=== PATIENT | male | born 1940 | race Caucasian/White ===

== ENCOUNTER 2016-10-20 05:53 | Emergency (ER) | payer MEDICARE, OTHER ==
[~2016-10-20] VITALS: Ht 177.8 cm; Wt 100.0 kg
[~2016-10-20 05:53] MED LIST: COU5 PO
[2016-10-20 05:58] VITALS: Ht 177.8 cm; Wt 100.0 kg
[2016-10-20] MEDS ORDERED: morphine 2 MG INJ IV STA (07:10)
[2016-10-20 08:14] LABS: ADD SCAN DIFF NO
[2016-10-20 08:22] LABS: BASOPHILS % 0.4 % (0.0-2.0); EOSINOPHILS # 0.2 10^3/ul (0.0-0.5); EOSINOPHILS % 2.4 % (0.0-7.0); HEMATOCRIT 45.5 % (42.0-52.0); HEMOGLOBIN 15.1 g/dl (14.0-18.0); LYMPHOCYTES # 1.3 10^3/ul (0.8-2.9); LYMPHOCYTES % 19.6 % (15.0-51.0); MEAN CORPUSCULAR HEMOGLOBIN 30.2 pg (29.0-33.0); MEAN CORPUSCULAR HGB CONC 33.2 g/dl (32.0-37.0); MEAN PLATELET VOLUME 8.3 fl (7.4-10.4); MONOCYTE # 0.5 10^3/ul (0.3-0.9); MONOCYTES % 7.1 % (0.0-11.0); NEUTROPHIL # 4.7 10^3/ul (1.6-7.5); NEUTROPHILS % 69.9 % (39.0-77.0); PLATELET COUNT 310 10^3/UL (140-415); RED CELL DISTRIBUTION WIDTH 14.1 % (11.5-14.5); WHITE BLOOD COUNT 6.7 10^3/ul (4.8-10.8)
[2016-10-20 08:29] LABS: CREATININE 1.02 mg/dl (0.61-1.24)
[2016-10-20 08:30] LABS: CALCIUM 9.3 mg/dl (8.4-10.2)
[2016-10-20] MEDS ORDERED: ACET-2047 PO (08:38)
--- NOTE | 2016-10-20 08:38 | RADRPT ---
PROCEDURE: CT Abdomen and pelvis without contrast. CLINICAL INDICATION: Abdominal Pain TECHNIQUE: CT scan of the abdomen and pelvis with contrast was performed on a multidetector high-r esolution CT scan. . Coronal and sagittal reformatted images were obtained from the axial source i mages. Standard CT scan of the abdomen pelvis without contrast protocols were performed. The total exam CTDI equals 18.44 mGy and the total exam DLP equals 1210.27 mGy-cm. One or more of the following dose reduction techniques were used: - Automated exposure control. - Adjustment of the mA and/or kV according to patient size. Use of iterative reconstruction technique. COMPARISON: None FINDINGS: In the inferior right renal collecting system is a nonobstructing 3 mm calculus. No other urinary c alcified calculi. No hydronephrosis bilaterally. No evidence of intra renal masses bilaterally. T he urinary bladder is severely distended but otherwise unremarkable. There is a huge hiatal hernia present. The stomach is otherwise unremarkable. The small bowel is u nremarkable. There is extensive feces throughout the colon with the rectum and sigmoid colon signif icantly distended consistent with constipation. The large bowel is otherwise unremarkable. The brigitte endix is unremarkable. There is a large left fat containing inguinal hernia but no herniated hour st rangulation. There is a large right inguinal hernia containing fat and bowel but no evidence of str angulation . The liver spleen pancreas and adrenal glands are normal in size configuration without focal lesions. The gallbladder is unremarkable and there is no evidence of biliary ductal dilation. Negative for intra-abdominal free air free fluid abscesses or lymphadenopathy. There is atherosclerotic vascular disease of the abdominal aorta and branches but no evidence of ane urysm. There are parenchymal bands of both lung bases consistent with scarring. There are multiple right basilar subpleural calcified granulomas. Tiny left basilar calcified granuloma. No evidence of basilar pleural effusions. There is extensive degenerative changes of the lower thoracic and michael mbar spine. There are no acute osseous findings. No osteoblastic/osteolytic lesions. IMPRESSION: 1. Huge hiatal hernia. The stomach is otherwise unremarkable. 2. Huge right inguinal hernia containing fat and bowel but no evidence of strangulation. Large fat containing left inguinal hernia without strangulation. 3. 3 mm non-obstructing inferior right renal calculus. No other calcified urinary calculi or obstr uctive uropathy. 4. Severe constipation especially at the level of the rectosigmoid colon. 5. The urinary bladder is severely distended but otherwise appears unremarkable. 6. Negative for intra-abdominal free air fluid abscesses or lymphadenopathy. RPTAT:AAJJ Physician Lucy Date Time Electronically viewed and signed by Saturnino Christopher Physician on 10/20/2016 08:38 BM/
[2016-10-20] MEDS ORDERED: APIX5TAB PO (08:39)
[2016-10-20] MEDS ORDERED: BUME1TAB18 PO (08:39)
[2016-10-20] MEDS ORDERED: FINA5TAB4 PO (08:40)
[2016-10-20] MEDS ORDERED: GABA100C14 PO (08:40)
[2016-10-20 08:41] LABS: TROPONIN-I 0.02 ng/ml (0.00-0.12)
[2016-10-20] MEDS ORDERED: LORA1TAB PO (08:41)
[2016-10-20] MEDS ORDERED: MULTI PO (08:42)
[2016-10-20] MEDS ORDERED: MAGN400O4 PO ×2 (08:42→10:31)
[2016-10-20] MEDS ORDERED: HYDR-906 PO (08:43)
[2016-10-20] MEDS ORDERED: POTA20TA96 PO (08:43)
[2016-10-20] MEDS ORDERED: NIT4 SL (08:43)
[2016-10-20 09:30] LABS: ADD UMIC NO; URINE BILIRUBIN (Dip) NEGATIVE (NEGATIVE); URINE BLOOD (Dip) NEGATIVE (NEGATIVE); URINE COLOR LT. YELLOW (YELLOW); URINE GLUCOSE (Dip) NEGATIVE (NEGATIVE); URINE KETONES (Dip) NEGATIVE (NEGATIVE); URINE LEUKOCYTE ESTERASE (Dip) NEGATIVE (NEGATIVE); URINE NITRITE (Dip) NEGATIVE (NEGATIVE); URINE TOTAL PROTEIN (Dip) NEGATIVE (NEGATIVE); URINE UROBILINOGEN (Dip) 0.2 E.U./dL (0.1-1.0)
[2016-10-20] MEDS ORDERED: NA P133E5 RC (10:31)
[2016-10-20] MEDS ORDERED: HYDROCODONE/APAP (5/325) TAB PO ONE (11:30)
[2016-10-20 11:37] VITALS: BP 129/85; PULSE 59; RESP 21
--- NOTE | 2016-10-20 15:41 | ERD ---
ER Documentation Chief Complaint Date/Time DATE: 10/20/16 TIME: 15:34 Chief Complaint shoulder pain, sent from [facility] HPI 75-year-old male with a history of hypertension, atrial fibrillation, gouty arthritis and BPH sent from [facility] per patient request for evaluation. He is complaining of right shoulder pain on the lateral aspect of the right shoulder, worse with movement, better with rest. Per the report from the nursing facility, the patient was given Crapo at 10 PM last night, but refused his Crapo this morning and requested transfer to the ER. He states that yesterday he was using a wheelchair for the first time after which his whole body has been aching, especially his right shoulder. He denies any associated fevers or chills. No numbness or tingling in the arm or hand. He has no focal weakness. He also complains of left upper quadrant pain that started yesterday , described as aching, intermittent, nonradiating, without associated nausea, vomiting, diarrhea. He states he has occasional constipation. He denies chest pain or shortness of breath. ROS All systems reviewed and are negative except as per history of present illness. Medications Home Meds Active Scripts Na Phos,M-B/Na Phos,Di-Ba (ENEMA) 133 Ml Enema, 133 ML RC ONCE, #1 ENEMA Prov:MARIA G GIL MD 10/20/16 Magnesium Hydroxide* (Milk Of Magnesia*) 400 Mg/5 Ml Oral.susp, 30 ML PO Q24H for CONSTIPATION for 7 Days, #240 ML Prov:MARIA G GIL MD 10/20/16 Reported Medications Potassium Chloride* (Potassium Chloride*) 20 Meq Tablet.er, 20 MEQ PO DAILY, TAB.SA 10/20/16 Hydrocodone/Acetaminophen (Crapo 5-325 Tablet) 1 Each Tablet, 1 EACH PO Q6, TAB 10/20/16 Nitroglycerin* (Nitrostat*) 0.4 Mg Tab.subl, 0.4 MG SL Q5MIN Y for CHEST PAIN, BOTTLE 10/20/16 Multivitamins* (Theragran*) 1 Tab Tab, 1 TAB PO DAILY, TAB 10/20/16 Magnesium Hydroxide* (Milk Of Magnesia*) 400 Mg/5 Ml Oral.susp, 30 ML PO BID Y for CONSTIPATION, ML 10/20/16 Lorazepam* (Lorazepam*) 1 Mg Tablet, 1 MG PO BID Y for ANXIETY, #30 TAB 10/20/16 Gabapentin* (Gabapentin*) 100 Mg Capsule, 200 MG PO BID, #180 CAP 10/20/16 Finasteride* (Finasteride*) 5 Mg Tablet, 5 MG PO DAILY, TAB 10/20/16 Apixaban* (Eliquis*) 5 Mg Tablet, 5 MG PO BID, TAB 10/20/16 Bumetanide* (Bumetanide*) 1 Mg Tablet, 1 MG PO DAILY, TAB 10/20/16 Acetaminophen* (Acetaminophen*) 650 Mg Tablet, 650 MG PO Q6H Y for PAIN AND OR ELEVATED TEMP, #30 TAB 10/20/16 Discontinued Scripts Warfarin Sod (Coumadin) 5 Mg Tab, 5 MG PO DAILY@17 for 30 Days, #30 TAB Prov:MARKY TUTTLE Y 08/04/16 Allergies Allergies: Coded Allergies: codeine (Verified Allergy, Mild, PRURITIS, 05/01/16) pt claimed this was long time ago and was on Crapo recently with no problems. PMhx/Soc History of Surgery: Yes (see notes) Anesthesia Reaction: No Hx Neurological Disorder: No Hx Respiratory Disorders: Yes (copd) Hx Psychiatric Problems: No Hx Miscellaneous Medical Probl: Yes Hx Alcohol Use: No Hx Substance Use: No Hx Tobacco Use: No Smoking Status: Never smoker FmHx Family History: No diabetes Physical Exam Vitals Vital Signs Date Time Temp Pulse Resp B/P Pulse Ox O2 Delivery O2 Flow Rate FiO2 10/20/16 11:37 59 21 129/85 100 Room Air 10/20/16 09:59 60 22 146/89 100 Room Air 10/20/16 08:06 60 19 154/79 100 Room Air 10/20/16 07:07 62 16 130/73 100 Room Air 10/20/16 05:58 98.2 68 18 149/70 100 Physical Exam Const: Well-appearing, no apparent distress, nontoxic Head: Atraumatic Eyes: Normal Conjunctiva ENT: Normal External Ears, Nose and Mouth. Neck: Full range of motion..~ No meningismus. Resp: Clear to auscultation bilaterally Cardio: Regular rate and rhythm, no murmurs Abd: Soft, mild left upper quadrant tenderness, no rebound or guarding, non distended. Normal bowel sounds Skin: No petechiae or rashes Back: No midline or flank tenderness Ext: No cyanosis, or edema. Right upper extremity exam shows a normal shoulder inspection with tenderness over the posterior aspect of the joint and over the deltoid muscle. There are no obvious deformities. There is no erythema or swelling of the joint. The rest of his arm is normal with normal range of motion at the elbow, wrist, fingers. He is able to actively range his arm at the shoulder, however this is limited by pain, especially tries to lift his arm over his head. 2+ distal pulses. All other extremities normal. Neur: Awake and alert and oriented 3, moving all extremities, cranial nerves intact Psych: Normal Mood and Affect Result Diagram: 10/20/16 0753 10/20/16 0753 Results 24 hrs Laboratory Tests Test 10/20/16 07:53 10/20/16 08:59 Anion Gap 16 Basophils # 0.010^3/ul Basophils % 0.4% Blood Urea Nitrogen 20mg/dl Calcium Level 9.3mg/dl Carbon Dioxide Level 29mmol/L Chloride Level 103mmol/L Creatinine 1.02mg/dl Eosinophils # 0.210^3/ul Eosinophils % 2.4% Glucose Level 87mg/dl Hematocrit 45.5% Hemoglobin 15.1g/dl Lipase 41U/L Lymphocytes # 1.310^3/ul Lymphocytes % 19.6% Mean Corpuscular Hemoglobin 30.2pg Mean Corpuscular Hemoglobin Concent 33.2g/dl Mean Corpuscular Volume 91.0fl Mean Platelet Volume 8.3fl Monocytes # 0.510^3/ul Monocytes % 7.1% Neutrophils # 4.710^3/ul Neutrophils % 69.9% Nucleated Red Blood Cells # 0.010^3/ul Nucleated Red Blood Cells % 0.0/100WBC Platelet Count 29473^3/UL Potassium Level 4.0mmol/L Red Blood Count 5.0010^6/ul Red Cell Distribution Width 14.1% Sodium Level 144mmol/L Troponin I 0.020ng/ml White Blood Count 6.710^3/ul Urine Bilirubin NEGATIVE Urine Clarity CLEAR Urine Color LT. YELLOW Urine Glucose NEGATIVE% Urine Hemoglobin NEGATIVE Urine Ketones NEGATIVE Urine Leukocyte Esterase NEGATIVE Urine Nitrite NEGATIVE Urine Specific [place] 1.020 Urine Total Protein NEGATIVE Urine Urobilinogen 0.2 E.U./dL Urine pH 6.0 Current Medications Medications (Trade) Dose Ordered Sig/Terrence Route PRN Reason Start Time Stop Time Status Last Admin Dose Admin Morphine Sulfate (morphine) 2 mg ONCE STAT IV 10/20/16 07:10 10/20/16 07:12 DC 10/20/16 07:32 Acetaminophen/ Hydrocodone Bitart (Crapo (5/325)) 1 tab ONCE ONCE PO 10/20/16 11:30 10/20/16 11:31 DC Procedures/MDM EKG #1: Rate/Rhythm: Sinus rhythm with first-degree AV block QRS, ST, T-waves: No changes consistent w/ acute ischemia Impression: No evidence of ischemia or arrhythmia EKG #2: Rate/Rhythm: Sinus rhythm with first-degree AV block QRS, ST, T-waves: No changes consistent w/ acute ischemia Impression: No evidence of ischemia or arrhythmia Chest x-ray does not show any acute abnormalities CT abdomen and pelvis done which shows severe constipation and a large hiatal hernia without any acute abnormalities Patient is presenting with nonspecific left upper quadrant pain and right shoulder pain. He is hemodynamically stable and afebrile. There is no evidence of acute gout or septic joint. I suspect he likely strained his shoulder secondary to using the wheelchair yesterday. He is neurovascularly intact. CT showed severe constipation. Labs were normal. Urinalysis was normal. The patient stated that he did not want to go back to his facility and wanted to be admitted. I told him that there is no criteria that he meets for admission and his constipation and pain can be treated at his facility. I prescribed him milk of magnesia and an enema. I advised to continue his Crapo for his pain. I also advised follow-up with primary care physician tomorrow. Return precautions were given Patient discharged back to his facility in a stable condition Departure Diagnosis: Primary Impression: Constipation Constipation type: unspecified constipation type Qualified Code: K59.00 - Constipation, unspecified constipation type Additional Impression: Shoulder pain, right Chronicity: acute Qualified Code: M25.511 - Acute pain of right shoulder Condition: Stable Patient Instructions: Shoulder Problems, Constipation (Adult) MARIA G GIL MD Oct 20, 2016 15:41
== END 2016-10-20 11:39 | disposition home or self-care (01) ==
LOC: E/R 05:53
DX: K59.00 Constipation, unspecified (principal); J44.9 Chronic obstructive pulmonary disease, unspecified; I50.9 Heart failure, unspecified; I10 Essential (primary) hypertension; R40.2142 Coma scale, eyes open, spontaneous, at arrival to emergency department; R40.2252 Coma scale, best verbal response, oriented, at arrival to emergency department; R40.2362 Coma scale, best motor response, obeys commands, at arrival to emergency department; Z79.01 Long term (current) use of anticoagulants
CPT/HCPCS: 36415; 74176; 80048; 81003; 83690; 84484; 85025; 93005; 96374; 99285; J2270

== ENCOUNTER 2016-11-06 09:43 | Observation (INO) | payer MEDICARE, OTHER ==
[~2016-11-06] VITALS: Ht 167.6 cm; Wt 81.8 kg
[~2016-11-06 09:43] MED LIST changes: +ACET-2047 PO; +APIX5TAB PO; +BUME1TAB18 PO; -COU5 PO; +FINA5TAB4 PO; +GABA100C14 PO; +HYDR-906 PO; +LORA1TAB PO; +MAGN400O4 PO; +MULTI PO; +NA P133E5 RC; +NIT4 SL; +POTA20TA96 PO
[2016-11-06] MEDS ORDERED: NITROGLYCERIN 2% 1 GM OINT PKT TD STA (09:54)
[2016-11-06] MEDS ORDERED: ASPIRIN 81 MG TAB PO STA (09:54)
[2016-11-06] MEDS ORDERED: NITROGLYCERIN (SL) 0.4 MG TAB SL PRN (10:00)
[2016-11-06 10:36] LABS: ADD SCAN DIFF NO
[2016-11-06 10:38] LABS: BASOPHILS % 0.5 % (0.0-2.0); EOSINOPHILS # 0.1 10^3/ul (0.0-0.5); EOSINOPHILS % 1.5 % (0.0-7.0); HEMATOCRIT 43.5 % (42.0-52.0); HEMOGLOBIN 14.3 g/dl (14.0-18.0); LYMPHOCYTES # 1.1 10^3/ul (0.8-2.9); LYMPHOCYTES % 14.5 % (15.0-51.0); MEAN CORPUSCULAR HEMOGLOBIN 30.2 pg (29.0-33.0); MEAN CORPUSCULAR HGB CONC 32.9 g/dl (32.0-37.0); MEAN PLATELET VOLUME 8.3 fl (7.4-10.4); MONOCYTE # 0.7 10^3/ul (0.3-0.9); MONOCYTES % 9.1 % (0.0-11.0); NEUTROPHIL # 5.4 10^3/ul (1.6-7.5); NEUTROPHILS % 74.1 % (39.0-77.0); PLATELET COUNT 306 10^3/UL (140-415); RED BLOOD COUNT 4.73 10^6/ul (4.70-6.10); RED CELL DISTRIBUTION WIDTH 14.6 % (11.5-14.5); WHITE BLOOD COUNT 7.3 10^3/ul (4.8-10.8)
--- NOTE | 2016-11-06 10:47 | RADRPT ---
PROCEDURE: XR Chest. CLINICAL INDICATION: Chest pain TECHNIQUE: Chest AP portable COMPARISON: 07/31/2016 FINDINGS: The mediastinal structures are unremarkable. There is calcification of the thoracic aorta (consiste nt with atherosclerosis). The heart is normal in size and configuration. The pulmonary vascularity is normal. The lung saavedra are unremarkable. No consolidation is identified. The pleural spaces are unremarkable. The osseous structures are unremarkable. There is a large retrocardiac hiatal her bob. IMPRESSION: Calcification of the thoracic aorta (consistent with atherosclerosis). No evidence for active cardiopulmonary disease. RPTAT: HGDB .Delroy Khan MD, Date Time Electronically viewed and signed by .Delroy Khan MD, on 11/06/2016 10:47 .B/
[2016-11-06 10:50] LABS: INR 1.06; PROTIME 13.8 Sec (12.2-14.2); PT RATIO 1.1
[2016-11-06 11:14] LABS: CHLORIDE 102 mmol/L (97-110); SODIUM 141 mmol/L (135-144)
[2016-11-06 11:15] LABS: POTASSIUM 3.7 mmol/L (3.5-5.1)
[2016-11-06 11:17] LABS: CREATININE 1.01 mg/dl (0.61-1.24)
[2016-11-06 11:18] LABS: ANION GAP 17 (8-16); BLOOD UREA NITROGEN 15 mg/dl (7-20); CALCIUM 9.4 mg/dl (8.4-10.2); CARBON DIOXIDE 26 mmol/L (21-31); GLUCOSE 111 mg/dl (70-220)
[2016-11-06 11:30] LABS: TROPONIN-I < 0.012 ng/ml (0.00-0.12)
[2016-11-06] MEDS ORDERED: ONDANSETRON 4 MG INJ IV PRN ×2 (11:30→13:30)
[2016-11-06] MEDS ORDERED: ACETAMINOPHEN 325 MG TAB PO PRN ×3 (11:30→13:30)
--- NOTE | 2016-11-06 12:26 | ERA ---
ER Documentation Chief Complaint Date/Time DATE: 11/06/16 TIME: 12:22 [facility], took nitro x1, denies cp now HPI Patient is a 76-year-old male with atrial fibrillation and hypertension who presents with chest pain. The patient was brought in by ambulance. He came from an assisted living. The patient has chest pain and epigastric pain which he rates as a 7 out of 10. He took nitroglycerin and felt better. The pain is midsternal. He had high blood pressure as well. This started 45 minutes prior to the ambulance arriving. He has had this in the past. He says that his doctor used to be Dr. Baron but that he recently "fired Dr. Baron". Upon review of old medical records this the patient's ninth visit to the ER since 2005. He said that his primary doctor now is Dr. Menard. ROS All systems reviewed and are negative except as per history of present illness. Medications Home Meds Active Scripts Na Phos,M-B/Na Phos,Di-Ba (ENEMA) 133 Ml Enema, 133 ML RC ONCE, #1 ENEMA Prov:MARIA G GIL MD 10/20/16 Magnesium Hydroxide* (Milk Of Magnesia*) 400 Mg/5 Ml Oral.susp, 30 ML PO Q24H for CONSTIPATION for 7 Days, #240 ML Prov:MARIA G GIL MD 10/20/16 Reported Medications Potassium Chloride* (Potassium Chloride*) 20 Meq Tablet.er, 20 MEQ PO DAILY, TAB.SA 10/20/16 Hydrocodone/Acetaminophen ([place]wood 5-325 Tablet) 1 Each Tablet, 1 EACH PO Q6, TAB 10/20/16 Nitroglycerin* (Nitrostat*) 0.4 Mg Tab.subl, 0.4 MG SL Q5MIN Y for CHEST PAIN, BOTTLE 10/20/16 Multivitamins* (Theragran*) 1 Tab Tab, 1 TAB PO DAILY, TAB 10/20/16 Lorazepam* (Lorazepam*) 1 Mg Tablet, 1 MG PO BID Y for ANXIETY, #30 TAB 10/20/16 Gabapentin* (Gabapentin*) 100 Mg Capsule, 200 MG PO BID, #180 CAP 10/20/16 Finasteride* (Finasteride*) 5 Mg Tablet, 5 MG PO DAILY, TAB 10/20/16 Apixaban* (Eliquis*) 5 Mg Tablet, 5 MG PO BID, TAB 10/20/16 Bumetanide* (Bumetanide*) 1 Mg Tablet, 1 MG PO DAILY, TAB 10/20/16 Acetaminophen* (Acetaminophen*) 650 Mg Tablet, 650 MG PO Q6H Y for PAIN AND OR ELEVATED TEMP, #30 TAB 10/20/16 Discontinued Reported Medications Magnesium Hydroxide* (Milk Of Magnesia*) 400 Mg/5 Ml Oral.susp, 30 ML PO BID Y for CONSTIPATION, ML 10/20/16 Allergies Allergies: Coded Allergies: codeine (Verified Allergy, Mild, PRURITIS, 11/06/16) pt claimed this was long time ago and was on [place]wood recently with no problems. PMhx/Soc History of Surgery: Yes (see notes) Anesthesia Reaction: No Hx Neurological Disorder: Yes (anxiety) Hx Respiratory Disorders: Yes (copd) Hx Psychiatric Problems: Yes (delusion, anxiety ) Hx Miscellaneous Medical Probl: Yes (dm, dvt) Hx Alcohol Use: No Hx Substance Use: No Hx Tobacco Use: No Smoking Status: Unknown if ever smoked FmHx Family History: coronary disease Physical Exam Vitals Vital Signs Date Time Temp Pulse Resp B/P Pulse Ox O2 Delivery O2 Flow Rate FiO2 11/06/16 11:32 66 13 143/83 99 Room Air 11/06/16 09:46 98.2 93 20 152/0 99 Physical Exam Const: No acute distress Head: Atraumatic Eyes: Normal Conjunctiva ENT: Normal External Ears, Nose and Mouth. Neck: Full range of motion..~ No meningismus. Resp: Clear to auscultation bilaterally Cardio: Regular rate and rhythm, no murmurs Abd: Soft, non tender, non distended. Normal bowel sounds Skin: No petechiae or rashes Back: No midline or flank tenderness Ext: No cyanosis, or edema Neur: Awake and alert Psych: Normal Mood and Affect Result Diagram: 11/06/16 1026 11/06/16 1026 Results 24 hrs Laboratory Tests Test 11/06/16 10:26 White Blood Count 7.310^3/ul Red Blood Count 4.7310^6/ul Hemoglobin 14.3g/dl Hematocrit 43.5% Mean Corpuscular Volume 92.0fl Mean Corpuscular Hemoglobin 30.2pg Mean Corpuscular Hemoglobin Concent 32.9g/dl Red Cell Distribution Width 14.6% Platelet Count 04955^3/UL Mean Platelet Volume 8.3fl Neutrophils % 74.1% Lymphocytes % 14.5% Monocytes % 9.1% Eosinophils % 1.5% Basophils % 0.5% Nucleated Red Blood Cells % 0.0/100WBC Neutrophils # 5.410^3/ul Lymphocytes # 1.110^3/ul Monocytes # 0.710^3/ul Eosinophils # 0.110^3/ul Basophils # 0.010^3/ul Nucleated Red Blood Cells # 0.010^3/ul Prothrombin Time 13.8Sec Prothrombin Time Ratio 1.1 INR International Normalized Ratio 1.06 Activated Partial Thromboplast Time 38.0Sec Sodium Level 141mmol/L Potassium Level 3.7mmol/L Chloride Level 102mmol/L Carbon Dioxide Level 26mmol/L Anion Gap 17 Blood Urea Nitrogen 15mg/dl Creatinine 1.01mg/dl Glucose Level 111mg/dl Calcium Level 9.4mg/dl Troponin I < 0.012ng/ml Current Medications Medications (Trade) Dose Ordered Sig/Terrnece Route PRN Reason Start Time Stop Time Status Last Admin Dose Admin Aspirin (Aspirin) 162 mg ONCE STAT PO 11/06/16 09:54 11/06/16 10:53 DC 11/06/16 10:36 Nitroglycerin (Nitroglycerin 2% Oint) 1 inch ONCE STAT TD 11/06/16 09:54 11/06/16 10:53 DC 11/06/16 10:36 Nitroglycerin (Nitroglycerin (Sl Tab) 0.4 Mg) 1 tab Q5M UP TO 3 DOSES PRN SL CHEST PAIN 11/06/16 10:00 Ondansetron HCl (Zofran Inj) 4 mg ER BRIDGE PRN IV NAUSEA AND/OR VOMITING 11/06/16 11:30 11/07/16 11:29 Acetaminophen (Tylenol Tab) 650 mg ER BRIDGE PRN PO MILD PAIN/FEVER 11/06/16 11:30 11/07/16 11:29 Procedures/MDM EKG #1 read by me: Rate/Rhythm: First-degree AV block at a rate of 83 Intervals: Normal Impression: First-degree AV block without evidence of ischemia EKG #2 pending at this time. Chest x-ray negative for pneumonia or pneumothorax per radiology. Patient is a 68-year-old male with hypertension and a family history of coronary disease who presents with chest pain. I am concerned for potential acute coronary syndrome. The patient has a negative troponin at this time. His initial EKG shows a first-degree AV block but no signs of ST elevations or depressions. I doubt pneumonia, pneumothorax, pulmonary embolism, or aortic dissection. The patient will be admitted to the panel team as he has Medicare insurance and says that he recently "fired Dr. Baron". The patient will be admitted to a telemetry bed. Departure Diagnosis: Primary Impression: Chest pain Qualified Code: R07.9 - Chest pain, unspecified type Condition: EROS Brito MD Nov 06, 2016 12:26
[2016-11-06 12:52] VITALS: PULSE 60
[2016-11-06 13:25] VITALS: BP 131/85; PULSE 64; RESP 13
--- NOTE | 2016-11-06 13:29 | HP ---
Date/Time of Note Date/Time of Note DATE: 11/06/16 TIME: 13:25 Assessment/Plan VTE Prophylaxis VTE Prophylaxis Intervention: other (Eliquis) Lines/Catheters IV [facility] Saline Lock Assessment/Plan Chief Complaint/Hosp Course Impression and plan 1. Chest pain. Rule out ACS. Will trend serial troponins. Astronomy Department Chair consult will be obtained. Follow-up on echocardiogram. 2. History of CHF. Continue optimization with cardiovascular medications. Follow-up on echocardiogram and cont diuretic 3. History of atrial fibrillation. Continue on Eliquis for now. Will continue telemetry monitoring. Rate regular at this time 4. Deconditioning. Will get physical therapy to follow 5. Essential hypertension. Will continue on antihypertensives and adjust as needed Discussed plan of care with Dr. Paz Problems: HPI/ROS Admit Date/Time Admit Date/Time Hx of Present Illness This is a 68-year-old 76-year-old male with past medical history of CHF, fibrillation, BPH, hypertension, DVT of left lower extremity who came to [facility] due to reports of chest pain. According to the patient patient said to have chest pain after eating breakfast this morning. He did report the chest pain was midsternal with mild radiation to back. No shortness of breath or nausea or vomiting or any GI symptoms reported with this. He subsequently was brought from senior living facility to [facility] due to the aforementioned issues. Patient was noted with no leukocytosis. Afebrile. Initial troponin was negative. His vital signs otherwise appears stable. Currently he denies any chest pain. he does state having generalized weakness and difficulty with ambulation. We will evaluate him for the aformentiond issues ROS 12 point review of systems obtained and entirely negative except that mentioned in history of present illness PMH/Family/Social Past Medical History CHF, fibrillation, BPH, hypertension, DVT of left lower extremity, hypertension Past Surgical History Past Surgical Hx: no surgical history Social History Alcohol Use: none Smoking Status: Unknown if ever smoked Drug Use: none Exam/Review of Systems Vital Signs Vitals Vital Signs Date Time Temp Pulse Resp B/P Pulse Ox O2 Delivery O2 Flow Rate FiO2 11/06/16 12:52 60 11/06/16 11:32 13 143/83 99 Room Air 11/06/16 09:46 98.2 Exam Exam General: Comfortable at present. No apparent distress Eyes: Equal round reactive to light Neck: Supple nontender, no JVD Cardiac: S1-S2 auscultated Pulmonary: Clear to auscultation GI: Soft nontender nondistended Extremities: No obvious edema bilateral lower extremities Skin: Brownish discoloration of bilateral lower extremities likely secondary to venous stasis chronic Neurologic: AL O 4 Labs Result Diagram: 11/06/16 1026 11/06/16 1026 Medications Medications Current Medications Acetaminophen (Tylenol Tab) 650 mg Q6H PRN PO PAIN AND OR ELEVATED TEMP; Start 11/06/16 at 13:30; Status UNV Apixaban (Eliquis) 5 mg BID PO ; Start 11/06/16 at 21:00; Status UNV Bumetanide (Bumex) 1 mg DAILY PO ; Start 11/07/16 at 09:00; Status UNV Finasteride (Proscar) 5 mg DAILY PO ; Start 11/07/16 at 09:00; Status UNV Gabapentin (Neurontin) 200 mg BID PO ; Start 11/06/16 at 21:00; Status UNV Lorazepam (Ativan) 1 mg BID PRN PO ANXIETY; Start 11/06/16 at 13:30; Status UNV Magnesium Hydroxide (Milk Of Mag) 30 ml Q24H PO ; Start 11/06/16 at 13:30; Status UNV Multivitamins Therapeutic (Theragran) 1 tab DAILY PO ; Start 11/06/16 at 13:30; Status UNV Potassium Chloride (Klor-Con 20) 20 meq DAILY PO ; Start 11/07/16 at 09:00; Status UNV Ondansetron HCl (Zofran Inj) 4 mg Q6H PRN IV NAUSEA AND/OR VOMITING; Start 11/06 at 13:30; Status UNV Acetaminophen (Tylenol Tab) 650 mg Q6H PRN PO PAIN LEVEL 1-3 OR FEVER; Start at 13:30; Status UNV Acetaminophen (Tylenol Supp) 650 mg Q6H PRN ND PAIN LEVEL 1-3 OR FEVER; Start 11/06/16 at 13:30; Status UNV Morphine Sulfate (morphine) 2 mg Q4H PRN IV SEVERE PAIN LEVEL 7-10; Start at 13:30; Status UNV Docusate Sodium (Colace) 100 mg Q12H PRN PO CONSTIPATION; Start 11/06/16 at 13: 30; Status UNV Magnesium Hydroxide (Milk Of Mag) 30 ml DAILY PRN PO CONSTIPATION; Start at 13:30; Status UNV Bisacodyl (Dulcolax Supp) 10 mg DAILY PRN ND CONSTIPATION; Start 11/06/16 at 13: 30; Status UNV Famotidine (Pepcid Iv) 20 mg Q12 IV ; Start 11/06/16 at 21:00; Status UNV JIMBO WEN Nov 06, 2016 13:29
[2016-11-06] MEDS ORDERED: BISACODYL 10 MG SUPP PR PRN (13:30)
[2016-11-06] MEDS ORDERED: morphine 2 MG INJ IV PRN (13:30)
[2016-11-06] MEDS ORDERED: NACL 0.9% 3 ML SYG IV SCH (13:30)
[2016-11-06] MEDS ORDERED: LORAZEPAM 1 MG TAB PO PRN (13:30)
[2016-11-06] MEDS ORDERED: MAGNESIUM HYDROXIDE 30ML CUP PO PRN (13:30)
[2016-11-06] MEDS ORDERED: ACETAMINOPHEN 650 MG SUPP PR PRN (13:30)
[2016-11-06] MEDS ORDERED: DOCUSATE SODIUM 100 MG CAP PO PRN (13:30)
--- NOTE | 2016-11-06 14:36 | CONS ---
Date/Time of Note Date/Time of Note DATE: 11/06/16 TIME: 14:31 Assessment/Plan Assessment/Plan Additional Assessment/Plan Sharp chest pain Preserved ejection fraction Hypertension Paroxysmal atrial fibrillation currently sinus rhythm DVT on anticoagulation Bedbound -Patient with symptoms which began after eating, ECG without significant ischemic abnormalities, first set of cardiac enzymes are negative. Patient is on anticoagulation secondary to history of DVT as well as paroxysmal atrial fibrillation. Would repeat echocardiogram, check serial cardiac enzymes. Maintain on telemetry monitoring. Consultation Date/Type/Reason Admit Date/Time Type of Consultation: cv Reason for Consultation Chest pain Hx of Present Illness This is a 76-year-old male well-known to me from previous admissions with past medical history of paroxysmal atrial fibrillation, DVT, unfortunately bedbound who presents with chest pain. Patient states after eating breakfast this morning, he developed sharp chest pain above his xiphoid process. There was no associated shortness of breath but he did feel faint during this episode. Chest pain resolved after a few seconds to a minute. There was no shortness of breath. He felt better once he got to the emergency room as well. He denies any further episodes. He denies exertional chest pain or shortness of breath. Unfortunately he has been quite debilitated and is not ambulated in "a long time ". Denies any fevers or chills, cough, has occasional abdominal pain. Denies any worsening leg pain. 12 point review of systems was performed with all pertinent positives and negatives mentioned above and all else is negative Past Medical History Paroxysmal atrial fibrillation DVT Medical History: congestive heart failure, hypertension Past Surgical History Past Surgical Hx: no surgical history Family History Significant Family History: no pertinent family hx Social History Alcohol Use: none Smoking Status: Unknown if ever smoked Drug Use: none Other [facility] History [facility] Exam/Review of Systems Vital Signs Vitals Vital Signs Date Time Temp Pulse Resp B/P Pulse Ox O2 Delivery O2 Flow Rate FiO2 11/06/16 13:25 64 13 131/85 94 Room Air 11/06/16 09:46 98.2 Exam No apparent distress Constitutional: alert, oriented Head: normocephalic Neck: supple Respiratory: clear to auscultation, normal air movement Cardiovascular: other (S1-S2 heard), regular rate and rhythm, systolic murmur Gastrointestinal: bowel sounds, non-tender, other (No guarding), soft Extremities: other (Chronic venous stasis changes left lower extremity, trace edema) Results Result Diagram: 11/06/16 1026 11/06/16 1026 Results 24 hrs Laboratory Tests Test 11/06/16 10:26 White Blood Count 7.3 Red Blood Count 4.73 Hemoglobin 14.3 Hematocrit 43.5 Mean Corpuscular Volume 92.0 Mean Corpuscular Hemoglobin 30.2 Mean Corpuscular Hemoglobin Concent 32.9 Red Cell Distribution Width 14.6 H Platelet Count 306 Mean Platelet Volume 8.3 Neutrophils % 74.1 Lymphocytes % 14.5 L Monocytes % 9.1 Eosinophils % 1.5 Basophils % 0.5 Nucleated Red Blood Cells % 0.0 Neutrophils # 5.4 Lymphocytes # 1.1 Monocytes # 0.7 Eosinophils # 0.1 Basophils # 0.0 Nucleated Red Blood Cells # 0.0 Prothrombin Time 13.8 Prothrombin Time Ratio 1.1 INR International Normalized Ratio 1.06 Activated Partial Thromboplast Time 38.0 H Sodium Level 141 Potassium Level 3.7 Chloride Level 102 Carbon Dioxide Level 26 Anion Gap 17 H Blood Urea Nitrogen 15 Creatinine 1.01 Glucose Level 111 Calcium Level 9.4 Troponin I < 0.012 Medications Medications Current Medications Acetaminophen (Tylenol Tab) 650 mg Q6H PRN PO PAIN AND OR ELEVATED TEMP; Start 11/06/16 at 13:30 Apixaban (Eliquis) 5 mg BID PO ; Start 11/06/16 at 21:00; Status UNV Bumetanide (Bumex) 1 mg DAILY PO ; Start 11/07/16 at 09:00; Status UNV Finasteride (Proscar) 5 mg DAILY PO ; Start 11/07/16 at 09:00; Status UNV Gabapentin (Neurontin) 200 mg BID PO ; Start 11/06/16 at 21:00; Status UNV Lorazepam (Ativan) 1 mg BID PRN PO ANXIETY; Start 11/06/16 at 13:30 Magnesium Hydroxide (Milk Of Mag) 30 ml Q24H PO ; Start 11/06/16 at 13:30 Multivitamins Therapeutic (Theragran) 1 tab DAILY PO ; Start 11/06/16 at 13:30 Potassium Chloride (Klor-Con 20) 20 meq DAILY PO ; Start 11/07/16 at 09:00; Status UNV Ondansetron HCl (Zofran Inj) 4 mg Q6H PRN IV NAUSEA AND/OR VOMITING; Start 11/06 at 13:30 Acetaminophen (Tylenol Tab) 650 mg Q6H PRN PO PAIN LEVEL 1-3 OR FEVER; Start at 13:30; Status UNV Acetaminophen (Tylenol Supp) 650 mg Q6H PRN [place] PAIN LEVEL 1-3 OR FEVER; Start 11/06/16 at 13:30 Morphine Sulfate (morphine) 2 mg Q4H PRN IV SEVERE PAIN LEVEL 7-10; Start at 13:30 Docusate Sodium (Colace) 100 mg Q12H PRN PO CONSTIPATION; Start 11/06/16 at 13: 30 Magnesium Hydroxide (Milk Of Mag) 30 ml DAILY PRN PO CONSTIPATION; Start at 13:30 Bisacodyl (Dulcolax Supp) 10 mg DAILY PRN [place] CONSTIPATION; Start 11/06/16 at 13: 30 Famotidine (Pepcid Iv) 20 mg Q12 IV ; Start 11/06/16 at 21:00 Procedures Procedures ECG demonstrates sinus rhythm with first-degree AV block with OR interval 246 ms , QRS 86 ms, nonspecific STT wave abnormalities Mathew Wallace DO Nov 06, 2016 14:36
[2016-11-06] MEDS: MAGNESIUM HYDROXIDE 30ML CUP PO SCH (15:01)
[2016-11-06] MEDS: MULTIVITAMINS THERAPEUTIC TAB PO SCH (15:01)
[2016-11-06 16:08] LABS: CREATINE KINASE 30 IU/L (23-200)
[2016-11-06 16:37] LABS: TROPONIN-I < 0.012 ng/ml (0.00-0.12)
[2016-11-06 16:41] VITALS: PULSE 84
[2016-11-06 16:42] VITALS: BP 103/72; PULSE 84; RESP 15
[2016-11-06 19:05] VITALS: BP 109/66; PULSE 77; RESP 18
[2016-11-06] MEDS: FAMOTIDINE 20 MG INJ IV SCH (20:20)
[2016-11-06] MEDS: GABAPENTIN 100 MG CAP PO SCH (20:20)
[2016-11-06] MEDS: APIXABAN 5 MG TABLET PO SCH (20:20)
[2016-11-06 21:13] VITALS: PULSE 65
[2016-11-06 23:13] LABS: CREATINE KINASE 21 IU/L (23-200)
[2016-11-06 23:31] LABS: CK-MB 0.31 ng/ml (0.0-2.4); TROPONIN-I < 0.012 ng/ml (0.00-0.12)
[2016-11-07] VITALS (11 sets, daily range): BP systolic 103–139; BP diastolic 60–70; PULSE 55–78; RESP 18–20
[2016-11-07] MEDS: HYDROCODONE/APAP (5/325) TAB PO PRN ×2 (02:07→11:13)
[2016-11-07] MEDS ORDERED: ARTIFICIAL TEARS 15 ML OPH BOTH EYES PRN (05:30)
[2016-11-07 07:20] LABS: ALBUMIN 3.2 g/dl (3.3-4.9)
[2016-11-07 07:21] LABS: POTASSIUM 4.1 mmol/L (3.5-5.1)
[2016-11-07 07:23] LABS: ALBUMIN/GLOBULIN RATIO 1.06; BILIRUBIN,INDIRECT 0.4 mg/dl (0-1.1); BILIRUBIN,TOTAL 0.4 mg/dl (0.2-1.3); CREATININE 1.07 mg/dl (0.61-1.24); TOTAL PROTEIN 6.2 g/dl (6.1-8.1)
[2016-11-07 07:24] LABS: CALCIUM 8.6 mg/dl (8.4-10.2); MAGNESIUM 2.3 mg/dl (1.7-2.5); PHOSPHORUS 4.6 mg/dl (2.5-4.9)
[2016-11-07 07:25] LABS: CHOL/HDL RATIO 3.9 RATIO
[2016-11-07 07:37] LABS: T3 UPTAKE 37.1 % (23.5-40.5)
[2016-11-07 07:51] LABS: THYROID STIMULATING HORMONE 2.13 MIU/L (0.465-4.680)
[2016-11-07] MEDS: BUMETANIDE 1 MG TAB PO SCH (08:37)
[2016-11-07] MEDS: MULTIVITAMINS THERAPEUTIC TAB PO SCH (08:38)
[2016-11-07] MEDS: APIXABAN 5 MG TABLET PO SCH ×2 (08:38→20:48)
[2016-11-07] MEDS: GABAPENTIN 100 MG CAP PO SCH ×2 (08:38→20:49)
[2016-11-07] MEDS: FINASTERIDE 5 MG TAB PO SCH (08:38)
[2016-11-07] MEDS: FAMOTIDINE 20 MG INJ IV SCH ×2 (08:38→20:49)
[2016-11-07] MEDS: POTASSIUM CHLORIDE (SR) 20 MEQ TAB PO SCH (08:38)
[2016-11-07] MEDS: MAGNESIUM HYDROXIDE 30ML CUP PO SCH (13:30)
--- NOTE | 2016-11-07 15:33 | RADRPT ---
Echocardiogram Report Patient Name: BREANNA HERNANDEZ Gender: Male Date: 1940 Study Date: 07-Nov-2016 Lead Housekeeper: Kaden Danielson [facility] Location: [id number] Ref. Physician: JIMBO WEN Quality: Adequate Procedures: Transthoracic echocardiogram with complete 2D, M-Mode, and doppler examination. Indications: Chest Pain. 2D/M Mode Doppler Measurement Value Normal Ranges Measurement Value Normal Ranges LVIDd 2D 4.7 3.5 - 5.6 cm AV Peak Ronal 1.3 m/sec LVIDs 2D 2.3 2.1 - 4.1 cm AV Peak PG 7.0 mmHg LVPWd 2D 1.0 0.6 - 1.1 cm AI Peak PG 17.5 mmHg IVSd 2D 1.1 0.6 - 1.1 cm AI Peak Ronal 2.1 m/sec AoR Diam 2D 3.3 2.0 - 3.7 cm AI PHT 456.9 msec EDV 2D 102.9 cm3 LVOT Peak Ronal 1.0 m/sec ESV 2D 11.8 cm3 LVOT Peak PG 4.3 mmHg LA Dimen 2D 3.4 2.3 - 4.0 cm MV E Peak Ronal 0.6 m/sec MV A Peak Ronal 0.4 m/sec MV E/A 1.7 MV Decel Time 150 msec MV Decel Frio 4 MV E/A 1.7 TR Peak Ronal 2.0 m/sec TR Peak PG 16.8 mmHg RVSP 20.0 mmHg Findings Left Ventricle: Normal left ventricular systolic function. Normal left ventricular cavity size. Mild concentric left ventricular hypertrophy. Ejection fraction is visually estimated at 65 %. Right Ventricle: Normal right ventricular size. Normal right ventricular systolic function. Left Atrium: The left atrium is normal in size. Right Atrium: The right atrium is normal in size. Mitral Valve: Mitral valve leaflets appear mildly thickened. Mild mitral annular calcification. No mitral valve regurgitation is seen. Aortic Valve: No hemodynamically significant aortic stenosis by doppler. Aortic cusps appear mildly calcified. Mild aortic valve regurgitation. Tricuspid Valve: Normal appearance of the tricuspid valve. Estimated peak PA systolic pressure 20 mmHg. There is trace tricuspid regurgitation. Pulmonic Valve: Pulmonic valve not well visualized. Pericardium: Normal pericardium with no significant pericardial effusion. Aorta: Normal aortic root. IVC: Normal size and normal respiratory collapse consistent with normal right atrial pressure. Conclusions 1.Normal left ventricular systolic function. Normal left ventricular cavity size. Mild concentric left ventricular hypertrophy. Ejection fraction is visually estimated at 65 %. 2.Normal right ventricular size. Normal right ventricular systolic function. 3.The left atrium is normal in size. 4.The right atrium is normal in size. 5.No hemodynamically significant aortic stenosis by doppler. Aortic cusps appear mildly calcified. Mild aortic valve regurgitation. 6.No significant valvular stenosis or regurgitation seen of remaining visualized valves. 7.Normal pericardium with no significant pericardial effusion. Electronically Signed By: Mathew Wallace 07-Nov-2016 15:32:43 -0700 Patient Name: BREANNA HERNANDEZ Study Date: 07-Nov-2016 [id number]
--- NOTE | 2016-11-07 18:36 | CONS ---
Date/Time of Note Date/Time of Note DATE: 11/07/16 TIME: 18:34 Assessment/Plan Assessment/Plan Additional Assessment/Plan Sharp chest pain Preserved ejection fraction Hypertension Paroxysmal atrial fibrillation currently sinus rhythm DVT on anticoagulation Bedbound -Serial cardiac enzymes remain negative, no significant arrhythmias on telemetry , echocardiogram with preserved ejection fraction. Symptoms occurring after eating. Given atypical symptoms, negative enzymes and cardiac workup so far, no further inpatient cardiac workup needed at the current time Consultation Date/Type/Reason Admit Date/Time Nov 06, 2016 at 11:26 Initial Consult Date Type of Consultation: cv 24 HR Interval Summary Free Text/Dictation Patient denies shortness of breath currently. Brief episode of sharp discomfort this morning after breakfast. Otherwise feeling better. Exam/Review of Systems Vital Signs Vitals Vital Signs Date Time Temp Pulse Resp B/P Pulse Ox O2 Delivery O2 Flow Rate FiO2 11/07/16 16:22 78 11/07/16 15:55 99.1 18 106/67 98 11/07/16 04:15 Room Air Exam No apparent distress Constitutional: alert, oriented Head: normocephalic Neck: supple Respiratory: other (Coarse breath sounds bilaterally, no wheezing) Cardiovascular: other (S1-S2 heard), regular rate and rhythm Gastrointestinal: bowel sounds, non-tender, other (Guarding), soft Extremities: edema, other (No cyanosis) Results Result Diagram: 11/06/16 1026 11/07/16 0636 Results 24 hrs Laboratory Tests Test 11/06/16 22:45 11/07/16 06:36 Creatine Kinase 21 L Creatine Kinase Index 1.5 Creatinine Kinase MB (Mass) 0.31 Troponin I < 0.012 Sodium Level 138 Potassium Level 4.1 Chloride Level 105 Carbon Dioxide Level 28 Anion Gap 9 # Blood Urea Nitrogen 20 Creatinine 1.07 Glucose Level 89 Hemoglobin A1c 5.2 Calcium Level 8.6 Phosphorus Level 4.6 Magnesium Level 2.3 Total Bilirubin 0.4 Direct Bilirubin 0.00 Indirect Bilirubin 0.4 Aspartate Amino Transf (AST/SGOT) 19 Alanine Aminotransferase (ALT/SGPT) 20 Alkaline Phosphatase 101 Total Protein 6.2 Albumin 3.2 L Globulin 3.00 Albumin/Globulin Ratio 1.06 Triglycerides Level 81 Cholesterol Level 195 LDL Cholesterol, Calculated 129 HDL Cholesterol 50 Cholesterol/HDL Ratio 3.9 Thyroid Stimulating Hormone (TSH) 2.130 Free Thyroxine Index 3.08 Thyroxine (T4) 8.3 Triiodothyronine (T3) Uptake 37.1 Medications Medications Current Medications Acetaminophen (Tylenol Tab) 650 mg Q6H PRN PO PAIN AND OR ELEVATED TEMP; Start 11/06/16 at 13:30 Apixaban (Eliquis) 5 mg BID PO Last administered on 11/07/16 08:38; Admin Dose 5 MG; Start 11/06/16 at 21:00 Bumetanide (Bumex) 1 mg DAILY PO Last administered on 11/07/16 08:37; Admin Dose 1 MG; Start 11/07/16 at 09:00 Finasteride (Proscar) 5 mg DAILY PO Last administered on 11/07/16 08:38; Admin Dose 5 MG; Start 11/07/16 at 09:00 Gabapentin (Neurontin) 200 mg BID PO Last administered on 11/07/16 08:38; Admin Dose 200 MG; Start 11/06/16 at 21:00 Lorazepam (Ativan) 1 mg BID PRN PO ANXIETY; Start 11/06/16 at 13:30 Magnesium Hydroxide (Milk Of Mag) 30 ml Q24H PO Last administered on 11/06/16 15:01; Admin Dose 30 ML; Start 11/06/16 at 13:30 Multivitamins Therapeutic (Theragran) 1 tab DAILY PO Last administered on 08:38; Admin Dose 1 TAB; Start 11/06/16 at 13:30 Potassium Chloride (Klor-Con 20) 20 meq DAILY PO Last administered on 11/07/16 08:38; Admin Dose 20 MEQ; Start 11/07/16 at 09:00 Ondansetron HCl (Zofran Inj) 4 mg Q6H PRN IV NAUSEA AND/OR VOMITING; Start 11/06 at 13:30 Acetaminophen (Tylenol Supp) 650 mg Q6H PRN [place] PAIN LEVEL 1-3 OR FEVER; Start 11/06/16 at 13:30 Morphine Sulfate (morphine) 2 mg Q4H PRN IV SEVERE PAIN LEVEL 7-10 Last administered on 11/06/16 23:42; Admin Dose 2 MG; Start 11/06/16 at 13:30 Docusate Sodium (Colace) 100 mg Q12H PRN PO CONSTIPATION; Start 11/06/16 at 13: 30 Magnesium Hydroxide (Milk Of Mag) 30 ml DAILY PRN PO CONSTIPATION; Start at 13:30 Bisacodyl (Dulcolax Supp) 10 mg DAILY PRN [place] CONSTIPATION; Start 11/06/16 at 13: 30 Famotidine (Pepcid Iv) 20 mg Q12 IV Last administered on 11/07/16 08:38; Admin Dose 20 MG; Start 11/06/16 at 21:00 Acetaminophen/ Hydrocodone Bitart ([place] (5/325)) 1 tab Q6H PRN PO pain Last administered on 11/07/16 11:13; Admin Dose 1 TAB; Start 11/07/16 at 02:00 Eye Lubricant (Artificial Tears Oph) 2 drop Q6H PRN BOTH EYES DRY EYES; Start 11/07/16 at 05:30 Mathew Wallace DO Nov 07, 2016 18:36
--- NOTE | 2016-11-07 19:10 | PN ---
DATE: 11/07/2016 TIME OF EVALUATION: 1500 SUBJECTIVE DATA: Denies any chest pain. The patient earlier refused physical therapy. OBJECTIVE DATA: VITAL SIGNS: Temperature 99.1, pulse 70, respiratory rate 18, blood pressure 106/67, oxygen saturation 98% on room air. GENERAL: This is an elderly male lying in bed in no apparent distress. HEENT: Head normocephalic and atraumatic. Eyes: Anicteric sclerae. Conjunctivae clear. ENT: Nasal septum is midline. Oral mucosa is moist. NECK: Supple. No JVD noticed. RESPIRATORY: Bilaterally clear to auscultation. No adventitious breath sounds. No use of accessory muscles of respiration. CARDIAC: Regular rate and rhythm. Systolic murmur heard. ABDOMEN: Soft, nontender and nondistended. Bowel sounds positive in all 4 quadrants. GENITOURINARY: Deferred. EXTREMITIES: No cyanosis, no clubbing. Trace pretibial edema bilaterally. Chronic venous stasis changes of the left lower extremity. NEUROLOGIC: The patient is awake and alert. Oriented 2-3. Grandiose delusions. LABORATORY DATA AND DIAGNOSTIC DATA: Sodium 138, potassium 4.1, chloride 105, carbon dioxide 28, anion gap 9, BUN 20, creatinine 1.07, glucose 89, calcium 8.6 , phosphorus 4.6, magnesium 2.3. ASSESSMENT AND PLAN: 1. Chest pain. Serial troponins negative. 2D echocardiogram showed preserved left ventricular ejection fraction. Cardiology following. 2. Essential hypertension. Continue antihypertensives. Blood pressure fairly well controlled. 3. Paroxysmal atrial fibrillation. Currently in sinus rhythm. The patient being followed by Cardiology. 4. History of left lower extremity superficial femoral vein thrombosis on 07/31. The patient currently on anticoagulation with factor Xa inhibitors. 5. Bed bound. Physical therapy evaluation ordered. However, the patient refused physical therapy evaluation today. 6. Benign prostatic hypertrophy. Continue Proscar. 7. Fluid, electrolytes and nutrition. Low-cholesterol diet. 8. Deep venous thrombosis prophylaxis. On Eliquis. 9. Gastrointestinal prophylaxis. On histamine-2 receptor blockers. 10. Plan: Continue inpatient monitoring. Await cardiac clearance before discharge. Case discussed with Dr. Clark. ANA LAURA CLARK MD, AM/JENNIFER Conf#: [id number] DID#: [id number] [facility]
[2016-11-08] VITALS (10 sets, daily range): BP systolic 113–134; BP diastolic 59–75; PULSE 55–65; RESP 18–20
[2016-11-08 07:20] LABS: ADD SCAN DIFF NO
[2016-11-08 07:26] LABS: BASOPHILS % 0.6 % (0.0-2.0); EOSINOPHILS # 0.2 10^3/ul (0.0-0.5); EOSINOPHILS % 2.9 % (0.0-7.0); HEMATOCRIT 41.3 % (42.0-52.0); HEMOGLOBIN 13.4 g/dl (14.0-18.0); LYMPHOCYTES # 1.5 10^3/ul (0.8-2.9); LYMPHOCYTES % 22.2 % (15.0-51.0); MEAN CORPUSCULAR HEMOGLOBIN 30.5 pg (29.0-33.0); MEAN CORPUSCULAR HGB CONC 32.4 g/dl (32.0-37.0); MEAN CORPUSCULAR VOLUME 94.1 fl (82.0-101.0); MEAN PLATELET VOLUME 8.5 fl (7.4-10.4); MONOCYTE # 0.7 10^3/ul (0.3-0.9); MONOCYTES % 10.1 % (0.0-11.0); NEUTROPHIL # 4.2 10^3/ul (1.6-7.5); NEUTROPHILS % 63.9 % (39.0-77.0); PLATELET COUNT 273 10^3/UL (140-415); RED BLOOD COUNT 4.39 10^6/ul (4.70-6.10); RED CELL DISTRIBUTION WIDTH 14.6 % (11.5-14.5); WHITE BLOOD COUNT 6.5 10^3/ul (4.8-10.8)
[2016-11-08] MEDS: HYDROCODONE/APAP (5/325) TAB PO PRN (07:48)
[2016-11-08 07:49] LABS: MAGNESIUM 2.2 mg/dl (1.7-2.5); PHOSPHORUS 4.4 mg/dl (2.5-4.9)
[2016-11-08 07:57] LABS: POTASSIUM 4.3 mmol/L (3.5-5.1)
[2016-11-08 07:59] LABS: CREATININE 1.02 mg/dl (0.61-1.24)
[2016-11-08] MEDS: FAMOTIDINE 20 MG INJ IV SCH (09:04)
[2016-11-08] MEDS: FINASTERIDE 5 MG TAB PO SCH (09:04)
[2016-11-08] MEDS: MULTIVITAMINS THERAPEUTIC TAB PO SCH (09:04)
[2016-11-08] MEDS: BUMETANIDE 1 MG TAB PO SCH (09:04)
[2016-11-08] MEDS: GABAPENTIN 100 MG CAP PO SCH (09:04)
[2016-11-08] MEDS: POTASSIUM CHLORIDE (SR) 20 MEQ TAB PO SCH (09:04)
[2016-11-08] MEDS: APIXABAN 5 MG TABLET PO SCH (09:04)
--- NOTE | 2016-11-08 11:44 | PDOCDIS ---
Discharge Instructions DIAGNOSIS Discharge Diagnosis: Chest pain. ACS ruled out. CONDITION Patient Condition: Stable HOME CARE INSTRUCTIONS: Diet Instructions: Low Fat /CholesterolSpecial Diet: low fat, low cholesterol OTHER ORDERS: Other Orders: 1. Medications as per medication list. 2. Low-cholesterol diet. ANA LAURA SOMERS NP Nov 08, 2016 11:43
--- NOTE | 2016-11-08 12:49 | CONS ---
Date/Time of Note Date/Time of Note DATE: 11/08/16 TIME: 12:46 Assessment/Plan Assessment/Plan Additional Assessment/Plan Sharp chest pain Preserved ejection fraction Hypertension Paroxysmal atrial fibrillation currently sinus rhythm DVT on anticoagulation Bedbound -denies further cp/sob. Cardiac w/u negative so far, no further inpt cardiac w/ u needed at the current time. Consultation Date/Type/Reason Admit Date/Time Nov 06, 2016 at 11:26 Type of Consultation: cv 24 HR Interval Summary Free Text/Dictation pt denies further cp,sob. c/o R elbow pain with movements Exam/Review of Systems Vital Signs Vitals Vital Signs Date Time Temp Pulse Resp B/P Pulse Ox O2 Delivery O2 Flow Rate FiO2 11/08/16 12:20 97.9 64 18 113/63 100 11/08/16 03:29 2.0 11/07/16 04:15 Room Air Intake and Output 11/07/16 11/07/16 11/08/16 15:00 23:00 07:00 Intake Total 250 ml 1200 ml 500 ml Output Total 975 ml 800 ml Balance 250 ml 225 ml -300 ml Exam nad Constitutional: alert, oriented Head: normocephalic Respiratory: clear to auscultation, normal air movement Cardiovascular: other (s1s2), regular rate and rhythm Gastrointestinal: bowel sounds, non-tender, other (no guarding), soft Extremities: edema (trace), other Results Result Diagram: 11/08/16 0620 11/08/16 0620 Results 24 hrs Laboratory Tests Test 11/08/16 06:20 White Blood Count 6.5 Red Blood Count 4.39 L Hemoglobin 13.4 L Hematocrit 41.3 L Mean Corpuscular Volume 94.1 Mean Corpuscular Hemoglobin 30.5 Mean Corpuscular Hemoglobin Concent 32.4 Red Cell Distribution Width 14.6 H Platelet Count 273 Mean Platelet Volume 8.5 Neutrophils % 63.9 Lymphocytes % 22.2 Monocytes % 10.1 Eosinophils % 2.9 Basophils % 0.6 Nucleated Red Blood Cells % 0.0 Neutrophils # 4.2 Lymphocytes # 1.5 Monocytes # 0.7 Eosinophils # 0.2 Basophils # 0.0 Nucleated Red Blood Cells # 0.0 Sodium Level 137 Potassium Level 4.3 Chloride Level 103 Carbon Dioxide Level 28 Anion Gap 10 Blood Urea Nitrogen 22 H Creatinine 1.02 Glucose Level 90 Calcium Level 9.0 Phosphorus Level 4.4 Magnesium Level 2.2 Medications Medications Current Medications Acetaminophen (Tylenol Tab) 650 mg Q6H PRN PO PAIN AND OR ELEVATED TEMP; Start 11/06/16 at 13:30 Apixaban (Eliquis) 5 mg BID PO Last administered on 11/08/16 09:04; Admin Dose 5 MG; Start 11/06/16 at 21:00 Bumetanide (Bumex) 1 mg DAILY PO Last administered on 11/08/16 09:04; Admin Dose 1 MG; Start 11/07/16 at 09:00 Finasteride (Proscar) 5 mg DAILY PO Last administered on 11/08/16 09:04; Admin Dose 5 MG; Start 11/07/16 at 09:00 Gabapentin (Neurontin) 200 mg BID PO Last administered on 11/08/16 09:04; Admin Dose 200 MG; Start 11/06/16 at 21:00 Lorazepam (Ativan) 1 mg BID PRN PO ANXIETY; Start 11/06/16 at 13:30 Magnesium Hydroxide (Milk Of Mag) 30 ml Q24H PO Last administered on 11/06/16 15:01; Admin Dose 30 ML; Start 11/06/16 at 13:30 Multivitamins Therapeutic (Theragran) 1 tab DAILY PO Last administered on 09:04; Admin Dose 1 TAB; Start 11/06/16 at 13:30 Potassium Chloride (Klor-Con 20) 20 meq DAILY PO Last administered on 11/08/16 09:04; Admin Dose 20 MEQ; Start 11/07/16 at 09:00 Ondansetron HCl (Zofran Inj) 4 mg Q6H PRN IV NAUSEA AND/OR VOMITING; Start 11/06 at 13:30 Acetaminophen (Tylenol Supp) 650 mg Q6H PRN [place] PAIN LEVEL 1-3 OR FEVER; Start 11/06/16 at 13:30 Morphine Sulfate (morphine) 2 mg Q4H PRN IV SEVERE PAIN LEVEL 7-10 Last administered on 11/06/16 23:42; Admin Dose 2 MG; Start 11/06/16 at 13:30 Docusate Sodium (Colace) 100 mg Q12H PRN PO CONSTIPATION; Start 11/06/16 at 13: 30 Magnesium Hydroxide (Milk Of Mag) 30 ml DAILY PRN PO CONSTIPATION; Start at 13:30 Bisacodyl (Dulcolax Supp) 10 mg DAILY PRN [place] CONSTIPATION; Start 11/06/16 at 13: 30 Famotidine (Pepcid Iv) 20 mg Q12 IV Last administered on 11/08/16 09:04; Admin Dose 20 MG; Start 11/06/16 at 21:00 Acetaminophen/ Hydrocodone Bitart ([place] (5/325)) 1 tab Q6H PRN PO pain Last administered on 11/08/16 07:48; Admin Dose 1 TAB; Start 11/07/16 at 02:00 Eye Lubricant (Artificial Tears Oph) 2 drop Q6H PRN BOTH EYES DRY EYES; Start 11/07/16 at 05:30 Mathew Wallace DO Nov 08, 2016 12:49
[2016-11-08] MEDS: MAGNESIUM HYDROXIDE 30ML CUP PO SCH (14:18)
--- NOTE | 2016-11-08 17:46 | DS ---
DATE OF ADMISSION: 11/06/2016 DATE OF DISCHARGE: 11/08/2016 FINAL DIAGNOSES: 1. Chest pain. Acute coronary syndrome ruled out. 2. Essential hypertension. 3. Paroxysmal atrial fibrillation. 4. History of left lower extremity deep venous thrombosis. 5. Bedbound status. 6. Benign prostatic hypertrophy. CONSULTATIONS: Dr. Mathew Wallace, Cardiology. HOSPITAL COURSE: This is a 76-year-old male with past medical history of bipolar, congestive heart failure, paroxysmal atrial fibrillation, benign prostatic hypertrophy, essential hypertension and DVT of the left lower extremity. He came to [facility] due to reports of chest pain. According to the patient, he started having chest pain after he ate his breakfast on the day of admission. He denied any shortness of breath, nausea, or vomiting. He was subsequently brought from [facility] facility to [facility] for further evaluation. The patient was admitted to inpatient setting for further treatment and evaluation. Cardiology consult was also obtained and serial troponins were ordered. A 2D echocardiogram was obtained. The patient's chest pain was extensively evaluated. The patient's serial troponins remained negative. The patient's 2D echocardiogram showed preserved left ventricular ejection fraction. The patient's chest pain is noncardiac in origin. The patient has history of paroxysmal atrial fibrillation. The patient remained in normal sinus rhythm throughout the patient's hospital course. The patient was maintained on factor Xa inhibitors for stroke prophylaxis for his history of paroxysmal atrial fibrillation. The patient has history of left lower extremity DVT. The patient has underlying essential hypertension. The patient is on antihypertensives. He has underlying benign prostatic hypertrophy. He was maintained on finasteride for the same. The patient is chronically bedbound with unclear etiology. The patient refused to have a physical therapy evaluation. The patient had a stable hospital course. The patient was cleared by still cleaner tube for discharge. The patient denied any complaints at the time of discharge. DISCHARGE DISPOSITION/ PLAN: The patient will be discharged to [facility]. The patient will take a low-cholesterol diet. Medications will be as per medication list. CONDITION AT DISCHARGE: Stable. DISCHARGE PHYSICAL EXAMINATION GENERAL: This is an elderly male lying in bed in no apparent distress. HEENT: Head normocephalic and atraumatic. Eyes: Anicteric sclerae. Conjunctivae clear. ENT: Nasal septum is midline. Oral mucosa is moist. NECK: Supple. No JVD noticed. RESPIRATORY: Bilaterally clear to auscultation. No adventitious breath sounds. No use of accessory muscles of respiration. CARDIAC: Regular rate and rhythm. Systolic murmur heard. ABDOMEN: Soft, nontender and nondistended. Bowel sounds positive in all 4 quadrants. GENITOURINARY: Deferred. EXTREMITIES: No cyanosis, no clubbing. Trace pretibial edema bilaterally. Chronic venous stasis changes of the left lower extremity. NEUROLOGIC: The patient is awake and alert. Oriented 2-3. Grandiose delusions. DISCHARGE MEDICATIONS: 1. Eliquis 5 mg p.o. b.i.d. 2. Bumex 100 mg p.o. daily. 3. Finasteride 5 mg p.o. daily. 4. Gabapentin 200 mg p.o. b.i.d. 5. Lorazepam 1 mg p.o. b.i.d. p.r.n. anxiety. 6. Potassium chloride 20 mEq p.o. daily. PERTINENT LABORATORY AND DIAGNOSTIC DATA: 1. 2D echocardiogram. Normal left ventricular systolic function. Normal left ventricular cavity size. Mild concentric left ventricular hypertrophy. Ejection fraction is visually estimated at 55%. 2. Latest CBC: WBC 6.5, hemoglobin 13.4, hematocrit 41.3, platelet count 217 3. Latest BMP: Sodium 137, potassium 4.3, chloride 100, carbon dioxide 28, anion gap 10, BUN 22, creatinine 1.7, glucose 90, calcium 9.0, phosphorus 4.4, magnesium 2.0. 4. Hemoglobin A1c of 5.2. 5. Fasting lipid panel: Triglycerides 81, total cholesterol 195, LDL 129, HDL 53. 6. Chest x-ray, normal. No evidence of active cardiopulmonary disease. At this time, I would like to thank Dr. Wallace for seeing the patient and providing clinical recommendations. The case and management of this patient was fully discussed with Dr. Clark. Approximately 35 minutes was spent on coordinating the discharge on this patient 's. ANA LAURA CLARK MD, AM/JENNIFER Conf#: [id number] DID#: [id number] [facility]
[2016-11-08] MEDS ORDERED: FAMOTIDINE 20 MG TAB PO SCH (21:00)
== END 2016-11-08 19:00 ==
LOC: E/R 09:43 → MS4 11:26
PROVIDERS: ADMIT Hospitalist; ATTEND Hospitalist
DX: R07.89 Other chest pain (principal); I48.0 Paroxysmal atrial fibrillation; N40.0 Benign prostatic hyperplasia without lower urinary tract symptoms; I50.32 Chronic diastolic (congestive) heart failure; I11.0 Hypertensive heart disease with heart failure; Z79.899 Other long term (current) drug therapy; Z86.718 Personal history of other venous thrombosis and embolism; Z74.01 Bed confinement status
CPT/HCPCS: 36415; 71010; 80048; 80053; 80061; 82550; 82553; 83036; 83735; 84100; 84436; 84443; 84479; 84484; 85025; 85610; 85730; 93005; 93306; 96374; 96375; 99285; G0378; J2270

== ENCOUNTER 2016-11-22 11:30 | Inpatient (IN) | payer MEDICARE, OTHER ==
[~2016-11-22] VITALS: Ht 177.8 cm; Wt 78.1 kg
[2016-11-22] MEDS ORDERED: ASPIRIN 325 MG TAB PO STA (11:37)
[2016-11-22] MEDS: NITROGLYCERIN (SL) 0.4 MG TAB SL PRN (11:46)
[2016-11-22 12:02] LABS: ADD SCAN DIFF NO
[2016-11-22 12:10] LABS: BASOPHILS % 0.4 % (0.0-2.0); EOSINOPHILS # 0.1 10^3/ul (0.0-0.5); EOSINOPHILS % 1.9 % (0.0-7.0); HEMATOCRIT 44.8 % (42.0-52.0); HEMOGLOBIN 14.6 g/dl (14.0-18.0); LYMPHOCYTES # 1.7 10^3/ul (0.8-2.9); LYMPHOCYTES % 24.7 % (15.0-51.0); MEAN CORPUSCULAR HEMOGLOBIN 29.9 pg (29.0-33.0); MEAN CORPUSCULAR HGB CONC 32.6 g/dl (32.0-37.0); MEAN CORPUSCULAR VOLUME 91.6 fl (82.0-101.0); MEAN PLATELET VOLUME 8.4 fl (7.4-10.4); MONOCYTE # 0.7 10^3/ul (0.3-0.9); MONOCYTES % 10.9 % (0.0-11.0); NEUTROPHIL # 4.2 10^3/ul (1.6-7.5); NEUTROPHILS % 61.8 % (39.0-77.0); PLATELET COUNT 303 10^3/UL (140-415); RED BLOOD COUNT 4.89 10^6/ul (4.70-6.10); RED CELL DISTRIBUTION WIDTH 13.9 % (11.5-14.5); WHITE BLOOD COUNT 6.8 10^3/ul (4.8-10.8)
[2016-11-22 12:13] LABS: ALBUMIN 3.7 g/dl (3.3-4.9); CHLORIDE 103 mmol/L (97-110); SODIUM 141 mmol/L (135-144)
[2016-11-22 12:14] LABS: POTASSIUM 3.3 mmol/L (3.5-5.1)
[2016-11-22 12:16] LABS: ALBUMIN/GLOBULIN RATIO 1.12; ALKALINE PHOSPHATASE 109 IU/L (42-121); ANION GAP 16 (8-16); ASPARTATE AMINO TRANSFERASE 19 IU/L (15-46); BILIRUBIN,INDIRECT 0.4 mg/dl (0-1.1); BILIRUBIN,TOTAL 0.4 mg/dl (0.2-1.3); BLOOD UREA NITROGEN 16 mg/dl (7-20); CARBON DIOXIDE 25 mmol/L (21-31); CREATININE 1.07 mg/dl (0.61-1.24)
[2016-11-22 12:17] LABS: ALANINE AMINOTRANSFERASE 23 IU/L (13-69); CALCIUM 9.1 mg/dl (8.4-10.2); GLUCOSE 129 mg/dl (70-220)
[2016-11-22 12:25] LABS: INR 1.27; PARTIAL THROMBOPLASTIN TIME 35.2 Sec (25.0-35.0); PT RATIO 1.3
[2016-11-22 12:30] LABS: TROPONIN-I < 0.012 ng/ml (0.00-0.12)
--- NOTE | 2016-11-22 13:13 | RADRPT ---
PROCEDURE: XR Chest. CLINICAL INDICATION: Chest pain. TECHNIQUE: PA and Lateral views of the chest were obtained. COMPARISON: Chest x-rays 11/06/2016 10:36 a.m. FINDINGS: The soft tissues are normal. There are degenerative osteophytes in the thoracic spine. The heart i s upper limits of normal for size. There is a density projecting through the left heart border. Th e cardiomediastinal silhouette and hilar structures are normal. The pulmonary vasculature is normal. There is a less aorta. The lungs are mildly hyperinflated flattening the left diaphragm. There is a plate-like density adjacent to the left costophrenic angle and lower left heart border. The costo phrenic angles are normal. IMPRESSION: 1. Stable chest x-ray with no evidence of active cardiopulmonary disease. 2. Moderate size hiatal hernia. 3. Spondylosis of the thoracic spine. 4. Atherosclerosis of the aortic arch. 5. Plate-like densities consistent with parenchymal scarring or atelectasis in the left lower lung field. RPTAT:AAJJ Physician Vesna Date Time Electronically viewed and signed by Physician Vesna on 11/22/2016 13:13 CARA/
[2016-11-22] MEDS ORDERED: ONDANSETRON 4 MG INJ IV PRN (13:30)
[2016-11-22] MEDS ORDERED: ACETAMINOPHEN 325 MG TAB PO PRN ×2 (13:30→18:30)
[2016-11-22 13:32] VITALS: TEMP 97.9
--- NOTE | 2016-11-22 13:32 | ERA ---
ER Documentation Chief Complaint Date/Time DATE: 11/22/16 TIME: 13:29 Chief Complaint BROUGHT IN VIA EMS FROM SNF DUE TO SVT, CONVERTED IN THE FIELD HPI This is a 76-year-old male who is staying at a residential facility and started complaining of chest pain and heart racing. On arrival the patient was found to be in SVT. EMS attempted Valsalva maneuvers and 6 of adenosine without luck they did try 12 mg of adenosine as well which did not convert him. They stated that when they pulled up in the ambulance bay here that the patient's heart rate spontaneously decreased. His initial heart rate was 200 on the initial EKG, subsequent EKGs demonstrated a heart rate of 170. Patient was having chest pain with this rate however on arrival his heart rate is 102 and he has no chest pain. Patient says he has a history of atrial fibrillation ROS All systems reviewed and are negative except as per history of present illness. Medications Home Meds Active Scripts Na Phos,M-B/Na Phos,Di-Ba (ENEMA) 133 Ml Enema, 133 ML RC ONCE, #1 ENEMA Prov:MARIA G GIL MD 10/20/16 Magnesium Hydroxide* (Milk Of Magnesia*) 400 Mg/5 Ml Oral.susp, 30 ML PO Q24H for CONSTIPATION for 7 Days, #240 ML Prov:MARIA G GIL MD 10/20/16 Reported Medications Potassium Chloride* (Potassium Chloride*) 20 Meq Tablet.er, 20 MEQ PO DAILY, TAB.SA 10/20/16 Hydrocodone/Acetaminophen ([place] 5-325 Tablet) 1 Each Tablet, 1 EACH PO Q6, TAB 10/20/16 Nitroglycerin* (Nitrostat*) 0.4 Mg Tab.subl, 0.4 MG SL Q5MIN Y for CHEST PAIN, BOTTLE 10/20/16 Multivitamins* (Theragran*) 1 Tab Tab, 1 TAB PO DAILY, TAB 10/20/16 Lorazepam* (Lorazepam*) 1 Mg Tablet, 1 MG PO BID Y for ANXIETY, #30 TAB 10/20/16 Gabapentin* (Gabapentin*) 100 Mg Capsule, 200 MG PO BID, #180 CAP 10/20/16 Finasteride* (Finasteride*) 5 Mg Tablet, 5 MG PO DAILY, TAB 10/20/16 Apixaban* (Eliquis*) 5 Mg Tablet, 5 MG PO BID, TAB 10/20/16 Bumetanide* (Bumetanide*) 1 Mg Tablet, 1 MG PO DAILY, TAB 10/20/16 Acetaminophen* (Acetaminophen*) 650 Mg Tablet, 650 MG PO Q6H Y for PAIN AND OR ELEVATED TEMP, #30 TAB 10/20/16 Allergies Allergies: Coded Allergies: No Known Allergy (Unverified , 11/07/16) pt confirms PMhx/Soc History of Surgery: No Anesthesia Reaction: No Hx Neurological Disorder: No Hx Respiratory Disorders: No Hx Cardiac Disorders: Yes (heart failure, afib, edema, HTN, NSTEMI) Hx Psychiatric Problems: Yes (delusional, anxiety) Hx Miscellaneous Medical Probl: No Hx Alcohol Use: No Hx Substance Use: No Hx Tobacco Use: No Smoking Status: Never smoker FmHx Family History: No coronary disease Physical Exam Vitals Vital Signs Date Time Temp Pulse Resp B/P Pulse Ox O2 Delivery O2 Flow Rate FiO2 11/22/16 11:39 Nasal Cannula 2 11/22/16 11:34 98.1 102 18 140/105 96 Physical Exam Const: Well-developed, well-nourished Head: Atraumatic, normocephalic Eyes: Normal Conjunctiva, PERRLA, EOMI, normal sclera, no nystagmus ENT: Normal External Ears, Nose and Mouth, moist mucus membranes. Neck: Full range of motion. No meningismus, no lymphadenopathy. Resp: Clear to auscultation bilaterally, no wheezing, rhonchi, rales Cardio: Tachycardia heart rate 102, no murmurs, S1 S2 present Abd: Soft, non tender x 4, non distended. Normal bowel sounds, no guarding or rebound, no pulsitile abdominal masses or bruits Skin: No petechiae or rashes, no ecchymosis , no maculopapular rash Back: No midline or flank tenderness Ext: No cyanosis, or edema, FROM x 4, normal inspection, neurovascularly intact x 4 Neur: Awake and alert, STR 5/5 x 4, sensation intact x 4, no focal findings, cerebellum intact Psych: Normal Mood and Affect Result Diagram: 11/22/16 1140 11/22/16 1140 Results 24 hrs Laboratory Tests Test 11/22/16 11:40 White Blood Count 6.810^3/ul Red Blood Count 4.8910^6/ul Hemoglobin 14.6g/dl Hematocrit 44.8% Mean Corpuscular Volume 91.6fl Mean Corpuscular Hemoglobin 29.9pg Mean Corpuscular Hemoglobin Concent 32.6g/dl Red Cell Distribution Width 13.9% Platelet Count 59488^3/UL Mean Platelet Volume 8.4fl Neutrophils % 61.8% Lymphocytes % 24.7% Monocytes % 10.9% Eosinophils % 1.9% Basophils % 0.4% Nucleated Red Blood Cells % 0.0/100WBC Neutrophils # 4.210^3/ul Lymphocytes # 1.710^3/ul Monocytes # 0.710^3/ul Eosinophils # 0.110^3/ul Basophils # 0.010^3/ul Nucleated Red Blood Cells # 0.010^3/ul Prothrombin Time 16.0Sec Prothrombin Time Ratio 1.3 INR International Normalized Ratio 1.27 Activated Partial Thromboplast Time 35.2Sec Sodium Level 141mmol/L Potassium Level 3.3mmol/L Chloride Level 103mmol/L Carbon Dioxide Level 25mmol/L Anion Gap 16 Blood Urea Nitrogen 16mg/dl Creatinine 1.07mg/dl Glucose Level 129mg/dl Calcium Level 9.1mg/dl Total Bilirubin 0.4mg/dl Direct Bilirubin 0.00mg/dl Indirect Bilirubin 0.4mg/dl Aspartate Amino Transf (AST/SGOT) 19IU/L Alanine Aminotransferase (ALT/SGPT) 23IU/L Alkaline Phosphatase 109IU/L Troponin I < 0.012ng/ml Total Protein 7.0g/dl Albumin 3.7g/dl Globulin 3.30g/dl Albumin/Globulin Ratio 1.12 Current Medications Medications (Trade) Dose Ordered Sig/Terrence Route PRN Reason Start Time Stop Time Status Last Admin Dose Admin Aspirin (Aspirin) 325 mg ONCE STAT PO 11/22/16 11:37 11/22/16 11:39 DC 11/22/16 11:46 Nitroglycerin (Nitroglycerin (Sl Tab) 0.4 Mg) 1 tab Q5M UP TO 3 DOSES PRN SL CHEST PAIN 11/22/16 12:00 11/22/16 11:46 Ondansetron HCl (Zofran Inj) 4 mg ER BRIDGE PRN IV NAUSEA AND/OR VOMITING 11/22/16 13:30 11/23/16 13:29 Acetaminophen (Tylenol Tab) 650 mg ER BRIDGE PRN PO MILD PAIN/FEVER 11/22/16 13:30 11/23/16 13:29 Procedures/MDM EKG: Rate/Rhythm: Sinus tachycardia with a first-degree AV block QRS, ST, QT: NORMAL CT, QRS, QT] Impression: Abnormal EKG PROCEDURE: XR Chest. CLINICAL INDICATION: Chest pain. TECHNIQUE: PA and Lateral views of the chest were obtained. COMPARISON: Chest x-rays 11/06/2016 10:36 a.m. FINDINGS: The soft tissues are normal. There are degenerative osteophytes in the thoracic spine. The heart is upper limits of normal for size. There is a density projecting through the left heart border. The cardiomediastinal silhouette and hilar structures are normal. The pulmonary vasculature is normal. There is a less aorta. The lungs are mildly hyperinflated flattening the left diaphragm. There is a plate-like density adjacent to the left costophrenic angle and lower left heart border. The costophrenic angles are normal. IMPRESSION: 1. Stable chest x-ray with no evidence of active cardiopulmonary disease. 2. Moderate size hiatal hernia. 3. Spondylosis of the thoracic spine. 4. Atherosclerosis of the aortic arch. 5. Plate-like densities consistent with parenchymal scarring or atelectasis in the left lower lung field. RPTAT:AAJJ Physician Vesna Date Time Electronically viewed and signed by Physician Vesna on 11/22/2016 13:13 CARA/ CC: MARTI LAIRD DO Patient's symptoms are concerning for cardiac cause will require inpatient workup and continuous monitoring. Further w/u for ischemia, arrhythmia, PE or dissection will be deferred to the inpatient team. Accepting Care Team: Current data and ongoing care discussed. Time: Time of admission Primary Provider: Bard manzo Consulting: JEANCARLOS Outstanding Data: none Departure Diagnosis: Primary Impression: Chest pain Qualified Code: R07.9 - Chest pain, unspecified type Additional Impression: SVT (supraventricular tachycardia) Condition: Stable MARTI LAIRD DO Nov 22, 2016 13:32
[2016-11-22 14:30] VITALS: BP 125/70; PULSE 85; RESP 18; Ht 177.8 cm; Wt 78.1 kg
[2016-11-22 14:42] VITALS: PULSE 82
[2016-11-22 16:00] VITALS: BP 119/78; PULSE 80; RESP 20
[2016-11-22] MEDS ORDERED: MAGNESIUM HYDROXIDE 30ML CUP PO SCH (19:00)
[2016-11-22] MEDS ORDERED: NITROGLYCERIN (SL) 0.4 MG TAB SL PRN (19:00)
[2016-11-22 20:15] VITALS: PULSE 78
[2016-11-22 20:18] VITALS: BP 108/66; RESP 20
[2016-11-22] MEDS ORDERED: AL HYDROX/MG HYDROX/SIMETH 30 ML CUP PO ONE (20:30)
[2016-11-22] MEDS: POTASSIUM CHLORIDE (SR) 20 MEQ TAB PO SCH (21:00)
[2016-11-22] MEDS: APIXABAN 5 MG TABLET PO SCH (22:21)
--- NOTE | 2016-11-22 23:20 | PN ---
Date/Time of Note Date/Time of Note DATE: 11/22/16 TIME: 23:17 Assessment/Plan VTE Prophylaxis VTE Prophylaxis Intervention: SCD's Lines/Catheters IV Catheter Type (from Nrsg): Saline Lock Urinary Cath still in place: No Assessment/Plan Assessment/Plan svt vs afib > nsr hx of paf HTN HX OF CHF continue eliquis currently in nsr check echo -NO ABLATION AND NO ANTIARRTYMICS UNLESS RECURRETN EPISODES Subjective 24 Hr Interval Summary Free Text/Dictation his is a 76-year-old male who is staying at a residential facility and started complaining of chest pain and heart racing. On arrival the patient was found to be in SVT. EMS attempted Valsalva maneuvers and 6 of adenosine without luck they did try 12 mg of adenosine as well which did not convert him. They stated that when they pulled up in the ambulance bay here that the patient's heart rate spontaneously decreased. His initial heart rate was 200 on the initial EKG, subsequent EKGs demonstrated a heart rate of 170. Patient was having chest pain with this rate however on arrival his heart rate is 102 and he has no chest pain. Patient says he has a history of atrial fibrillation. On the floor the pateint has converted back to nsr and stable Exam/Review of Systems Vital Signs Vitals Vital Signs Date Time Temp Pulse Resp B/P Pulse Ox O2 Delivery O2 Flow Rate FiO2 11/22/16 20:18 97.6 80 20 108/66 97 11/22/16 14:30 Room Air 11/22/16 11:39 2 Results Result Diagram: 11/22/16 1140 11/22/16 1140 Results 24 hrs Laboratory Tests Test 11/22/16 11:40 White Blood Count 6.8 Red Blood Count 4.89 Hemoglobin 14.6 Hematocrit 44.8 Mean Corpuscular Volume 91.6 Mean Corpuscular Hemoglobin 29.9 Mean Corpuscular Hemoglobin Concent 32.6 Red Cell Distribution Width 13.9 Platelet Count 303 Mean Platelet Volume 8.4 Neutrophils % 61.8 Lymphocytes % 24.7 Monocytes % 10.9 Eosinophils % 1.9 Basophils % 0.4 Nucleated Red Blood Cells % 0.0 Neutrophils # 4.2 Lymphocytes # 1.7 Monocytes # 0.7 Eosinophils # 0.1 Basophils # 0.0 Nucleated Red Blood Cells # 0.0 Prothrombin Time 16.0 H Prothrombin Time Ratio 1.3 INR International Normalized Ratio 1.27 Activated Partial Thromboplast Time 35.2 H Sodium Level 141 Potassium Level 3.3 L Chloride Level 103 Carbon Dioxide Level 25 Anion Gap 16 Blood Urea Nitrogen 16 Creatinine 1.07 Glucose Level 129 Calcium Level 9.1 Total Bilirubin 0.4 Direct Bilirubin 0.00 Indirect Bilirubin 0.4 Aspartate Amino Transf (AST/SGOT) 19 Alanine Aminotransferase (ALT/SGPT) 23 Alkaline Phosphatase 109 Troponin I < 0.012 Total Protein 7.0 Albumin 3.7 Globulin 3.30 H Albumin/Globulin Ratio 1.12 Medications Medications Current Medications Potassium Chloride (Klor-Con 20) 20 meq BID PO ; Start 11/22/16 at 21:00 Acetaminophen (Tylenol Tab) 650 mg Q4H PRN PO PAIN AND OR ELEVATED TEMP; Start 11/22/16 at 18:30 Bumetanide (Bumex) 1 mg DAILY PO ; Start 11/23/16 at 09:00 Apixaban (Eliquis) 5 mg BID PO Last administered on 11/22/16t 22:21; Admin Dose 5 MG; Start 11/22/16 at 21:00 Finasteride (Proscar) 5 mg DAILY PO ; Start 11/23/16 at 09:00 Gabapentin (Neurontin) 200 mg BID PO ; Start 11/22/16 at 21:00 Acetaminophen/ Hydrocodone Bitart ([place] (5/325)) 1 tab Q6 PO ; Start 11/23/16 at 00:00 Lorazepam (Ativan) 1 mg BID PRN PO ANXIETY; Start 11/22/16 at 19:00 Magnesium Hydroxide (Milk Of Mag) 30 ml Q24H PO ; Start 11/22/16 at 19:00 Nitroglycerin (Nitroglycerin (Sl Tab) 0.4 Mg) 1 tab PRN PRN SL CHEST PAIN; Start 11/22/16 at 19:00 JACINTO SCOTT MD Nov 22, 2016 23:20
[2016-11-23] VITALS (11 sets, daily range): BP systolic 103–134; BP diastolic 60–86; PULSE 51–64; RESP 16–26
[2016-11-23] MEDS: GABAPENTIN 100 MG CAP PO SCH ×3 (00:37→21:31)
[2016-11-23] MEDS: HYDROCODONE/APAP (5/325) TAB PO SCH ×4 (00:42→17:40)
[2016-11-23] MEDS: LORAZEPAM 1 MG TAB PO PRN (01:37)
--- NOTE | 2016-11-23 07:04 | HP ---
DATE OF ADMISSION: 11/22/2016 HISTORY OF PRESENT ILLNESS: The patient is a 76-year-old gentleman well known to me from previous several admissions. The patient has a history of hypertension, paroxysmal atrial fibrillation, chronic diastolic congestive heart failure, history of DVT, also paranoid ideation. The patient is being followed by Dr. CARMONA,from psychiatric standpoint at [facility]. The patient was complaining of chest pressure as well as palpitations. When paramedics arrived, the patient apparently was in SVT. EMS attempted Valsalva maneuver and also gave him 2 doses of adenosine. The patient was subsequently transferred to [facility] ER where he was noted to have a heart rate of 102 and was in sinus rhythm but with first degree heart block. The patient did not have any dizziness or syncope. No history of diaphoresis. The patient was mildly short of breath at the time of the episode of palpitations. No reported leg edema. No reported abdominal pain. No reported fever or chills, no reported bleeding from any site. No history of dysuria or hematuria. No history of abdominal pain. No history of focal weakness or TIA. The patient was seen in the ER and was noted to have stable vital signs. The patient was awake, alert and responsive. The patient is being admitted for further evaluation and management. REVIEW OF SYSTEMS: A total of 12 systems were reviewed and all pertinent positive and negative findings have been described in HPI. The patient does have paranoid ideation. PAST MEDICAL HISTORY: The patient has history of cellulitis of the left lower extremity back in April 2016. Also, history of deep vein thrombosis, left lower extremity. PAST SURGICAL HISTORY: None. ALLERGIES: CODEINE. SOCIAL HISTORY: The patient is an ex-smoker, quit smoking in 1998. He also used to drink, quit 26 years ago. FAMILY HISTORY: Noncontributory. PHYSICAL EXAMINATION: GENERAL: The patient is conscious, awake, alert, fairly oriented. VITAL SIGNS: Temperature 97.9, pulse 70, respirations 16, blood pressure 110/85 , O2 saturation 96 on 2 liters nasal cannula. HEENT: Atraumatic, normocephalic. Conjunctivae and lids normal. Oropharynx clear. NECK: Supple. No mass, no thyromegaly. CHEST: Revealed diminished air entry at bases. No use of accessory muscles. CARDIOVASCULAR: S1, S2 normal. No murmur, gallop, or rub. ABDOMEN: Soft, nondistended, nontender. No palpable mass. EXTREMITIES: No leg edema. Pedal pulses palpable. SKIN: Without acute rash. NEUROLOGIC: The patient is awake, alert, fairly oriented with no gross focal deficit. LABORATORY DATA: Done today WBC 6.8, hemoglobin 14.6, platelets 303. Chemistries: Sodium 141, potassium 3.8, BUN 16, creatinine 1, glucose 129, calcium 9.1, AST 19, ALT 23, alkaline phosphatase 109. Chest x-ray: Clear, no acute finding. PHYSICAL EXAMINATION: VITAL SIGNS: The patient noted to be conscious, awake, alert. Vital signs in the ER, temperature 98.1, pulse 102, respirations 19, blood pressure 140/105. HEENT: Atraumatic, normocephalic. Conjunctivae and lids normal. Oropharynx clear. Extraocular movements intact. Nose and ears normal. NECK: Supple. No mass, no thyromegaly. CHEST: Fairly clear. No use of accessory muscles. CARDIOVASCULAR: S1, S2 normal. No murmur, gallop, rub. ABDOMEN: Soft, nontender, nondistended. Bowel sounds present. EXTREMITIES: No leg edema. Pedal pulses palpable. SKIN: Without acute rash. NEUROLOGICAL: The patient is awake, alert, fairly oriented with no gross focal deficit. LABORATORY: Sodium 141, potassium 3.8, BUN 16, creatinine 1, glucose 129, calcium 9.1, AST 19, ALT 23, alkaline phosphatase 109. Troponin negative. WBC 6.8, hemoglobin 14.6, platelet 303. Chest x-ray revealed moderate size hiatal hernia, atherosclerosis of the aortic arch. IMPRESSION: 1. Supraventricular tachycardia. S/p adenosine & valsalva maneuver 2. Paroxysmal atrial fibrillation. currently in NSR 3. Proximal superficial femoral vein thrombosis, left leg. 4. Hypertension. BP stable 5. Preserved left ventricular function on recent echocardiogram with ejection fraction of 65%, mild concentric hypertrophy. 4. Paranoid ideation. The patient is being seen by Dr. Carmona at [facility]. 5. Potassium will be replaced. We will continue Eliquis, nitroglycerin. We will continue with Bumex for diastolic heart failure. We will also increase potassium to 20 b.i.d. . 6. BPH ; Continue proscar 6. Deep venous thrombosis, left lower extremity. Continue eliquis We will notify Dr. Wallace for further recommendation. Plan of care discussed with ER physician as well as the patient and the patient will be admitted on telemetry floor. Currently he is in the ER. Dictated By: OSIRIS MONTEJO/JENNIFER Conf#: [id number] DID#: [id number] MTDD
[2016-11-23 07:42] LABS: POTASSIUM 3.9 mmol/L (3.5-5.1)
[2016-11-23 07:44] LABS: CREATININE 0.99 mg/dl (0.61-1.24)
[2016-11-23 07:45] LABS: CALCIUM 9.2 mg/dl (8.4-10.2)
[2016-11-23 07:53] LABS: TROPONIN-I 0.019 ng/ml (0.00-0.12)
[2016-11-23 09:28] LABS: THYROID STIMULATING HORMONE 1.2 MIU/L (0.465-4.680)
[2016-11-23] MEDS: POTASSIUM CHLORIDE (SR) 20 MEQ TAB PO SCH ×2 (09:52→21:31)
[2016-11-23] MEDS: FINASTERIDE 5 MG TAB PO SCH (09:52)
[2016-11-23] MEDS: APIXABAN 5 MG TABLET PO SCH ×2 (09:52→21:32)
[2016-11-23] MEDS: BUMETANIDE 1 MG TAB PO SCH (09:52)
[2016-11-23] MEDS: AL HYDROX/MG HYDROX/SIMETH 30 ML CUP PO PRN (11:34)
--- NOTE | 2016-11-23 18:12 | CONS ---
Date/Time of Note Date/Time of Note DATE: 11/23/16 TIME: 18:10 Assessment/Plan Assessment/Plan Additional Assessment/Plan Tachyarrhythmia concerning for SVT versus atrial fibrillation with rapid ventricular rates Preserved ejection fraction Hypertension Paroxysmal atrial fibrillation currently sinus rhythm DVT on anticoagulation Bedbound -Patient has maintained in sinus rhythm on telemetry. Potassium level has improved, would check magnesium level. Given bradycardia, no AV mike blocking agents at the current time. Consultation Date/Type/Reason Admit Date/Time Nov 22, 2016 at 13:02 Initial Consult Date Type of Consultation: cv 24 HR Interval Summary Free Text/Dictation Denies chest pain, shortness of breath, palpitations Exam/Review of Systems Vital Signs Vitals Vital Signs Date Time Temp Pulse Resp B/P Pulse Ox O2 Delivery O2 Flow Rate FiO2 11/23/16 16:00 61 11/23/16 11:54 98.0 16 103/63 97 11/22/16 14:30 Room Air 11/22/16 11:39 2 Intake and Output 11/22/16 11/22/16 11/23/16 15:00 23:00 07:00 Intake Total 300 ml Balance 300 ml Exam No apparent distress Constitutional: alert, oriented Head: normocephalic Neck: supple Respiratory: other (Coarse breath sounds bilaterally, no wheezing) Cardiovascular: other (S1-S2 heard), regular rate and rhythm Gastrointestinal: bowel sounds, non-tender, soft Extremities: edema, other (Venous stasis changes) Results Result Diagram: 11/22/16 1140 11/23/16 0618 Results 24 hrs Laboratory Tests Test 11/23/16 06:18 Sodium Level 140 Potassium Level 3.9 Chloride Level 104 Carbon Dioxide Level 26 Anion Gap 14 Blood Urea Nitrogen 18 Creatinine 0.99 Glucose Level 90 Calcium Level 9.2 Troponin I 0.019 Thyroid Stimulating Hormone (TSH) 1.200 Medications Medications Current Medications Potassium Chloride (Klor-Con 20) 20 meq BID PO Last administered on 11/23/16 09:52; Admin Dose 20 MEQ; Start 11/22/16 at 21:00 Acetaminophen (Tylenol Tab) 650 mg Q4H PRN PO PAIN AND OR ELEVATED TEMP; Start 11/22/16 at 18:30 Bumetanide (Bumex) 1 mg DAILY PO Last administered on 11/23/16 09:52; Admin Dose 1 MG; Start 11/23/16 at 09:00 Apixaban (Eliquis) 5 mg BID PO Last administered on 11/23/16 09:52; Admin Dose 5 MG; Start 11/22/16 at 21:00 Finasteride (Proscar) 5 mg DAILY PO Last administered on 11/23/16 09:52; Admin Dose 5 MG; Start 11/23/16 at 09:00 Gabapentin (Neurontin) 200 mg BID PO Last administered on 11/23/16 09:52; Admin Dose 200 MG; Start 11/22/16 at 21:00 Acetaminophen/ Hydrocodone Bitart ([place] (5/325)) 1 tab Q6 PO Last administered on 11/23/16 17:40; Admin Dose 1 TAB; Start 11/23/16 at 00:00 Lorazepam (Ativan) 1 mg BID PRN PO ANXIETY Last administered on 11/23/16 01:37 ; Admin Dose 1 MG; Start 11/22/16 at 19:00 Nitroglycerin (Nitroglycerin (Sl Tab) 0.4 Mg) 1 tab PRN PRN SL CHEST PAIN; Start 11/22/16 at 19:00 Al Hydrox/Mg Hydrox/Simethicone (Mag-Al Plus) 30 ml Q6H PRN PO GASTROINTESTINAL UPSET Last administered on 11/23/16 11:34; Admin Dose 30 ML; Start 11/23/16 at 11:30 Magnesium Hydroxide (Milk Of Mag) 30 ml Q24H PO ; Start 11/23/16 at 20:00 Mathew Wallace DO Nov 23, 2016 18:12
--- NOTE | 2016-11-23 20:24 | PN ---
Date/Time of Note Date/Time of Note DATE: 11/23/16 TIME: 20:20 Assessment/Plan VTE Prophylaxis VTE Prophylaxis Intervention: SCD's Lines/Catheters [facility] Saline Lock Urinary Cath still in place: No Assessment/Plan Chief Complaint/Hosp Course Assessment and plan: 1. Supraventricular tachycardia, status post adenosine. Dr. Wallace is following in cardiology consultation. 2. Paroxysmal atrial fibrillation. Continue Eliquis 3. Proximal superficial femoral vein thrombosis, left leg. 4. Hypertension. 5. Diastolic congestive heart failure with ejection fraction of 65%. Continue Bumex. 4. Paranoid ideation. 5. BPH, continue Proscar. 6. Deep venous thrombosis, left lower extremity. Further recommendations based on clinical course. Plan of care discussed with Dr. Baron. Problems: Subjective 24 Hr Interval Summary Free Text/Dictation Patient remains in sinus rhythm, denies any chest pain denies any shortness of breath. Exam/Review of Systems Vital Signs Vitals Vital Signs Date Time Temp Pulse Resp B/P Pulse Ox O2 Delivery O2 Flow Rate FiO2 11/23/16 20:00 97.9 68 18 134/86 97 11/22/16 14:30 Room Air 11/22/16 11:39 2 Intake and Output 11/22/16 11/22/16 11/23/16 15:00 23:00 07:00 Intake Total 300 ml Balance 300 ml Exam Constitutional: alert, oriented Psych: no complaints Head: normocephalic Eyes: nl conjunctiva ENMT: nl external ears & nose Neck: non-tender, supple Respiratory: clear to auscultation, normal air movement Cardiovascular: nl pulses, regular rate and rhythm Gastrointestinal: non-tender, soft Musculoskeletal: nl extremities to inspection Extremities: normal pulses Neurological: TECHNOLOGY TRAINING ASSOCIATE II-XII intact Results Result Diagram: 11/22/16 1140 11/23/16 0618 Results 24 hrs Laboratory Tests Test 11/23/16 06:18 Sodium Level 140 Potassium Level 3.9 Chloride Level 104 Carbon Dioxide Level 26 Anion Gap 14 Blood Urea Nitrogen 18 Creatinine 0.99 Glucose Level 90 Calcium Level 9.2 Troponin I 0.019 Thyroid Stimulating Hormone (TSH) 1.200 Medications Medications Current Medications Potassium Chloride (Klor-Con 20) 20 meq BID PO Last administered on 11/23/16t 09:52; Admin Dose 20 MEQ; Start 11/22/16 at 21:00 Acetaminophen (Tylenol Tab) 650 mg Q4H PRN PO PAIN AND OR ELEVATED TEMP; Start 11/22/16 at 18:30 Bumetanide (Bumex) 1 mg DAILY PO Last administered on 11/23/16 09:52; Admin Dose 1 MG; Start 11/23/16 at 09:00 Apixaban (Eliquis) 5 mg BID PO Last administered on 11/23/16 09:52; Admin Dose 5 MG; Start 11/22/16 at 21:00 Finasteride (Proscar) 5 mg DAILY PO Last administered on 11/23/16 09:52; Admin Dose 5 MG; Start 11/23/16 at 09:00 Gabapentin (Neurontin) 200 mg BID PO Last administered on 11/23/16 09:52; Admin Dose 200 MG; Start 11/22/16 at 21:00 Acetaminophen/ Hydrocodone Bitart ([place] (5/325)) 1 tab Q6 PO Last administered on 11/23/16 17:40; Admin Dose 1 TAB; Start 11/23/16 at 00:00 Lorazepam (Ativan) 1 mg BID PRN PO ANXIETY Last administered on 11/23/16 01:37 ; Admin Dose 1 MG; Start 11/22/16 at 19:00 Nitroglycerin (Nitroglycerin (Sl Tab) 0.4 Mg) 1 tab PRN PRN SL CHEST PAIN; Start 11/22/16 at 19:00 Al Hydrox/Mg Hydrox/Simethicone (Mag-Al Plus) 30 ml Q6H PRN PO GASTROINTESTINAL UPSET Last administered on 11/23/16 11:34; Admin Dose 30 ML; Start 11/23/16 at 11:30 Magnesium Hydroxide (Milk Of Mag) 30 ml Q24H PO ; Start 11/23/16 at 20:00 LEAH BROUSSARD Nov 23, 2016 20:24
[2016-11-23] MEDS: MAGNESIUM HYDROXIDE 30ML CUP PO SCH (21:32)
[2016-11-24] VITALS (12 sets, daily range): BP systolic 100–159; BP diastolic 62–94; PULSE 52–178; RESP 18–19
[2016-11-24] MEDS: HYDROCODONE/APAP (5/325) TAB PO SCH ×3 (00:29→13:31)
[2016-11-24] MEDS: LORAZEPAM 1 MG TAB PO PRN (00:31)
[2016-11-24 07:46] LABS: ADD SCAN DIFF NO
[2016-11-24 07:55] LABS: BASOPHILS % 0.4 % (0.0-2.0); EOSINOPHILS # 0.2 10^3/ul (0.0-0.5); EOSINOPHILS % 2.9 % (0.0-7.0); HEMATOCRIT 42.4 % (42.0-52.0); HEMOGLOBIN 13.9 g/dl (14.0-18.0); LYMPHOCYTES # 1.8 10^3/ul (0.8-2.9); MEAN CORPUSCULAR HGB CONC 32.8 g/dl (32.0-37.0); MEAN CORPUSCULAR VOLUME 94.6 fl (82.0-101.0); MEAN PLATELET VOLUME 8.5 fl (7.4-10.4); MONOCYTE # 0.5 10^3/ul (0.3-0.9); MONOCYTES % 9.1 % (0.0-11.0); NEUTROPHILS % 54.4 % (39.0-77.0); PLATELET COUNT 293 10^3/UL (140-415); RED BLOOD COUNT 4.48 10^6/ul (4.70-6.10); RED CELL DISTRIBUTION WIDTH 13.7 % (11.5-14.5); WHITE BLOOD COUNT 5.5 10^3/ul (4.8-10.8)
[2016-11-24 08:11] LABS: CALCIUM 9.2 mg/dl (8.4-10.2); CREATININE 1.08 mg/dl (0.61-1.24)
[2016-11-24] MEDS: FINASTERIDE 5 MG TAB PO SCH (08:50)
[2016-11-24] MEDS: APIXABAN 5 MG TABLET PO SCH ×2 (08:50→22:18)
[2016-11-24] MEDS: BUMETANIDE 1 MG TAB PO SCH (08:50)
[2016-11-24] MEDS: POTASSIUM CHLORIDE (SR) 20 MEQ TAB PO SCH (08:50)
[2016-11-24] MEDS: GABAPENTIN 100 MG CAP PO SCH ×2 (08:50→22:18)
[2016-11-24] MEDS: NITROGLYCERIN (SL) 0.4 MG TAB SL PRN (09:48)
[2016-11-24] MEDS: AL HYDROX/MG HYDROX/SIMETH 30 ML CUP PO PRN (10:07)
[2016-11-24] MEDS: AMIODARONE 200 MG TAB PO SCH ×2 (10:07→22:18)
--- NOTE | 2016-11-24 17:07 | PN ---
Date/Time of Note Date/Time of Note DATE: 11/24/16 TIME: 16:59 Assessment/Plan Lines/Catheters IV Catheter Type (from [facility]): Saline Lock Urinary Cath still in place: No Assessment/Plan Assessment/Plan - Supraventricular tachycardia.-Patient had an episode of SVT 1 today per staff. Stable now -Per mortgage advisor -Telemetry monitoring - Paroxysmal atrial fibrillation. -l continue Eliquis, nitroglycerin. -Hypokalemia-resolved - Diastolic heart failure- CONT Bumex - Proximal superficial femoral vein thrombosis, left leg. - Hypertension. - Preserved left ventricular function on recent echocardiogram with ejection fraction of 65%, mild concentric hypertrophy. - Paranoid ideation. The patient is being seen by MD [facility]. - benign prostatic hypertrophy - Continue Proscar. Further recommendations depend on patient's clinical course. Plan of care discussed with MD,, staff Subjective 24 Hr Interval Summary Free Text/Dictation Patient had an episode of SVT earlier today 1, stable now. Afebrile discussed with staff no new issues reported Exam/Review of Systems Vital Signs Vitals Vital Signs Date Time Temp Pulse Resp B/P Pulse Ox O2 Delivery O2 Flow Rate FiO2 11/24/16 16:34 98.5 65 18 132/78 100 Room Air 11/23/16 21:02 2.0 Intake and Output 11/23/16 11/23/16 11/24/16 14:59 22:59 06:59 Intake Total 900 ml Output Total 500 ml Balance 400 ml Exam Constitutional: alert, well developed Psych: nl mood/affect Eyes: EOMI ENMT: nl external ears & nose Neck: non-tender Respiratory: clear to auscultation Cardiovascular: nl pulses Gastrointestinal: nl liver, spleen, soft Genitourinary - Male: nl penis, nl scrotum Musculoskeletal: other Neurological: other Results Result Diagram: 11/24/16 0705 11/24/16 0705 Results 24 hrs Laboratory Tests Test 11/24/16 07:05 White Blood Count 5.5 Red Blood Count 4.48 L Hemoglobin 13.9 L Hematocrit 42.4 Mean Corpuscular Volume 94.6 Mean Corpuscular Hemoglobin 31.0 Mean Corpuscular Hemoglobin Concent 32.8 Red Cell Distribution Width 13.7 Platelet Count 293 Mean Platelet Volume 8.5 Neutrophils % 54.4 Lymphocytes % 33.0 Monocytes % 9.1 Eosinophils % 2.9 Basophils % 0.4 Nucleated Red Blood Cells % 0.0 Neutrophils # 3.0 Lymphocytes # 1.8 Monocytes # 0.5 Eosinophils # 0.2 Basophils # 0.0 Nucleated Red Blood Cells # 0.0 Sodium Level 137 Potassium Level 5.0 Chloride Level 103 Carbon Dioxide Level 30 Anion Gap 9 # Blood Urea Nitrogen 22 H Creatinine 1.08 Glucose Level 88 Calcium Level 9.2 Magnesium Level 2.2 Medications Medications Current Medications Potassium Chloride (Klor-Con 20) 20 meq BID PO Last administered on 11/23/16 21:31; Admin Dose 20 MEQ; Start 11/22/16 at 21:00 Acetaminophen (Tylenol Tab) 650 mg Q4H PRN PO PAIN AND OR ELEVATED TEMP; Start 11/22/16 at 18:30 Bumetanide (Bumex) 1 mg DAILY PO Last administered on 11/24/16 08:50; Admin Dose 1 MG; Start 11/23/16 at 09:00 Apixaban (Eliquis) 5 mg BID PO Last administered on 11/24/16 08:50; Admin Dose 5 MG; Start 11/22/16 at 21:00 Finasteride (Proscar) 5 mg DAILY PO Last administered on 11/24/16 08:50; Admin Dose 5 MG; Start 11/23/16 at 09:00 Gabapentin (Neurontin) 200 mg BID PO Last administered on 11/24/16 08:50; Admin Dose 200 MG; Start 11/22/16 at 21:00 Lorazepam (Ativan) 1 mg BID PRN PO ANXIETY Last administered on 11/24/16 00:31 ; Admin Dose 1 MG; Start 11/22/16 at 19:00 Nitroglycerin (Nitroglycerin (Sl Tab) 0.4 Mg) 1 tab PRN PRN SL CHEST PAIN; Start 11/22/16 at 19:00 Al Hydrox/Mg Hydrox/Simethicone (Mag-Al Plus) 30 ml Q6H PRN PO GASTROINTESTINAL UPSET Last administered on 11/24/16 10:07; Admin Dose 30 ML; Start 11/23/16 at 11:30 Magnesium Hydroxide (Milk Of Mag) 30 ml Q24H PO Last administered on 11/23/16 21:32; Admin Dose 30 ML; Start 11/23/16 at 20:00 Amiodarone HCl (Cordarone) 400 mg BID PO Last administered on 11/24/16t 10:07; Admin Dose 400 MG; Start 11/24/16 at 10:00 Acetaminophen/ Hydrocodone Bitart ([place] (5/325)) 1 tab Q6 PRN PO PAIN LEVEL 4- 6; Start 11/24/16 at 17:00 YAZ BARTLETT Nov 24, 2016 17:07
[2016-11-24] MEDS ORDERED: ARTIFICIAL TEARS 15 ML OPH BOTH EYES PRN (17:30)
--- NOTE | 2016-11-24 18:41 | CONS ---
Date/Time of Note Date/Time of Note DATE: 11/24/16 TIME: 18:39 Assessment/Plan Assessment/Plan Additional Assessment/Plan Paroxysmal SVT Preserved ejection fraction Hypertension Paroxysmal atrial fibrillation currently sinus rhythm DVT on anticoagulation Bedbound -Patient with paroxysmal SVT today and self terminated. Maintain potassium above 4.0 and magnesium above 2.0. Would start amiodarone to help maintain in sinus rhythm. Continue anticoagulation. Low-dose beta-lance initiated as heart rate permits. Consultation Date/Type/Reason Admit Date/Time Nov 23, 2016 at 11:28 Type of Consultation: cv 24 HR Interval Summary Free Text/Dictation Patient with recurrent SVT today. Patient with symptoms of shortness of breath during episode. Denies chest pain, palpitations, self terminated Exam/Review of Systems Vital Signs Vitals Vital Signs Date Time Temp Pulse Resp B/P Pulse Ox O2 Delivery O2 Flow Rate FiO2 11/24/16 16:34 98.5 65 18 132/78 100 Room Air 11/23/16 21:02 2.0 Intake and Output 11/23/16 11/23/16 11/24/16 15:00 23:00 07:00 Intake Total 900 ml Output Total 500 ml Balance 400 ml Exam No apparent distress, following commands Constitutional: alert, oriented Head: normocephalic Neck: supple Respiratory: clear to auscultation, normal air movement Cardiovascular: other (S1-S2 heard), regular rate and rhythm Gastrointestinal: bowel sounds, non-tender, other (No guarding), soft Extremities: edema, other (Venous stasis changes lower extremity) Results Result Diagram: 11/24/16 0705 11/24/16 0705 Results 24 hrs Laboratory Tests Test 11/24/16 07:05 White Blood Count 5.5 Red Blood Count 4.48 L Hemoglobin 13.9 L Hematocrit 42.4 Mean Corpuscular Volume 94.6 Mean Corpuscular Hemoglobin 31.0 Mean Corpuscular Hemoglobin Concent 32.8 Red Cell Distribution Width 13.7 Platelet Count 293 Mean Platelet Volume 8.5 Neutrophils % 54.4 Lymphocytes % 33.0 Monocytes % 9.1 Eosinophils % 2.9 Basophils % 0.4 Nucleated Red Blood Cells % 0.0 Neutrophils # 3.0 Lymphocytes # 1.8 Monocytes # 0.5 Eosinophils # 0.2 Basophils # 0.0 Nucleated Red Blood Cells # 0.0 Sodium Level 137 Potassium Level 5.0 Chloride Level 103 Carbon Dioxide Level 30 Anion Gap 9 # Blood Urea Nitrogen 22 H Creatinine 1.08 Glucose Level 88 Calcium Level 9.2 Magnesium Level 2.2 Medications Medications Current Medications Acetaminophen (Tylenol Tab) 650 mg Q4H PRN PO PAIN AND OR ELEVATED TEMP; Start 11/22/16 at 18:30 Bumetanide (Bumex) 1 mg DAILY PO Last administered on 11/24/16 08:50; Admin Dose 1 MG; Start 11/23/16 at 09:00 Apixaban (Eliquis) 5 mg BID PO Last administered on 11/24/16 08:50; Admin Dose 5 MG; Start 11/22/16 at 21:00 Finasteride (Proscar) 5 mg DAILY PO Last administered on 11/24/16 08:50; Admin Dose 5 MG; Start 11/23/16 at 09:00 Gabapentin (Neurontin) 200 mg BID PO Last administered on 11/24/16 08:50; Admin Dose 200 MG; Start 11/22/16 at 21:00 Lorazepam (Ativan) 1 mg BID PRN PO ANXIETY Last administered on 11/24/16 00:31 ; Admin Dose 1 MG; Start 11/22/16 at 19:00 Nitroglycerin (Nitroglycerin (Sl Tab) 0.4 Mg) 1 tab PRN PRN SL CHEST PAIN; Start 11/22/16 at 19:00 Al Hydrox/Mg Hydrox/Simethicone (Mag-Al Plus) 30 ml Q6H PRN PO GASTROINTESTINAL UPSET Last administered on 11/24/16 10:07; Admin Dose 30 ML; Start 11/23/16 at 11:30 Magnesium Hydroxide (Milk Of Mag) 30 ml Q24H PO Last administered on 11/23/16 21:32; Admin Dose 30 ML; Start 11/23/16 at 20:00 Amiodarone HCl (Cordarone) 400 mg BID PO Last administered on 11/24/16 10:07; Admin Dose 400 MG; Start 11/24/16 at 10:00 Acetaminophen/ Hydrocodone Bitart ([place] (5/325)) 1 tab Q6 PRN PO PAIN LEVEL 4- 6; Start 11/24/16 at 17:00 Eye Lubricant (Artificial Tears Oph) 2 drop Q6H PRN BOTH EYES DRY EYES; Start 11/24/16 at 17:30 Mathew Wallace DO Nov 24, 2016 18:40
[2016-11-24] MEDS: MAGNESIUM HYDROXIDE 30ML CUP PO SCH (20:00)
[2016-11-24] MEDS: METOPROLOL 25 MG TAB PO SCH (22:19)
[2016-11-24] MEDS: HYDROCODONE/APAP (5/325) TAB PO PRN (22:22)
[2016-11-25] VITALS (12 sets, daily range): BP systolic 110–134; BP diastolic 63–77; PULSE 49–72; RESP 17–20
[2016-11-25] MEDS: LORAZEPAM 1 MG TAB PO PRN (01:51)
[2016-11-25] MEDS: HYDROCODONE/APAP (5/325) TAB PO PRN ×2 (06:12→18:44)
[2016-11-25 07:44] LABS: ADD SCAN DIFF NO
[2016-11-25 07:49] LABS: BASOPHILS % 0.6 % (0.0-2.0); EOSINOPHILS # 0.1 10^3/ul (0.0-0.5); EOSINOPHILS % 1.6 % (0.0-7.0); HEMATOCRIT 45.6 % (42.0-52.0); HEMOGLOBIN 14.4 g/dl (14.0-18.0); LYMPHOCYTES # 1.8 10^3/ul (0.8-2.9); LYMPHOCYTES % 26.1 % (15.0-51.0); MEAN CORPUSCULAR HEMOGLOBIN 29.9 pg (29.0-33.0); MEAN CORPUSCULAR HGB CONC 31.6 g/dl (32.0-37.0); MEAN CORPUSCULAR VOLUME 94.8 fl (82.0-101.0); MEAN PLATELET VOLUME 8.6 fl (7.4-10.4); MONOCYTE # 0.5 10^3/ul (0.3-0.9); NEUTROPHIL # 4.5 10^3/ul (1.6-7.5); NEUTROPHILS % 64.4 % (39.0-77.0); PLATELET COUNT 299 10^3/UL (140-415); RED BLOOD COUNT 4.81 10^6/ul (4.70-6.10); RED CELL DISTRIBUTION WIDTH 13.9 % (11.5-14.5)
[2016-11-25 08:13] LABS: CALCIUM 9.3 mg/dl (8.4-10.2); CREATININE 1.05 mg/dl (0.61-1.24); POTASSIUM 4.3 mmol/L (3.5-5.1)
[2016-11-25] MEDS: BUMETANIDE 1 MG TAB PO SCH (08:47)
[2016-11-25] MEDS: APIXABAN 5 MG TABLET PO SCH ×2 (08:47→20:54)
[2016-11-25] MEDS: FINASTERIDE 5 MG TAB PO SCH (08:47)
[2016-11-25] MEDS: GABAPENTIN 100 MG CAP PO SCH ×2 (08:47→20:54)
[2016-11-25] MEDS: METOPROLOL 25 MG TAB PO SCH ×2 (08:48→09:26)
[2016-11-25] MEDS: AMIODARONE 200 MG TAB PO SCH ×3 (08:48→21:00)
--- NOTE | 2016-11-25 09:32 | RADRPT ---
Vent Rate: 166 bpm RR Interval: 0 msec [place] Interval: 0 msec QRS Duration: 76 msec QT Interval: 292 msec QTC Interval: 485 msec P-R-T [place]: 0 - -43 - 76 degrees Supraventricular tachycardia Left axis deviation Nonspecific ST abnormality Abnormal ECG Electronically Signed By: Roney Hutchinson [id number]
[2016-11-25] MEDS: AL HYDROX/MG HYDROX/SIMETH 30 ML CUP PO PRN ×2 (11:09→17:58)
--- NOTE | 2016-11-25 13:24 | PN ---
Date/Time of Note Date/Time of Note DATE: 11/25/16 TIME: 13:20 Assessment/Plan VTE Prophylaxis VTE Prophylaxis Intervention: SCD's Lines/Catheters IV [facility] Type (from [facility] Saline Lock Urinary Cath still in place: No Assessment/Plan Chief Complaint/Hosp Course Assessment and plan: 1. Paroxysmal supraventricular tachycardia. Dr. Wallace is following in cardiology consultation. Continue metoprolol, started on PO amiodarone. 2. Paroxysmal atrial fibrillation. Continue Eliquis 3. Proximal superficial femoral vein thrombosis, left leg. 4. Hypertension. 5. Diastolic congestive heart failure with ejection fraction of 65%. Continue Bumex. 4. Paranoid ideation. 5. BPH, continue Proscar. 6. Deep venous thrombosis, left lower extremity. Further recommendations based on clinical course. Plan of care discussed with Dr. Baron. Problems: Subjective 24 Hr Interval Summary Free Text/Dictation Patient has an episode of SVT, currently in sinus bradycardia at a rate of 50, patient is awake alert denies any chest pain denies shortness of breath. Exam/Review of Systems Vital Signs Vitals Vital Signs Date Time Temp Pulse Resp B/P Pulse Ox O2 Delivery O2 Flow Rate FiO2 11/25/16 12:35 50 11/25/16 11:31 97.7 17 122/64 98 11/24/16 16:34 Room Air 11/23/16 21:02 2.0 Intake and Output 11/24/16 11/24/16 11/25/16 15:00 23:00 07:00 Intake Total 650 ml Output Total 850 ml Balance -200 ml Exam Constitutional: alert, oriented Psych: no complaints Head: normocephalic Eyes: nl conjunctiva ENMT: nl external ears & nose Neck: non-tender, supple Respiratory: clear to auscultation, normal air movement Cardiovascular: nl pulses, regular rate and rhythm Gastrointestinal: non-tender, soft Musculoskeletal: nl extremities to inspection Extremities: normal pulses Neurological: ADMISSION LIAISON II-XII intact Results Result Diagram: 11/25/16 0650 11/25/16 0650 Results 24 hrs Laboratory Tests Test 11/25/16 06:50 White Blood Count 7.0 # Red Blood Count 4.81 Hemoglobin 14.4 Hematocrit 45.6 Mean Corpuscular Volume 94.8 Mean Corpuscular Hemoglobin 29.9 Mean Corpuscular Hemoglobin Concent 31.6 L Red Cell Distribution Width 13.9 Platelet Count 299 Mean Platelet Volume 8.6 Neutrophils % 64.4 Lymphocytes % 26.1 Monocytes % 7.0 Eosinophils % 1.6 Basophils % 0.6 Nucleated Red Blood Cells % 0.0 Neutrophils # 4.5 Lymphocytes # 1.8 Monocytes # 0.5 Eosinophils # 0.1 Basophils # 0.0 Nucleated Red Blood Cells # 0.0 Sodium Level 137 Potassium Level 4.3 Chloride Level 102 Carbon Dioxide Level 29 Anion Gap 10 Blood Urea Nitrogen 19 Creatinine 1.05 Glucose Level 90 Calcium Level 9.3 Magnesium Level 2.3 Medications Medications Current Medications Acetaminophen (Tylenol Tab) 650 mg Q4H PRN PO PAIN AND OR ELEVATED TEMP; Start 11/22/16 at 18:30 Bumetanide (Bumex) 1 mg DAILY PO Last administered on 11/25/16 08:47; Admin Dose 1 MG; Start 11/23/16 at 09:00 Apixaban (Eliquis) 5 mg BID PO Last administered on 11/25/16 08:47; Admin Dose 5 MG; Start 11/22/16 at 21:00 Finasteride (Proscar) 5 mg DAILY PO Last administered on 11/25/16 08:47; Admin Dose 5 MG; Start 11/23/16 at 09:00 Gabapentin (Neurontin) 200 mg BID PO Last administered on 11/25/16 08:47; Admin Dose 200 MG; Start 11/22/16 at 21:00 Lorazepam (Ativan) 1 mg BID PRN PO ANXIETY Last administered on 11/25/16 01:51 ; Admin Dose 1 MG; Start 11/22/16 at 19:00 Nitroglycerin (Nitroglycerin (Sl Tab) 0.4 Mg) 1 tab PRN PRN SL CHEST PAIN; Start 11/22/16 at 19:00 Al Hydrox/Mg Hydrox/Simethicone (Mag-Al Plus) 30 ml Q6H PRN PO GASTROINTESTINAL UPSET Last administered on 11/25/16 11:09; Admin Dose 30 ML; Start 11/23/16 at 11:30 Magnesium Hydroxide (Milk Of Mag) 30 ml Q24H PO Last administered on 11/23/16 21:32; Admin Dose 30 ML; Start 11/23/16 at 20:00 Amiodarone HCl (Cordarone) 400 mg BID PO Last administered on 11/25/16 08:48; Admin Dose 400 MG; Start 11/24/16 at 10:00 Acetaminophen/ Hydrocodone Bitart ([place] (5/325)) 1 tab Q6 PRN PO PAIN LEVEL 4- 6 Last administered on 11/25/16 06:12; Admin Dose 1 TAB; Start 11/24/16 at 17: 00 Eye Lubricant (Artificial Tears Oph) 2 drop Q6H PRN BOTH EYES DRY EYES; Start 11/24/16 at 17:30 Metoprolol Tartrate (Lopressor) 12.5 mg BID PO Last administered on 11/25/16 09:26; Admin Dose 12.5 MG; Start 11/24/16 at 21:00 LEAH BROUSSARD Nov 25, 2016 13:24
--- NOTE | 2016-11-25 14:25 | CONS ---
Date/Time of Note Date/Time of Note DATE: 11/25/16 TIME: 14:23 Assessment/Plan Assessment/Plan Additional Assessment/Plan Paroxysmal SVT Preserved ejection fraction Hypertension Paroxysmal atrial fibrillation currently sinus rhythm DVT on anticoagulation Bedbound -Telemetry reviewed with no further episodes of SVT or atrial fibrillation since initiation of amiodarone. Heart rate on the lower end, will decrease dose of amiodarone to 200 mg twice daily will plan of decreasing to daily over the next 1-2 days if remains in sinus rhythm. Maintain potassium above 4.0 and magnesium above 2.0. Consultation Date/Type/Reason Admit Date/Time Nov 25, 2016 at 11:04 Type of Consultation: cv 24 HR Interval Summary Free Text/Dictation Patient seen and examined, denies chest pain, palpitations or dizziness Exam/Review of Systems Vital Signs Vitals Vital Signs Date Time Temp Pulse Resp B/P Pulse Ox O2 Delivery O2 Flow Rate FiO2 11/25/16 12:35 50 11/25/16 11:31 97.7 17 122/64 98 11/24/16 16:34 Room Air 11/23/16 21:02 2.0 Intake and Output 11/24/16 11/24/16 11/25/16 15:00 23:00 07:00 Intake Total 650 ml Output Total 850 ml Balance -200 ml Exam No apparent distress Constitutional: alert, oriented Head: normocephalic Respiratory: other (Coarse breath sounds bilaterally, no wheezing) Cardiovascular: other (S1-S2 heard), regular rate and rhythm Gastrointestinal: bowel sounds, non-tender, soft Extremities: edema Results Result Diagram: 11/25/16 0650 11/25/16 0650 Results 24 hrs Laboratory Tests Test 11/25/16 06:50 White Blood Count 7.0 # Red Blood Count 4.81 Hemoglobin 14.4 Hematocrit 45.6 Mean Corpuscular Volume 94.8 Mean Corpuscular Hemoglobin 29.9 Mean Corpuscular Hemoglobin Concent 31.6 L Red Cell Distribution Width 13.9 Platelet Count 299 Mean Platelet Volume 8.6 Neutrophils % 64.4 Lymphocytes % 26.1 Monocytes % 7.0 Eosinophils % 1.6 Basophils % 0.6 Nucleated Red Blood Cells % 0.0 Neutrophils # 4.5 Lymphocytes # 1.8 Monocytes # 0.5 Eosinophils # 0.1 Basophils # 0.0 Nucleated Red Blood Cells # 0.0 Sodium Level 137 Potassium Level 4.3 Chloride Level 102 Carbon Dioxide Level 29 Anion Gap 10 Blood Urea Nitrogen 19 Creatinine 1.05 Glucose Level 90 Calcium Level 9.3 Magnesium Level 2.3 Medications Medications Current Medications Acetaminophen (Tylenol Tab) 650 mg Q4H PRN PO PAIN AND OR ELEVATED TEMP; Start 11/22/16 at 18:30 Bumetanide (Bumex) 1 mg DAILY PO Last administered on 11/25/16 08:47; Admin Dose 1 MG; Start 11/23/16 at 09:00 Apixaban (Eliquis) 5 mg BID PO Last administered on 11/25/16 08:47; Admin Dose 5 MG; Start 11/22/16 at 21:00 Finasteride (Proscar) 5 mg DAILY PO Last administered on 11/25/16 08:47; Admin Dose 5 MG; Start 11/23/16 at 09:00 Gabapentin (Neurontin) 200 mg BID PO Last administered on 11/25/16 08:47; Admin Dose 200 MG; Start 11/22/16 at 21:00 Lorazepam (Ativan) 1 mg BID PRN PO ANXIETY Last administered on 11/25/16 01:51 ; Admin Dose 1 MG; Start 11/22/16 at 19:00 Nitroglycerin (Nitroglycerin (Sl Tab) 0.4 Mg) 1 tab PRN PRN SL CHEST PAIN; Start 11/22/16 at 19:00 Al Hydrox/Mg Hydrox/Simethicone (Mag-Al Plus) 30 ml Q6H PRN PO GASTROINTESTINAL UPSET Last administered on 11/25/16 11:09; Admin Dose 30 ML; Start 11/23/16 at 11:30 Magnesium Hydroxide (Milk Of Mag) 30 ml Q24H PO Last administered on 11/23/16 21:32; Admin Dose 30 ML; Start 11/23/16 at 20:00 Amiodarone HCl (Cordarone) 400 mg BID PO Last administered on 11/25/16 08:48; Admin Dose 400 MG; Start 11/24/16 at 10:00 Acetaminophen/ Hydrocodone Bitart ([place] (5/325)) 1 tab Q6 PRN PO PAIN LEVEL 4- 6 Last administered on 11/25/16 06:12; Admin Dose 1 TAB; Start 4/20/17 at 17: 00 Eye Lubricant (Artificial Tears Oph) 2 drop Q6H PRN BOTH EYES DRY EYES; Start 11/24/16 at 17:30 Metoprolol Tartrate (Lopressor) 12.5 mg BID PO Last administered on 11/25/16t 09:26; Admin Dose 12.5 MG; Start 11/24/16 at 21:00 Mathew Wallace DO Nov 25, 2016 14:25
[2016-11-25] MEDS: MAGNESIUM HYDROXIDE 30ML CUP PO SCH (20:00)
[2016-11-26] VITALS (12 sets, daily range): BP systolic 109–154; BP diastolic 60–72; PULSE 46–75; RESP 17–20
[2016-11-26] MEDS: LORAZEPAM 1 MG TAB PO PRN (01:32)
[2016-11-26] MEDS: HYDROCODONE/APAP (5/325) TAB PO PRN ×4 (02:00→22:08)
[2016-11-26] MEDS: BUMETANIDE 1 MG TAB PO SCH (08:25)
[2016-11-26] MEDS: FINASTERIDE 5 MG TAB PO SCH (08:26)
[2016-11-26] MEDS: GABAPENTIN 100 MG CAP PO SCH ×2 (08:26→20:47)
[2016-11-26] MEDS: APIXABAN 5 MG TABLET PO SCH ×2 (08:26→20:47)
[2016-11-26] MEDS: AMIODARONE 200 MG TAB PO SCH ×2 (08:26→20:48)
[2016-11-26 10:11] LABS: CREATININE 1.14 mg/dl (0.61-1.24)
[2016-11-26 10:13] LABS: CALCIUM 9.1 mg/dl (8.4-10.2); MAGNESIUM 2.3 mg/dl (1.7-2.5)
--- NOTE | 2016-11-26 10:30 | PN ---
Date/Time of Note Date/Time of Note DATE: 11/26/16 TIME: 10:29 Assessment/Plan VTE Prophylaxis VTE Prophylaxis Intervention: SCD's Lines/Catheters IV Catheter Type (from [facility]): Saline Lock Urinary Cath still in place: No Assessment/Plan Assessment/Plan Paroxysmal SVT Preserved ejection fraction Hypertension Paroxysmal atrial fibrillation currently sinus rhythm DVT on anticoagulation Bedbound -Telemetry reviewed with no further episodes of SVT or atrial fibrillation since initiation of amiodarone. - Heart rate on the lower end,so dose of amiodarone decreased to 200 mg twice daily will plan of decreasing to daily over the next 1-2 days if remains in sinus rhythm. - Maintain potassium above 4.0 and magnesium above 2.0. Subjective 24 Hr Interval Summary Free Text/Dictation The patient with no change Exam/Review of Systems Vital Signs Vitals Vital Signs Date Time Temp Pulse Resp B/P Pulse Ox O2 Delivery O2 Flow Rate FiO2 11/26/16 08:23 48 11/26/16 07:34 98.2 18 115/60 100 11/24/16 16:34 Room Air 11/23/16 21:02 2.0 Intake and Output 11/25/16 11/25/16 11/26/16 15:00 23:00 07:00 Intake Total 800 ml 470 ml Output Total 1250 ml 1450 ml Balance -450 ml -980 ml Results Result Diagram: 11/25/16 0650 11/26/16 0925 Results 24 hrs Laboratory Tests Test 11/26/16 09:25 Sodium Level 139 Potassium Level 4.0 Chloride Level 101 Carbon Dioxide Level 26 Anion Gap 16 Blood Urea Nitrogen 22 H Creatinine 1.14 Glucose Level 106 Calcium Level 9.1 Magnesium Level 2.3 Medications Medications Current Medications Acetaminophen (Tylenol Tab) 650 mg Q4H PRN PO PAIN AND OR ELEVATED TEMP; Start 11/22/16 at 18:30 Bumetanide (Bumex) 1 mg DAILY PO Last administered on 11/26/16 08:25; Admin Dose 1 MG; Start 11/23/16 at 09:00 Apixaban (Eliquis) 5 mg BID PO Last administered on 11/26/16 08:26; Admin Dose 5 MG; Start 11/22/16 at 21:00 Finasteride (Proscar) 5 mg DAILY PO Last administered on 11/26/16 08:26; Admin Dose 5 MG; Start 11/23/16 at 09:00 Gabapentin (Neurontin) 200 mg BID PO Last administered on 11/26/16 08:26; Admin Dose 200 MG; Start 11/22/16 at 21:00 Lorazepam (Ativan) 1 mg BID PRN PO ANXIETY Last administered on 11/26/16 01:32 ; Admin Dose 1 MG; Start 11/22/16 at 19:00 Nitroglycerin (Nitroglycerin (Sl Tab) 0.4 Mg) 1 tab PRN PRN SL CHEST PAIN; Start 11/22/16 at 19:00 Al Hydrox/Mg Hydrox/Simethicone (Mag-Al Plus) 30 ml Q6H PRN PO GASTROINTESTINAL UPSET Last administered on 11/25/16 17:58; Admin Dose 30 ML; Start 11/23/16 at 11:30 Magnesium Hydroxide (Milk Of Mag) 30 ml Q24H PO Last administered on 11/23/16 21:32; Admin Dose 30 ML; Start 11/23/16 at 20:00 Acetaminophen/ Hydrocodone Bitart ([place] (5/325)) 1 tab Q6 PRN PO PAIN LEVEL 4- 6 Last administered on 11/26/16 08:26; Admin Dose 1 TAB; Start 11/24/16 at 17: 00 Eye Lubricant (Artificial Tears Oph) 2 drop Q6H PRN BOTH EYES DRY EYES; Start 11/24/16 at 17:30 Amiodarone HCl (Cordarone) 200 mg BID PO ; Start 11/25/16 at 21:00 JACINTO SCOTT MD Nov 26, 2016 10:30
--- NOTE | 2016-11-26 11:12 | PN ---
Date/Time of Note Date/Time of Note DATE: 11/26/16 TIME: 11:11 Assessment/Plan VTE Prophylaxis VTE Prophylaxis Intervention: SCD's Lines/Catheters IV C[facility] Type (from [facility] Saline Lock Urinary Cath still in place: No Assessment/Plan Assessment/Plan Paroxysmal SVT Preserved ejection fraction Hypertension Paroxysmal atrial fibrillation currently sinus rhythm DVT on anticoagulation Bedbound -Telemetry reviewed with no further episodes of SVT or atrial fibrillation since initiation of amiodarone. - Heart rate on the lower end,so dose of amiodarone decreased to 200 mg twice daily will plan of decreasing to daily over the next 1-2 days if remains in sinus rhythm. - Maintain potassium above 4.0 and magnesium above 2.0. Subjective 24 Hr Interval Summary Free Text/Dictation the patient with no change Exam/Review of Systems Vital Signs Vitals Vital Signs Date Time Temp Pulse Resp B/P Pulse Ox O2 Delivery O2 Flow Rate FiO2 11/26/16 08:23 48 11/26/16 07:34 98.2 18 115/60 100 11/24/16 16:34 Room Air 11/23/16 21:02 2.0 Intake and Output 11/25/16 11/25/16 11/26/16 15:00 23:00 07:00 Intake Total 800 ml 470 ml Output Total 1250 ml 1450 ml Balance -450 ml -980 ml Results Result Diagram: 11/25/16 0650 11/26/16 0925 Results 24 hrs Laboratory Tests Test 11/26/16 09:25 Sodium Level 139 Potassium Level 4.0 Chloride Level 101 Carbon Dioxide Level 26 Anion Gap 16 Blood Urea Nitrogen 22 H Creatinine 1.14 Glucose Level 106 Calcium Level 9.1 Magnesium Level 2.3 Medications Medications Current Medications Acetaminophen (Tylenol Tab) 650 mg Q4H PRN PO PAIN AND OR ELEVATED TEMP; Start 11/22/16 at 18:30 Bumetanide (Bumex) 1 mg DAILY PO Last administered on 11/26/16 08:25; Admin Dose 1 MG; Start 11/23/16 at 09:00 Apixaban (Eliquis) 5 mg BID PO Last administered on 11/26/16 08:26; Admin Dose 5 MG; Start 11/22/16 at 21:00 Finasteride (Proscar) 5 mg DAILY PO Last administered on 11/26/16 08:26; Admin Dose 5 MG; Start 11/23/16 at 09:00 Gabapentin (Neurontin) 200 mg BID PO Last administered on 11/26/16 08:26; Admin Dose 200 MG; Start 11/22/16 at 21:00 Lorazepam (Ativan) 1 mg BID PRN PO ANXIETY Last administered on 11/26/16 01:32 ; Admin Dose 1 MG; Start 11/22/16 at 19:00 Nitroglycerin (Nitroglycerin (Sl Tab) 0.4 Mg) 1 tab PRN PRN SL CHEST PAIN; Start 11/22/16 at 19:00 Al Hydrox/Mg Hydrox/Simethicone (Mag-Al Plus) 30 ml Q6H PRN PO GASTROINTESTINAL UPSET Last administered on 11/25/16 17:58; Admin Dose 30 ML; Start 11/23/16 at 11:30 Magnesium Hydroxide (Milk Of Mag) 30 ml Q24H PO Last administered on 11/23/16 21:32; Admin Dose 30 ML; Start 11/23/16 at 20:00 Acetaminophen/ Hydrocodone Bitart ([place] (5/325)) 1 tab Q6 PRN PO PAIN LEVEL 4- 6 Last administered on 11/26/16 08:26; Admin Dose 1 TAB; Start 11/24/16 at 17: 00 Eye Lubricant (Artificial Tears Oph) 2 drop Q6H PRN BOTH EYES DRY EYES; Start 11/24/16 at 17:30 Amiodarone HCl (Cordarone) 200 mg BID PO ; Start 11/25/16 at 21:00 JACINTO SCOTT MD Nov 26, 2016 11:12
[2016-11-26] MEDS: AL HYDROX/MG HYDROX/SIMETH 30 ML CUP PO PRN (16:13)
--- NOTE | 2016-11-26 19:22 | PN ---
Date/Time of Note Date/Time of Note DATE: 11/26/16 TIME: 19:20 Assessment/Plan Lines/Catheters IV Catheter Type (from Nrs): Saline Lock Urinary Cath still in place: No Assessment/Plan Assessment/Plan 1. Paroxysmal supraventricular tachycardia- no chest pain at present. HR sr 58 - Dr. Wallace is following in cardiology consultation. Continue metoprolol, started on PO amiodarone. 2. Paroxysmal atrial fibrillation. Continue Eliquis 3. Proximal superficial femoral vein thrombosis, left leg. 4. Hypertension. 5. Diastolic congestive heart failure with ejection fraction of 65%. Continue Bumex. 4. Paranoid ideation. 5. BPH, continue Proscar. 6. Deep venous thrombosis, left lower extremity. Further recommendations based on clinical course. Plan of care discussed with Dr. Baron. Subjective 24 Hr Interval Summary Free Text/Dictation nad, denies chest pain, very talkative, feels better. dw staff. Eyes: no complaints Exam/Review of Systems Vital Signs Vitals Vital Signs Date Time Temp Pulse Resp B/P Pulse Ox O2 Delivery O2 Flow Rate FiO2 11/26/16 16:33 58 11/26/16 16:05 98.1 18 109/61 99 11/24/16 16:34 Room Air 11/23/16 21:02 2.0 Intake and Output 11/25/16 11/25/16 11/26/16 14:59 22:59 06:59 Intake Total 800 ml 470 ml Output Total 1250 ml 1450 ml Balance -450 ml -980 ml Exam Constitutional: alert, oriented, well developed Psych: nl mood/affect Head: atraumatic Eyes: EOMI ENMT: nl external ears & nose Neck: non-tender Respiratory: clear to auscultation Cardiovascular: nl pulses Gastrointestinal: non-tender, soft Musculoskeletal: other Extremities: edema (LLE) Neurological: nl mental status, nl speech Lymph: nontender Results Result Diagram: 11/25/16 0650 11/26/16 0925 Results 24 hrs Laboratory Tests Test 11/26/16 09:25 Sodium Level 139 Potassium Level 4.0 Chloride Level 101 Carbon Dioxide Level 26 Anion Gap 16 Blood Urea Nitrogen 22 H Creatinine 1.14 Glucose Level 106 Calcium Level 9.1 Magnesium Level 2.3 Medications Medications Current Medications Acetaminophen (Tylenol Tab) 650 mg Q4H PRN PO PAIN AND OR ELEVATED TEMP; Start 11/22/16 at 18:30 Bumetanide (Bumex) 1 mg DAILY PO Last administered on 11/26/16 08:25; Admin Dose 1 MG; Start 11/23/16 at 09:00 Apixaban (Eliquis) 5 mg BID PO Last administered on 11/26/16 08:26; Admin Dose 5 MG; Start 11/22/16 at 21:00 Finasteride (Proscar) 5 mg DAILY PO Last administered on 11/26/16 08:26; Admin Dose 5 MG; Start 11/23/16 at 09:00 Gabapentin (Neurontin) 200 mg BID PO Last administered on 11/26/16 08:26; Admin Dose 200 MG; Start 11/22/16 at 21:00 Lorazepam (Ativan) 1 mg BID PRN PO ANXIETY Last administered on 11/26/16 01:32 ; Admin Dose 1 MG; Start 11/22/16 at 19:00 Nitroglycerin (Nitroglycerin (Sl Tab) 0.4 Mg) 1 tab PRN PRN SL CHEST PAIN; Start 11/22/16 at 19:00 Al Hydrox/Mg Hydrox/Simethicone (Mag-Al Plus) 30 ml Q6H PRN PO GASTROINTESTINAL UPSET Last administered on 11/26/16 16:13; Admin Dose 30 ML; Start 11/23/16 at 11:30 Magnesium Hydroxide (Milk Of Mag) 30 ml Q24H PO Last administered on 11/23/16 21:32; Admin Dose 30 ML; Start 11/23/16 at 20:00 Acetaminophen/ Hydrocodone Bitart ([place] (5/325)) 1 tab Q6 PRN PO PAIN LEVEL 4- 6 Last administered on 11/26/16 16:13; Admin Dose 1 TAB; Start 11/24/16 at 17: 00 Eye Lubricant (Artificial Tears Oph) 2 drop Q6H PRN BOTH EYES DRY EYES; Start 11/24/16 at 17:30 Amiodarone HCl (Cordarone) 200 mg BID PO ; Start 11/25/16 at 21:00 YAZ BARTLETT Nov 26, 2016 19:21
[2016-11-26] MEDS: MAGNESIUM HYDROXIDE 30ML CUP PO SCH (20:00)
[2016-11-26] MEDS: NITROGLYCERIN (SL) 0.4 MG TAB SL PRN ×2 (21:55→22:01)
[2016-11-27] VITALS (12 sets, daily range): BP systolic 97–128; BP diastolic 63–75; PULSE 48–92; RESP 16–18
[2016-11-27 08:09] LABS: ADD SCAN DIFF NO
[2016-11-27 08:16] LABS: BASOPHILS % 0.5 % (0.0-2.0); EOSINOPHILS # 0.2 10^3/ul (0.0-0.5); HEMATOCRIT 43.6 % (42.0-52.0); HEMOGLOBIN 13.9 g/dl (14.0-18.0); LYMPHOCYTES # 1.4 10^3/ul (0.8-2.9); MEAN CORPUSCULAR HEMOGLOBIN 30.4 pg (29.0-33.0); MEAN CORPUSCULAR HGB CONC 31.9 g/dl (32.0-37.0); MEAN CORPUSCULAR VOLUME 95.4 fl (82.0-101.0); MEAN PLATELET VOLUME 8.7 fl (7.4-10.4); MONOCYTE # 0.6 10^3/ul (0.3-0.9); MONOCYTES % 8.6 % (0.0-11.0); NEUTROPHIL # 5.2 10^3/ul (1.6-7.5); NEUTROPHILS % 69.5 % (39.0-77.0); PLATELET COUNT 273 10^3/UL (140-415); RED BLOOD COUNT 4.57 10^6/ul (4.70-6.10); RED CELL DISTRIBUTION WIDTH 13.5 % (11.5-14.5); WHITE BLOOD COUNT 7.5 10^3/ul (4.8-10.8)
[2016-11-27 08:35] LABS: CALCIUM 9.1 mg/dl (8.4-10.2); CREATININE 1.05 mg/dl (0.61-1.24); POTASSIUM 4.4 mmol/L (3.5-5.1)
[2016-11-27] MEDS: FINASTERIDE 5 MG TAB PO SCH (08:47)
[2016-11-27] MEDS: BUMETANIDE 1 MG TAB PO SCH (08:47)
[2016-11-27] MEDS: APIXABAN 5 MG TABLET PO SCH ×2 (08:47→21:20)
[2016-11-27] MEDS: HYDROCODONE/APAP (5/325) TAB PO PRN ×2 (08:48→17:05)
[2016-11-27] MEDS: AMIODARONE 200 MG TAB PO SCH ×3 (08:48→21:20)
[2016-11-27] MEDS: GABAPENTIN 100 MG CAP PO SCH ×2 (08:48→21:20)
--- NOTE | 2016-11-27 17:32 | CONS ---
Date/Time of Note Date/Time of Note DATE: 11/27/16 TIME: 17:31 Assessment/Plan Assessment/Plan Additional Assessment/Plan Paroxysmal SVT Preserved ejection fraction Hypertension Paroxysmal atrial fibrillation currently sinus rhythm DVT on anticoagulation Bedbound -Telemetry reviewed with no further episodes of SVT or atrial fibrillation since initiation of amiodarone. Will decrease amiodarone to daily - Maintain potassium above 4.0 and magnesium above 2.0. Consultation Date/Type/Reason Admit Date/Time Nov 25, 2016 at 11:04 Type of Consultation: cv 24 HR Interval Summary Free Text/Dictation Denies current palpitations, shortness of breath Exam/Review of Systems Vital Signs Vitals Vital Signs Date Time Temp Pulse Resp B/P Pulse Ox O2 Delivery O2 Flow Rate FiO2 11/27/16 16:25 73 11/27/16 16:04 98.2 18 113/67 91 11/27/16 04:00 Room Air 11/23/16 21:02 2.0 Intake and Output 11/26/16 11/26/16 11/27/16 14:59 22:59 06:59 Intake Total 800 ml 350 ml Output Total 750 ml 850 ml Balance 50 ml -500 ml Exam Eating lunch, confused at times, no apparent distress Constitutional: alert, oriented Head: normocephalic Respiratory: other (Coarse breath sounds bilaterally, no wheezing) Cardiovascular: other (S1-S2 heard), regular rate and rhythm Gastrointestinal: bowel sounds, non-tender, soft Extremities: other (Venous stasis changes) Results Result Diagram: 11/27/16 0745 11/27/16 0745 Results 24 hrs Laboratory Tests Test 11/27/16 07:45 White Blood Count 7.5 Red Blood Count 4.57 L Hemoglobin 13.9 L Hematocrit 43.6 Mean Corpuscular Volume 95.4 Mean Corpuscular Hemoglobin 30.4 Mean Corpuscular Hemoglobin Concent 31.9 L Red Cell Distribution Width 13.5 Platelet Count 273 Mean Platelet Volume 8.7 Neutrophils % 69.5 Lymphocytes % 19.0 Monocytes % 8.6 Eosinophils % 2.0 Basophils % 0.5 Nucleated Red Blood Cells % 0.0 Neutrophils # 5.2 Lymphocytes # 1.4 Monocytes # 0.6 Eosinophils # 0.2 Basophils # 0.0 Nucleated Red Blood Cells # 0.0 Sodium Level 136 Potassium Level 4.4 Chloride Level 103 Carbon Dioxide Level 27 Anion Gap 10 # Blood Urea Nitrogen 24 H Creatinine 1.05 Glucose Level 86 Calcium Level 9.1 Medications Medications Current Medications Acetaminophen (Tylenol Tab) 650 mg Q4H PRN PO PAIN AND OR ELEVATED TEMP; Start 11/22/16 at 18:30 Bumetanide (Bumex) 1 mg DAILY PO Last administered on 11/27/16 08:47; Admin Dose 1 MG; Start 11/23/16 at 09:00 Apixaban (Eliquis) 5 mg BID PO Last administered on 11/27/16 08:47; Admin Dose 5 MG; Start 11/22/16 at 21:00 Finasteride (Proscar) 5 mg DAILY PO Last administered on 11/27/16 08:47; Admin Dose 5 MG; Start 11/23/16 at 09:00 Gabapentin (Neurontin) 200 mg BID PO Last administered on 11/27/16 08:48; Admin Dose 200 MG; Start 11/22/16 at 21:00 Lorazepam (Ativan) 1 mg BID PRN PO ANXIETY Last administered on 11/26/16 01:32 ; Admin Dose 1 MG; Start 11/22/16 at 19:00 Nitroglycerin (Nitroglycerin (Sl Tab) 0.4 Mg) 1 tab PRN PRN SL CHEST PAIN; Start 11/22/16 at 19:00 Al Hydrox/Mg Hydrox/Simethicone (Mag-Al Plus) 30 ml Q6H PRN PO GASTROINTESTINAL UPSET Last administered on 11/26/16 16:13; Admin Dose 30 ML; Start 11/23/16 at 11:30 Magnesium Hydroxide (Milk Of Mag) 30 ml Q24H PO Last administered on 11/23/16 21:32; Admin Dose 30 ML; Start 11/23/16 at 20:00 Acetaminophen/ Hydrocodone Bitart ([place] (5/325)) 1 tab Q6 PRN PO PAIN LEVEL 4- 6 Last administered on 11/27/16 17:05; Admin Dose 1 TAB; Start 11/24/16 at 17: 00 Eye Lubricant (Artificial Tears Oph) 2 drop Q6H PRN BOTH EYES DRY EYES; Start 11/24/16 at 17:30 Amiodarone HCl (Cordarone) 200 mg BID PO Last administered on 11/27/16 10:02; Admin Dose 200 MG; Start 11/25/16 at 21:00 Mathew Wallace DO Nov 27, 2016 17:31
--- NOTE | 2016-11-27 17:57 | PN ---
Date/Time of Note Date/Time of Note DATE: 11/27/16 TIME: 17:56 Assessment/Plan VTE Prophylaxis VTE Prophylaxis Intervention: other Lines/Catheters IV [facility] Type [facility] Saline Lock Urinary Cath still in place: No Assessment/Plan Assessment/Plan 1. Paroxysmal supraventricular tachycardia- no chest pain at present. HR sr 58 - Dr. Wallace is following in cardiology consultation. Continue metoprolol, started on PO amiodarone. 2. Paroxysmal atrial fibrillation. Continue Eliquis 3. Proximal superficial femoral vein thrombosis, left leg. 4. Hypertension. 5. Diastolic congestive heart failure with ejection fraction of 65%. Continue Bumex. 4. Paranoid ideation. 5. BPH, continue Proscar. 6. Deep venous thrombosis, left lower extremity. Further recommendations based on clinical course. Plan of care discussed with Dr. Baron. Subjective 24 Hr Interval Summary Eyes: no complaints ENT: no complaints Respiratory: no complaints Cardiovascular: no complaints Gastrointestinal: no complaints Genitourinary: no complaints Musculoskeletal: swelling Neurologic: no complaints Endocrine: no complaints Lymphatic: no complaints Exam/Review of Systems Vital Signs Vitals Vital Signs Date Time Temp Pulse Resp B/P Pulse Ox O2 Delivery O2 Flow Rate FiO2 11/27/16 16:25 73 11/27/16 16:04 98.2 18 113/67 91 11/27/16 04:00 Room Air 11/23/16 21:02 2.0 Intake and Output 11/26/16 11/26/16 11/27/16 15:00 23:00 07:00 Intake Total 800 ml 350 ml Output Total 750 ml 850 ml Balance 50 ml -500 ml Exam Constitutional: alert, well developed Eyes: nl conjunctiva ENMT: nl external ears & nose Neck: non-tender Respiratory: clear to auscultation Cardiovascular: nl pulses Gastrointestinal: non-tender, soft Musculoskeletal: swelling Extremities: edema Neurological: nl speech Skin: other Lymph: nontender Results Result Diagram: 11/27/16 0745 11/27/16 0745 Results 24 hrs Laboratory Tests Test 11/27/16 07:45 White Blood Count 7.5 Red Blood Count 4.57 L Hemoglobin 13.9 L Hematocrit 43.6 Mean Corpuscular Volume 95.4 Mean Corpuscular Hemoglobin 30.4 Mean Corpuscular Hemoglobin Concent 31.9 L Red Cell Distribution Width 13.5 Platelet Count 273 Mean Platelet Volume 8.7 Neutrophils % 69.5 Lymphocytes % 19.0 Monocytes % 8.6 Eosinophils % 2.0 Basophils % 0.5 Nucleated Red Blood Cells % 0.0 Neutrophils # 5.2 Lymphocytes # 1.4 Monocytes # 0.6 Eosinophils # 0.2 Basophils # 0.0 Nucleated Red Blood Cells # 0.0 Sodium Level 136 Potassium Level 4.4 Chloride Level 103 Carbon Dioxide Level 27 Anion Gap 10 # Blood Urea Nitrogen 24 H Creatinine 1.05 Glucose Level 86 Calcium Level 9.1 Medications Medications Current Medications Acetaminophen (Tylenol Tab) 650 mg Q4H PRN PO PAIN AND OR ELEVATED TEMP; Start 11/22/16 at 18:30 Bumetanide (Bumex) 1 mg DAILY PO Last administered on 11/27/16 08:47; Admin Dose 1 MG; Start 11/23/16 at 09:00 Apixaban (Eliquis) 5 mg BID PO Last administered on 11/27/16 08:47; Admin Dose 5 MG; Start 11/22/16 at 21:00 Finasteride (Proscar) 5 mg DAILY PO Last administered on 11/27/16 08:47; Admin Dose 5 MG; Start 11/23/16 at 09:00 Gabapentin (Neurontin) 200 mg BID PO Last administered on 11/27/16 08:48; Admin Dose 200 MG; Start 11/22/16 at 21:00 Lorazepam (Ativan) 1 mg BID PRN PO ANXIETY Last administered on 11/26/16 01:32 ; Admin Dose 1 MG; Start 11/22/16 at 19:00 Nitroglycerin (Nitroglycerin (Sl Tab) 0.4 Mg) 1 tab PRN PRN SL CHEST PAIN; Start 11/22/16 at 19:00 Al Hydrox/Mg Hydrox/Simethicone (Mag-Al Plus) 30 ml Q6H PRN PO GASTROINTESTINAL UPSET Last administered on 11/26/16 16:13; Admin Dose 30 ML; Start 11/23/16 at 11:30 Magnesium Hydroxide (Milk Of Mag) 30 ml Q24H PO Last administered on 11/23/16 21:32; Admin Dose 30 ML; Start 11/23/16 at 20:00 Acetaminophen/ Hydrocodone Bitart ([place] (5/325)) 1 tab Q6 PRN PO PAIN LEVEL 4- 6 Last administered on 11/27/16 17:05; Admin Dose 1 TAB; Start 11/24/16 at 17: 00 Eye Lubricant (Artificial Tears Oph) 2 drop Q6H PRN BOTH EYES DRY EYES; Start 11/24/16 at 17:30 Amiodarone HCl (Cordarone) 200 mg BID PO Last administered on 11/27/16 10:02; Admin Dose 200 MG; Start 11/25/16 at 21:00 YAZ BARTLETT Nov 27, 2016 17:57
[2016-11-27] MEDS: MAGNESIUM HYDROXIDE 30ML CUP PO SCH (20:00)
[2016-11-27] MEDS: AL HYDROX/MG HYDROX/SIMETH 30 ML CUP PO PRN (21:20)
[2016-11-28] VITALS (11 sets, daily range): BP systolic 110–146; BP diastolic 64–85; PULSE 55–72; RESP 18–20
[2016-11-28] MEDS: HYDROCODONE/APAP (5/325) TAB PO PRN (03:01)
[2016-11-28 07:16] LABS: ADD SCAN DIFF NO
[2016-11-28 07:23] LABS: BASOPHILS % 0.5 % (0.0-2.0); EOSINOPHILS # 0.1 10^3/ul (0.0-0.5); EOSINOPHILS % 1.9 % (0.0-7.0); HEMATOCRIT 41.3 % (42.0-52.0); HEMOGLOBIN 13.5 g/dl (14.0-18.0); LYMPHOCYTES # 1.3 10^3/ul (0.8-2.9); LYMPHOCYTES % 19.4 % (15.0-51.0); MEAN CORPUSCULAR HEMOGLOBIN 30.9 pg (29.0-33.0); MEAN CORPUSCULAR HGB CONC 32.7 g/dl (32.0-37.0); MEAN CORPUSCULAR VOLUME 94.5 fl (82.0-101.0); MEAN PLATELET VOLUME 8.6 fl (7.4-10.4); MONOCYTE # 0.5 10^3/ul (0.3-0.9); MONOCYTES % 7.2 % (0.0-11.0); NEUTROPHIL # 4.6 10^3/ul (1.6-7.5); NEUTROPHILS % 70.7 % (39.0-77.0); PLATELET COUNT 275 10^3/UL (140-415); RED BLOOD COUNT 4.37 10^6/ul (4.70-6.10); RED CELL DISTRIBUTION WIDTH 13.6 % (11.5-14.5); WHITE BLOOD COUNT 6.4 10^3/ul (4.8-10.8)
[2016-11-28 07:58] LABS: CALCIUM 9.2 mg/dl (8.4-10.2); CREATININE 1.05 mg/dl (0.61-1.24); POTASSIUM 4.7 mmol/L (3.5-5.1)
[2016-11-28] MEDS: APIXABAN 5 MG TABLET PO SCH ×2 (09:34→20:38)
[2016-11-28] MEDS: FINASTERIDE 5 MG TAB PO SCH (09:34)
[2016-11-28] MEDS: BUMETANIDE 1 MG TAB PO SCH (09:34)
[2016-11-28] MEDS: GABAPENTIN 100 MG CAP PO SCH ×2 (09:34→20:38)
[2016-11-28] MEDS: AMIODARONE 200 MG TAB PO SCH ×2 (09:35→20:39)
[2016-11-28] MEDS: AL HYDROX/MG HYDROX/SIMETH 30 ML CUP PO PRN (11:26)
--- NOTE | 2016-11-28 15:38 | PN ---
Date/Time of Note Date/Time of Note DATE: 11/28/16 TIME: 15:34 Assessment/Plan VTE Prophylaxis VTE Prophylaxis Intervention: SCD's Lines/Catheters IV [facility] Type (from [facility] Saline Lock Urinary Cath still in place: No Assessment/Plan Chief Complaint/Hosp Course Assessment and plan: 1. Paroxysmal supraventricular tachycardia. Dr. Wallace is following in cardiology consultation. Continue metoprolol, started on PO amiodarone. 2. Paroxysmal atrial fibrillation. Continue Eliquis 3. Proximal superficial femoral vein thrombosis, left leg. 4. Hypertension. 5. Diastolic congestive heart failure with ejection fraction of 65%. Continue Bumex. 4. Paranoid ideation. 5. BPH, continue Proscar. 6. Deep venous thrombosis, left lower extremity. Further recommendations based on clinical course. Plan of care discussed with Dr. Baron. Problems: Subjective 24 Hr Interval Summary Free Text/Dictation No acute events overnight, patient looks comfortable, sinus bradycardia with first-degree block on telemetry. Exam/Review of Systems Vital Signs Vitals Vital Signs Date Time Temp Pulse Resp B/P Pulse Ox O2 Delivery O2 Flow Rate FiO2 11/28/16 12:11 98.0 60 20 110/68 95 11/27/16 04:00 Room Air Intake and Output 11/27/16 11/27/16 11/28/16 15:00 23:00 07:00 Intake Total 840 ml 200 ml Output Total 1200 ml Balance -360 ml 200 ml Exam Constitutional: alert, oriented Psych: no complaints Head: normocephalic Eyes: nl conjunctiva ENMT: nl external ears & nose Neck: non-tender, supple Respiratory: clear to auscultation, normal air movement Cardiovascular: nl pulses, regular rate and rhythm Gastrointestinal: non-tender, soft Musculoskeletal: nl extremities to inspection Extremities: normal pulses Neurological: [employer]-X[employer] intact Results Result Diagram: 11/28/16 0630 11/28/16 0630 Results 24 hrs Laboratory Tests Test 11/28/16 06:30 White Blood Count 6.4 Red Blood Count 4.37 L Hemoglobin 13.5 L Hematocrit 41.3 L Mean Corpuscular Volume 94.5 Mean Corpuscular Hemoglobin 30.9 Mean Corpuscular Hemoglobin Concent 32.7 Red Cell Distribution Width 13.6 Platelet Count 275 Mean Platelet Volume 8.6 Neutrophils % 70.7 Lymphocytes % 19.4 Monocytes % 7.2 Eosinophils % 1.9 Basophils % 0.5 Nucleated Red Blood Cells % 0.0 Neutrophils # 4.6 Lymphocytes # 1.3 Monocytes # 0.5 Eosinophils # 0.1 Basophils # 0.0 Nucleated Red Blood Cells # 0.0 Sodium Level 136 Potassium Level 4.7 Chloride Level 105 Carbon Dioxide Level 26 Anion Gap 10 Blood Urea Nitrogen 19 Creatinine 1.05 Glucose Level 86 Calcium Level 9.2 Medications Medications Current Medications Acetaminophen (Tylenol Tab) 650 mg Q4H PRN PO PAIN AND OR ELEVATED TEMP; Start 11/22/16 at 18:30 Bumetanide (Bumex) 1 mg DAILY PO Last administered on 11/28/16 09:34; Admin Dose 1 MG; Start 11/23/16 at 09:00 Apixaban (Eliquis) 5 mg BID PO Last administered on 11/28/16 09:34; Admin Dose 5 MG; Start 11/22/16 at 21:00 Finasteride (Proscar) 5 mg DAILY PO Last administered on 11/28/16 09:34; Admin Dose 5 MG; Start 11/23/16 at 09:00 Gabapentin (Neurontin) 200 mg BID PO Last administered on 11/28/16 09:34; Admin Dose 200 MG; Start 11/22/16 at 21:00 Lorazepam (Ativan) 1 mg BID PRN PO ANXIETY Last administered on 11/26/16 01:32 ; Admin Dose 1 MG; Start 11/22/16 at 19:00 Nitroglycerin (Nitroglycerin (Sl Tab) 0.4 Mg) 1 tab PRN PRN SL CHEST PAIN; Start 11/22/16 at 19:00 Al Hydrox/Mg Hydrox/Simethicone (Mag-Al Plus) 30 ml Q6H PRN PO GASTROINTESTINAL UPSET Last administered on 11/28/16 11:26; Admin Dose 30 ML; Start 11/23/16 at 11:30 Magnesium Hydroxide (Milk Of Mag) 30 ml Q24H PO Last administered on 11/23/16 21:32; Admin Dose 30 ML; Start 11/23/16 at 20:00 Acetaminophen/ Hydrocodone Bitart ([place] (5/325)) 1 tab Q6 PRN PO PAIN LEVEL 4- 6 Last administered on 11/28/16 03:01; Admin Dose 1 TAB; Start 11/24/16 at 17: 00 Eye Lubricant (Artificial Tears Oph) 2 drop Q6H PRN BOTH EYES DRY EYES; Start 11/24/16 at 17:30 Amiodarone HCl (Cordarone) 200 mg BID PO Last administered on 11/28/16t 09:35; Admin Dose 200 MG; Start 11/25/16 at 21:00 LEAH BROUSSARD Nov 28, 2016 15:38
--- NOTE | 2016-11-28 17:24 | CONS ---
Date/Time of Note Date/Time of Note DATE: 11/28/16 TIME: 17:22 Assessment/Plan Assessment/Plan Additional Assessment/Plan Paroxysmal SVT Preserved ejection fraction Hypertension Paroxysmal atrial fibrillation currently sinus rhythm DVT on anticoagulation Bedbound -Patient has remained predominantly in sinus rhythm, continue daily amiodarone - Maintain potassium above 4.0 and magnesium above 2.0. Consultation Date/Type/Reason Admit Date/Time Nov 25, 2016 at 11:04 Type of Consultation: cv 24 HR Interval Summary Free Text/Dictation Denies shortness of breath, palpitations or dizziness. Complaining of frequent bowel movements Exam/Review of Systems Vital Signs Vitals Vital Signs Date Time Temp Pulse Resp B/P Pulse Ox O2 Delivery O2 Flow Rate FiO2 11/28/16 16:45 72 11/28/16 16:21 97.8 20 113/64 96 11/27/16 04:00 Room Air Intake and Output 11/27/16 11/27/16 11/28/16 15:00 23:00 07:00 Intake Total 840 ml 200 ml Output Total 1200 ml Balance -360 ml 200 ml Exam No apparent distress Constitutional: alert, oriented Head: normocephalic Respiratory: other (Coarse breath sounds bilaterally, no wheezing) Cardiovascular: other (S1-S2 heard), regular rate and rhythm Gastrointestinal: bowel sounds, non-tender, soft Extremities: edema Results Result Diagram: 11/28/16 0630 11/28/16 0630 Results 24 hrs Laboratory Tests Test 11/28/16 06:30 White Blood Count 6.4 Red Blood Count 4.37 L Hemoglobin 13.5 L Hematocrit 41.3 L Mean Corpuscular Volume 94.5 Mean Corpuscular Hemoglobin 30.9 Mean Corpuscular Hemoglobin Concent 32.7 Red Cell Distribution Width 13.6 Platelet Count 275 Mean Platelet Volume 8.6 Neutrophils % 70.7 Lymphocytes % 19.4 Monocytes % 7.2 Eosinophils % 1.9 Basophils % 0.5 Nucleated Red Blood Cells % 0.0 Neutrophils # 4.6 Lymphocytes # 1.3 Monocytes # 0.5 Eosinophils # 0.1 Basophils # 0.0 Nucleated Red Blood Cells # 0.0 Sodium Level 136 Potassium Level 4.7 Chloride Level 105 Carbon Dioxide Level 26 Anion Gap 10 Blood Urea Nitrogen 19 Creatinine 1.05 Glucose Level 86 Calcium Level 9.2 Medications Medications Current Medications Acetaminophen (Tylenol Tab) 650 mg Q4H PRN PO PAIN AND OR ELEVATED TEMP; Start 11/22/16 at 18:30 Bumetanide (Bumex) 1 mg DAILY PO Last administered on 11/28/16 09:34; Admin Dose 1 MG; Start 11/23/16 at 09:00 Apixaban (Eliquis) 5 mg BID PO Last administered on 11/28/16 09:34; Admin Dose 5 MG; Start 11/22/16 at 21:00 Finasteride (Proscar) 5 mg DAILY PO Last administered on 11/28/16 09:34; Admin Dose 5 MG; Start 11/23/16 at 09:00 Gabapentin (Neurontin) 200 mg BID PO Last administered on 11/28/16 09:34; Admin Dose 200 MG; Start 11/22/16 at 21:00 Lorazepam (Ativan) 1 mg BID PRN PO ANXIETY Last administered on 11/26/16 01:32 ; Admin Dose 1 MG; Start 11/22/16 at 19:00 Nitroglycerin (Nitroglycerin (Sl Tab) 0.4 Mg) 1 tab PRN PRN SL CHEST PAIN; Start 11/22/16 at 19:00 Al Hydrox/Mg Hydrox/Simethicone (Mag-Al Plus) 30 ml Q6H PRN PO GASTROINTESTINAL UPSET Last administered on 11/28/16 11:26; Admin Dose 30 ML; Start 11/23/16 at 11:30 Magnesium Hydroxide (Milk Of Mag) 30 ml Q24H PO Last administered on 11/23/16 21:32; Admin Dose 30 ML; Start 11/23/16 at 20:00 Acetaminophen/ Hydrocodone Bitart ([place] (5/325)) 1 tab Q6 PRN PO PAIN LEVEL 4- 6 Last administered on 11/28/16 03:01; Admin Dose 1 TAB; Start 11/24/16 at 17: 00 Eye Lubricant (Artificial Tears Oph) 2 drop Q6H PRN BOTH EYES DRY EYES; Start 11/24/16 at 17:30 Amiodarone HCl (Cordarone) 200 mg BID PO Last administered on 11/28/16 09:35; Admin Dose 200 MG; Start 11/25/16 at 21:00 Mathew Wallace DO Nov 28, 2016 17:23
[2016-11-28] MEDS: MAGNESIUM HYDROXIDE 30ML CUP PO SCH (20:00)
[2016-11-29] VITALS (8 sets, daily range): BP systolic 120–138; BP diastolic 58–66; PULSE 51–68; RESP 18
[2016-11-29] MEDS: HYDROCODONE/APAP (5/325) TAB PO PRN ×2 (00:29→09:43)
[2016-11-29] MEDS: AL HYDROX/MG HYDROX/SIMETH 30 ML CUP PO PRN ×2 (00:29→09:44)
[2016-11-29] MEDS: LORAZEPAM 1 MG TAB PO PRN (01:28)
[2016-11-29] MEDS ORDERED: AMIODARONE 200 MG TAB PO SCH (09:00)
[2016-11-29] MEDS: BUMETANIDE 1 MG TAB PO SCH (09:43)
[2016-11-29] MEDS: APIXABAN 5 MG TABLET PO SCH (09:44)
[2016-11-29] MEDS: FINASTERIDE 5 MG TAB PO SCH (09:44)
[2016-11-29] MEDS: GABAPENTIN 100 MG CAP PO SCH (09:44)
--- NOTE | 2016-11-29 14:42 | CONS ---
Date/Time of Note Date/Time of Note DATE: 11/29/16 TIME: 14:41 Assessment/Plan Assessment/Plan Additional Assessment/Plan Paroxysmal SVT Preserved ejection fraction Hypertension Paroxysmal atrial fibrillation currently sinus rhythm DVT on anticoagulation Bedbound -Patient remains in sinus rhythm with no significant arrhythmias seen on telemetry. Continue maintenance dose of amiodarone 200 mg daily. Maintain potassium above 4.0 and magnesium above 2.0. DC planning Consultation Date/Type/Reason Admit Date/Time Nov 25, 2016 at 11:04 Type of Consultation: cv 24 HR Interval Summary Free Text/Dictation Denies shortness of breath, palpitations or chest pain Exam/Review of Systems Vital Signs Vitals Vital Signs Date Time Temp Pulse Resp B/P Pulse Ox O2 Delivery O2 Flow Rate FiO2 11/29/16 12:19 68 11/29/16 11:41 98.1 18 138/62 98 11/27/16 04:00 Room Air Intake and Output 11/28/16 11/28/16 11/29/16 15:00 23:00 07:00 Intake Total 500 ml 400 ml Output Total 1250 ml 900 ml Balance -750 ml -500 ml Exam No apparent distress Constitutional: alert, oriented Head: normocephalic Respiratory: other (Coarse breath sounds bilaterally, no wheezing) Cardiovascular: other (S1-S2 heard), regular rate and rhythm Gastrointestinal: bowel sounds, non-tender, soft Extremities: edema (Trace) Results Result Diagram: 11/28/16 0630 11/28/16 0630 Medications Medications Current Medications Acetaminophen (Tylenol Tab) 650 mg Q4H PRN PO PAIN AND OR ELEVATED TEMP; Start 11/22/16 at 18:30 Bumetanide (Bumex) 1 mg DAILY PO Last administered on 11/29/16 09:43; Admin Dose 1 MG; Start 11/23/16 at 09:00 Apixaban (Eliquis) 5 mg BID PO Last administered on 11/29/16 09:44; Admin Dose 5 MG; Start 11/22/16 at 21:00 Finasteride (Proscar) 5 mg DAILY PO Last administered on 11/29/16 09:44; Admin Dose 5 MG; Start 11/23/16 at 09:00 Gabapentin (Neurontin) 200 mg BID PO Last administered on 11/29/16 09:44; Admin Dose 200 MG; Start 11/22/16 at 21:00 Lorazepam (Ativan) 1 mg BID PRN PO ANXIETY Last administered on 11/29/16 01:28 ; Admin Dose 1 MG; Start 11/22/16 at 19:00 Nitroglycerin (Nitroglycerin (Sl Tab) 0.4 Mg) 1 tab PRN PRN SL CHEST PAIN; Start 11/22/16 at 19:00 Al Hydrox/Mg Hydrox/Simethicone (Mag-Al Plus) 30 ml Q6H PRN PO GASTROINTESTINAL UPSET Last administered on 11/29/16 09:44; Admin Dose 30 ML; Start 11/23/16 at 11:30 Magnesium Hydroxide (Milk Of Mag) 30 ml Q24H PO Last administered on 11/23/16 21:32; Admin Dose 30 ML; Start 11/23/16 at 20:00 Acetaminophen/ Hydrocodone Bitart ([place] (5/325)) 1 tab Q6 PRN PO PAIN LEVEL 4- 6 Last administered on 11/29/16 09:43; Admin Dose 1 TAB; Start 11/24/16 at 17: 00 Eye Lubricant (Artificial Tears Oph) 2 drop Q6H PRN BOTH EYES DRY EYES; Start 11/24/16 at 17:30 Amiodarone HCl (Cordarone) 200 mg DAILY PO Last administered on 11/29/16 09:47 ; Admin Dose 200 MG; Start 11/29/16 at 09:00 Mathew Wallace DO Nov 29, 2016 14:42
--- NOTE | 2016-11-30 04:36 | DS ---
DATE OF ADMISSION: 11/25/2016 DATE OF DISCHARGE: 11/29/2016 FINAL DIAGNOSES: 1. Paroxysmal supraventricular tachycardia, resolved. 2. Paroxysmal atrial fibrillation. 3. Superficial femoral vein thrombosis of the left leg. 4. Hypertension. 5. Diastolic congestive heart failure with ejection fraction of 65%. 6. Paranoid ideation. 7. Benign prostatic hypertrophy. 8. Deep venous thrombosis of left lower extremity. 9. Hypertension. 10. Bed bound status. BRIEF HISTORY: The patient is a 76-year-old gentleman with history of hypertension, paroxysmal atri al fibrillation, chronic diastolic congestive heart failure, history of DVT, and paranoid ideation. The patient is a resident at [facility] and patient complained of annette st pressure. Mirror Polisher was called and then arrived. The patient was noted to have supraventricular tachycardia and was given 2 doses of adenosine and subsequently patient was transferred to [facility] Emergency Room. HOSPITAL COURSE: The patient was admitted for further evaluation and management to telemetry floor and patient was evaluated by Dr. Wallace in cardiology consultation. The patient was started on amio darone and beta lance. The patient converted to sinus rate, however, had episodes of paroxysmal s upraventricular tachycardia which is self-terminating. Continued to monitor on telemetry floor. Th e patient's cardiac medications were optimized. The patient was also continued on Bumex for paroxys mal atrial fibrillation and history of DVT. Electrolytes were closely monitored and were within nor mal limits. The patient's troponin was negative on admission. TSH was within normal limits. The p atient remains in sinus rhythm and denies any chest pain, denies any shortness of breath, and patien t will be transferred to shelter facility. CONDITION ON DISCHARGE: Hemodynamically stable. ACTIVITY: As patient tolerates. DIET: Cardiac diet. DISCHARGE MEDICATIONS: 1. Continue patient on amiodarone 200 mg p.o. daily. 2. Tylenol p.r.n. for pain, fever. 3. Mylanta p.o. q.6 hours p.r.n. for abdominal upset. 4. Eliquis 500 mg p.o. b.i.d. 5. Bumex 1 mg p.o. daily. 6. Proscar 5 mg p.o. daily. 7. Neurontin 200 mg p.o. b.i.d. 8. Weston p.r.n. for pain. 9. Ativan 1 mg p.o. b.i.d. 10. Milk of Magnesia p.o. q.24 hour schedule. 11. Nitroglycerin sublingual, 0.4 one tablet p.r.n. for chest pain x3. 12. Multivitamins daily. Interdisciplinary plan of care was established for this patient. Plan of care was discussed with Dr Scott Baron. Dictated By: LEAH BROUSSARD PLATER HELPER for OSIRIS BARON MD SR/NTS Conf#: [id number] DID#: [id number]
== END 2016-11-29 18:31 | disposition home health service (06) | DRG 309 ==
LOC: E/R 11:30 → MS4 13:02 → UNDOADMOB 13:02 → INTOOBSV 13:02 → MS4 11-23 11:28 → OBSVTOIN 11-25 11:04
PROVIDERS: ADMIT Internal Medicine; ATTEND Internal Medicine
DX: I47.1 Supraventricular tachycardia (principal); I50.32 Chronic diastolic (congestive) heart failure; I82.402 Acute embolism and thrombosis of unspecified deep veins of left lower extremity; I48.0 Paroxysmal atrial fibrillation; F22 Delusional disorders; N40.0 Benign prostatic hyperplasia without lower urinary tract symptoms; I10 Essential (primary) hypertension; Z74.01 Bed confinement status; Z79.01 Long term (current) use of anticoagulants
CPT/HCPCS: 36415; 71010; 80048; 80053; 83735; 84443; 84484; 85025; 85610; 85730; 87081; 93005; G0378

== ENCOUNTER 2018-01-31 16:05 | Inpatient (IN) | END 2018-02-06 17:07 | DRG 310 ==

== ENCOUNTER 2018-06-30 03:55 | Emergency (ER) | END 2018-06-30 10:44 | disposition home or self-care (01) ==

== ENCOUNTER 2018-08-06 17:21 | Observation (INO) | payer MEDICARE, OTHER ==
[~2018-08-06] VITALS: Ht 177.8 cm; Wt 76.9 kg
[~2018-08-06 17:21] MED LIST changes: +AMLO5TAB4 PO; -BUME1TAB18 PO; +DOCU-144 PO; +GUAI5SYR2 PO; -HYDR-906 PO; +LOPE-123 PO; -LORA1TAB PO; -MAGN400O4 PO; +MELA3TAB51 PO; +MINE133E23 PR; +MULT-105 PO; -MULTI PO; -NA P133E5 RC; -NIT4 SL; +NITR0.4T32 SL; +OXYC-209 PO; -POTA20TA96 PO; +QUET25TA33 PO
[2018-08-06] MEDS ORDERED: NITROGLYCERIN 2% 1 GM OINT PKT TD STA (17:57)
[2018-08-06] MEDS ORDERED: ASPIRIN 81 MG TAB PO STA (17:57)
[2018-08-06] MEDS ORDERED: morphine 4 MG/ML VIAL IV STA (19:11)
[2018-08-06] MEDS ORDERED: ONDANSETRON 4 MG INJ IV STA (19:11)
--- NOTE | 2018-08-06 19:46 | ERD ---
ER Documentation Chief Complaint Chief Complaint SUBSTERNAL NON-RADIATING CHEST HPI This is a 77-year-old male who is here for chest pain. He lives at a assisted living type of facility and he was having some substernal chest pressure with no radiation, no shortness of breath, nausea, dizziness or palpitations. He said he took 3 sublingual nitroglycerin without relief. He says currently he is pain-free and has no how long he has had the pain. Patient was admitted several months ago and had a echocardiogram and evaluation by cardiology with a rule out. Was diagnosed with atypical chest pain. The patient is a very poor hi storian and gets tangential with his history. ROS All systems reviewed and are negative except as per history of present illness. Medications Home Meds Reported Medications Quetiapine Fumarate* (Quetiapine Fumarate*) 25 Mg Tablet, 25 MG PO BID, TAB 07/03/18 Oxycodone HCl/Acetaminophen (Percocet 10-325 mg Tablet) 1 Each Tablet, 1 EACH PO Q4 PRN for SEVERE PAIN LEVEL 7-10, TAB 07/03/18 Loperamide Hcl* (Loperamide Hcl*) 2 Mg Cap, 2 MG PO Q6 PRN for DIARRHEA, CAP 07/03/18 Apixaban* (Eliquis*) 5 Mg Tablet, 5 MG PO BID, TAB 07/03/18 Docusate Sodium* (Colace*) 100 Mg Capsule, 100 MG PO BID PRN for CONSTIPATION, #60 CAP 07/03/18 Amlodipine Besylate* (Norvasc*) 5 Mg Tablet, 5 MG PO DAILY, TAB HOLD FOR SBP<110 OR HR<60 07/03/18 Acetaminophen* (Acetaminophen*) 650 Mg Tablet, 650 MG PO Q6H PRN for PAIN AND OR ELEVATED TEMP, #30 TAB 07/03/18 Guaifenesin-Dextromethorphan* (Robitussin* DM) 100MG/10MG/5ML Syrup, 10 ML PO Q4H PRN for COUGH, ML 01/27/18 Nitroglycerin* (Nitroglycerin* SL) 0.4 Mg Tab.subl, 0.4 MG SL Q5MIN PRN for CHEST PAIN, BOTTLE 01/27/18 Multivitamin with Minerals (Multivitamins with Minerals) 1 Each Tablet, 1 EACH PO DAILY, TAB 01/27/18 Melatonin (Melatin) 3 Mg Tablet, 3 MG PO QHS, TAB 01/27/18 Gabapentin* (Gabapentin*) 100 Mg Capsule, 200 MG PO TID, #180 CAP 01/27/18 Mineral Oil* (Fleet* Mineral Oil Enema) Unknown Strength Oil, 118 ML NM Q72H PRN for CONSTIPATION, ENEMA 01/27/18 Finasteride* (Finasteride*) 5 Mg Tablet, 5 MG PO DAILY, TAB 01/27/18 Allergies Allergies: Coded Allergies: codeine (Verified Allergy, Unknown, 07/03/18) PMhx/Soc History of Surgery: Yes (Heart cath ) Anesthesia Reaction: No Hx Neurological Disorder: No Hx Respiratory Disorders: No Hx Cardiac Disorders: Yes (HTN, Afib, Atherscelrotic, CHF) Hx Psychiatric Problems: Yes (Anxiety ) Hx Miscellaneous Medical Probl: Yes (COLON CANCER , PARANOID PSYCHOSIS) Hx Alcohol Use: No Hx Substance Use: No Hx Tobacco Use: Yes (QUIT 30 YEARS AGO) Smoking Status: Former smoker FmHx Family History: No coronary disease Physical Exam Vitals Vital Signs Date Temp Pulse Resp B/P (MAP) Pulse Ox O2 O2 Flow FiO2 Time Delivery Rate 08/06/18 70 15 110/74 99 Room Air 18:36 (86) 08/06/18 Nasal 2 17:35 Cannula 08/06/18 98.2 86 16 130/71 99 17:26 (90) Physical Exam Const: Well-developed, well-nourished Head: Atraumatic, normocephalic Eyes: Normal Conjunctiva, PERRLA, EOMI, normal sclera, no nystagmus ENT: Normal External Ears, Nose and Mouth, moist mucus membranes. Neck: Full range of motion. No meningismus, no lymphadenopathy. Resp: Clear to auscultation bilaterally, no wheezing, rhonchi, rales Cardio: Regular rate and rhythm, no murmurs, S1 S2 present Abd: Soft, non tender x 4, non distended. Normal bowel sounds, no guarding or rebound, no pulsitile abdominal masses or bruits Skin: No petechiae or rashes, no ecchymosis , no maculopapular rash Back: No midline or flank tenderness Ext: No cyanosis, or edema, FROM x 4, normal inspection, neurovascularly intact x 4 Neur: Awake and alert, STR 5/5 x 4, sensation intact x 4, no focal findings, cerebellum intact Psych: Normal Mood and Affect Result Diagram: 08/06/18181408/06/181814 Results 24 hrs Laboratory Tests Test 08/06/18 18:15 White Blood Count 7.2 10^3/ul Red Blood Count 4.01 10^6/ul Hemoglobin 10.9 g/dl Hematocrit 34.7 % Mean Corpuscular Volume 86.5 fl Mean Corpuscular Hemoglobin 27.2 pg Mean Corpuscular Hemoglobin Concent 31.4 g/dl Red Cell Distribution Width 14.3 % Platelet Count 346 10^3/UL Mean Platelet Volume 8.7 fl Immature Granulocytes % 0.300 % Neutrophils % 62.9 % Lymphocytes % 24.1 % Monocytes % 11.2 % Eosinophils % 1.2 % Basophils % 0.3 % Nucleated Red Blood Cells % 0.0 /100WBC Immature Granulocytes # 0.020 10^3/ul Neutrophils # 4.5 10^3/ul Lymphocytes # 1.7 10^3/ul Monocytes # 0.8 10^3/ul Eosinophils # 0.1 10^3/ul Basophils # 0.0 10^3/ul Nucleated Red Blood Cells # 0.0 10^3/ul Sodium Level 143 mmol/L Potassium Level 4.0 mmol/L Chloride Level 104 mmol/L Carbon Dioxide Level 29 mmol/L Anion Gap 10 Blood Urea Nitrogen 21 mg/dl Creatinine 0.92 mg/dl Est Glomerular Filtrat Rate mL/min mL/min Glucose Level 105 mg/dl Calcium Level 8.8 mg/dl Total Bilirubin 0.2 mg/dl Direct Bilirubin 0.00 mg/dl Indirect Bilirubin 0.2 mg/dl Aspartate Amino Transf (AST/SGOT) 20 IU/L Alanine Aminotransferase (ALT/SGPT) 19 IU/L Alkaline Phosphatase 122 IU/L Troponin I < 0.012 ng/ml Total Protein 6.6 g/dl Albumin 3.6 g/dl Globulin 3.00 g/dl Albumin/Globulin Ratio 1.20 Current Medications Medications Dose Sig/Terrence Start Time Status Last (Trade) Ordered Route PRN Stop Time Admin Dose Reason Admin Aspirin 162 mg ONCE STAT 08/06/18 DC 08/06/18 (Aspirin) PO 17:57 18:09 08/06/18 17:59 1 inch ONCE STAT 08/06/18 DC 08/06/18 Nitroglycerin TD 17:57 18:09 08/06/18 (Nitroglyceri 17:59 n 2% Oint) Morphine 4 mg ONCE STAT 08/06/18 DC 08/06/18 Sulfate IV 19:11 19:21 (morphine) 08/06/18 19:12 Ondansetron 4 mg ONCE STAT 08/06/18 DC 08/06/18 HCl (Zofran IV 19:11 19:20 Inj) 08/06/18 19:12 Procedures/MDM Ordering MD: MARTI LAIRD DO Location: E/R Room/Bed: PROCEDURE: XR Chest. CLINICAL INDICATION: Chest Pain. TECHNIQUE: Single frontal view of the chest was obtained COMPARISON: Chest x-ray 06/30/[address] abdomen 07/03/2018 FINDINGS: The patient is rotated slightly rightward. The cardiac silhouette is within normal limits. Midline and left retrocardiac opacity is consistent with the patient's known large hiatal hernia. No pneumothorax, pleural effusion, or consolidation is identified. There is no evidence of pulmonary vascular congestion. There is multilevel degenerative enthesopathy of the visualized spine. IMPRESSION: No evidence of an acute cardiopulmonary process. Large hiatal hernia. RPTAT: PP Physician Venancio Date Time Electronically viewed and signed by Physician Venancio on 08/06/2018 18:44 RC/ CC: MARTI LAIRD DO [id number] EKG: Rate/Rhythm: Normal Sinus Rhythm,NL intervals QRS, ST, QT: NORMAL NM, QRS, prolonged QT] Impression: Abnormal EKG Cardiac Admit MDM: Patient's symptoms are concerning for cardiac cause will require inpatient workup and continuous monitoring. Further w/u for ischemia, arrhythmia, PE or dissection will be deferred to the inpatient team. Departure Diagnosis: Primary Impression: Chest pain Chest pain type: unspecified Qualified Codes: R07.9 - Chest pain, unspecified Condition: Stable MARTI LAIRD DO Aug 06, 2018 19:46
[2018-08-06] MEDS ORDERED: ACETAMINOPHEN 325 MG TAB PO PRN ×2 (20:00→20:30)
[2018-08-06] MEDS ORDERED: ONDANSETRON 4 MG INJ IV PRN ×2 (20:00→20:30)
[2018-08-06] MEDS ORDERED: morphine 2 MG INJ IV PRN (20:30)
[2018-08-06] MEDS ORDERED: NACL 0.9% 3 ML SYG IV SCH (20:30)
[2018-08-06] MEDS: FAMOTIDINE 20 MG INJ IV SCH (20:49)
[2018-08-06 21:49] VITALS: PULSE 69
[2018-08-06] MEDS: morphine SULFATE/PF (2 MG/2 ML) SYG IV PRN (22:34)
[2018-08-06 22:39] VITALS: Ht 177.8 cm; Wt 76.9 kg
[2018-08-07] VITALS (9 sets, daily range): BP systolic 100–127; BP diastolic 52–63; PULSE 58–98; RESP 18
[2018-08-07] MEDS ORDERED: GUAIFENESIN/DM 5ML CUP PO PRN (06:00)
[2018-08-07] MEDS ORDERED: LOPERAMIDE 2 MG CAP PO PRN (06:00)
[2018-08-07] MEDS ORDERED: OXYCODONE/ACETAMINOPHEN (10/325) TAB PO PRN (06:00)
[2018-08-07] MEDS ORDERED: DOCUSATE SODIUM 100 MG CAP PO PRN (06:00)
[2018-08-07] MEDS ORDERED: ACETAMINOPHEN 325 MG TAB PO PRN (06:00)
[2018-08-07] MEDS ORDERED: NITROGLYCERIN (SL) 0.4 MG TAB SL PRN (06:00)
[2018-08-07] MEDS: morphine SULFATE/PF (2 MG/2 ML) SYG IV PRN (06:38)
--- NOTE | 2018-08-07 07:01 | NUR ---
EOSS Received patient approx at 2130. N: Morphine given x2 for chest pain with good effect. R: Unremarkable. RA Saturating well. CV: Troponins negative x 3. NSR maintained. Chest pain relieved with morphine. GI: Cardiac diet began : Urinal, 200 cc output Integ: Stg 2 vs. 3 bilateral upper buttock wound care noted. WOCN consult ordered. Dietary consult ordered. Q2hr turning. Skin kept dry and clean. Low-air loss mattress ordered. Order for complete bedrest maintained. All of patient's needs attended to. Bed in locked and low position. Will endorse care to AM nurse.
[2018-08-07] MEDS: QUETIAPINE 25 MG TAB PO SCH ×3 (09:00→21:00)
[2018-08-07] MEDS: FINASTERIDE 5 MG TAB PO SCH (09:03)
[2018-08-07] MEDS: ASPIRIN 81 MG TAB PO SCH (09:03)
[2018-08-07] MEDS: MULTIVITAMINS/MINERALS TAB PO SCH (09:03)
[2018-08-07] MEDS: APIXABAN 5 MG TABLET PO SCH ×2 (09:04→21:44)
[2018-08-07] MEDS: AMLODIPINE 5 MG TAB PO SCH (09:04)
[2018-08-07] MEDS: GABAPENTIN 100 MG CAP PO SCH ×3 (09:04→21:44)
[2018-08-07] MEDS: ENOXAPARIN 30 MG/0.3 ML SYG SC SCH (09:06)
[2018-08-07] MEDS: FAMOTIDINE 20 MG INJ IV SCH ×2 (09:09→21:44)
[2018-08-07] MEDS: OXYCODONE/ACETAMINOPHEN (10/325) TAB PO PRN ×2 (11:46→23:15)
--- NOTE | 2018-08-07 12:18 | RADRPT ---
Echocardiogram Report Patient Name: BREANNA HERNANDEZ Gender: Male Date: 1940 Study Date: 07-Aug-2018 Box Sealing Machine Feeder: Lory Mix RDCS Location: 619-A Ref. Physician: MARKY TTUTLE Quality: Technically Difficult Study Procedures: Transthoracic echocardiogram with complete 2D, M-Mode, and doppler examination. Indications: Chest Pain. 2D/M Mode Doppler Measurement Value Normal Ranges Measurement Value Normal Ranges LVIDd 2D 3.6 3.5 - 5.6 cm AV Peak Ronal 1.3 m/sec LVIDs 2D 2.3 2.1 - 4.1 cm AV Peak PG 6.0 mmHg FS 2D 34.9 % LVOT Peak Ronal 1.0 m/sec LVPWd 2D 1.2 0.6 - 1.1 cm LVOT Peak PG 4.0 mmHg IVSd 2D 0.8 0.6 - 1.1 cm MV E Peak Ronal 0.7 m/sec IVS/LVPW 2D 0.7 MV A Peak Ronal 0.5 m/sec AoR Diam 2D 3.2 2.0 - 3.7 cm MV E/A 1.4 LA/Ao 2D 1 0 - 1 MV Decel Time 289 msec EDV 2D 45.9 cm3 MV E/A 1.4 ESV 2D 12.6 cm3 TV E Peak Ronal 0.6 m/sec LA Dimen 2D 3.4 2.3 - 4.0 cm Findings Left Ventricle: Overall, normal left ventricular systolic function. Not all segments visualized. Normal left ventricular cavity size. Mild concentric left ventricular hypertrophy. Ejection fraction is visually estimated at 60 %. Right Ventricle: Normal right ventricular size. Normal right ventricular systolic function. Left Atrium: The left atrium is normal in size. Right Atrium: The right atrium is normal in size. Mitral Valve: Normal appearance and function of the mitral valve with trace physiologic regurgitation. Aortic Valve: No hemodynamically significant aortic stenosis by doppler. Aortic cusps appear mildly calcified. Mild aortic valve regurgitation. Tricuspid Valve: Normal appearance and function of the tricuspid valve with trace physiologic regurgitation. Pulmonic Valve: Normal pulmonic valve appearance. No evidence of pulmonic regurgitation. Pericardium: Normal pericardium with no significant pericardial effusion. Aorta: Normal aortic root. IVC: The IVC is not well visualized. Conclusions Overall, normal left ventricular systolic function. Not all segments visualized. Normal left ventricular cavity size. Mild concentric left ventricular hypertrophy. Ejection fraction is visually estimated at 60 %. Normal right ventricular size. Normal right ventricular systolic function. The left atrium is normal in size. The right atrium is normal in size. No hemodynamically significant aortic stenosis by doppler. Aortic cusps appear mildly calcified. Mild aortic valve regurgitation. No significant valvular stenosis or regurgitation seen of remaining visualized valves. Normal pericardium with no significant pericardial effusion. Electronically Signed By: Mathew Wallace 07-Aug-2018 12:17:27 -0800 Patient Name: BREANNA HERNANDEZ Study Date: 07-Aug-2018 [id number]
--- NOTE | 2018-08-07 12:52 | HP ---
Date/Time of Note Date/Time of Note DATE: 08/07/18 TIME: 12:51 Assessment/Plan VTE Prophylaxis Risk score (from Ns)>0 risk: 5 SCD applied (from Ns): Yes Pharmacological prophylaxis: LMWH Lines/Catheters IV Catheter Type (from [facility] Saline Lock Urinary Cath still in place: No Assessment/Plan Hospital Course 1) chest pain - myocardial infarction ruled out - consult cardiology for further workup as needed 2) hypertension - continue home medications Result Diagram: 08/07/18 0502 08/07/18 0502 Results 24hrs Laboratory Tests Test 08/06/18 18:15 08/07/18 02:32 08/07/18 05:02 White Blood Count 7.2 6.9 Red Blood Count 4.01 L 3.60 L Hemoglobin 10.9 L 9.6 L Hematocrit 34.7 L 31.5 L Mean Corpuscular Volume 86.5 87.5 Mean Corpuscular Hemoglobin 27.2 L 26.7 L Mean Corpuscular Hemoglobin Concent 31.4 L 30.5 L Red Cell Distribution Width 14.3 14.3 Platelet Count 346 309 Mean Platelet Volume 8.7 8.7 Immature Granulocytes % 0.300 0.300 Neutrophils % 62.9 65.7 Lymphocytes % 24.1 20.1 Monocytes % 11.2 H 11.6 H Eosinophils % 1.2 1.9 Basophils % 0.3 0.4 Nucleated Red Blood Cells % 0.0 0.0 Immature Granulocytes # 0.020 0.020 Neutrophils # 4.5 4.5 Lymphocytes # 1.7 1.4 Monocytes # 0.8 0.8 Eosinophils # 0.1 0.1 Basophils # 0.0 0.0 Nucleated Red Blood Cells # 0.0 0.0 Sodium Level 143 140 Potassium Level 4.0 4.1 Chloride Level 104 106 Carbon Dioxide Level 29 28 Anion Gap 10 6 Blood Urea Nitrogen 21 H 20 Creatinine 0.92 0.92 Est Glomerular Filtrat Rate mL/min Glucose Level 105 102 Calcium Level 8.8 8.3 L Total Bilirubin 0.2 0.2 Direct Bilirubin 0.00 0.00 Indirect Bilirubin 0.2 0.2 Aspartate Amino Transf (AST/SGOT) 20 21 Alanine Aminotransferase (ALT/SGPT) 19 15 Alkaline Phosphatase 122 H 103 Troponin I < 0.012 < 0.012 Total Protein 6.6 5.8 L Albumin 3.6 3.0 L Globulin 3.00 2.80 Albumin/Globulin Ratio 1.20 1.07 Creatine Kinase < 20 L Creatine Kinase Index Creatinine Kinase MB (Mass) < 0.22 Hemoglobin A1c 5.4 HPI/ROS Admit Date/Time Admit Date/Time Aug 06, 2018 at 19:39 Hx of Present Illness Patient with hypertension, coronary artery disease, neuropathy comes in with pressure-like chest pain lasting several hours. Patient had previous admission for chest pain but did not have further cardiac workup. He is admitted for further evaluation. PMH/Family/Social Past Medical History Medical History: hypertension Medications Current Medications IV Flush (NS 3 ml) 3 ml PER PROTOCOL IV ; Start 08/06/18 at 20:30 Ondansetron HCl (Zofran Inj) 4 mg Q6H PRN IV NAUSEA AND/OR VOMITING; Start 08/06/18 at 20:30 Aspirin (Aspirin) 81 mg DAILY PO Last administered on 08/07/18at 09:03; Admin Dose 81 MG; Start 08/07/18 at 09:00 Famotidine (Pepcid Iv) 20 mg Q12 IV Last administered on 08/07/18at 09:09; Admin Dose 20 MG; Start 08/06/18 at 21:00 Enoxaparin Sodium (Lovenox) 30 mg DAILY SC Last administered on 08/07/18at 09:06; Admin Dose 30 MG; Start 08/07/18 at 09:00 Morphine Sulfate (morphine SULFATE (PF)) 2 mg Q4H PRN IV PAIN LEVEL 7-10 Last administered on 08/07/18at 06:38; Admin Dose 2 MG; Start 08/06/18 at 22:00 Acetaminophen (Tylenol Tab) 650 mg Q6H PRN PO MILD PAIN(1-3)OR ELEVATED TEMP; Start 08/07/18 at 06:00 Amlodipine Besylate (Norvasc) 5 mg DAILY PO Last administered on 08/07/18at 09:04; Admin Dose 5 MG; Start 08/07/18 at 09:00 Apixaban (Eliquis) 5 mg BID PO Last administered on 08/07/18 09:04; Admin Dose 5 MG; Start 08/07/18 at 09:00 Docusate Sodium (Colace) 100 mg BID PRN PO CONSTIPATION; Start 08/07/18 at 06:00 Finasteride (Proscar) 5 mg DAILY PO Last administered on 08/07/18at 09:03; Admin Dose 5 MG; Start 08/07/18 at 09:00 Gabapentin (Neurontin) 200 mg TID PO Last administered on 08/07/18at 09:04; Admin Dose 200 MG; Start 08/07/18 at 09:00 Guaifenesin/ Dextromethorphan (Robitussin Dm Liquid Cup) 10 ml Q4H PRN PO COUGH; Start 08/07/18 at 06:00 Loperamide HCl (Imodium Cap) 2 mg Q6H PRN PO DIARRHEA; Start 08/07/18 at 06:00 Melatonin (Melatonin) 3 mg QHS PO ; Start 08/07/18 at 21:00 Nitroglycerin (Nitroglycerin (Sl Tab) 0.4 Mg) 0.4 tab PRN PRN SL CHEST PAIN; Start 08/07/18 at 06:00 Quetiapine Fumarate (Seroquel) 25 mg BID PO ; Start 08/07/18 at 09:00 Multivitamins/ Minerals (Theragran-M) 1 tab DAILY PO Last administered on 08/07/18at 09:03; Admin Dose 1 TAB; Start 08/07/18 at 09:00 Oxycodone/ Acetaminophen (Endocet (10/ 325)) 1 tab Q4H PRN PO SEVERE PAIN LEVEL 7-10 Last administered on 08/07/18at 11:46; Admin Dose 1 TAB; Start 08/07/18 at 12:00 Coded Allergies: codeine (Verified Allergy, Unknown, 07/03/18) Past Surgical History Past Surgical Hx: other Family History Significant Family History: no pertinent family hx Social History Smoking Status: Former smoker Exam/Review of Systems Vital Signs Vitals Vital Signs Date Temp Pulse Resp B/P (MAP) Pulse Ox O2 O2 Flow FiO2 Time Delivery Rate 08/07/18 70 12:00 08/07/18 97.8 18 110/59 94 Room Air 11:22 (76) 08/06/18 2.0 21:25 Intake and Output 08/06/18 08/06/18 08/07/18 1515:00 23:00 07:00 IntakeIntake Total 250 ml OutputOutput Total 200 ml BalanceBalance 50 ml Exam Constitutional: well developed Head: normocephalic, atraumatic Neck: supple Respiratory: diminished breath sounds Cardiovascular: regular rate and rhythm Gastrointestinal: soft, non-tender Extremities: normal pulses MARKY TUTTLE Aug 07, 2018 12:52
--- NOTE | 2018-08-07 13:22 | CONS ---
Date/Time of Note Date/Time of Note DATE: 08/07/18 TIME: 13:17 Assessment/Plan Assessment/Plan Assessment/Plan Chest wall pain Paroxysmal atrial fibrillation Hypertension Preserved ejection fraction History of bradycardia Psychiatric disorder -Patient with midsternal chest discomfort. Pain is elicited with pressing on the chest wall. ECG with no significant ischemic abnormalities, echocardiogram with overall preserved ejection fraction, serial cardiac enzymes remain negative. Patient symptoms not appear secondary to cardiac ischemia. Would consider a trial of anti-inflammatories. Otherwise continue aspirin therapy if no contraindication, no beta-lance at the current time given history of bradycardia. Result Diagram: 08/07/18 0502 08/07/18 0502 Results 24hrs Laboratory Tests Test 08/06/18 18:15 08/07/18 02:32 08/07/18 05:02 White Blood Count 7.2 6.9 Red Blood Count 4.01 L 3.60 L Hemoglobin 10.9 L 9.6 L Hematocrit 34.7 L 31.5 L Mean Corpuscular Volume 86.5 87.5 Mean Corpuscular Hemoglobin 27.2 L 26.7 L Mean Corpuscular Hemoglobin Concent 31.4 L 30.5 L Red Cell Distribution Width 14.3 14.3 Platelet Count 346 309 Mean Platelet Volume 8.7 8.7 Immature Granulocytes % 0.300 0.300 Neutrophils % 62.9 65.7 Lymphocytes % 24.1 20.1 Monocytes % 11.2 H 11.6 H Eosinophils % 1.2 1.9 Basophils % 0.3 0.4 Nucleated Red Blood Cells % 0.0 0.0 Immature Granulocytes # 0.020 0.020 Neutrophils # 4.5 4.5 Lymphocytes # 1.7 1.4 Monocytes # 0.8 0.8 Eosinophils # 0.1 0.1 Basophils # 0.0 0.0 Nucleated Red Blood Cells # 0.0 0.0 Sodium Level 143 140 Potassium Level 4.0 4.1 Chloride Level 104 106 Carbon Dioxide Level 29 28 Anion Gap 10 6 Blood Urea Nitrogen 21 H 20 Creatinine 0.92 0.92 Est Glomerular Filtrat Rate mL/min Glucose Level 105 102 Calcium Level 8.8 8.3 L Total Bilirubin 0.2 0.2 Direct Bilirubin 0.00 0.00 Indirect Bilirubin 0.2 0.2 Aspartate Amino Transf (AST/SGOT) 20 21 Alanine Aminotransferase (ALT/SGPT) 19 15 Alkaline Phosphatase 122 H 103 Troponin I < 0.012 < 0.012 Total Protein 6.6 5.8 L Albumin 3.6 3.0 L Globulin 3.00 2.80 Albumin/Globulin Ratio 1.20 1.07 Creatine Kinase < 20 L Creatine Kinase Index Creatinine Kinase MB (Mass) < 0.22 Hemoglobin A1c 5.4 Consultation Date/Type/Reason Admit Date/Time Aug 06, 2018 at 19:39 Type of Consult cv Reason for Consultation Chest pain Hx of Present Illness This is a 77-year-old male from [facility] facility well-known to me from multiple previous admissions who presents with chest pain. Patient was watching television and felt midsternal chest discomfort. Pain was achy like an pinpoint to one region. No shortness of breath, pressure, palpitations, dizziness or li ghtheadedness. Because of waxing and waning symptoms, was brought to the emergency room. He does complain of mild discomfort today with pushing on his chest. He denies any shortness of breath, dizziness or lightheadedness. 12 point review of systems was performed with all pertinent positives and negatives mentioned above and all else is negative Past Medical History Paroxysmal atrial fibrillation Hypertension History of preserved ejection fraction Bradycardia Psychiatric disorder Medications Current Medications IV Flush (NS 3 ml) 3 ml PER PROTOCOL IV ; Start 08/06/18 at 20:30 Ondansetron HCl (Zofran Inj) 4 mg Q6H PRN IV NAUSEA AND/OR VOMITING; Start 08/06/18 at 20:30 Aspirin (Aspirin) 81 mg DAILY PO Last administered on 08/07/18at 09:03; Admin Dose 81 MG; Start 08/07/18 at 09:00 Famotidine (Pepcid Iv) 20 mg Q12 IV Last administered on 08/07/18at 09:09; Admin Dose 20 MG; Start 08/06/18 at 21:00 Enoxaparin Sodium (Lovenox) 30 mg DAILY SC Last administered on 08/07/18at 09:06; Admin Dose 30 MG; Start 08/07/18 at 09:00 Morphine Sulfate (morphine SULFATE (PF)) 2 mg Q4H PRN IV PAIN LEVEL 7-10 Last administered on 08/07/18at 06:38; Admin Dose 2 MG; Start 08/06/18 at 22:00 Acetaminophen (Tylenol Tab) 650 mg Q6H PRN PO MILD PAIN(1-3)OR ELEVATED TEMP; Start 08/07/18 at 06:00 Amlodipine Besylate (Norvasc) 5 mg DAILY PO Last administered on 08/07/18at 09:04; Admin Dose 5 MG; Start 08/07/18 at 09:00 Apixaban (Eliquis) 5 mg BID PO Last administered on 08/07/18at 09:04; Admin Dose 5 MG; Start 08/07/18 at 09:00 Docusate Sodium (Colace) 100 mg BID PRN PO CONSTIPATION; Start 08/07/18 at 06:00 Finasteride (Proscar) 5 mg DAILY PO Last administered on 08/07/18at 09:03; Admin Dose 5 MG; Start 08/07/18 at 09:00 Gabapentin (Neurontin) 200 mg TID PO Last administered on 08/07/18at 13:05; Admin Dose 200 MG; Start 08/07/18 at 09:00 Guaifenesin/ Dextromethorphan (Robitussin Dm Liquid Cup) 10 ml Q4H PRN PO COUGH; Start 08/07/18 at 06:00 Loperamide HCl (Imodium Cap) 2 mg Q6H PRN PO DIARRHEA; Start 08/07/18 at 06:00 Melatonin (Melatonin) 3 mg QHS PO ; Start 08/07/18 at 21:00 Nitroglycerin (Nitroglycerin (Sl Tab) 0.4 Mg) 0.4 tab PRN PRN SL CHEST PAIN; Start 08/07/18 at 06:00 Quetiapine Fumarate (Seroquel) 25 mg BID PO ; Start 08/07/18 at 09:00 Multivitamins/ Minerals (Theragran-M) 1 tab DAILY PO Last administered on 08/07/18at 09:03; Admin Dose 1 TAB; Start 08/07/18 at 09:00 Oxycodone/ Acetaminophen (Endocet (10/ 325)) 1 tab Q4H PRN PO SEVERE PAIN LEVEL 7-10 Last administered on 08/07/18at 11:46; Admin Dose 1 TAB; Start 08/07/18 at 12:00 Allergies: Coded Allergies: codeine (Verified Allergy, Unknown, 07/03/18) Past Surgical History Past Surgical Hx: other Family History Significant Family History: no pertinent family hx Social History Smoking Status: Former smoker Other Social History From retirement facility Exam/Review of Systems Vital Signs Vitals Vital Signs Date Temp Pulse Resp B/P (MAP) Pulse Ox O2 O2 Flow FiO2 Time Delivery Rate 08/07/18 70 12:00 08/07/18 97.8 18 110/59 94 Room Air 11:22 (76) 08/06/18 2.0 21:25 Intake and Output 08/06/18 08/06/18 08/07/18 1515:00 23:00 07:00 IntakeIntake Total 250 ml OutputOutput Total 200 ml BalanceBalance 50 ml Exam No apparent distress Constitutional: alert, oriented Head: normocephalic Respiratory: clear to auscultation, normal air movement Cardiovascular: regular rate and rhythm, other (S1-S2 heard) Gastrointestinal: soft, non-tender, bowel sounds Musculoskeletal: other (Pain with palpation of chest wall, pain elicited his pain patient complaining of) Extremities: edema (Trace) Medications Medications Current Medications IV Flush (NS 3 ml) 3 ml PER PROTOCOL IV ; Start 08/06/18 at 20:30 Ondansetron HCl (Zofran Inj) 4 mg Q6H PRN IV NAUSEA AND/OR VOMITING; Start 08/06/18 at 20:30 Aspirin (Aspirin) 81 mg DAILY PO Last administered on 08/07/18 09:03; Admin Dose 81 MG; Start 08/07/18 at 09:00 Famotidine (Pepcid Iv) 20 mg Q12 IV Last administered on 08/07/18 09:09; Admin Dose 20 MG; Start 08/06/18 at 21:00 Enoxaparin Sodium (Lovenox) 30 mg DAILY SC Last administered on 08/07/18 09:06; Admin Dose 30 MG; Start 08/07/18 at 09:00 Morphine Sulfate (morphine SULFATE (PF)) 2 mg Q4H PRN IV PAIN LEVEL 7-10 Last administered on 08/07/18 06:38; Admin Dose 2 MG; Start 08/06/18 at 22:00 Acetaminophen (Tylenol Tab) 650 mg Q6H PRN PO MILD PAIN(1-3)OR ELEVATED TEMP; Start 08/07/18 at 06:00 Amlodipine Besylate (Norvasc) 5 mg DAILY PO Last administered on 1/1/19at 09:04; Admin Dose 5 MG; Start 08/07/18 at 09:00 Apixaban (Eliquis) 5 mg BID PO Last administered on 08/07/18at 09:04; Admin Dose 5 MG; Start 08/07/18 at 09:00 Docusate Sodium (Colace) 100 mg BID PRN PO CONSTIPATION; Start 08/07/18 at 06:00 Finasteride (Proscar) 5 mg DAILY PO Last administered on 08/07/18at 09:03; Admin Dose 5 MG; Start 08/07/18 at 09:00 Gabapentin (Neurontin) 200 mg TID PO Last administered on 08/07/18at 13:05; Admin Dose 200 MG; Start 08/07/18 at 09:00 Guaifenesin/ Dextromethorphan (Robitussin Dm Liquid Cup) 10 ml Q4H PRN PO COUGH; Start 08/07/18 at 06:00 Loperamide HCl (Imodium Cap) 2 mg Q6H PRN PO DIARRHEA; Start 08/07/18 at 06:00 Melatonin (Melatonin) 3 mg QHS PO ; Start 08/07/18 at 21:00 Nitroglycerin (Nitroglycerin (Sl Tab) 0.4 Mg) 0.4 tab PRN PRN SL CHEST PAIN; Start 08/07/18 at 06:00 Quetiapine Fumarate (Seroquel) 25 mg BID PO ; Start 08/07/18 at 09:00 Multivitamins/ Minerals (Theragran-M) 1 tab DAILY PO Last administered on 08/07/18at 09:03; Admin Dose 1 TAB; Start 08/07/18 at 09:00 Oxycodone/ Acetaminophen (Endocet (10/ 325)) 1 tab Q4H PRN PO SEVERE PAIN LEVEL 7-10 Last administered on 08/07/18at 11:46; Admin Dose 1 TAB; Start 08/07/18 at 12:00 Imaging Imaging ECG done yesterday demonstrates sinus rhythm 83 bpm, normal QRS duration, no significant ischemic ST abnormalities Mathew Wallace DO Aug 07, 2018 13:22
--- NOTE | 2018-08-07 17:00 | NUR ---
NUTRITION CONSULT: PATIENT ON LOW CHOL/FAT DIET, BUT PREFERS REGULAR DIET CLAIMS HE KNOWS HIS DIET MANAGEMENT. HGB AIC 5.4, WNL, LABS ARE ACCEPTABLE. HAS WOUND ON RIGHT AND LEFT COCCYX STAGE II. GOOD PO INTAKE. CONSIDER ADD VITAMINC 500 MG, ZNS04 220 MG ONE TAB PER DAY X 14 DAYS FOR WOUND HEALING.
[2018-08-07] MEDS ORDERED: MELATONIN 3 MG TABLET PO SCH (21:00)
[2018-08-08] VITALS (8 sets, daily range): BP systolic 125–129; BP diastolic 58–68; PULSE 54–70; RESP 16–18
[2018-08-08] MEDS: OXYCODONE/ACETAMINOPHEN (10/325) TAB PO PRN ×3 (04:27→14:46)
[2018-08-08] MEDS: AMLODIPINE 5 MG TAB PO SCH (08:04)
[2018-08-08] MEDS: MULTIVITAMINS/MINERALS TAB PO SCH (08:04)
[2018-08-08] MEDS: ASPIRIN 81 MG TAB PO SCH (08:05)
[2018-08-08] MEDS: FAMOTIDINE 20 MG INJ IV SCH (08:05)
[2018-08-08] MEDS: QUETIAPINE 25 MG TAB PO SCH (08:05)
[2018-08-08] MEDS: FINASTERIDE 5 MG TAB PO SCH (08:05)
[2018-08-08] MEDS: GABAPENTIN 100 MG CAP PO SCH ×2 (08:05→13:53)
[2018-08-08] MEDS: APIXABAN 5 MG TABLET PO SCH (08:05)
[2018-08-08] MEDS: ENOXAPARIN 30 MG/0.3 ML SYG SC SCH (08:30)
--- NOTE | 2018-08-08 12:16 | NUR ---
SW: READMISSION QUESTIONNAIRE SW met with this 77-year-old Setswana speaking male at bedside for readmission questionnaire. Patient recently d/c'd back to [facility] on 07/17/18 and readmitted to [facility] on 08/06/18 with admitting diagnosis of chest pain. Patient states he has been living at [facility] for about 2+ years. Denies having an AHCD, and verbally designated his son Jerald Johnson ([phone]) as surrogate spokesperson, and brother Declan Johnson as secondary surrogate spokesperson. States he does not have brother Declan's contact information. All questions/ concerns denied at this time. SW remains available as needed throughout patient's treatment process.
--- NOTE | 2018-08-08 13:12 | CONS ---
Date/Time of Note Date/Time of Note DATE: 08/08/18 TIME: 13:11 Assessment/Plan Assessment/Plan Assessment/Plan Chest wall pain, resolved Paroxysmal atrial fibrillation Hypertension Preserved ejection fraction History of bradycardia Psychiatric disorder -Patient denies any further chest discomfort, as mentioned previously, chest discomfort was elicited with palpation of chest wall. Serial cardiac enzymes remain negative, ECG with no significant ischemic abnormalities. No further in patient cardiac workup needed at the current time. Result Diagram: 08/07/18 0502 08/07/18 0502 Consultation Date/Type/Reason Admit Date/Time Aug 06, 2018 at 19:39 Initial Consult Date Type of Consult cv 24 HR Interval Summary Free Text/Dictation Patient seen and examined. Denies any chest pain, shortness of breath or palp itations Exam/Review of Systems Vital Signs Vitals Vital Signs Date Temp Pulse Resp B/P (MAP) Pulse Ox O2 O2 Flow FiO2 Time Delivery Rate 08/08/18 97.8 67 18 126/58 97 Room Air 11:18 (80) 08/06/18 2.0 21:25 Intake and Output 08/07/18 08/07/18 08/08/18 1515:00 23:00 07:00 IntakeIntake Total 840 ml 350 ml OutputOutput Total 450 ml 820 ml BalanceBalance 390 ml -470 ml Exam No apparent distress Constitutional: alert, oriented Head: normocephalic Respiratory: clear to auscultation, normal air movement Cardiovascular: regular rate and rhythm, other (S1-S2 heard) Gastrointestinal: soft, non-tender, bowel sounds Extremities: edema (Trace) Medications Medications Current Medications IV Flush (NS 3 ml) 3 ml PER PROTOCOL IV ; Start 08/06/18 at 20:30 Ondansetron HCl (Zofran Inj) 4 mg Q6H PRN IV NAUSEA AND/OR VOMITING; Start 08/06/18 at 20:30 Aspirin (Aspirin) 81 mg DAILY PO Last administered on 08/08/18at 08:05; Admin Dose 81 MG; Start 08/07/18 at 09:00 Famotidine (Pepcid Iv) 20 mg Q12 IV Last administered on 08/08/18at 08:05; Admin Dose 20 MG; Start 08/06/18 at 21:00 Enoxaparin Sodium (Lovenox) 30 mg DAILY SC Last administered on 08/08/18 08:30; Admin Dose 30 MG; Start 08/07/18 at 09:00 Morphine Sulfate (morphine SULFATE (PF)) 2 mg Q4H PRN IV PAIN LEVEL 7-10 Last administered on 08/07/18at 06:38; Admin Dose 2 MG; Start 08/06/18 at 22:00 Acetaminophen (Tylenol Tab) 650 mg Q6H PRN PO MILD PAIN(1-3)OR ELEVATED TEMP; Start 08/07/18 at 06:00 Amlodipine Besylate (Norvasc) 5 mg DAILY PO Last administered on 08/08/18 08:04; Admin Dose 5 MG; Start 08/07/18 at 09:00 Apixaban (Eliquis) 5 mg BID PO Last administered on 08/08/18 08:05; Admin Dose 5 MG; Start 08/07/18 at 09:00 Docusate Sodium (Colace) 100 mg BID PRN PO CONSTIPATION; Start 08/07/18 at 06:00 Finasteride (Proscar) 5 mg DAILY PO Last administered on 08/08/18at 08:05; Admin Dose 5 MG; Start 08/07/18 at 09:00 Gabapentin (Neurontin) 200 mg TID PO Last administered on 08/08/18 08:05; Admin Dose 200 MG; Start 08/07/18 at 09:00 Guaifenesin/ Dextromethorphan (Robitussin Dm Liquid Cup) 10 ml Q4H PRN PO COUGH; Start 08/07/18 at 06:00 Loperamide HCl (Imodium Cap) 2 mg Q6H PRN PO DIARRHEA; Start 08/07/18 at 06:00 Melatonin (Melatonin) 3 mg QHS PO Last administered on 08/07/18at 21:44; Admin Dose 3 MG; Start 08/07/18 at 21:00 Nitroglycerin (Nitroglycerin (Sl Tab) 0.4 Mg) 0.4 tab PRN PRN SL CHEST PAIN; Start 08/07/18 at 06:00 Quetiapine Fumarate (Seroquel) 25 mg BID PO ; Start 08/07/18 at 09:00 Multivitamins/ Minerals (Theragran-M) 1 tab DAILY PO Last administered on 08/08/18 08:04; Admin Dose 1 TAB; Start 08/07/18 at 09:00 Oxycodone/ Acetaminophen (Endocet (10)) 1 tab Q4H PRN PO SEVERE PAIN LEVEL 7-10 Last administered on 08/08/18at 10:08; Admin Dose 1 TAB; Start 08/07/18 at 12:00 Mathew Wallace DO Aug 08, 2018 13:12
--- NOTE | 2018-08-08 13:12 | NUR ---
CM NOTE DISCUSSED WITH CASING WORKER ADRIANA IN REGARD TO OBS STATUS, SHE WILL REVIEW AND DECIDE, CM WILL CONTINUE TO FOLLOW UP.
--- NOTE | 2018-08-08 14:53 | DS ---
Date/Time of Note Date/Time of Note DATE: 08/08/18 TIME: 14:52 Discharge Summary Admission/Discharge Info Admit Date/Time Aug 06, 2018 at 19:39 Discharge Date/Time Patient Condition: Stable Hx of Present Illness Patient with hypertension, coronary artery disease, neuropathy comes in with pressure-like chest pain lasting several hours. Patient had previous admission for chest pain but did not have further cardiac workup. He is admitted for further evaluation. Hospital Course -Chest wall pain, resolved. Status post evaluation by Dr. Wallace in cardiology consultation.Serial cardiac enzymes remain negative, ECG with no significant ischemic abnormalities. No further in patient cardiac workup needed at the current time. -Paroxysmal atrial fibrillation. Continue Eliquiz. -Hypertension -Benign prostatic hypertrophy. Continue Proscar. -Paranoid psychosis. Continue Seroquel. -Colon CA, refused colon resection. Plan of care care discussed with Dr. Baron [place] Meds Reported Medications Quetiapine Fumarate* (Quetiapine Fumarate*) 25 Mg Tablet, 25 MG PO BID, TAB 07/03/18 Oxycodone HCl/Acetaminophen (Percocet 10-325 mg Tablet) 1 Each Tablet, 1 EACH PO Q4 PRN for SEVERE PAIN LEVEL 7-10, TAB 07/03/18 Loperamide Hcl* (Loperamide Hcl*) 2 Mg Cap, 2 MG PO Q6 PRN for DIARRHEA, CAP 07/03/18 Apixaban* (Eliquis*) 5 Mg Tablet, 5 MG PO BID, TAB 07/03/18 Docusate Sodium* (Colace*) 100 Mg Capsule, 100 MG PO BID PRN for CONSTIPATION, #60 CAP 07/03/18 Amlodipine Besylate* (Norvasc*) 5 Mg Tablet, 5 MG PO DAILY, TAB HOLD FOR SBP<110 OR HR<60 07/03/18 Acetaminophen* (Acetaminophen*) 650 Mg Tablet, 650 MG PO Q6H PRN for PAIN AND OR ELEVATED TEMP, #30 TAB 07/03/18 Guaifenesin-Dextromethorphan* (Robitussin* DM) 100MG/10MG/5ML Syrup, 10 ML PO Q4H PRN for COUGH, ML 01/27/18 Nitroglycerin* (Nitroglycerin* SL) 0.4 Mg Tab.subl, 0.4 MG SL Q5MIN PRN for CHEST PAIN, BOTTLE 01/27/18 Multivitamin with Minerals (Multivitamins with Minerals) 1 Each Tablet, 1 EACH PO DAILY, TAB 01/27/18 Melatonin (Melatin) 3 Mg Tablet, 3 MG PO QHS, TAB 01/27/18 Gabapentin* (Gabapentin*) 100 Mg Capsule, 200 MG PO TID, #180 CAP 01/27/18 Mineral Oil* (Fleet* Mineral Oil Enema) Unknown Strength Oil, 118 ML [place] Q72H PRN for CONSTIPATION, ENEMA 01/27/18 Finasteride* (Finasteride*) 5 Mg Tablet, 5 MG PO DAILY, TAB 01/27/18 Primary Care Provider Pedro Baron MD Time spent on discharge: > 30 minutes LEAH BROUSSARD Aug 08, 2018 14:53
--- NOTE | 2018-08-08 15:18 | NUR ---
REY NOTE RECEIVED ORDER TO ARRANGE FOR TRANSFER TO SNF, PT IS FROM [facility], INQUIRY SENT TO [facility] WILL AWAIT FOR A CALL FROM LORETO AT [facility] ADMISSION, REY WILL CONTINUE TO FOLLOW UP. Addendum: 08/08/18 at 1552 by JC CARPIO RN, CM rey note pt may transfer back to [place] as per loreto, rey also made the patient aware and he is agreeable to the transfer, ambulance arranged with [facility] [phone] s/w irasema and emelia tack picker time for 1829 and trip number is [phone]
[2018-08-08] MEDS ORDERED: morphine LIQ (10 MG/5 ML) CUP PO PRN (16:30)
--- NOTE | 2018-08-08 18:58 | NUR ---
Patient cleared for transfer back to [facility], vitals stable, pain controlled with PRN endocet 10/325 Q4H, A/ox4 but with paranoid psychosis, patient is calm and cooperative, PERRLA, no signs of acute distress, no shortness of breath, cough, nausea, vomiting, chills, fever or weakness, bilateral lung sounds present and clear in all areas, on room air saturating 97% on room air, abdomen nontender, no distention, continent x2 but with accidents at times, bowel movement x1 today, stage 2 pressure ulcer on sacrum with allevyn placed otherwise skin intact, IV discontinued, shelter monitor discontinued and returned to nursing station, called report to Christiana HALL at [phone], belongings returned to patient, and EMS escorted patient off unit.
[2018-08-08] MEDS ORDERED: FAMOTIDINE 20 MG TAB PO SCH (21:00)
== END 2018-08-08 18:55 ==
LOC: E/R 17:21 → 6WM 19:39
PROVIDERS: ADMIT Internal Medicine; ATTEND Internal Medicine
DX: R07.89 Other chest pain (principal); I48.0 Paroxysmal atrial fibrillation; Z79.01 Long term (current) use of anticoagulants; I10 Essential (primary) hypertension; N40.0 Benign prostatic hyperplasia without lower urinary tract symptoms; F22 Delusional disorders; C18.9 Malignant neoplasm of colon, unspecified
CPT/HCPCS: 36415; 71045; 80053; 82550; 82553; 83036; 84484; 85025; 87081; 93005; 93306; 96374; 96375; 99285; G0378; J1650; J2270; J2274; J2405

== ENCOUNTER 2018-11-23 20:16 | Emergency (ER) | payer MEDICARE, OTHER ==
[~2018-11-23] VITALS: Ht 177.8 cm; Wt 70.0 kg
[2018-11-23 20:20] VITALS: Ht 177.8 cm; Wt 70.0 kg
--- NOTE | 2018-11-23 21:16 | ERD ---
ER Documentation Chief Complaint Chief Complaint ROME from [facility],scrotal swelling HPI This is an 78-year-old gentleman who presents from [facility] for scrotal swelling. Patient states that he has a known hydrocele. He also has states that he has a known right inguinal hernia that occasionally comes out. He states that it is easily reducible. He denies any significant pain, no abdominal pain. He denies any fevers or chills. He states that he is currently being treated for a dental infection with amoxicillin over the past several days. He denies any chest pain or chest pressure. No nausea vomiting or diarrhea. Normal bowel movements and passing gas. Patient otherwise has no complaints. ROS All systems reviewed and are negative except as per history of present illness. Medications Home Meds Reported Medications Quetiapine Fumarate* (Quetiapine Fumarate*) 25 Mg Tablet, 25 MG PO BID, TAB 07/03/18 Oxycodone HCl/Acetaminophen (Percocet 10-325 mg Tablet) 1 Each Tablet, 1 EACH PO Q4 PRN for SEVERE PAIN LEVEL 7-10, TAB 07/03/18 Loperamide Hcl* (Loperamide Hcl*) 2 Mg Cap, 2 MG PO Q6 PRN for DIARRHEA, CAP 07/03/18 Apixaban* (Eliquis*) 5 Mg Tablet, 5 MG PO BID, TAB 07/03/18 Docusate Sodium* (Colace*) 100 Mg Capsule, 100 MG PO BID PRN for CONSTIPATION, #60 CAP 07/03/18 Amlodipine Besylate* (Norvasc*) 5 Mg Tablet, 5 MG PO DAILY, TAB HOLD FOR SBP<110 OR HR<60 07/03/18 Acetaminophen* (Acetaminophen*) 650 Mg Tablet, 650 MG PO Q6H PRN for PAIN AND OR ELEVATED TEMP, #30 TAB 07/03/18 Guaifenesin-Dextromethorphan* (Robitussin* DM) 100MG/10MG/5ML Syrup, 10 ML PO Q4H PRN for COUGH, ML 01/27/18 Nitroglycerin* (Nitroglycerin* SL) 0.4 Mg Tab.subl, 0.4 MG SL Q5MIN PRN for CHEST PAIN, BOTTLE 01/27/18 Multivitamin with Minerals (Multivitamins with Minerals) 1 Each Tablet, 1 EACH PO DAILY, TAB 01/27/18 Melatonin (Melatin) 3 Mg Tablet, 3 MG PO QHS, TAB 01/27/18 Gabapentin* (Gabapentin*) 100 Mg Capsule, 200 MG PO TID, #180 CAP 01/27/18 Mineral Oil* (Fleet* Mineral Oil Enema) Unknown Strength Oil, 118 ML MT Q72H PRN for CONSTIPATION, ENEMA 01/27/18 Finasteride* (Finasteride*) 5 Mg Tablet, 5 MG PO DAILY, TAB 01/27/18 Allergies Allergies: Coded Allergies: codeine (Verified Allergy, Unknown, 07/03/18) PMhx/Soc Medical and Surgical Hx: pt denies Surgical Hx History of Surgery: No Anesthesia Reaction: No Hx Neurological Disorder: No Hx Respiratory Disorders: No Hx Cardiac Disorders: Yes (chest pain recurrent, CHF, HTN) Hx Psychiatric Problems: Yes (paranoid psychosis) Hx Miscellaneous Medical Probl: No Hx Alcohol Use: Yes Hx Substance Use: No Hx Tobacco Use: Yes Smoking Status: Former smoker FmHx Family History: No diabetes Physical Exam Vitals Vital Signs Date Temp Pulse Resp B/P (MAP) Pulse Ox O2 O2 Flow FiO2 Time Delivery Rate 11/23/18 98.5 101 18 144/99 98 20:20 (114) Physical Exam General: Well developed, well nourished, no acute distress Head: Normocephalic, atraumatic. Eyes: Pupils equally reactive, EOM intact ENT: Moist mucous membranes, dental caries, no abscess Neck: Supple, no lymphadenopathy Respiratory: Lungs clear bilaterally, no distress Cardiovascular: RRR, no murmurs, rubs, or gallops Abdominal: Soft, non-tender, non-distended, no peritoneal signs : A large right indirect inguinal hernia is noted that is easily reducible with gentle pressure. No residual hernia is palpated. Scrotal contents with bilateral descended testicles that are nontender non-swollen. Intact reflexes. Bowel movement noted. MSK: No edema, no unilateral swelling, 5/5 strength, no bony abnormalities or tenderness to the extremities or pelvis. Neurologic: Alert and oriented, moving all extremities, normal speech, no focal weakness, no cerebellar signs Skin: No rash Psych: Normal mood Procedures/MDM The patient was sent for evaluation of scrotal swelling. Clinical exam reveals an inguinal hernia that is easily reducible. No clinical signs or symptoms concerning for incarceration or strangulation. The patient has a soft and benign abdomen, no fevers. He otherwise has very nonspecific and chronic complaints including dental pain, headache, body pain, chronic hip pain. All of these are unchanged from baseline. Patient himself has no signs or symptoms concerning for emergent medical condition. I attempted to reach out to primary care provider, Dr. Baron without success. At this point the patient has no evidence of emergent medical condition that warrants laboratory testing or diagnostic imaging. Hernia can be managed on a nonemergent basis with neurosurgery consultation. Patient is safe for discharge back to [facility] facility. The patient does not have an identifiable emergent medical condition that warrants inpatient hospitalization at this time. The patient is deemed safe for discharge with outpatient follow-up. We discussed follow up with the patient's primary care doctor within 24 to 48 hours as needed. We also discussed return to the emergency room for worsening symptoms or worsening condition. Outpatient referral: General surgery through primary care physician Departure Diagnosis: Primary Impression: Inguinal hernia Obstruction and gangrene presence: without obstruction or gangrene Laterality: unilateral Recurrence: recurrent Qualified Codes: K40.91 - Unilateral inguinal hernia, without obstruction or gangrene, recurrent Condition: Stable Patient Instructions: Hernia (Inguinal, Ventral, Umbilical) Additional Instructions: Call your primary care doctor TOMORROW for an appointment during the next 1 WEEK.Tell the second helper that you were referred from this facility.See the doctor sooner or return here if your condition worsens before your appointment time. AUDIE TONEY MD Nov 23, 2018 21:16
[2018-11-23 22:42] VITALS: BP 129/70; PULSE 91; RESP 16
== END 2018-11-23 22:45 | disposition home or self-care (01) ==
LOC: E/R 20:16
DX: K40.91 Unilateral inguinal hernia, without obstruction or gangrene, recurrent (principal); I50.9 Heart failure, unspecified; I10 Essential (primary) hypertension; Z79.01 Long term (current) use of anticoagulants
CPT/HCPCS: 99282

== ENCOUNTER 2018-12-28 16:48 | Inpatient (IN) | payer MEDICARE, OTHER ==
[~2018-12-28] VITALS: Ht 180.3 cm; Wt 65.0 kg
[2018-12-28] MEDS ORDERED: morphine 4 MG/ML VIAL IV STA (16:52)
[2018-12-28] MEDS ORDERED: ONDANSETRON 4 MG INJ IV STA (16:52)
[2018-12-28 16:56] VITALS: Ht 180.3 cm; Wt 65.0 kg
[2018-12-28] MEDS ORDERED: METH57CR7 TP (17:22)
[2018-12-28] MEDS ORDERED: ASPI81TA52 PO (17:22)
[2018-12-28] MEDS ORDERED: HYDR-3671 PO (17:23)
[2018-12-28] MEDS ORDERED: MAGN400O19 PO (17:23)
[2018-12-28] MEDS ORDERED: FER325 PO (17:23)
[2018-12-28] MEDS ORDERED: ASCO500C7 PO (17:24)
[2018-12-28] MEDS ORDERED: NYST1POW22 TOPICAL (17:24)
[2018-12-28] MEDS ORDERED: ACETAMINOPHEN 325 MG TAB PO PRN ×2 (17:30→21:30)
[2018-12-28] MEDS ORDERED: ONDANSETRON 4 MG INJ IV PRN (17:30)
--- NOTE | 2018-12-28 18:48 | ERD ---
ER Documentation Chief Complaint Chief Complaint abdominal pain x 2 days HPI Patient is a 78-year-old male with a history of A. fib who presents with bowel trouble. The patient was brought in by ambulance. He said that he has had " bowel trouble" and has tried massaging his bowel through but says that he has had "spasmodic activity". He thinks that he might have "impacted bowel". He said that his last bowel movement was a few days ago after he took milk of magnesia. He was sent by Dr. Baron for admission. Upon review of old medical record the patient has multiple visits with admissions. ROS All systems reviewed and are negative except as per history of present illness. Medications Home Meds Reported Medications Ascorbic Acid* (Vitamin C*) 500 Mg Capsule.sa, 500 MG PO DAILY, CAP 12/28/18 Nystatin (Nystatin Powder) 1 Each Powder.ea., 1 APPLIC TOPICAL DAILY, #1 BOTTLE 12/28/18 Magnesium Hydroxide* (Milk Of Magnesia*) 400 Mg/5 Ml Oral.susp, 30 ML PO DAILY, ML 12/28/18 Hydralazine Hcl* (Hydralazine Hcl*) 25 Mg Tab, 25 MG PO Q6H PRN for BLOOD PRESSURE SUPPORT, #60 TAB 12/28/18 Ferrous Sulfate* (Ferrous Sulfate*) 325 Mg Tabec, 325 MG PO BID, TAB 12/28/18 Methyl Salicylate/Menthol (Bengay Greaseless Cream) 57 Gm Cream..g., 57 GM TP TID APPLY TO LEFT HIP 12/28/18 Aspirin (Low Dose Aspirin) 81 Mg Tablet., 81 MG PO DAILY, #30 TAB 12/28/18 Oxycodone HCl/Acetaminophen (Percocet 10-325 mg Tablet) 1 Each Tablet, 1 EACH PO Q4 PRN for SEVERE PAIN LEVEL 7-10, TAB 07/03/18 Loperamide Hcl* (Loperamide Hcl*) 2 Mg Cap, 2 MG PO Q6 PRN for DIARRHEA, CAP 07/03/18 Amlodipine Besylate* (Norvasc*) 5 Mg Tablet, 5 MG PO DAILY, TAB HOLD FOR SBP<110 OR HR<60 07/03/18 Acetaminophen* (Acetaminophen*) 650 Mg Tablet, 650 MG PO Q6H PRN for PAIN AND OR ELEVATED TEMP, #30 TAB 07/03/18 Guaifenesin-Dextromethorphan* (Robitussin* DM) 100MG/10MG/5ML Syrup, 10 ML PO Q4H PRN for COUGH, ML 01/27/18 Nitroglycerin* (Nitroglycerin* SL) 0.4 Mg Tab.subl, 0.4 MG SL Q5MIN PRN for CHEST PAIN, BOTTLE 01/27/18 Multivitamin with Minerals (Multivitamins with Minerals) 1 Each Tablet, 1 EACH PO DAILY, TAB 01/27/18 Melatonin (Melatin) 3 Mg Tablet, 3 MG PO QHS, TAB 01/27/18 Gabapentin* (Gabapentin*) 100 Mg Capsule, 200 MG PO TID, #180 CAP 01/27/18 Mineral Oil* (Fleet* Mineral Oil Enema) Unknown Strength Oil, 118 ML [place] Q72H PRN for CONSTIPATION, ENEMA 01/27/18 Finasteride* (Finasteride*) 5 Mg Tablet, 5 MG PO DAILY, TAB 01/27/18 Discontinued Reported Medications Quetiapine Fumarate* (Quetiapine Fumarate*) 25 Mg Tablet, 25 MG PO BID, TAB 07/03/18 Apixaban* (Eliquis*) 5 Mg Tablet, 5 MG PO BID, TAB 07/03/18 Docusate Sodium* (Colace*) 100 Mg Capsule, 100 MG PO BID PRN for CONSTIPATION, #60 CAP 07/03/18 Allergies Allergies: Coded Allergies: codeine (Verified Allergy, Unknown, 12/28/18) PMhx/Soc History of Surgery: No Anesthesia Reaction: No Hx Neurological Disorder: No Hx Respiratory Disorders: No Hx Cardiac Disorders: Yes (chest pain recurrent, CHF, HTN) Hx Psychiatric Problems: Yes (paranoid psychosis) Hx Miscellaneous Medical Probl: No Hx Alcohol Use: Yes Hx Substance Use: No Hx Tobacco Use: Yes Smoking Status: Never smoker FmHx Family History: No diabetes Physical Exam Vitals Vital Signs Date Temp Pulse Resp B/P (MAP) Pulse Ox O2 O2 Flow FiO2 Time Delivery Rate 12/28/18 76 20 118/73 99 Room Air 18:35 (88) 12/28/18 98.1 76 18 120/60 97 16:56 (80) Physical Exam Const: No acute distress Head: Atraumatic Eyes: Normal Conjunctiva ENT: Normal External Ears, Nose and Mouth. Neck: Full range of motion. No meningismus. Resp: Clear to auscultation bilaterally Cardio: Regular rate and rhythm, no murmurs Abd: Diffuse tenderness to palpation without rebound or guarding, most pain is in the left lower quadrant Skin: Pale skin Back: No midline or flank tenderness Ext: No cyanosis, or edema Neur: Awake and alert Psych: Normal Mood and Affect Result Diagram: 12/28/18 1719 12/28/18 1719 Results 24 hrs Laboratory Tests Test 12/28/18 17:19 White Blood Count 5.9 10^3/ul Red Blood Count 4.13 10^6/ul Hemoglobin 9.9 g/dl Hematocrit 33.3 % Mean Corpuscular Volume 80.6 fl Mean Corpuscular Hemoglobin 24.0 pg Mean Corpuscular Hemoglobin Concent 29.7 g/dl Red Cell Distribution Width 15.9 % Platelet Count 325 10^3/UL Mean Platelet Volume 7.9 fl Immature Granulocytes % 0.300 % Neutrophils % 67.6 % Lymphocytes % 17.9 % Monocytes % 11.5 % Eosinophils % 2.0 % Basophils % 0.7 % Nucleated Red Blood Cells % 0.0 /100WBC Immature Granulocytes # 0.020 10^3/ul Neutrophils # 4.0 10^3/ul Lymphocytes # 1.1 10^3/ul Monocytes # 0.7 10^3/ul Eosinophils # 0.1 10^3/ul Basophils # 0.0 10^3/ul Nucleated Red Blood Cells # 0.0 10^3/ul Sodium Level 140 mmol/L Potassium Level 3.8 mmol/L Chloride Level 106 mmol/L Carbon Dioxide Level 26 mmol/L Anion Gap 8 Blood Urea Nitrogen 21 mg/dl Creatinine 0.67 mg/dl Est Glomerular Filtrat Rate mL/min mL/min Glucose Level 93 mg/dl Calcium Level 8.5 mg/dl Total Bilirubin 0.4 mg/dl Direct Bilirubin 0.00 mg/dl Indirect Bilirubin 0.4 mg/dl Aspartate Amino Transf (AST/SGOT) 19 IU/L Alanine Aminotransferase (ALT/SGPT) 20 IU/L Alkaline Phosphatase 116 IU/L Troponin I < 0.012 ng/ml Total Protein 6.5 g/dl Albumin 3.5 g/dl Globulin 3.00 g/dl Albumin/Globulin Ratio 1.16 Lipase 23 U/L Current Medications Medications Dose Sig/Terrence Start Time Status Last (Trade) Ordered Route PRN Stop Time Admin Dose Reason Admin Morphine 4 mg ONCE STAT 12/28/18 DC 12/28/18 Sulfate IV 16:52 17:21 (morphine) 12/28/18 16:54 Ondansetron 4 mg ONCE STAT 12/28/18 DC 12/28/18 HCl (Zofran IV 16:52 17:21 Inj) 12/28/18 16:54 Ondansetron 4 mg BRIDGE ORDER 12/28/18 HCl (Zofran PRN IV 17:30 Inj) NAUSEA/VOMITI 12/29/18 17:29 NG 650 mg ER BRIDGE 12/28/18 Acetaminophen PRN PO 17:30 (Tylenol .MILD PAIN 12/29/18 17:29 Tab) 1-3 OR TEMP Procedures/MDM CT abdomen pelvis read by radiology shows fecal impaction and colitis. Patient is an 78-year-old male who presents with abdominal pain. He was found to have constipation and colitis. I doubt sepsis at this time. The patient will be given Zosyn. The patient will need a bowel regimen while admitted to the hospital as he has significant stool impaction. The patient may benefit from GI consultation while admitted. He will be admitted to the care of Dr. Gio manzo to a medical surgical bed. I doubt appendicitis, cholecystitis, or pancreatitis. Departure Diagnosis: Primary Impression: Colitis Additional Impressions: Abdominal pain Abdominal location: generalized Qualified Codes: R10.84 - Generalized abdominal pain Constipation Constipation type: unspecified constipation type Qualified Codes: K59.00 - Constipation, unspecified Condition: EROS Brito MD December 28, 2018 18:48
[2018-12-28] MEDS ORDERED: PIPER-TAZO 3.375 GM IV (PMX) 100 ML IVPB ONE (19:00)
[2018-12-28] MEDS ORDERED: HYDROmorphONE 2 MG/ML SYG IV STA (19:23)
[2018-12-28 20:00] VITALS: BP 121/69; PULSE 78; RESP 18
[2018-12-28] MEDS ORDERED: NITROGLYCERIN (SL) 0.4 MG TAB SL PRN (21:30)
[2018-12-28] MEDS ORDERED: ZOLPIDEM 5 MG TAB PO PRN (21:30)
[2018-12-28] MEDS ORDERED: LOPERAMIDE 2 MG CAP PO PRN (21:30)
[2018-12-28] MEDS ORDERED: APIX2.5T PO (22:05)
[2018-12-28] MEDS: D5W-0.45 NACL + KCL 20 MEQ 1,000 ML IV SCH (22:59)
[2018-12-28] MEDS: LACTULOSE 30ML CUP PO SCH (23:00)
[2018-12-29 01:45] VITALS: BP 118/63; PULSE 91; RESP 18
[2018-12-29] MEDS: LACTULOSE 30ML CUP PO SCH ×4 (04:27→21:30)
[2018-12-29] MEDS: OXYCODONE/ACETAMINOPHEN (10/325) TAB PO PRN ×2 (04:53→08:53)
--- NOTE | 2018-12-29 06:36 | HP ---
DATE OF ADMISSION: 12/28/2018 CHIEF COMPLAINT: Abdominal pain. HISTORY OF PRESENT ILLNESS: The patient is an 78-year-old gentleman well known to me from previous s everal admissions. The patient has colon cancer for which he has refused further treatment. The pat sandy also has history of hypertension, paroxysmal atrial fibrillation, benign prostatic hypertrophy a nd paranoid psychosis. The patient is a resident of residential facility. The patient was compl aining of diffuse abdominal pain and therefore, patient was sent to ER for further evaluation and man agement. The patient reported that he had been constipated for the last few days. The patient took Milk of Magnesia at residential facility a few days ago. After that he did have a bowel movement ; however, he has been taking Milk of Magnesia every day. Due to history of colon cancer, the patien t underwent CT of the abdomen and pelvis to make sure he does not have any obstruction. CT of the ab domen revealed large amount of stool throughout the colon with a large amount of stool in the rectosi gmoid colon with ____ wall thickening. Finding was suspicious for fecal impaction and stercoral coli tis. The patient also was noted to have mild left hydronephrosis, a large hiatal hernia containing l arge portion of stomach. The patient also was noted to have a fracture deformity of the left proxima l femur, new compared to 06/2018 CT abdominal pelvis exam. As per report, this may be acute or subac [place]. The patient's gallbladder was also somewhat distended. The patient denied any chest pain, shor tness of breath. No history of palpitation. No history of dizziness, syncope. No history of vomiti ng. No history of nausea. No history of leg edema. The patient did have neuropathy pain for which he takes gabapentin. The patient did not have any headache, dizziness, or syncope. The patient has generalized weakness and has been lately wheelchair bound. No reported focal motor weakness and as d escribed above, the pain was diffuse, was going on for a few days with no aggravating or relieving fa ctors. There was no recent rectal bleed. PAST MEDICAL HISTORY: As stated above in addition to history of DVT. ALLERGIES: CODEINE. SOCIAL HISTORY: Ex-smoker, former alcohol drinker, had been drinking for the last several years. FAMILY HISTORY: No pertinent family history. PHYSICAL EXAMINATION: GENERAL: Reveals the patient to be awake, alert, fairly oriented. VITAL SIGNS: In the ER upon presentation, temperature 98.1, pulse 76, respiration 18, blood pressure 120/60, O2 saturation 97% on room air. HEENT: No eye discharge. Conjunctivae and lids are normal. Oropharynx clear. NECK: Supple. No thyromegaly. CHEST: Fairly clear. CARDIOVASCULAR: S1, S2 normal. Regular rate and rhythm clinically, no murmur, gallop, or rub. ABDOMEN: Soft with diffuse tenderness to palpation. No rebound tenderness, no guarding. Left lower quadrant was more tender. SKIN: Without acute rash present. NEUROLOGIC: The patient is awake, alert, fairly oriented with no gross focal deficit. LYMPHATICS: Negative in neck and axilla. LABORATORY DATA: In the ER, WBC 5.9, hemoglobin 9.9, platelet 225. Sodium 140, potassium 3.8, BUN 2 1, creatinine 0.6, glucose 93. Bilirubin 0.4, AST 19, ALT 20, alkaline phosphatase 116. Troponin ne gative. Albumin 3, lipase 23. Labs in the ER revealed WBC 5.9, hemoglobin 9.9, platelet 225. Sodium 140, potassium 3.8, BUN 21, cr eatinine 0.6. Liver enzymes normal. IMPRESSION: 1. Fecal impaction and stercoral colitis. Will start patient on lactulose and will keep him clear l iquid diet and will also start him on IV fluid. 2. Fracture deformity of the left proximal femur, new compared to 06/2018 CT. Will obtain MRI of th e left hip for further evaluation and I will also obtain consultation from Dr. Juanjose Cohen from [facility]. 3. Paroxysmal atrial fibrillation. Continue aspirin for CVA prophylaxis. Currently, the patient is in sinus rhythm. 4. Hypertension. Blood pressure well controlled with Norvasc. 5. Peripheral neuropathy. Continue Neurontin. 6. Benign prostatic hypertrophy. Continue Proscar. 7. Colon cancer. The patient refused further workup. Will continue to monitor. 8. Paranoid psychosis as per reconciliation from skilled nursing. The patient is not on any psych medi cation. We will continue to monitor him closely. 9. Fecal occult blood. Will hold off on anticoagulation. We will continue aspirin for CVA prophyla xis. Further recommendations will depend on hospital course. Dictated By: OSIRIS CIFUENTES MD AB/JENNIFER QUINN: 12/29/2018 00:13:00 Conf#: [id number] DID#: [id number]
[2018-12-29 07:44] VITALS: BP 122/80; PULSE 83; RESP 16
[2018-12-29] MEDS ORDERED: FERROUS SULFATE (EC) 325 MG TAB PO SCH (09:00)
[2018-12-29] MEDS: AMLODIPINE 5 MG TAB PO SCH ×2 (09:00→18:50)
[2018-12-29] MEDS: ASPIRIN (EC) 81 MG TAB PO SCH ×2 (09:00→18:50)
[2018-12-29] MEDS: GABAPENTIN 100 MG CAP PO SCH ×3 (09:00→21:00)
[2018-12-29] MEDS: FINASTERIDE 5 MG TAB PO SCH ×2 (09:00→18:50)
[2018-12-29] MEDS ORDERED: HYDROmorphONE 0.5 MG/0.5 ML SYG IV PRN (09:00)
[2018-12-29] MEDS: NYSTATIN 15 GM POWDER BTL TOP SCH ×2 (09:00→21:29)
[2018-12-29] MEDS: ONDANSETRON 4 MG INJ IV PRN ×2 (09:21→18:55)
[2018-12-29] MEDS: morphine 4 MG/ML VIAL IV PRN ×2 (10:30→21:26)
[2018-12-29 13:43] VITALS: BP 133/54; PULSE 90; RESP 18
--- NOTE | 2018-12-29 14:32 | CONS ---
Assessment/Plan Assessment/Plan Assessment/Plan (Daily) IMPRESSION: 1. Fecal impaction and stercoral colitis. 2. Colon cancer. 3. FOBT positive with chronic anemia 4. on anticoagulation due to atrial fibrillation 5. iron deficiency anemia Recommendations: 1. I dc oral iron as it is constipating and changed to IV iron replacement therapy 2. continue lactulose as ordered by primary 3. I added daily miralax 4. dose of soap kevin enema as patient reports beneficial previously 5. recommend oncology consultation to discuss management of colon cancer 6. recommend surgery consultation to discuss surgical removal of colon cancer. Patient reports declining surgery due to worry that surgeon told him he may on table. Surgery also to discuss risks and benefits of surgery including counseling on percentage of mortality with surgery. Consultation Date/Type/Reason Admit Date/Time December 28, 2018 at 17:05 Date of Consultation: December 29, 2018 Type of Consult GI Date/Time of Note DATE: 12/29/18 TIME: 14:18 Hx of Present Illness The patient is an 78-year-old gentleman who is admitted for abdominal pain and fecal impaction. GI is consulted for the same. The patient was dx with colon cancer by Dr. Castano Jul 2018 at the hepatic flex[facility]. He refused surgery due to worries of "dying at the table" in his discussion with surgeon. The patient was complaining of diffuse abdominal pain and therefore, patient was sent to ER for further evaluation and management. The patient reported that he had been constipated for the last few days. The patient took [facility] at [facility] a few days ago. After that he did have a bowel movement; however, he has been taking Milk of Magnesia every day. CT of the abdomen and pelvis in ER revealed large amount of stool throughout the colon with a large amount of stool in the rectosigmoid colon with bowel wall thickening. Finding was suspicious for fecal impaction and stercoral colitis. The patient also was noted to have mild left hydronephrosis, a large hiatal hernia containing large portion of stomach. The patient also was noted to have a fracture deformity of the left proximal femur, new compared to 06/2018 CT abdominal pelvis exam. As per report, this may be acute or subacute. The patient's gallbladder was also somewhat distended. The patient denied any chest pain, shortness of breath. No history of palpitation. No history of dizziness, syncope. No history of vomiting. No history of nausea. No hematochezia or melena. all point ros administered, pertinent positives and negatives in HPI otherwise negative Past Medical History Medical History: colitis, coronary artery disease, other (colon cancer, atrial fibrillation) Home Meds Reported Medications Apixaban* (Eliquis*) 2.5 Mg Tablet, 5 MG PO BID 12/28/18 Ascorbic Acid* (Vitamin C*) 500 Mg Capsule.sa, 500 MG PO DAILY, CAP 12/28/18 Nystatin (Nystatin Powder) 1 Each Powder.ea., 1 APPLIC TOPICAL DAILY, #1 BOTTLE 12/28/18 Magnesium Hydroxide* (Milk Of Magnesia*) 400 Mg/5 Ml Oral.susp, 30 ML PO DAILY, ML 12/28/18 Hydralazine Hcl* (Hydralazine Hcl*) 25 Mg Tab, 25 MG PO Q6H PRN for BLOOD PRESSURE SUPPORT, #60 TAB 12/28/18 Ferrous Sulfate* (Ferrous Sulfate*) 325 Mg Tabec, 325 MG PO BID, TAB 12/28/18 Methyl Salicylate/Menthol (Bengay Greaseless Cream) 57 Gm Cream..g., 57 GM TP TID APPLY TO LEFT HIP 12/28/18 Aspirin (Low Dose Aspirin) 81 Mg Tablet.dr, 81 MG PO DAILY, #30 TAB 12/28/18 Oxycodone HCl/Acetaminophen (Percocet 10-325 mg Tablet) 1 Each Tablet, 1 EACH PO Q4 PRN for SEVERE PAIN LEVEL 7-10, TAB 07/03/18 Loperamide Hcl* (Loperamide Hcl*) 2 Mg Cap, 2 MG PO Q6 PRN for DIARRHEA, CAP 07/03/18 Amlodipine Besylate* (Norvasc*) 5 Mg Tablet, 5 MG PO DAILY, TAB HOLD FOR SBP<110 OR HR<60 07/03/18 Acetaminophen* (Acetaminophen*) 650 Mg Tablet, 650 MG PO Q6H PRN for PAIN AND OR ELEVATED TEMP, #30 TAB 07/03/18 Guaifenesin-Dextromethorphan* (Robitussin* DM) 100MG/10MG/5ML Syrup, 10 ML PO Q4H PRN for COUGH, ML 01/27/18 Nitroglycerin* (Nitroglycerin* SL) 0.4 Mg Tab.subl, 0.4 MG SL Q5MIN PRN for CHEST PAIN, BOTTLE 01/27/18 Multivitamin with Minerals (Multivitamins with Minerals) 1 Each Tablet, 1 EACH PO DAILY, TAB 01/27/18 Melatonin (Melatin) 3 Mg Tablet, 3 MG PO QHS, TAB 01/27/18 Gabapentin* (Gabapentin*) 100 Mg Capsule, 200 MG PO TID, #180 CAP 01/27/18 Mineral Oil* (Fleet* Mineral Oil Enema) Unknown Strength Oil, 118 ML PA Q72H PRN for CONSTIPATION, ENEMA 01/27/18 Finasteride* (Finasteride*) 5 Mg Tablet, 5 MG PO DAILY, TAB 01/27/18 Discontinued Reported Medications Quetiapine Fumarate* (Quetiapine Fumarate*) 25 Mg Tablet, 25 MG PO BID, TAB 07/03/18 Apixaban* (Eliquis*) 5 Mg Tablet, 5 MG PO BID, TAB 07/03/18 Docusate Sodium* (Colace*) 100 Mg Capsule, 100 MG PO BID PRN for CONSTIPATION, #60 CAP 07/03/18 Medications Current Medications Ondansetron HCl (Zofran Inj) 4 mg BRIDGE ORDER PRN IV NAUSEA/VOMITING; Start 12/28/18 at 17:30; Stop 12/29/18 at 17:29 Acetaminophen (Tylenol Tab) 650 mg ER BRIDGE PRN PO .MILD PAIN 1-3 OR TEMP; Start 12/28/18 at 17:30; Stop 12/29/18 at 17:29 Acetaminophen (Tylenol Tab) 650 mg Q6H PRN PO MILD PAIN(1-3)OR ELEVATED TEMP; Start 12/28/18 at 21:30 Amlodipine Besylate (Norvasc) 5 mg DAILY PO ; Start 12/29/18 at 09:00 Aspirin (Halfprin) 81 mg DAILY PO ; Start 12/29/18 at 09:00 Ferrous Sulfate (Ferrous Sulfate (Ec)) 325 mg DAILY PO ; Start 12/29/18 at 09:00 Finasteride (Proscar) 5 mg DAILY PO ; Start 12/29/18 at 09:00 Gabapentin (Neurontin) 200 mg TID PO ; Start 12/29/18 at 09:00 Hydralazine HCl (Apresoline) 25 mg Q6H PRN PO BLOOD PRESSURE SUPPORT; Start 12/28/18 at 21:30 Loperamide HCl (Imodium Cap) 2 mg Q6 PRN PO DIARRHEA; Start 12/28/18 at 21:30 Nitroglycerin (Nitroglycerin (Sl Tab) 0.4 Mg) 1 tab PRN PRN SL CHEST PAIN; Start 12/28/18 at 21:30 Nystatin 1 applic BID TOP ; Start 12/29/18 at 09:00 Oxycodone/ Acetaminophen (Endocet (10/ 325)) 1 tab Q4 PRN PO SEVERE PAIN LEVEL 7-10 Last administered on 12/29/18at 04:53; Admin Dose 1 TAB; Start 12/28/18 at 21:30 Lactulose (Enulose) 30 gm Q6H PO Last administered on 12/29/18at 04:27; Admin Dose 30 GM; Start 12/28/18 at 21:30 Zolpidem Tartrate (Ambien) 5 mg HS PRN PO INSOMNIA; Start 12/28/18 at 21:30 Lorazepam (Ativan) 0.5 mg Q6H PRN PO ANXIETY; Start 12/28/18 at 21:30 Potassium Chloride/Dextrose/ Sod Cl 1,000 ml @ 60 mls/hr [id number] IV Last administered on 12/28/18at 22:59; Admin Dose 60 MLS/HR; Start 12/28/18 at 21:30 Ondansetron HCl (Zofran Inj) 4 mg Q6H PRN IV NAUSEA AND/OR VOMITING Last administered on 12/29/18at 09:21; Admin Dose 4 MG; Start 12/29/18 at 09:00 Morphine Sulfate (morphine) 4 mg Q4H PRN IV SEVERE PAIN LEVEL 7-10 Last administered on 12/29/18at 10:30; Admin Dose 4 MG; Start 12/29/18 at 10:30 Allergies: Coded Allergies: codeine (Verified Allergy, Unknown, 12/28/18) Past Surgical History Past Surgical Hx: other Family History Significant Family History: no pertinent family hx Social History Alcohol Use: none Smoking Status: Former smoker Drug Use: none Exam/Review of Systems Exam Vitals Vital Signs Date Temp Pulse Resp B/P (MAP) Pulse Ox O2 O2 Flow FiO2 Time Delivery Rate 12/29/18 98.5 90 18 133/54 98 13:43 (80) 12/28/18 Room Air 19:39 Intake and Output 12/28/18 12/28/18 12/29/18 1515:00 23:00 07:00 IntakeIntake Total 360 ml BalanceBalance 360 ml Constitutional: alert, oriented, frail Psych: no complaints, nl mood/affect Head: normocephalic, atraumatic Eyes: nl conjunctiva, EOMI, nl lids ENMT: nl external ears & nose, nl lips & teeth, nl nasal mucosa & septum Neck: supple, non-tender Respiratory: clear to auscultation, normal air movement Cardiovascular: regular rate and rhythm, nl pulses Gastrointestinal: soft, bowel sounds, distended, tender (diffusely) Extremities: normal pulses Neurological: lethargic Results Result Diagram: 12/29/18 0709 12/29/18 0709 Results 24hrs Laboratory Tests Test 12/28/18 17:19 12/29/18 07:09 12/29/18 09:35 White Blood Count 5.9 8.0 # Red Blood Count 4.13 L 4.34 L Hemoglobin 9.9 L 10.4 L Hematocrit 33.3 L 34.9 L Mean Corpuscular Volume 80.6 L 80.4 L Mean Corpuscular Hemoglobin 24.0 L 24.0 L Mean Corpuscular Hemoglobin Concent 29.7 L 29.8 L Red Cell Distribution Width 15.9 H 16.1 H Platelet Count 325 323 Mean Platelet Volume 7.9 8.2 Immature Granulocytes % 0.300 0.600 H Neutrophils % 67.6 81.0 H Lymphocytes % 17.9 9.8 L Monocytes % 11.5 H 8.2 Eosinophils % 2.0 0.2 Basophils % 0.7 0.2 Nucleated Red Blood Cells % 0.0 0.0 Immature Granulocytes # 0.020 0.050 H Neutrophils # 4.0 6.5 Lymphocytes # 1.1 0.8 Monocytes # 0.7 0.7 Eosinophils # 0.1 0.0 Basophils # 0.0 0.0 Nucleated Red Blood Cells # 0.0 0.0 Sodium Level 140 141 Potassium Level 3.8 4.8 Chloride Level 106 108 Carbon Dioxide Level 26 25 Anion Gap 8 8 Blood Urea Nitrogen 21 H 24 H Creatinine 0.67 0.70 Est Glomerular Filtrat Rate mL/min Glucose Level 93 129 Calcium Level 8.5 8.6 Total Bilirubin 0.4 Direct Bilirubin 0.00 Indirect Bilirubin 0.4 Aspartate Amino Transf (AST/SGOT) 19 Alanine Aminotransferase (ALT/SGPT) 20 Alkaline Phosphatase 116 Troponin I < 0.012 Total Protein 6.5 Albumin 3.5 Globulin 3.00 Albumin/Globulin Ratio 1.16 Lipase 23 Magnesium Level 2.4 Urine Color YELLOW Urine Clarity CLOUDY A Urine pH 5.0 Urine Specific [place] 1.024 Urine Ketones TRACE A Urine Nitrite POSITIVE A Urine Bilirubin NEGATIVE Urine Urobilinogen NEGATIVE Urine Leukocyte Esterase 3+ H Urine Microscopic RBC 42 H Urine Microscopic WBC > 182 H Urine Squamous Epithelial Cells FEW Urine Bacteria MODERATE Urine Hemoglobin 1+ H Urine Glucose NEGATIVE Urine Total Protein NEGATIVE Medications Medication Current Medications Ondansetron HCl (Zofran Inj) 4 mg BRIDGE ORDER PRN IV NAUSEA/VOMITING; Start 12/28/18 at 17:30; Stop 12/29/18 at 17:29 Acetaminophen (Tylenol Tab) 650 mg ER BRIDGE PRN PO .MILD PAIN 1-3 OR TEMP; Start 12/28/18 at 17:30; Stop 12/29/18 at 17:29 Acetaminophen (Tylenol Tab) 650 mg Q6H PRN PO MILD PAIN(1-3)OR ELEVATED TEMP; Start 12/28/18 at 21:30 Amlodipine Besylate (Norvasc) 5 mg DAILY PO ; Start 12/29/18 at 09:00 Aspirin (Halfprin) 81 mg DAILY PO ; Start 12/29/18 at 09:00 Ferrous Sulfate (Ferrous Sulfate (Ec)) 325 mg DAILY PO ; Start 12/29/18 at 09:00 Finasteride (Proscar) 5 mg DAILY PO ; Start 12/29/18 at 09:00 Gabapentin (Neurontin) 200 mg TID PO ; Start 12/29/18 at 09:00 Hydralazine HCl (Apresoline) 25 mg Q6H PRN PO BLOOD PRESSURE SUPPORT; Start 12/28/18 at 21:30 Loperamide HCl (Imodium Cap) 2 mg Q6 PRN PO DIARRHEA; Start 12/28/18 at 21:30 Nitroglycerin (Nitroglycerin (Sl Tab) 0.4 Mg) 1 tab PRN PRN SL CHEST PAIN; Start 12/28/18 at 21:30 Nystatin 1 applic BID TOP ; Start 12/29/18 at 09:00 Oxycodone/ Acetaminophen (Endocet (10/ 325)) 1 tab Q4 PRN PO SEVERE PAIN LEVEL 7-10 Last administered on 12/29/18 04:53; Admin Dose 1 TAB; Start 12/28/18 at 21:30 Lactulose (Enulose) 30 gm Q6H PO Last administered on 12/29/18 04:27; Admin Dose 30 GM; Start 12/28/18 at 21:30 Zolpidem Tartrate (Ambien) 5 mg HS PRN PO INSOMNIA; Start 12/28/18 at 21:30 Lorazepam (Ativan) 0.5 mg Q6H PRN PO ANXIETY; Start 12/28/18 at 21:30 Potassium Chloride/Dextrose/ Sod Cl 1,000 ml @ 60 mls/hr [id number] IV Last administered on 12/28/18 22:59; Admin Dose 60 MLS/HR; Start 12/28/18 at 21:30 Ondansetron HCl (Zofran Inj) 4 mg Q6H PRN IV NAUSEA AND/OR VOMITING Last administered on 12/29/18 09:21; Admin Dose 4 MG; Start 12/29/18 at 09:00 Morphine Sulfate (morphine) 4 mg Q4H PRN IV SEVERE PAIN LEVEL 7-10 Last administered on 12/29/18 10:30; Admin Dose 4 MG; Start 12/29/18 at 10:30 JESSE BASILIO MD December 29, 2018 14:32
[2018-12-29] MEDS: D5W-0.45 NACL + KCL 20 MEQ 1,000 ML IV SCH (18:46)
[2018-12-29] MEDS: POLYETHYLENE GLYCOL 17 GM PACKET GTB SCH (18:55)
[2018-12-29 20:00] VITALS: BP 132/64; PULSE 81; RESP 18
[2018-12-30] MEDS: morphine 4 MG/ML VIAL IV PRN ×3 (02:20→21:14)
[2018-12-30 02:22] VITALS: BP 129/60; PULSE 77; RESP 20
[2018-12-30] MEDS: LACTULOSE 30ML CUP PO SCH ×4 (03:30→20:46)
[2018-12-30] MEDS: D5W-0.45 NACL + KCL 20 MEQ 1,000 ML IV SCH ×3 (06:50→23:30)
[2018-12-30 07:35] VITALS: BP 112/58; PULSE 59; RESP 18
--- NOTE | 2018-12-30 08:14 | PN ---
Date/Time of Note Date/Time of Note DATE: 12/30/18 TIME: 08:12 Assessment/Plan VTE Prophylaxis Risk [place] [facility] [place] risk: 6 SCD applied ([place] [facility] [place] No SCD contraindicated: other Pharmacological prophylaxis: other Pharm contraindication: other Lines/Catheters IV Catheter Type (from [facility]): Peripheral IV Assessment/Plan Assessment/Plan 1. Fecal impaction and stercoral colitis. Will start patient on lactulose and will keep him clear liquid diet and will also start him on IV fluid. 2. Fracture deformity of the left proximal femur, new compared to 06/2018 CT. Will obtain MRI of the left hip for further evaluation and I will also obtain consultation from Dr. Juanjose Cohen from ortho standpoint. 3. Paroxysmal atrial fibrillation. Continue aspirin for CVA prophylaxis. Currently, the patient is in sinus rhythm. 4. Hypertension. Blood pressure well controlled with Norvasc. 5. Peripheral neuropathy. Continue Neurontin. 6. Benign prostatic hypertrophy. Continue Proscar. 7. Colon cancer. The patient refused further workup. Will continue to monit or. 8. Paranoid psychosis as per reconciliation from [facility]. The patient is not on any psych medication. We will continue to monitor him closely. 9. Fecal occult blood. Will hold off on anticoagulation. We will continue aspirin for CVA prophylaxis. Further recommendations will depend on hospital course. Result Diagram: 12/29/18 0709 12/29/18 0709 Results 24hrs Laboratory Tests Test 12/29/18 09:35 Urine Color YELLOW Urine Clarity CLOUDY A Urine pH 5.0 Urine Specific [place] 1.024 Urine Ketones TRACE A Urine Nitrite POSITIVE A Urine Bilirubin NEGATIVE Urine Urobilinogen NEGATIVE Urine Leukocyte Esterase 3+ H Urine Microscopic RBC 42 H Urine Microscopic WBC > 182 H Urine Squamous Epithelial Cells FEW Urine Bacteria MODERATE Urine Hemoglobin 1+ H Urine Glucose NEGATIVE Urine Total Protein NEGATIVE Subjective 24 Hr Interval Summary Free Text/Dictation resting; denies any chest pain/shortness of breath VSS no events reported overnight dw staff Subjective hx not possible: other (general weakness) Eyes: no complaints ENT: no complaints Respiratory: no complaints Cardiovascular: no complaints Gastrointestinal: no complaints Genitourinary: no complaints Musculoskeletal: no complaints Skin: no complaints Neurologic: no complaints Exam/Review of Systems Exam Vitals Vital Signs Date Temp Pulse Resp B/P (MAP) Pulse Ox O2 O2 Flow FiO2 Time Delivery Rate 12/30/18 98.5 59 18 112/58 97 07:35 (76) 12/30/18 Room Air 02:22 Intake and Output 12/29/18 12/29/18 12/30/18 1515:00 23:00 07:00 IntakeIntake Total 360 ml 740 ml 660 ml BalanceBalance 360 ml 740 ml 660 ml Constitutional: alert, well developed Psych: nl mood/affect Eyes: nl lids, nl sclera ENMT: nl external ears & nose Neck: non-tender Respiratory: clear to auscultation Cardiovascular: nl pulses, other (s1s2) Gastrointestinal: soft, non-tender Musculoskeletal: muscle weakness Extremities: normal pulses Neurological: nl speech, other (alert/reponsive) Lymph: nontender Results Results 24hrs Laboratory Tests Test 12/29/18 09:35 Urine Color YELLOW Urine Clarity CLOUDY A Urine pH 5.0 Urine Specific [place] 1.024 Urine Ketones TRACE A Urine Nitrite POSITIVE A Urine Bilirubin NEGATIVE Urine Urobilinogen NEGATIVE Urine Leukocyte Esterase 3+ H Urine Microscopic RBC 42 H Urine Microscopic WBC > 182 H Urine Squamous Epithelial Cells FEW Urine Bacteria MODERATE Urine Hemoglobin 1+ H Urine Glucose NEGATIVE Urine Total Protein NEGATIVE Medications Medication Current Medications Acetaminophen (Tylenol Tab) 650 mg Q6H PRN PO MILD PAIN(1-3)OR ELEVATED TEMP; Start 12/28/18 at 21:30 Amlodipine Besylate (Norvasc) 5 mg DAILY PO Last administered on 12/29/18at 18:50; Admin Dose 5 MG; Start 12/29/18 at 09:00 Aspirin (Halfprin) 81 mg DAILY PO Last administered on 12/29/18at 18:50; Admin Dose 81 MG; Start 12/29/18 at 09:00 Finasteride (Proscar) 5 mg DAILY PO Last administered on 12/29/18at 18:50; Admin Dose 5 MG; Start 12/29/18 at 09:00 Gabapentin (Neurontin) 200 mg TID PO ; Start 12/29/18 at 09:00 Hydralazine HCl (Apresoline) 25 mg Q6H PRN PO BLOOD PRESSURE SUPPORT; Start 12/28/18 at 21:30 Loperamide HCl (Imodium Cap) 2 mg Q6 PRN PO DIARRHEA; Start 12/28/18 at 21:30 Nitroglycerin (Nitroglycerin (Sl Tab) 0.4 Mg) 1 tab PRN PRN SL CHEST PAIN; Start 12/28/18 at 21:30 Nystatin 1 applic BID TOP Last administered on 12/29/18 21:29; Admin Dose 1 APPLIC; Start 12/29/18 at 09:00 Oxycodone/ Acetaminophen (Endocet (10/ 325)) 1 tab Q4 PRN PO SEVERE PAIN LEVEL 7-10 Last administered on 12/29/18 04:53; Admin Dose 1 TAB; Start 12/28/18 at 21:30 Lactulose (Enulose) 30 gm Q6H PO Last administered on 12/29/18 18:50; Admin Dose 30 GM; Start 12/28/18 at 21:30 Zolpidem Tartrate (Ambien) 5 mg HS PRN PO INSOMNIA; Start 12/28/18 at 21:30 Lorazepam (Ativan) 0.5 mg Q6H PRN PO ANXIETY; Start 12/28/18 at 21:30 Potassium Chloride/Dextrose/ Sod Cl 1,000 ml @ 60 mls/hr [id number] IV Last administered on 12/29/18 18:46; Admin Dose 60 MLS/HR; Start 12/28/18 at 21:30 Ondansetron HCl (Zofran Inj) 4 mg Q6H PRN IV NAUSEA AND/OR VOMITING Last administered on 12/29/18 18:55; Admin Dose 4 MG; Start 12/29/18 at 09:00 Morphine Sulfate (morphine) 4 mg Q4H PRN IV SEVERE PAIN LEVEL 7-10 Last administered on 12/30/18 02:20; Admin Dose 4 MG; Start 12/29/18 at 10:30 Ferric Sodium Gluconate Complex 125 mg/Sodium Chloride 110 ml @ 110 mls/hr DAILY@1300 IVPB ; Start 12/30/18 at 13:00; Stop 01/03/19 at 13:59 Polyethylene Glycol (Miralax) 17 gm DAILY GTB Last administered on 12/29/18 18:55; Admin Dose 17 GM; Start 12/29/18 at 14:30 YAZ BARTLETT December 30, 2018 08:14
[2018-12-30] MEDS: FINASTERIDE 5 MG TAB PO SCH (09:14)
[2018-12-30] MEDS: GABAPENTIN 100 MG CAP PO SCH ×3 (09:14→20:22)
[2018-12-30] MEDS: POLYETHYLENE GLYCOL 17 GM PACKET GTB SCH (09:14)
[2018-12-30] MEDS: ASPIRIN (EC) 81 MG TAB PO SCH (09:14)
[2018-12-30] MEDS: NYSTATIN 15 GM POWDER BTL TOP SCH ×2 (09:15→20:23)
[2018-12-30] MEDS: AMLODIPINE 5 MG TAB PO SCH (09:15)
--- NOTE | 2018-12-30 10:28 | CONS ---
Assessment/Plan Assessment/Plan Assessment/Plan (Daily) IMPRESSION: 1. Fecal impaction and stercoral colitis: improved after miralax, lactulose and enema 2. Colon cancer at hepatic flexure, dx on colonoscopy by Dr. Castano Jul 2019 3. FOBT positive with chronic anemia 4. on anticoagulation due to atrial fibrillation 5. iron deficiency anemia Recommendations: 1. continue IV iron replacement therapy. No oral iron as it is constipating. 2. continue lactulose as ordered by primary 3. daily miralax 4. follow up KUB 5. recommend oncology consultation to discuss management of colon cancer 6. recommend surgery consultation to discuss surgical removal of colon cancer. Patient reports declining surgery due to worry that surgeon told him he may on table. Surgery also to discuss risks and benefits of surgery including counseling on percentage of mortality with surgery. Consultation Date/Type/Reason Admit Date/Time December 28, 2018 at 17:05 Initial Consult Date 12/29/18 Type of Consult GI Date/Time of Note DATE: 12/30/18 TIME: 10:25 24 HR Interval Summary Free Text/Dictation better mood after large BM Exam/Review of Systems Exam Vitals Vital Signs Date Temp Pulse Resp B/P (MAP) Pulse Ox O2 O2 Flow FiO2 Time Delivery Rate 12/30/18 98.5 59 18 112/58 97 07:35 (76) 12/30/18 Room Air 02:22 Intake and Output 12/29/18 12/29/18 12/30/18 1515:00 23:00 07:00 IntakeIntake Total 360 ml 740 ml 660 ml BalanceBalance 360 ml 740 ml 660 ml Constitutional: alert, oriented, well developed Psych: no complaints, nl mood/affect Head: normocephalic, atraumatic Eyes: nl conjunctiva, EOMI, nl lids ENMT: nl external ears & nose, nl lips & teeth, nl nasal mucosa & septum Neck: supple, non-tender Respiratory: clear to auscultation, normal air movement Cardiovascular: regular rate and rhythm, nl pulses Gastrointestinal: soft, bowel sounds, tender (LLQ) Results Result Diagram: 12/29/18 0709 12/29/18 0709 Medications Medication Current Medications Acetaminophen (Tylenol Tab) 650 mg Q6H PRN PO MILD PAIN(1-3)OR ELEVATED TEMP; Start 12/28/18 at 21:30 Amlodipine Besylate (Norvasc) 5 mg DAILY PO Last administered on 12/30/18 09:15; Admin Dose 5 MG; Start 12/29/18 at 09:00 Aspirin (Halfprin) 81 mg DAILY PO Last administered on 12/30/18 09:14; Admin Dose 81 MG; Start 12/29/18 at 09:00 Finasteride (Proscar) 5 mg DAILY PO Last administered on 12/30/18 09:14; Admin Dose 5 MG; Start 12/29/18 at 09:00 Gabapentin (Neurontin) 200 mg TID PO Last administered on 12/30/18 09:14; Admin Dose 200 MG; Start 12/29/18 at 09:00 Hydralazine HCl (Apresoline) 25 mg Q6H PRN PO BLOOD PRESSURE SUPPORT; Start 12/28/18 at 21:30 Loperamide HCl (Imodium Cap) 2 mg Q6 PRN PO DIARRHEA; Start 12/28/18 at 21:30 Nitroglycerin (Nitroglycerin (Sl Tab) 0.4 Mg) 1 tab PRN PRN SL CHEST PAIN; Start 12/28/18 at 21:30 Nystatin 1 applic BID TOP Last administered on 12/30/18 09:15; Admin Dose 1 APPLIC; Start 12/29/18 at 09:00 Oxycodone/ Acetaminophen (Endocet (10/ 325)) 1 tab Q4 PRN PO SEVERE PAIN LEVEL 7-10 Last administered on 12/29/18 04:53; Admin Dose 1 TAB; Start 12/28/18 at 21:30 Lactulose (Enulose) 30 gm Q6H PO Last administered on 12/30/18 09:14; Admin Do se 30 GM; Start 12/28/18 at 21:30 Zolpidem Tartrate (Ambien) 5 mg HS PRN PO INSOMNIA; Start 12/28/18 at 21:30 Lorazepam (Ativan) 0.5 mg Q6H PRN PO ANXIETY; Start 12/28/18 at 21:30 Potassium Chloride/Dextrose/ Sod Cl 1,000 ml @ 60 mls/hr [id number] IV Last administered on 12/29/18at 18:46; Admin Dose 60 MLS/HR; Start 12/28/18 at 21:30 Ondansetron HCl (Zofran Inj) 4 mg Q6H PRN IV NAUSEA AND/OR VOMITING Last administered on 12/29/18at 18:55; Admin Dose 4 MG; Start 12/29/18 at 09:00 Morphine Sulfate (morphine) 4 mg Q4H PRN IV SEVERE PAIN LEVEL 7-10 Last administered on 12/30/18at 09:16; Admin Dose 4 MG; Start 12/29/18 at 10:30 Ferric Sodium Gluconate Complex 125 mg/Sodium Chloride 110 ml @ 110 mls/hr DAILY@1300 IVPB ; Start 12/30/18 at 13:00; Stop 01/03/19 at 13:59 Polyethylene Glycol (Miralax) 17 gm DAILY GTB Last administered on 12/30/18at 09:14; Admin Dose 17 GM; Start 12/29/18 at 14:30 JESSE BASILIO MD December 30, 2018 10:28
[2018-12-30] MEDS: SOD FERRIC GLUC COMPLX 125 MG in SOD CHLORIDE 0.9% 100 ML IVPB SCH (12:21)
[2018-12-30] MEDS: AL HYDROX/MG HYDROX/SIMETH 30 ML CUP PO PRN (12:21)
[2018-12-30] MEDS: OXYCODONE/ACETAMINOPHEN (10/325) TAB PO PRN (12:33)
[2018-12-30 13:09] VITALS: BP 112/59; PULSE 64; RESP 18
[2018-12-30 19:53] VITALS: BP 129/58; PULSE 62; RESP 18
--- NOTE | 2018-12-30 22:43 | CONS ---
DATE OF ADMISSION: 12/30/2018 DATE OF CONSULTATION: 12/30/2018 HISTORY OF PRESENT ILLNESS: The patient is an 78-year-old male, a resident of a [facility] with multiple medical problems who was admitted on 12/30/2018 when he came to the emergency room complaining of abdominal discomfort and distention. He was found to have symptoms and signs suggest rogers of fecal impaction; however, the CT scan of the abdomen during the workups revealed a fracture in volving the femoral neck of the left hip and orthopedic surgery was consulted. He was diagnosed as h aving a CA of the colon, however, no surgical treatment was done because he was reluctant to have goldy bandar. PAST MEDICAL HISTORY: In addition to known CA of colon, he has multiple medical problems including h ypertension, paroxysmal atrial fibrillation, psychosis. PHYSICAL EXAMINATION: My examination revealed an 78-year-old male who seems to be alert and oriented . He claims that he had a fall, landing on his left hip about a month ago and he has been noticing t hat his left leg is getting shorter. There was tenderness and swelling around the left hip. There w as an obvious shortening and abnormal external rotation of the left lower extremity. Range of motion of the left hip was painful. There were no signs of acute neurovascular compromise involving the le ft lower extremity. CT scan of the pelvis revealed an obvious fracture involving the femoral neck. This fracture line se ems to be through the area of lucency. DIAGNOSTIC IMPRESSION: Pathologic fracture of the left hip. TREATMENT PLAN: The nature of his problem, namely a femoral neck fracture, probably pathologic was d iscussed with the patient. A treatment recommendation, namely hemiarthroplasty of the left hip was a lso discussed with its pros and cons. The patient was informed that without surgery, he would not be able to walk and he will suffer from constant pain. In addition to other painful problems including extensive bed sore that can happen because of his inability to walk and he was agreeable with the re commended surgery, I will schedule him for hemiarthroplasty of the left hip as soon as he can be medi sergio cleared for surgery. Dictated By: AARON DURAN MD IK/NTS Conf#: [id number] DID#: [id number] CC: YOSELIN TRUONG MD; FLASH CHAPIN; MARKY TUTTLE MD; MARIA G GIL MD; AUDIE TONEY MD ; OSIRIS CIFUENTES MD;*EndCC*
[2018-12-31] MEDS: OXYCODONE/ACETAMINOPHEN (10/325) TAB PO PRN ×3 (01:31→21:49)
[2018-12-31] MEDS: LORAZEPAM 0.5 MG TAB PO PRN ×2 (01:35→22:26)
[2018-12-31 01:55] VITALS: BP 110/58; PULSE 71; RESP 18
[2018-12-31] MEDS: LACTULOSE 30ML CUP PO SCH ×2 (02:53→09:13)
[2018-12-31] MEDS: AL HYDROX/MG HYDROX/SIMETH 30 ML CUP PO PRN (04:42)
[2018-12-31] MEDS: D5W-0.45 NACL + KCL 20 MEQ 1,000 ML IV SCH ×2 (04:46→22:22)
--- NOTE | 2018-12-31 08:25 | CONS ---
Assessment/Plan Assessment/Plan Assessment/Plan (Daily) IMPRESSION: 1. Fecal impaction and stercoral colitis: on miralax, lactulose. KUB 12/30/18 still showed significant amount of stool 2. Colon cancer at hepatic flexure, dx on colonoscopy by Dr. Castano Jul 2019 3. FOBT positive with chronic anemia 4. on anticoagulation due to atrial fibrillation 5. iron deficiency anemia Recommendations: 1. continue IV iron replacement therapy. No oral iron as it is constipating. 2. continue lactulose as ordered by primary 3. daily miralax 4. another dose of soap kevin enema 5. repeat KUB tomorrow to assess whether there is improvement in constipation 6. recommend oncology consultation to discuss management of colon cancer 7. Dr. Castano to resume care of this patient tomorrow from GI perspective Consultation Date/Type/Reason Admit Date/Time December 30, 2018 at 07:26 Initial Consult Date 12/29/18 Type of Consult GI Date/Time of Note DATE: 12/31/18 TIME: 08:22 24 HR Interval Summary Free Text/Dictation reports having multiple BM. However, I reviewed the KUB and patient still has lots of stool Exam/Review of Systems Exam Vitals Vital Signs Date Temp Pulse Resp B/P (MAP) Pulse Ox O2 O2 Flow FiO2 Time Delivery Rate 12/31/18 98.4 71 18 110/58 95 01:55 (75) 12/30/18 Room Air 02:22 Intake and Output 12/30/18 12/30/18 12/31/18 1515:00 23:00 07:00 IntakeIntake Total 1490 ml 1500 ml 1420 ml OutputOutput Total 350 ml 300 ml BalanceBalance 1140 ml 1200 ml 1420 ml Constitutional: alert, oriented, well developed Psych: no complaints, nl mood/affect Head: normocephalic, atraumatic Eyes: nl conjunctiva, EOMI, nl lids ENMT: nl external ears & nose, nl lips & teeth, nl nasal mucosa & septum Neck: supple, non-tender Respiratory: clear to auscultation, normal air movement Cardiovascular: regular rate and rhythm, nl pulses Gastrointestinal: soft, non-tender, bowel sounds Results Result Diagram: 12/29/18 0709 12/29/18 0709 Medications Medication Current Medications Acetaminophen (Tylenol Tab) 650 mg Q6H PRN PO MILD PAIN(1-3)OR ELEVATED TEMP; Start 12/28/18 at 21:30 Amlodipine Besylate (Norvasc) 5 mg DAILY PO Last administered on 12/30/18 09:15; Admin Dose 5 MG; Start 12/29/18 at 09:00 Aspirin (Halfprin) 81 mg DAILY PO Last administered on 12/30/18 09:14; Admin Dose 81 MG; Start 12/29/18 at 09:00 Finasteride (Proscar) 5 mg DAILY PO Last administered on 12/30/18 09:14; Admin Dose 5 MG; Start 12/29/18 at 09:00 Gabapentin (Neurontin) 200 mg TID PO Last administered on 12/30/18 20:22; Admin Dose 200 MG; Start 12/29/18 at 09:00 Hydralazine HCl (Apresoline) 25 mg Q6H PRN PO BLOOD PRESSURE SUPPORT; Start 12/28/18 at 21:30 Loperamide HCl (Imodium Cap) 2 mg Q6 PRN PO DIARRHEA; Start 12/28/18 at 21:30 Nitroglycerin (Nitroglycerin (Sl Tab) 0.4 Mg) 1 tab PRN PRN SL CHEST PAIN; Start 12/28/18 at 21:30 Nystatin 1 applic BID TOP Last administered on 12/30/18 20:23; Admin Dose 1 APPLIC; Start 12/29/18 at 09:00 Oxycodone/ Acetaminophen (Endocet (10/ 325)) 1 tab Q4 PRN PO SEVERE PAIN LEVEL 7-10 Last administered on 12/31/18 01:31; Admin Dose 1 TAB; Start 12/28/18 at 21:30 Lactulose (Enulose) 30 gm Q6H PO Last administered on 12/30/18 15:19; Admin Dose 30 GM; Start 12/28/18 at 21:30 Zolpidem Tartrate (Ambien) 5 mg HS PRN PO INSOMNIA; Start 12/28/18 at 21:30 Lorazepam (Ativan) 0.5 mg Q6H PRN PO ANXIETY Last administered on 12/31/18 01:35; Admin Dose 0.5 MG; Start 12/28/18 at 21:30 Potassium Chloride/Dextrose/ Sod Cl 1,000 ml @ 60 mls/hr [id number] IV Last administered on 12/31/18 04:46; Admin Dose 60 MLS/HR; Start 12/28/18 at 21:30 Ondansetron HCl (Zofran Inj) 4 mg Q6H PRN IV NAUSEA AND/OR VOMITING Last administered on 12/29/18 18:55; Admin Dose 4 MG; Start 12/29/18 at 09:00 Morphine Sulfate (morphine) 4 mg Q4H PRN IV SEVERE PAIN LEVEL 7-10 Last administered on 12/30/18 21:14; Admin Dose 4 MG; Start 12/29/18 at 10:30 Ferric Sodium Gluconate Complex 125 mg/Sodium Chloride 110 ml @ 110 mls/hr DAILY@1300 IVPB Last administered on 12/30/18 12:21; Admin Dose 110 MLS/HR; Start 12/30/18 at 13:00; Stop 01/03/19 at 13:59 Polyethylene Glycol (Miralax) 17 gm DAILY GTB Last administered on 12/30/18 09:14; Admin Dose 17 GM; Start 12/29/18 at 14:30 Al Hydrox/Mg Hydrox/Simethicone (Mag-Al Plus) 30 ml Q4H PRN PO GASTROINTESTINAL UPSET Last administered on 12/31/18 04:42; Admin Dose 30 ML; Start 12/30/18 at 12:00 JESSE BASILIO MD December 31, 2018 08:25
[2018-12-31] MEDS: POLYETHYLENE GLYCOL 17 GM PACKET GTB SCH ×2 (09:00→12:25)
[2018-12-31] MEDS: FINASTERIDE 5 MG TAB PO SCH (09:14)
[2018-12-31] MEDS: AMLODIPINE 5 MG TAB PO SCH (09:14)
[2018-12-31] MEDS: GABAPENTIN 100 MG CAP PO SCH ×3 (09:14→20:37)
[2018-12-31] MEDS: ASPIRIN (EC) 81 MG TAB PO SCH (09:15)
[2018-12-31] MEDS: NYSTATIN 15 GM POWDER BTL TOP SCH ×2 (09:15→20:37)
[2018-12-31] MEDS: SOD FERRIC GLUC COMPLX 125 MG in SOD CHLORIDE 0.9% 100 ML IVPB SCH (13:45)
[2018-12-31 15:29] VITALS: BP 118/58; PULSE 69; RESP 16
--- NOTE | 2018-12-31 18:53 | PN ---
Date/Time of Note Date/Time of Note DATE: 12/31/18 TIME: 18:53 Assessment/Plan VTE Prophylaxis Risk score (from [facility])>0 risk: 10 SCD applied (from [facility]): Yes Pharmacological prophylaxis: other Lines/Catheters IV Catheter Type (from [facility]): Peripheral IV Urinary Cath still in place: No Assessment/Plan Hospital Course Patient is continues on bowel regimen for constipation, and is hemodynamically stable, undergoing orthopedic evaluation for hip fracture. Will check CBC and BMP tomorrow. 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 Juanjose Cohen is following from ortho standpoint. Will obtain cardiology clearance from Dr. Denney prior to hemiarthroplasty. - Fecal impaction and stercoral colitis. Continue Miralax and Lactulose. Dr. Castano is following in gastroenterology consultation. - Paroxysmal atrial fibrillation, patient is in sinus rhythm on admission. Will hold Eliquis for now. Continue aspirin. - Hypertension, continue Norvasc. - Benign prostatic hypertrophy. Continue Proscar. - Peripheral neuropathy. Continue Neurontin. - Paranoid psychosis. Patient was prescribed Seroquel during last admission, however refused to take it. The patient is not on any psych medication. - Colon cancer. The patient refused further workup. Will continue to monitor. - Bilateral inguinal hernias without evidence of obstruction or strangulation - History of C. difficile colitis Further recommendations will depend on hospital course. Plan of care discussed with Dr. Baron. Result Diagram: 12/29/18 0709 12/29/18 0709 Exam/Review of Systems Exam Vitals Vital Signs Date Temp Pulse Resp B/P (MAP) Pulse Ox O2 O2 Flow FiO2 Time Delivery Rate 12/31/18 97.7 69 16 118/58 96 15:29 (78) 12/30/18 Room Air 02:22 Intake and Output 12/30/18 12/30/18 12/31/18 1515:00 23:00 07:00 IntakeIntake Total 1490 ml 1500 ml 1420 ml OutputOutput Total 350 ml 300 ml BalanceBalance 1140 ml 1200 ml 1420 ml Constitutional: alert, oriented Head: normocephalic Respiratory: clear to auscultation Cardiovascular: nl pulses Gastrointestinal: soft, non-tender Musculoskeletal: nl extremities to inspection Extremities: normal pulses Neurological: nl mental status Medications Medication Current Medications Acetaminophen (Tylenol Tab) 650 mg Q6H PRN PO MILD PAIN(1-3)OR ELEVATED TEMP; Start 12/28/18 at 21:30 Amlodipine Besylate (Norvasc) 5 mg DAILY PO Last administered on 12/31/18 09:14; Admin Dose 5 MG; Start 12/29/18 at 09:00 Aspirin (Halfprin) 81 mg DAILY PO Last administered on 12/31/18 09:15; Admin Dose 81 MG; Start 12/29/18 at 09:00 Finasteride (Proscar) 5 mg DAILY PO Last administered on 12/31/18 09:14; Admin Dose 5 MG; Start 12/29/18 at 09:00 Gabapentin (Neurontin) 200 mg TID PO Last administered on 12/31/18 13:44; Admin Dose 200 MG; Start 12/29/18 at 09:00 Hydralazine HCl (Apresoline) 25 mg Q6H PRN PO BLOOD PRESSURE SUPPORT; Start 12/28/18 at 21:30 Loperamide HCl (Imodium Cap) 2 mg Q6 PRN PO DIARRHEA; Start 12/28/18 at 21:30 Nitroglycerin (Nitroglycerin (Sl Tab) 0.4 Mg) 1 tab PRN PRN SL CHEST PAIN; Start 12/28/18 at 21:30 Nystatin 1 applic BID TOP Last administered on 12/31/18 09:15; Admin Dose 1 APPLIC; Start 12/29/18 at 09:00 Oxycodone/ Acetaminophen (Endocet (10/ 325)) 1 tab Q4 PRN PO SEVERE PAIN LEVEL 7-10 Last administered on 12/31/18 09:13; Admin Dose 1 TAB; Start 12/28/18 at 21:30 Zolpidem Tartrate (Ambien) 5 mg HS PRN PO INSOMNIA; Start 12/28/18 at 21:30 Lorazepam (Ativan) 0.5 mg Q6H PRN PO ANXIETY Last administered on 12/31/18 01:35; Admin Dose 0.5 MG; Start 12/28/18 at 21:30 Potassium Chloride/Dextrose/ Sod Cl 1,000 ml @ 60 mls/hr [id number] IV Last administered on 12/31/18 04:46; Admin Dose 60 MLS/HR; Start 12/28/18 at 21:30 Ondansetron HCl (Zofran Inj) 4 mg Q6H PRN IV NAUSEA AND/OR VOMITING Last administered on 12/29/18 18:55; Admin Dose 4 MG; Start 12/29/18 at 09:00 Morphine Sulfate (morphine) 4 mg Q4H PRN IV SEVERE PAIN LEVEL 7-10 Last administered on 12/30/18 21:14; Admin Dose 4 MG; Start 12/29/18 at 10:30 Ferric Sodium Gluconate Complex 125 mg/Sodium Chloride 110 ml @ 110 mls/hr DAILY@1300 IVPB Last administered on 12/31/18 13:45; Admin Dose 110 MLS/HR; Start 12/30/18 at 13:00; Stop 01/03/19 at 13:59 Polyethylene Glycol (Miralax) 17 gm DAILY GTB Last administered on 12/31/18 12:25; Admin Dose 17 GM; Start 12/29/18 at 14:30 Al Hydrox/Mg Hydrox/Simethicone (Mag-Al Plus) 30 ml Q4H PRN PO GASTROINTESTINAL UPSET Last administered on 12/31/18at 04:42; Admin Dose 30 ML; Start 12/30/18 at 12:00 LEAH BROUSSARD December 31, 2018 18:53
[2018-12-31] MEDS: morphine 4 MG/ML VIAL IV PRN (19:31)
[2018-12-31 20:03] VITALS: BP 114/57; PULSE 62; RESP 16
[2019-01-01 02:28] VITALS: BP 135/72; PULSE 98; RESP 16
[2019-01-01 07:58] VITALS: BP 133/58; PULSE 107; RESP 20
[2019-01-01] MEDS: morphine 4 MG/ML VIAL IV PRN ×3 (08:42→23:44)
[2019-01-01] MEDS: POLYETHYLENE GLYCOL 17 GM PACKET GTB SCH (09:00)
--- NOTE | 2019-01-01 09:26 | CONS ---
Assessment/Plan Assessment/Plan Hospital Course (Demo Recall) 78 yo male with colon cancer diagnosed in Jul 2019 who refuses surgery presented with constipation 1. Fecal impaction and stercoral colitis: on miralax, lactulose. KUB 12/30/18 still showed significant amount of stool 2. Colon cancer at hepatic flexure, dx on colonoscopy by Dr. Castano Jul 2019 3. FOBT positive with chronic anemia 4. on anticoagulation due to atrial fibrillation 5. iron deficiency anemia 6. BLE pain, chronic per RN -consider dopplers, RN will follow up with primary 7. Leukocytosis with fevers. 8. UTI with E. coli 9. Unrepaired hip fx, surgery pending cardiac clearance Recommendations: Consider abx consider ble dopplers IV iron, no po iron continue bowel regimen KUB Oncology consult Pt examined and plan of care discussed with Dr. Castano Consultation Date/Type/Reason Admit Date/Time December 30, 2018 at 07:26 Initial Consult Date 12/29/18 Date/Time of Note DATE: 01/01/19 TIME: 09:11 24 HR Interval Summary Free Text/Dictation hgb 9.2. Pt lethargic but answers questions. Pt just got pain medication. C/o Bilateral leg pain, very weak. Abd pain to palpitation. Febrile. WBC increasing. Pt is having bm. Exam/Review of Systems Exam Vitals Vital Signs Date Temp Pulse Resp B/P (MAP) Pulse Ox O2 O2 Flow FiO2 Time Delivery Rate 01/01/19 100.8 08:32 01/01/19 107 20 133/58 93 07:58 (83) 12/30/18 Room Air 02:22 Intake and Output 12/31/18 12/31/18 01/01/19 1515:00 23:00 07:00 IntakeIntake Total 1020 ml 1590 ml 300 ml BalanceBalance 1020 ml 1590 ml 300 ml Eyes: nl sclera, PERRL ENMT: other ([place] pink and dry) Respiratory: normal air movement Gastrointestinal: soft, bowel sounds, tender Musculoskeletal: muscle weakness, other (pain to touch in bilateral LE, cool bilateral feet to touch, cap refil wnl, pos weak pedal pulses) Extremities: calf tenderness Neurological: lethargic, other (lethargic) Results Result Diagram: 5/28/19 0446 5/28/19 0446 Results 24hrs Laboratory Tests Test 01/01/19 04:46 White Blood Count 11.4 #H Red Blood Count 3.84 L Hemoglobin 9.2 L Hematocrit 30.4 L Mean Corpuscular Volume 79.2 L Mean Corpuscular Hemoglobin 24.0 L Mean Corpuscular Hemoglobin Concent 30.3 L Red Cell Distribution Width 15.9 H Platelet Count 377 Mean Platelet Volume 8.5 Immature Granulocytes % 0.800 H Neutrophils % 91.0 H Lymphocytes % 4.0 L Monocytes % 3.7 Eosinophils % 0.3 Basophils % 0.2 Nucleated Red Blood Cells % 0.0 Immature Granulocytes # 0.090 H Neutrophils # 10.4 H Lymphocytes # 0.5 L Monocytes # 0.4 Eosinophils # 0.0 Basophils # 0.0 Nucleated Red Blood Cells # 0.0 Sodium Level 136 Potassium Level 4.5 Chloride Level 105 Carbon Dioxide Level 24 Anion Gap 7 Blood Urea Nitrogen 7 Creatinine 0.58 L Est Glomerular Filtrat Rate mL/min Glucose Level 112 Calcium Level 7.9 L Medications Medication Current Medications Acetaminophen (Tylenol Tab) 650 mg Q6H PRN PO MILD PAIN(1-3)OR ELEVATED TEMP Last administered on 01/01/19at 08:32; Admin Dose 650 MG; Start 12/28/18 at 21:30 Amlodipine Besylate (Norvasc) 5 mg DAILY PO Last administered on 12/31/18 09:14; Admin Dose 5 MG; Start 12/29/18 at 09:00 Aspirin (Halfprin) 81 mg DAILY PO Last administered on 12/31/18 09:15; Admin Dose 81 MG; Start 12/29/18 at 09:00 Finasteride (Proscar) 5 mg DAILY PO Last administered on 12/31/18at 09:14; Admin Dose 5 MG; Start 12/29/18 at 09:00 Gabapentin (Neurontin) 200 mg TID PO Last administered on 12/31/18at 20:37; Ad min Dose 200 MG; Start 12/29/18 at 09:00 Hydralazine HCl (Apresoline) 25 mg Q6H PRN PO BLOOD PRESSURE SUPPORT; Start 12/28/18 at 21:30 Loperamide HCl (Imodium Cap) 2 mg Q6 PRN PO DIARRHEA; Start 12/28/18 at 21:30 Nitroglycerin (Nitroglycerin (Sl Tab) 0.4 Mg) 1 tab PRN PRN SL CHEST PAIN; Start 12/28/18 at 21:30 Nystatin 1 applic BID TOP Last administered on 12/31/18 20:37; Admin Dose 1 APPLIC; Start 12/29/18 at 09:00 Oxycodone/ Acetaminophen (Endocet (10/ 325)) 1 tab Q4 PRN PO SEVERE PAIN LEVEL 7-10 Last administered on 12/31/18 21:49; Admin Dose 1 TAB; Start 12/28/18 at 21:30 Zolpidem Tartrate (Ambien) 5 mg HS PRN PO INSOMNIA; Start 12/28/18 at 21:30 Lorazepam (Ativan) 0.5 mg Q6H PRN PO ANXIETY Last administered on 12/31/18 22:26; Admin Dose 0.5 MG; Start 12/28/18 at 21:30 Ondansetron HCl (Zofran Inj) 4 mg Q6H PRN IV NAUSEA AND/OR VOMITING Last administered on 12/29/18 18:55; Admin Dose 4 MG; Start 12/29/18 at 09:00 Morphine Sulfate (morphine) 4 mg Q4H PRN IV SEVERE PAIN LEVEL 7-10 Last administered on 01/01/19 08:42; Admin Dose 4 MG; Start 12/29/18 at 10:30 Ferric Sodium Gluconate Complex 125 mg/Sodium Chloride 110 ml @ 110 mls/hr DAILY@1300 IVPB Last administered on 12/31/18 13:45; Admin Dose 110 MLS/HR; Start 12/30/18 at 13:00; Stop 01/03/19 at 13:59 Polyethylene Glycol (Miralax) 17 gm DAILY GTB Last administered on 12/31/18 12:25; Admin Dose 17 GM; Start 12/29/18 at 14:30 Al Hydrox/Mg Hydrox/Simethicone (Mag-Al Plus) 30 ml Q4H PRN PO GASTROINTESTINAL UPSET Last administered on 12/31/18 04:42; Admin Dose 30 ML; Start 12/30/18 at 12:00 Potassium Chloride/Dextrose/ Sod Cl 1,000 ml @ 50 mls/hr Q20H IV Last administered on 12/31/18 22:22; Admin Dose 50 MLS/HR; Start 12/31/18 at 22:30 AMITA SHELLEY January 01, 2019 09:23
--- NOTE | 2019-01-01 09:33 | PN ---
DATE: 12/29/2018 SUBJECTIVE: Follow up on fecal impaction, left femur fracture, paroxysmal atrial fibrillation, perip heral neuropathy, hypertension, paranoid delusion. The patient continues to have abdominal pain. Th e patient is nauseated and was unable to take any laxative orally. Therefore, I have requested the n kameron to do manual disimpaction and tap water enema. The patient denies any chest pain, shortness of breath. The patient does have generalized weakness. No reported fever or chills, no reported bleedi ng from any site. The patient does not specifically complain of any significant left hip pain. PHYSICAL EXAMINATION: GENERAL: The patient is awake, alert. VITAL SIGNS: Temperature 98.2, pulse 83, respirations 16, blood pressure 122/80, O2 sat 97% room air . HEENT: No eye discharge or redness. Conjunctivae normal, oropharynx clear. NECK: Supple, no mass, no thyromegaly. CHEST: Fairly clear. No use of accessory muscles. CARDIOVASCULAR: Regular rate and rhythm. S1, S2 normal, no murmur. ABDOMEN: Soft with mild distention and tenderness, especially in the left lower quadrant. EXTREMITIES: No significant edema. No clubbing, cyanosis. NEUROLOGIC: The patient is awake, alert, follows simple commands. Has generalized weakness and sign s of muscle atrophy in distal muscles. LABORATORY DATA: Done this morning, WBC 8, hemoglobin 10.4, platelet 323. Sodium 1___, potassium 4. 8, BUN 24, creatinine 0.7, glucose 129, calcium 8.6, magnesium 2.4. IMPRESSION: 1. Fecal impaction. Since the patient is unable to take anything p.o. will request manual disimpact ion and enema. I have also requested a GI consult with Dr. Castano, who had performed his initial col onoscopy a few months ago. 2. Left proximal femur fracture. I called the custodial and there is no record for any fall in p ast 2 months. MRI of the hip is pending. I also spoke with Dr. Cohen for orthopedic consultation. 3. Paroxysmal atrial fibrillation. The patient remains in sinus rhythm. Continue to monitor. Aspi rin when he is able to take p.o. 4. Colon cancer. The patient refused further treatment. 5. Benign prostatic hypertrophy. Continue Proscar. 6. Peripheral neuropathy. Continue gabapentin. 7. Paranoid delusion with anxiety. Continue Ativan on p.r.n. basis. Further recommendations would depend on the patient's hospital course. Dictated By: OSIRIS MONTEJO/JENNIFER Conf#: [id number] DID#: [id number]
[2019-01-01] MEDS: GABAPENTIN 100 MG CAP PO SCH ×3 (10:09→21:23)
[2019-01-01] MEDS: FINASTERIDE 5 MG TAB PO SCH (10:09)
[2019-01-01] MEDS: ASPIRIN (EC) 81 MG TAB PO SCH (10:09)
[2019-01-01] MEDS: NYSTATIN 15 GM POWDER BTL TOP SCH ×2 (10:10→21:23)
[2019-01-01] MEDS: AMLODIPINE 5 MG TAB PO SCH (10:10)
--- NOTE | 2019-01-01 10:37 | PN ---
Date/Time of Note Date/Time of Note DATE: 01/01/19 TIME: 10:34 Assessment/Plan VTE Prophylaxis Risk score (from [facility] [place] [facility])>0 risk: 9 SCD applied (from [facility] [place]): Yes Pharmacological prophylaxis: other Lines/Catheters IV C[facility]ter Type (from [facility]): Peripheral IV Urinary Cath still in place: No Assessment/Plan Hospital Course Patient with increased leukocytosis and low-grade fever, urine culture came back with multidrug resistant E. coli ESBL, start meropenem, continue IV fluids. 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 Juanjose Cohen is following from ortho standpoint. Will obtain cardiology clearance from Dr. Denney prior to hemiarthroplasty. - Fecal impaction and stercoral colitis. Continue Miralax and Lactulose. Dr. Castano is following in gastroenterology consultation. - E. coli ESBL UTI, start meropenem. - Paroxysmal atrial fibrillation, patient is in sinus rhythm on admission. Will hold Eliquis for now. Continue aspirin. - Hypertension, continue Norvasc. - Benign prostatic hypertrophy. Continue Proscar. - Peripheral neuropathy. Continue Neurontin. - Paranoid psychosis. Patient was prescribed Seroquel during last admission, however refused to take it. The patient is not on any psych medication. - Colon cancer. The patient refused further workup. Will continue to monitor. - Bilateral inguinal hernias without evidence of obstruction or strangulation - History of C. difficile colitis Further recommendations will depend on hospital course. Plan of care discussed with Dr. Baron. Result Diagram: 01/01/19 0446 01/01/19 0446 Results 24hrs Laboratory Tests Test 01/01/19 04:46 White Blood Count 11.4 #H Red Blood Count 3.84 L Hemoglobin 9.2 L Hematocrit 30.4 L Mean Corpuscular Volume 79.2 L Mean Corpuscular Hemoglobin 24.0 L Mean Corpuscular Hemoglobin Concent 30.3 L Red Cell Distribution Width 15.9 H Platelet Count 377 Mean Platelet Volume 8.5 Immature Granulocytes % 0.800 H Neutrophils % 91.0 H Lymphocytes % 4.0 L Monocytes % 3.7 Eosinophils % 0.3 Basophils % 0.2 Nucleated Red Blood Cells % 0.0 Immature Granulocytes # 0.090 H Neutrophils # 10.4 H Lymphocytes # 0.5 L Monocytes # 0.4 Eosinophils # 0.0 Basophils # 0.0 Nucleated Red Blood Cells # 0.0 Sodium Level 136 Potassium Level 4.5 Chloride Level 105 Carbon Dioxide Level 24 Anion Gap 7 Blood Urea Nitrogen 7 Creatinine 0.58 L Est Glomerular Filtrat Rate mL/min Glucose Level 112 Calcium Level 7.9 L Exam/Review of Systems Exam Vitals Vital Signs Date Temp Pulse Resp B/P (MAP) Pulse Ox O2 O2 Flow FiO2 Time Delivery Rate 01/01/19 98.4 10:10 01/01/19 107 20 133/58 93 07:58 (83) 12/30/18 Room Air 02:22 Intake and Output 12/31/18 12/31/18 01/01/19 1515:00 23:00 07:00 IntakeIntake Total 1020 ml 1590 ml 300 ml BalanceBalance 1020 ml 1590 ml 300 ml Exam Constitutional: alert, oriented Head: normocephalic Respiratory: clear to auscultation Cardiovascular: nl pulses Gastrointestinal: soft, non-tender Musculoskeletal: nl extremities to inspection Extremities: normal pulses Neurological: nl mental status Results Results 24hrs Laboratory Tests Test 01/01/19 04:46 White Blood Count 11.4 #H Red Blood Count 3.84 L Hemoglobin 9.2 L Hematocrit 30.4 L Mean Corpuscular Volume 79.2 L Mean Corpuscular Hemoglobin 24.0 L Mean Corpuscular Hemoglobin Concent 30.3 L Red Cell Distribution Width 15.9 H Platelet Count 377 Mean Platelet Volume 8.5 Immature Granulocytes % 0.800 H Neutrophils % 91.0 H Lymphocytes % 4.0 L Monocytes % 3.7 Eosinophils % 0.3 Basophils % 0.2 Nucleated Red Blood Cells % 0.0 Immature Granulocytes # 0.090 H Neutrophils # 10.4 H Lymphocytes # 0.5 L Monocytes # 0.4 Eosinophils # 0.0 Basophils # 0.0 Nucleated Red Blood Cells # 0.0 Sodium Level 136 Potassium Level 4.5 Chloride Level 105 Carbon Dioxide Level 24 Anion Gap 7 Blood Urea Nitrogen 7 Creatinine 0.58 L Est Glomerular Filtrat Rate mL/min Glucose Level 112 Calcium Level 7.9 L Medications Medication Current Medications Acetaminophen (Tylenol Tab) 650 mg Q6H PRN PO MILD PAIN(1-3)OR ELEVATED TEMP Last administered on 01/01/19at 08:32; Admin Dose 650 MG; Start 12/28/18 at 21:30 Amlodipine Besylate (Norvasc) 5 mg DAILY PO Last administered on 01/01/19 10:10; Admin Dose 5 MG; Start 12/29/18 at 09:00 Aspirin (Halfprin) 81 mg DAILY PO Last administered on 01/01/19 10:09; Admin Dose 81 MG; Start 12/29/18 at 09:00 Finasteride (Proscar) 5 mg DAILY PO Last administered on 01/01/19 10:09; Admin Dose 5 MG; Start 12/29/18 at 09:00 Gabapentin (Neurontin) 200 mg TID PO Last administered on 01/01/19 10:09; Admin Dose 200 MG; Start 12/29/18 at 09:00 Hydralazine HCl (Apresoline) 25 mg Q6H PRN PO BLOOD PRESSURE SUPPORT; Start 12/28/18 at 21:30 Loperamide HCl (Imodium Cap) 2 mg Q6 PRN PO DIARRHEA; Start 12/28/18 at 21:30 Nitroglycerin (Nitroglycerin (Sl Tab) 0.4 Mg) 1 tab PRN PRN SL CHEST PAIN; Start 12/28/18 at 21:30 Nystatin 1 applic BID TOP Last administered on 01/01/19 10:10; Admin Dose 1 APPLIC; Start 12/29/18 at 09:00 Oxycodone/ Acetaminophen (Endocet (10/ 325)) 1 tab Q4 PRN PO SEVERE PAIN LEVEL 7-10 Last administered on 12/31/18 21:49; Admin Dose 1 TAB; Start 12/28/18 at 21:30 Zolpidem Tartrate (Ambien) 5 mg HS PRN PO INSOMNIA; Start 12/28/18 at 21:30 Lorazepam (Ativan) 0.5 mg Q6H PRN PO ANXIETY Last administered on 12/31/18 22:26; Admin Dose 0.5 MG; Start 12/28/18 at 21:30 Ondansetron HCl (Zofran Inj) 4 mg Q6H PRN IV NAUSEA AND/OR VOMITING Last administered on 12/29/18 18:55; Admin Dose 4 MG; Start 12/29/18 at 09:00 Morphine Sulfate (morphine) 4 mg Q4H PRN IV SEVERE PAIN LEVEL 7-10 Last administered on 5/28/19at 08:42; Admin Dose 4 MG; Start 12/29/18 at 10:30 Ferric Sodium Gluconate Complex 125 mg/Sodium Chloride 110 ml @ 110 mls/hr DAILY@1300 IVPB Last administered on 12/31/18at 13:45; Admin Dose 110 MLS/HR; Start 12/30/18 at 13:00; Stop 01/03/19 at 13:59 Polyethylene Glycol (Miralax) 17 gm DAILY GTB Last administered on 12/31/18at 12:25; Admin Dose 17 GM; Start 12/29/18 at 14:30 Al Hydrox/Mg Hydrox/Simethicone (Mag-Al Plus) 30 ml Q4H PRN PO GASTROINTESTINAL UPSET Last administered on 12/31/18at 04:42; Admin Dose 30 ML; Start 12/30/18 at 12:00 Potassium Chloride/Dextrose/ Sod Cl 1,000 ml @ 50 mls/hr Q20H IV Last administered on 12/31/18at 22:22; Admin Dose 50 MLS/HR; Start 12/31/18 at 22:30 Meropenem/Sodium Chloride 50 ml @ 100 mls/hr Q12 IVPB ; Start 01/01/19 at 11:00; Stop 01/08/19 at 10:59; Status LEAH COLLAZO January 01, 2019 10:37
[2019-01-01] MEDS: MEROPENEM 500MG/50 ML (PMX) 50 ML IVPB SCH ×2 (11:55→21:24)
--- NOTE | 2019-01-01 12:05 | CONS ---
Consultation Date/Type/Reason Admit Date/Time December 30, 2018 at 07:26 Type of Consult Cardiology Date/Time of Note DATE: 01/01/19 TIME: 12:04 Hx of Present Illness 78 yo with HTN,CAD, a. fib - on Eliquis - now with hip fracture - unrepaired hp fracture has very high morbidity and mortality - pt not n CHF , neg troponins - OK to proceed - moderate to high risk - Eliquis held now - will add small dose BB. # [id number] - full note dictated. Past Medical History Home Meds Reported Medications Apixaban* (Eliquis*) 2.5 Mg Tablet, 5 MG PO BID 12/28/18 Ascorbic Acid* (Vitamin C*) 500 Mg Capsule.sa, 500 MG PO DAILY, CAP 12/28/18 Nystatin (Nystatin Powder) 1 Each Powder.ea., 1 APPLIC TOPICAL DAILY, #1 BOTTLE 12/28/18 Magnesium Hydroxide* (Milk Of Magnesia*) 400 Mg/5 Ml Oral.susp, 30 ML PO DAILY, ML 12/28/18 Hydralazine Hcl* (Hydralazine Hcl*) 25 Mg Tab, 25 MG PO Q6H PRN for BLOOD PRESS URE SUPPORT, #60 TAB 12/28/18 Ferrous Sulfate* (Ferrous Sulfate*) 325 Mg Tabec, 325 MG PO BID, TAB 12/28/18 Methyl Salicylate/Menthol (Bengay Greaseless Cream) 57 Gm Cream..g., 57 GM TP TID APPLY TO LEFT HIP 12/28/18 Aspirin (Low Dose Aspirin) 81 Mg Tablet.dr, 81 MG PO DAILY, #30 TAB 12/28/18 Oxycodone HCl/Acetaminophen (Percocet 10-325 mg Tablet) 1 Each Tablet, 1 EACH PO Q4 PRN for SEVERE PAIN LEVEL 7-10, TAB 07/03/18 Loperamide Hcl* (Loperamide Hcl*) 2 Mg Cap, 2 MG PO Q6 PRN for DIARRHEA, CAP 07/03/18 Amlodipine Besylate* (Norvasc*) 5 Mg Tablet, 5 MG PO DAILY, TAB HOLD FOR SBP<110 OR HR<60 07/03/18 Acetaminophen* (Acetaminophen*) 650 Mg Tablet, 650 MG PO Q6H PRN for PAIN AND OR ELEVATED TEMP, #30 TAB 07/03/18 Guaifenesin-Dextromethorphan* (Robitussin* DM) 100MG/10MG/5ML Syrup, 10 ML PO Q4H PRN for COUGH, ML 01/27/18 Nitroglycerin* (Nitroglycerin* SL) 0.4 Mg Tab.subl, 0.4 MG SL Q5MIN PRN for CHEST PAIN, BOTTLE 01/27/18 Multivitamin with Minerals (Multivitamins with Minerals) 1 Each Tablet, 1 EACH PO DAILY, TAB 01/27/18 Melatonin (Melatin) 3 Mg Tablet, 3 MG PO QHS, TAB 01/27/18 Gabapentin* (Gabapentin*) 100 Mg Capsule, 200 MG PO TID, #180 CAP 01/27/18 Mineral Oil* (Fleet* Mineral Oil Enema) Unknown Strength Oil, 118 ML NE Q72H PRN for CONSTIPATION, ENEMA 01/27/18 Finasteride* (Finasteride*) 5 Mg Tablet, 5 MG PO DAILY, TAB 01/27/18 Discontinued Reported Medications Quetiapine Fumarate* (Quetiapine Fumarate*) 25 Mg Tablet, 25 MG PO BID, TAB 07/03/18 Apixaban* (Eliquis*) 5 Mg Tablet, 5 MG PO BID, TAB 07/03/18 Docusate Sodium* (Colace*) 100 Mg Capsule, 100 MG PO BID PRN for CONSTIPATION, #60 CAP 07/03/18 Medications Current Medications Acetaminophen (Tylenol Tab) 650 mg Q6H PRN PO MILD PAIN(1-3)OR ELEVATED TEMP Last administered on 01/01/19 08:32; Admin Dose 650 MG; Start 12/28/18 at 21:30 Amlodipine Besylate (Norvasc) 5 mg DAILY PO Last administered on 01/01/19 10:10; Admin Dose 5 MG; Start 12/29/18 at 09:00 Aspirin (Halfprin) 81 mg DAILY PO Last administered on 01/01/19 10:09; Admin Dose 81 MG; Start 12/29/18 at 09:00 Finasteride (Proscar) 5 mg DAILY PO Last administered on 01/01/19 10:09; Admin Dose 5 MG; Start 12/29/18 at 09:00 Gabapentin (Neurontin) 200 mg TID PO Last administered on 01/01/19 10:09; Admin Dose 200 MG; Start 12/29/18 at 09:00 Hydralazine HCl (Apresoline) 25 mg Q6H PRN PO BLOOD PRESSURE SUPPORT; Start 12/28/18 at 21:30 Loperamide HCl (Imodium Cap) 2 mg Q6 PRN PO DIARRHEA; Start 12/28/18 at 21:30 Nitroglycerin (Nitroglycerin (Sl Tab) 0.4 Mg) 1 tab PRN PRN SL CHEST PAIN; Start 12/28/18 at 21:30 Nystatin 1 applic BID TOP Last administered on 01/01/19at 10:10; Admin Dose 1 APPLIC; Start 12/29/18 at 09:00 Oxycodone/ Acetaminophen (Endocet ()) 1 tab Q4 PRN PO SEVERE PAIN LEVEL 7-10 Last administered on 12/31/18 21:49; Admin Dose 1 TAB; Start 12/28/18 at 21:30 Zolpidem Tartrate (Ambien) 5 mg HS PRN PO INSOMNIA; Start 12/28/18 at 21:30 Lorazepam (Ativan) 0.5 mg Q6H PRN PO ANXIETY Last administered on 12/31/18 22:26; Admin Dose 0.5 MG; Start 12/28/18 at 21:30 Ondansetron HCl (Zofran Inj) 4 mg Q6H PRN IV NAUSEA AND/OR VOMITING Last administered on 12/29/18 18:55; Admin Dose 4 MG; Start 12/29/18 at 09:00 Morphine Sulfate (morphine) 4 mg Q4H PRN IV SEVERE PAIN LEVEL 7-10 Last administered on 01/01/19 08:42; Admin Dose 4 MG; Start 12/29/18 at 10:30 Ferric Sodium Gluconate Complex 125 mg/Sodium Chloride 110 ml @ 110 mls/hr DAILY@1300 IVPB Last administered on 12/31/18 13:45; Admin Dose 110 MLS/HR; Start 12/30/18 at 13:00; Stop 01/03/19 at 13:59 Polyethylene Glycol (Miralax) 17 gm DAILY GTB Last administered on 12/31/18 12:25; Admin Dose 17 GM; Start 12/29/18 at 14:30 Al Hydrox/Mg Hydrox/Simethicone (Mag-Al Plus) 30 ml Q4H PRN PO GASTROINTESTINAL UPSET Last administered on 12/31/18at 04:42; Admin Dose 30 ML; Start 12/30/18 at 12:00 Potassium Chloride/Dextrose/ Sod Cl 1,000 ml @ 50 mls/hr Q20H IV Last administered on 12/31/18at 22:22; Admin Dose 50 MLS/HR; Start 12/31/18 at 22:30 Meropenem/Sodium Chloride 50 ml @ 100 mls/hr Q12 IVPB Last administered on 01/01/19at 11:55; Admin Dose 100 MLS/HR; Start 01/01/19 at 11:00; Stop 01/08/19 at 10:59 Allergies: Coded Allergies: codeine (Verified Allergy, Unknown, 12/28/18) Past Surgical History Past Surgical Hx: other Social History Alcohol Use: none Smoking Status: Former smoker Drug Use: none Exam/Review of Systems Vital Signs Vitals Vital Signs Date Temp Pulse Resp B/P (MAP) Pulse Ox O2 O2 Flow FiO2 Time Delivery Rate 01/01/19 98.4 10:10 01/01/19 107 20 133/58 93 07:58 (83) 12/30/18 Room Air 02:22 Intake and Output 12/31/18 12/31/18 01/01/19 1515:00 23:00 07:00 IntakeIntake Total 1020 ml 1590 ml 300 ml BalanceBalance 1020 ml 1590 ml 300 ml Labs Result Diagram: 01/01/19 0446 01/01/19 0446 Results 24hrs Laboratory Tests Test 01/01/19 04:46 White Blood Count 11.4 #H Red Blood Count 3.84 L Hemoglobin 9.2 L Hematocrit 30.4 L Mean Corpuscular Volume 79.2 L Mean Corpuscular Hemoglobin 24.0 L Mean Corpuscular Hemoglobin Concent 30.3 L Red Cell Distribution Width 15.9 H Platelet Count 377 Mean Platelet Volume 8.5 Immature Granulocytes % 0.800 H Neutrophils % 91.0 H Lymphocytes % 4.0 L Monocytes % 3.7 Eosinophils % 0.3 Basophils % 0.2 Nucleated Red Blood Cells % 0.0 Immature Granulocytes # 0.090 H Neutrophils # 10.4 H Lymphocytes # 0.5 L Monocytes # 0.4 Eosinophils # 0.0 Basophils # 0.0 Nucleated Red Blood Cells # 0.0 Sodium Level 136 Potassium Level 4.5 Chloride Level 105 Carbon Dioxide Level 24 Anion Gap 7 Blood Urea Nitrogen 7 Creatinine 0.58 L Est Glomerular Filtrat Rate mL/min Glucose Level 112 Calcium Level 7.9 L Medications Medications Current Medications Acetaminophen (Tylenol Tab) 650 mg Q6H PRN PO MILD PAIN(1-3)OR ELEVATED TEMP Last administered on 01/01/19 08:32; Admin Dose 650 MG; Start 12/28/18 at 21:30 Amlodipine Besylate (Norvasc) 5 mg DAILY PO Last administered on 01/01/19 10:10; Admin Dose 5 MG; Start 12/29/18 at 09:00 Aspirin (Halfprin) 81 mg DAILY PO Last administered on 01/01/19 10:09; Admin Dose 81 MG; Start 12/29/18 at 09:00 Finasteride (Proscar) 5 mg DAILY PO Last administered on 01/01/19 10:09; Admin Dose 5 MG; Start 12/29/18 at 09:00 Gabapentin (Neurontin) 200 mg TID PO Last administered on 01/01/19 10:09; Admin Dose 200 MG; Start 12/29/18 at 09:00 Hydralazine HCl (Apresoline) 25 mg Q6H PRN PO BLOOD PRESSURE SUPPORT; Start 12/28/18 at 21:30 Loperamide HCl (Imodium Cap) 2 mg Q6 PRN PO DIARRHEA; Start 12/28/18 at 21:30 Nitroglycerin (Nitroglycerin (Sl Tab) 0.4 Mg) 1 tab PRN PRN SL CHEST PAIN; Start 12/28/18 at 21:30 Nystatin 1 applic BID TOP Last administered on 01/01/19 10:10; Admin Dose 1 APPLIC; Start 12/29/18 at 09:00 Oxycodone/ Acetaminophen (Endocet (10 325)) 1 tab Q4 PRN PO SEVERE PAIN LEVEL 7-10 Last administered on 12/31/18 21:49; Admin Dose 1 TAB; Start 12/28/18 at 21:30 Zolpidem Tartrate (Ambien) 5 mg HS PRN PO INSOMNIA; Start 12/28/18 at 21:30 Lorazepam (Ativan) 0.5 mg Q6H PRN PO ANXIETY Last administered on 12/31/18 22:26; Admin Dose 0.5 MG; Start 12/28/18 at 21:30 Ondansetron HCl (Zofran Inj) 4 mg Q6H PRN IV NAUSEA AND/OR VOMITING Last administered on 12/29/18 18:55; Admin Dose 4 MG; Start 12/29/18 at 09:00 Morphine Sulfate (morphine) 4 mg Q4H PRN IV SEVERE PAIN LEVEL 7-10 Last administered on 01/01/19 08:42; Admin Dose 4 MG; Start 12/29/18 at 10:30 Ferric Sodium Gluconate Complex 125 mg/Sodium Chloride 110 ml @ 110 mls/hr DAILY@1300 IVPB Last administered on 12/31/18 13:45; Admin Dose 110 MLS/HR; Start 12/30/18 at 13:00; Stop 01/03/19 at 13:59 Polyethylene Glycol (Miralax) 17 gm DAILY GTB Last administered on 12/31/18 12:25; Admin Dose 17 GM; Start 12/29/18 at 14:30 Al Hydrox/Mg Hydrox/Simethicone (Mag-Al Plus) 30 ml Q4H PRN PO GASTROINTESTINAL UPSET Last administered on 12/31/18 04:42; Admin Dose 30 ML; Start 12/30/18 at 12:00 Potassium Chloride/Dextrose/ Sod Cl 1,000 ml @ 50 mls/hr Q20H IV Last administered on 12/31/18 22:22; Admin Dose 50 MLS/HR; Start 12/31/18 at 22:30 Meropenem/Sodium Chloride 50 ml @ 100 mls/hr Q12 IVPB Last administered on 01/01/19 11:55; Admin Dose 100 MLS/HR; Start 01/01/19 at 11:00; Stop 01/08/19 at 10:59 SHYANN STARR MD January 01, 2019 12:05
[2019-01-01 13:31] VITALS: BP 92/63; PULSE 81; RESP 20
[2019-01-01] MEDS: SOD FERRIC GLUC COMPLX 125 MG in SOD CHLORIDE 0.9% 100 ML IVPB SCH (14:25)
--- NOTE | 2019-01-01 15:19 | PN ---
Date/Time of Note Date/Time of Note DATE: 01/01/19 TIME: 15:14 Assessment/Plan VTE Prophylaxis Risk score (from [facility] [place])>0 risk: 7 SCD applied (from [facility] [place]): Yes Pharmacological prophylaxis: NA/contraindicated Pharm contraindication: bleeding Lines/Catheters IV C[facility]ter Type (from [facility]): Peripheral IV Urinary Cath still in place: No Assessment/Plan Hospital Course Patient with increased leukocytosis and low-grade fever, urine culture came back with multidrug resistant E. coli ESBL, start meropenem, continue IV fluids. 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 Juanjose Cohen is following from ortho standpoint. Will obtain cardiology clearance from Dr. Denney prior to hemiarthroplasty. - Fecal impaction and stercoral colitis. Continue Miralax and Lactulose. Dr. Castano is following in gastroenterology consultation. - E. coli ESBL UTI, continue meropenem. Dr. Mcnamara is asked to see patient in infection disease consultation. - Paroxysmal atrial fibrillation, patient is in sinus rhythm on admission. Will hold Eliquis for now. Continue aspirin. - Hypertension, continue Norvasc. - Benign prostatic hypertrophy. Continue Proscar. - Peripheral neuropathy. Continue Neurontin. - Paranoid psychosis. Patient was prescribed Seroquel during last admission, however refused to take it. The patient is not on any psych medication. - Colon cancer. The patient refused further workup. Will continue to monitor. - Bilateral inguinal hernias without evidence of obstruction or strangulation - History of C. difficile colitis Further recommendations will depend on hospital course. Plan of care discussed with Dr. Baron. Result Diagram: 01/01/19 0446 01/01/19 0446 Results 24hrs Laboratory Tests Test 01/01/19 04:46 White Blood Count 11.4 #H Red Blood Count 3.84 L Hemoglobin 9.2 L Hematocrit 30.4 L Mean Corpuscular Volume 79.2 L Mean Corpuscular Hemoglobin 24.0 L Mean Corpuscular Hemoglobin Concent 30.3 L Red Cell Distribution Width 15.9 H Platelet Count 377 Mean Platelet Volume 8.5 Immature Granulocytes % 0.800 H Neutrophils % 91.0 H Lymphocytes % 4.0 L Monocytes % 3.7 Eosinophils % 0.3 Basophils % 0.2 Nucleated Red Blood Cells % 0.0 Immature Granulocytes # 0.090 H Neutrophils # 10.4 H Lymphocytes # 0.5 L Monocytes # 0.4 Eosinophils # 0.0 Basophils # 0.0 Nucleated Red Blood Cells # 0.0 Sodium Level 136 Potassium Level 4.5 Chloride Level 105 Carbon Dioxide Level 24 Anion Gap 7 Blood Urea Nitrogen 7 Creatinine 0.58 L Est Glomerular Filtrat Rate mL/min Glucose Level 112 Calcium Level 7.9 L Exam/Review of Systems Exam Vitals Vital Signs Date Temp Pulse Resp B/P (MAP) Pulse Ox O2 O2 Flow FiO2 Time Delivery Rate 01/01/19 98.7 81 20 92/63 (73) 95 13:31 12/30/18 Room Air 02:22 Intake and Output 12/31/18 12/31/18 01/01/19 1515:00 23:00 07:00 IntakeIntake Total 1020 ml 1590 ml 300 ml BalanceBalance 1020 ml 1590 ml 300 ml Exam Constitutional: alert, oriented Respiratory: clear to auscultation Cardiovascular: nl pulses Gastrointestinal: soft, non-tender Musculoskeletal: nl extremities to inspection Extremities: normal pulses Neurological: nl mental status Results Results 24hrs Laboratory Tests Test 01/01/19 04:46 White Blood Count 11.4 #H Red Blood Count 3.84 L Hemoglobin 9.2 L Hematocrit 30.4 L Mean Corpuscular Volume 79.2 L Mean Corpuscular Hemoglobin 24.0 L Mean Corpuscular Hemoglobin Concent 30.3 L Red Cell Distribution Width 15.9 H Platelet Count 377 Mean Platelet Volume 8.5 Immature Granulocytes % 0.800 H Neutrophils % 91.0 H Lymphocytes % 4.0 L Monocytes % 3.7 Eosinophils % 0.3 Basophils % 0.2 Nucleated Red Blood Cells % 0.0 Immature Granulocytes # 0.090 H Neutrophils # 10.4 H Lymphocytes # 0.5 L Monocytes # 0.4 Eosinophils # 0.0 Basophils # 0.0 Nucleated Red Blood Cells # 0.0 Sodium Level 136 Potassium Level 4.5 Chloride Level 105 Carbon Dioxide Level 24 Anion Gap 7 Blood Urea Nitrogen 7 Creatinine 0.58 L Est Glomerular Filtrat Rate mL/min Glucose Level 112 Calcium Level 7.9 L Medications Medication Current Medications Acetaminophen (Tylenol Tab) 650 mg Q6H PRN PO MILD PAIN(1-3)OR ELEVATED TEMP Last administered on 01/01/19at 08:32; Admin Dose 650 MG; Start 12/28/18 at 21:30 Amlodipine Besylate (Norvasc) 5 mg DAILY PO Last administered on 01/01/19 10:10; Admin Dose 5 MG; Start 12/29/18 at 09:00 Aspirin (Halfprin) 81 mg DAILY PO Last administered on 01/01/19 10:09; Admin Dose 81 MG; Start 12/29/18 at 09:00 Finasteride (Proscar) 5 mg DAILY PO Last administered on 01/01/19 10:09; Admin Dose 5 MG; Start 12/29/18 at 09:00 Gabapentin (Neurontin) 200 mg TID PO Last administered on 01/01/19 14:25; Admin Dose 200 MG; Start 12/29/18 at 09:00 Hydralazine HCl (Apresoline) 25 mg Q6H PRN PO BLOOD PRESSURE SUPPORT; Start 12/28/18 at 21:30 Loperamide HCl (Imodium Cap) 2 mg Q6 PRN PO DIARRHEA; Start 12/28/18 at 21:30 Nitroglycerin (Nitroglycerin (Sl Tab) 0.4 Mg) 1 tab PRN PRN SL CHEST PAIN; Start 12/28/18 at 21:30 Nystatin 1 applic BID TOP Last administered on 01/01/19 10:10; Admin Dose 1 APPLIC; Start 12/29/18 at 09:00 Oxycodone/ Acetaminophen (Endocet (10/ 325)) 1 tab Q4 PRN PO SEVERE PAIN LEVEL 7-10 Last administered on 12/31/18 21:49; Admin Dose 1 TAB; Start 12/28/18 at 21:30 Zolpidem Tartrate (Ambien) 5 mg HS PRN PO INSOMNIA; Start 12/28/18 at 21:30 Lorazepam (Ativan) 0.5 mg Q6H PRN PO ANXIETY Last administered on 12/31/18 22:26; Admin Dose 0.5 MG; Start 12/28/18 at 21:30 Ondansetron HCl (Zofran Inj) 4 mg Q6H PRN IV NAUSEA AND/OR VOMITING Last administered on 12/29/18 18:55; Admin Dose 4 MG; Start 12/29/18 at 09:00 Morphine Sulfate (morphine) 4 mg Q4H PRN IV SEVERE PAIN LEVEL 7-10 Last administered on 01/01/19 14:18; Admin Dose 4 MG; Start 12/29/18 at 10:30 Ferric Sodium Gluconate Complex 125 mg/Sodium Chloride 110 ml @ 110 mls/hr DAILY@1300 IVPB Last administered on 01/01/19 14:25; Admin Dose 110 MLS/HR; Start 12/30/18 at 13:00; Stop 01/03/19 at 13:59 Polyethylene Glycol (Miralax) 17 gm DAILY GTB Last administered on 12/31/18at 12:25; Admin Dose 17 GM; Start 12/29/18 at 14:30 Al Hydrox/Mg Hydrox/Simethicone (Mag-Al Plus) 30 ml Q4H PRN PO GASTROINTESTINAL UPSET Last administered on 12/31/18at 04:42; Admin Dose 30 ML; Start 12/30/18 at 12:00 Potassium Chloride/Dextrose/ Sod Cl 1,000 ml @ 50 mls/hr Q20H IV Last administered on 12/31/18 22:22; Admin Dose 50 MLS/HR; Start 12/31/18 at 22:30 Meropenem/Sodium Chloride 50 ml @ 100 mls/hr Q12 IVPB Last administered on 01/01/19at 11:55; Admin Dose 100 MLS/HR; Start 01/01/19 at 11:00; Stop 01/08/19 at 10:59 LEAH BROUSSARD January 01, 2019 15:19
--- NOTE | 2019-01-01 16:16 | CONS ---
DATE OF ADMISSION: 12/30/2018 DATE OF CONSULTATION: 01/01/2019 TYPE OF CONSULTATION: Cardiology. REFERRING PHYSICIAN: Osiris Baron MD REASON FOR EVALUATION: Preoperative evaluation of atrial fibrillation. HISTORY OF PRESENT ILLNESS: Mr. Johnson is an 78-year-old gentleman with history of hypertension, dys lipidemia, history of coronary artery disease, prior history of paroxysmal atrial fibrillation, histo ry of prior femur deformity who comes to the hospital now for evaluation for hip surgery. I have bee n asked to see patient in consultation for cardiac reevaluation. The patient is in atrial fibrillati on. At the moment, his rate is fairly well controlled in the 70. The patient was on Eliquis prior a t a dose of 5 mg p.o. b.i.d., but he has not received any Eliquis for what appears to be 1 or 2 days now. From a cardiac standpoint, the patient is hemodynamically stable. He is not in heart failure. Unrepaired hip fracture carries an extremely high morbidity and mortality and as such, I think it wo uld be very reasonable to proceed with surgery without any further risk stratification. We will cont inue to follow the patient preoperative. PAST MEDICAL HISTORY: History of atrial fibrillation, possible history of DVT, history of hypertensi on, history of coronary artery disease, history of dementia. ALLERGIES: CODEINE. SOCIAL HISTORY: Does not smoke, does not drink, does not use any drugs. FAMILY HISTORY: Positive for diabetes and hypertension. HOME MEDICATIONS: 1. Atenolol. 2. Amlodipine 5 mg once a day. 3. Apixaban 5 mg p.o. b.i.d. now held. 4. Aspirin 81 mg once a day. 5. Iron sulfate. 6. Finasteride. 7. Hydralazine. 8. Loperamide. 9. Mannitol. 10. Milk of Magnesia. 11. Mineral oil. 12. Nystatin. 13. Sublingual nitroglycerin as needed. 14. Vitamin D. REVIEW OF SYSTEMS: CONSTITUTIONAL: No fevers, no chills, no recent weight change. HEENT: No changes in vision or hearing. CARDIAC: No chest pain reported now. Atrial fibrillation. RESPIRATORY: Shortness of breath. GASTROINTESTINAL: No nausea or vomiting. GENITOURINARY: No dysuria or hematuria. NEUROLOGIC: History of dementia. PSYCHIATRIC: History of psychiatric illness. PHYSICAL EXAMINATION: VITAL SIGNS: T-max 100.8, now 98.4, heart rate is 107 now, blood pressure 133/58. GENERAL: He is a thin gentleman in no acute distress, alert and oriented x1, not really aware of his medical condition. HEENT: Head: Normocephalic, atraumatic. Eyes are anicteric. NECK: Supple. JVD is 6 to 7 cm. HEART: Irregularly irregular with soft holosystolic murmur. PMI is minimally displaced. There is n o S3. LUNGS: Coarse to base. ABDOMEN: Distended. Bowel sounds are present. There is no hepatosplenomegaly. GENITOURINARY: Intact. EXTREMITIES: Shows trace edema. DIAGNOSTIC DATA: ECG read by me, atrial fibrillation with some nonspecific ST-T changes. LABORATORY DATA: White blood cell count 11.4, hemoglobin is 9.2, platelets 377. INR is 1.15. Sodiu m 136, potassium 4.6, his BUN is 7, creatinine 0.5. Troponin is negative at 0.012. ASSESSMENT AND PLAN: 1. Preoperative assessment. The patient is here for preoperative assessment for hip surgery. I thi nk it is reasonable to proceed with surgery without any further risk stratification. Unrepaired hip fracture carries an extremely high morbidity and mortality. 2. History of atrial fibrillation. The patient has atrial fibrillation, but his rate is now in a fa st rate. On presentation, he is fairly well controlled. I am going to initiate a small dose of beta lance and see if patient can tolerate it, which should be beneficial in preoperative assessment as well. 3. Hypertension. Blood pressure is well optimized. Continue to monitor closely. 4. Anemia. No evidence of bleeding now. 5. Secondary hypercoagulable state. Eliquis has been held as the patient is considering surgery. I would like to thank Dr. Baron for referring this patient for my evaluation. Dictated By: SHYANN STARR MD ML/NTS Conf#: [id number] DID#: [id number] CC: OSIRIS BARON MD;*EndCC*
--- NOTE | 2019-01-01 16:35 | PN ---
DATE: 01/01/2019 REQUESTING PHYSICIAN: Charlene Berg NP Thank you for this consultation. HISTORY OF PRESENT ILLNESS: This is a chronically 78-year-old man, well known to our service from previous admissions. The patient with a history of dementia, constipation, BPH, colon adenocarcinoma, refused surgical interventions in the past, paroxysmal atrial fibrillation, colitis, admitted with diffuse abdominal pain and now growing E. coli ESBL in the urine. The patient is currently on meropenem. HE HAS NO ALLERGIES TO ANTIBIOTICS. He was seen by Gastroenterology, Declan Barth that ordered lactulose daily, MiraLax and to follow on KUB. The patient came with CT of the abdomen revealed large amount of stool throughout the colon with a very large stool in the retrosigmoid colon with associated wall thickenings, suspicious for fecal impaction and stercoral colitis, mild left hydroureteronephrosis to the level of the ____ ureter where it is seen in close association with the stool filled colon, presumed etiology is due to mass effect large, hiatal hernia containing a large portion of the stomach and the loop of nonobstructive small bowel, fracture deformity of the left proximal femur, new compared to 07/03/2018 exam, distended gallbladder without gross wall thickening or surrounding fat stranding by CT. Please see full report in the chart. KUB this morning revealed moderate retained fecal material in the retrosigmoid colon. No radiographic evidence of bowel obstruction. VITAL SIGNS: Upon presentation, the patient came with a temperature of 98.1, pulse 76, respirations 18, blood pressure 120/60, saturation 97% on room air. WBC 5.9, H and H 9.9 and 33.3, platelets 325, neutrophils 67.6. BUN 21, creatinine 0.67. SOCIAL HISTORY: The patient came from the facility. PHYSICAL EXAMINATION: GENERAL: She is a chronically ill-appearing, elderly man who is in no distress. HEENT: Head atraumatic, normocephalic. Sclerae anicteric. Buccal mucosa dry. NECK: Supple, trachea midline. CHEST: Rise symmetrical. Breath sounds diminished to bases. HEART: S1, S2. ABDOMEN: Soft, bowel sounds present. EXTREMITIES: Without cyanosis. The patient has multiple pressure sores on his heels. DIAGNOSTIC IMPRESSION: This is an 78-year-old man with numerous medical problems admitted with severe fecal impaction and stercoral colitis, on MiraLax and lactulose with gastroenterology closely following him. The patient has also E. coli ESBL UTI and currently on meropenem. He was seen by Dr. Cohen for femoral neck fracture that is probably pathologic. The plan is for hemiarthroplasty of the left hip once he is medically cleared. We will continue him on current antimicrobials, which is meropenem. Follow gastroenterology and cardiology recommendations. As was previously noted, the patient refused to have any intervention in regards to his colon cancer. Further recommendations per patient's clinical course. Discussed with Dr. Morel who is covering Dr. Dietrich. Dictated By: RIZWANA HARMAN PHOTOGRAPHY TEACHER for ROSA DIETRICH MD NI/NTS Conf#: [id number] DID#: [id number] CC: OSIRIS CIFUENTES MD;*EndCC* MTDD
[2019-01-01 19:43] VITALS: BP 100/55; PULSE 94; RESP 18
[2019-01-01] MEDS: D5W-0.45 NACL + KCL 20 MEQ 1,000 ML IV SCH (21:23)
[2019-01-02 01:58] VITALS: BP 113/56; PULSE 69; RESP 18
[2019-01-02] MEDS: morphine 4 MG/ML VIAL IV PRN ×2 (05:19→09:29)
[2019-01-02] MEDS ORDERED: morphine 2 MG INJ IV ONE (06:57)
[2019-01-02 07:53] VITALS: BP 140/60; PULSE 63; RESP 18
[2019-01-02] MEDS: GABAPENTIN 100 MG CAP PO SCH ×3 (09:00→20:36)
[2019-01-02] MEDS: POLYETHYLENE GLYCOL 17 GM PACKET GTB SCH (09:00)
[2019-01-02] MEDS: FINASTERIDE 5 MG TAB PO SCH (09:00)
[2019-01-02] MEDS: ASPIRIN (EC) 81 MG TAB PO SCH (09:00)
[2019-01-02] MEDS: NYSTATIN 15 GM POWDER BTL TOP SCH ×2 (09:15→20:36)
[2019-01-02] MEDS: MEROPENEM 500MG/50 ML (PMX) 50 ML IVPB SCH ×2 (09:15→20:36)
[2019-01-02] MEDS: AMLODIPINE 5 MG TAB PO SCH (10:11)
--- NOTE | 2019-01-02 12:23 | CONS ---
Assessment/Plan Assessment/Plan Hospital Course (Demo Recall) Patient is alert feels good denies pain no fevers overnight WBC 6.2 platelets 279 neutrophils 65.2 BUN 10 creatinine 0.64 Antimicrobials: Meropenem PHYSICAL EXAMINATION: GENERAL: Well-developed, elderly man who is in no distress. HEENT: Head atraumatic, normocephalic. Sclerae anicteric. Buccal mucosa dry. NECK: Supple, trachea midline. CHEST: Rise symmetrical. Breath sounds diminished to bases. HEART: S1, S2. ABDOMEN: Soft, bowel sounds present. EXTREMITIES: Without cyanosis. The patient has multiple pressure sores on his heels. Assessment: 1. E. coli ESBL UTI 2. Severe constipation with fecal impaction 3. Stercoral colitis 4. Colon cancer, patient refused surgical intervention in the past 5. Left hip fracture Plan: Patient is stable, continue present care and antibiotics, follow GI and cardiology recommendations, plan for left hip surgery once medically cleared Consultation Date/Type/Reason Admit Date/Time December 30, 2018 at 07:26 Initial Consult Date 12/29/18 Type of Consult id Date/Time of Note DATE: 01/02/19 TIME: 12:23 Exam/Review of Systems Exam Vitals Vital Signs Date Temp Pulse Resp B/P (MAP) Pulse Ox O2 O2 Flow FiO2 Time Delivery Rate 01/02/19 98.6 63 18 140/60 98 Room Air 07:53 (86) Intake and Output 01/01/19 01/01/19 01/02/19 1515:00 23:00 07:00 IntakeIntake Total 1050 ml 1390 ml 620 ml OutputOutput Total 1 ml BalanceBalance 1050 ml 1389 ml 620 ml Results Result Diagram: 01/02/19 0505 01/02/19 0505 Results 24hrs Laboratory Tests Test 01/02/19 05:05 White Blood Count 6.2 # Red Blood Count 3.23 L Hemoglobin 7.8 L Hematocrit 26.1 L Mean Corpuscular Volume 80.8 L Mean Corpuscular Hemoglobin 24.1 L Mean Corpuscular Hemoglobin Concent 29.9 L Red Cell Distribution Width 15.9 H Platelet Count 279 # Mean Platelet Volume 8.3 Immature Granulocytes % 1.100 H Neutrophils % 65.2 Lymphocytes % 17.3 Monocytes % 15.2 H Eosinophils % 1.0 Basophils % 0.2 Nucleated Red Blood Cells % 0.0 Immature Granulocytes # 0.070 H Neutrophils # 4.1 Lymphocytes # 1.1 Monocytes # 0.9 Eosinophils # 0.1 Basophils # 0.0 Nucleated Red Blood Cells # 0.0 Sodium Level 139 Potassium Level 4.3 Chloride Level 109 Carbon Dioxide Level 27 Anion Gap 3 L Blood Urea Nitrogen 10 Creatinine 0.64 Est Glomerular Filtrat Rate mL/min Glucose Level 104 Calcium Level 8.0 L Medications Medication Current Medications Acetaminophen (Tylenol Tab) 650 mg Q6H PRN PO MILD PAIN(1-3)OR ELEVATED TEMP Last administered on 01/01/19 08:32; Admin Dose 650 MG; Start 12/28/18 at 21:30 Amlodipine Besylate (Norvasc) 5 mg DAILY PO Last administered on 01/01/19 10:10; Admin Dose 5 MG; Start 12/29/18 at 09:00 Aspirin (Halfprin) 81 mg DAILY PO Last administered on 01/01/19 10:09; Admin Dose 81 MG; Start 12/29/18 at 09:00 Finasteride (Proscar) 5 mg DAILY PO Last administered on 01/01/19 10:09; Admin Dose 5 MG; Start 12/29/18 at 09:00 Gabapentin (Neurontin) 200 mg TID PO Last administered on 01/01/19 21:23; Admin Dose 200 MG; Start 12/29/18 at 09:00 Hydralazine HCl (Apresoline) 25 mg Q6H PRN PO BLOOD PRESSURE SUPPORT; Start 12/28/18 at 21:30 Loperamide HCl (Imodium Cap) 2 mg Q6 PRN PO DIARRHEA; Start 12/28/18 at 21:30 Nitroglycerin (Nitroglycerin (Sl Tab) 0.4 Mg) 1 tab PRN PRN SL CHEST PAIN; Start 12/28/18 at 21:30 Nystatin 1 applic BID TOP Last administered on 01/02/19 09:15; Admin Dose 1 APPLIC; Start 12/29/18 at 09:00 Oxycodone/ Acetaminophen (Endocet (10/ 325)) 1 tab Q4 PRN PO SEVERE PAIN LEVEL 7-10 Last administered on 12/31/18 21:49; Admin Dose 1 TAB; Start 12/28/18 at 21:30 Zolpidem Tartrate (Ambien) 5 mg HS PRN PO INSOMNIA; Start 12/28/18 at 21:30 Lorazepam (Ativan) 0.5 mg Q6H PRN PO ANXIETY Last administered on 12/31/18 22:26; Admin Dose 0.5 MG; Start 12/28/18 at 21:30 Ondansetron HCl (Zofran Inj) 4 mg Q6H PRN IV NAUSEA AND/OR VOMITING Last administered on 12/29/18 18:55; Admin Dose 4 MG; Start 12/29/18 at 09:00 Morphine Sulfate (morphine) 4 mg Q4H PRN IV SEVERE PAIN LEVEL 7-10 Last administered on 01/02/19 09:29; Admin Dose 4 MG; Start 12/29/18 at 10:30 Ferric Sodium Gluconate Complex 125 mg/Sodium Chloride 110 ml @ 110 mls/hr DAILY@1300 IVPB Last administered on 01/01/19 14:25; Admin Dose 110 MLS/HR; Start 12/30/18 at 13:00; Stop 01/03/19 at 13:59 Polyethylene Glycol (Miralax) 17 gm DAILY GTB Last administered on 12/31/18 12:25; Admin Dose 17 GM; Start 12/29/18 at 14:30 Al Hydrox/Mg Hydrox/Simethicone (Mag-Al Plus) 30 ml Q4H PRN PO GASTROINTESTINAL UPSET Last administered on 12/31/18 04:42; Admin Dose 30 ML; Start 12/30/18 at 12:00 Potassium Chloride/Dextrose/ Sod Cl 1,000 ml @ 50 mls/hr Q20H IV Last administered on 01/01/19 21:23; Admin Dose 50 MLS/HR; Start 12/31/18 at 22:30 Meropenem/Sodium Chloride 50 ml @ 100 mls/hr Q12 IVPB Last administered on 01/02/19 09:15; Admin Dose 100 MLS/HR; Start 01/01/19 at 11:00; Stop 01/08/19 at 10:59 RIZWANA HARMAN NP January 02, 2019 12:23
[2019-01-02] MEDS: SOD FERRIC GLUC COMPLX 125 MG in SOD CHLORIDE 0.9% 100 ML IVPB SCH (14:21)
[2019-01-02] MEDS: OXYCODONE/ACETAMINOPHEN (10/325) TAB PO PRN ×2 (14:27→20:42)
[2019-01-02] MEDS: D5W-0.45 NACL + KCL 20 MEQ 1,000 ML IV SCH ×2 (14:30→20:43)
[2019-01-02 15:02] VITALS: BP 127/56; PULSE 72; RESP 18
--- NOTE | 2019-01-02 16:10 | PN ---
Date/Time of Note Date/Time of Note DATE: 01/02/19 TIME: 16:08 Assessment/Plan VTE Prophylaxis [place] [facility] [place] risk: 15 SCD applied [place] [facility] [place] Yes Pharmacological prophylaxis: NA/contraindicated Pharm contraindication: surgical contra Lines/Catheters IV C[facility]ter Type (from [facility]): Peripheral IV Central line still needed: Yes Urinary Cath still in place: No Assessment/Plan Hospital Course Patient is cleared for left femur hemiarthroplasty from cardiology and medical standpoint. Patient is in refusing surgery now. Will obtain psych evaluation. 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 Juanjose Cohen is following from ortho standpoint. Will obtain cardiology clearance from Dr. Denney prior to hemiarthroplasty. - Fecal impaction and stercoral colitis. Continue Miralax and Lactulose. Dr. Castano is following in gastroenterology consultation. - E. coli ESBL UTI, continue meropenem. Dr. Mcnamara is following in infection disease consultation. - Paroxysmal atrial fibrillation, patient is in sinus rhythm on admission. Will hold Eliquis for now. Continue aspirin. - Hypertension, continue Norvasc. - Benign prostatic hypertrophy. Continue Proscar. - Peripheral neuropathy. Continue Neurontin. - Paranoid psychosis. Patient was prescribed Seroquel during last admission, however refused to take it. The patient is not on any psych medication. - Colon cancer. The patient refused further workup. Will continue to monitor. - Bilateral inguinal hernias without evidence of obstruction or strangulation - History of C. difficile colitis Further recommendations will depend on hospital course. Plan of care discussed with Dr. Baron. Result Diagram: 01/02/19 0505 01/02/19 0505 Results 24hrs Laboratory Tests Test 01/02/19 05:05 01/02/19 15:55 White Blood Count 6.2 # Pending Red Blood Count 3.23 L Pending Hemoglobin 7.8 L Pending Hematocrit 26.1 L Pending Mean Corpuscular Volume 80.8 L Pending Mean Corpuscular Hemoglobin 24.1 L Pending Mean Corpuscular Hemoglobin Concent 29.9 L Pending Red Cell Distribution Width 15.9 H Pending Platelet Count 279 # Pending Mean Platelet Volume 8.3 Pending Immature Granulocytes % 1.100 H Neutrophils % 65.2 Lymphocytes % 17.3 Monocytes % 15.2 H Eosinophils % 1.0 Basophils % 0.2 Nucleated Red Blood Cells % 0.0 Immature Granulocytes # 0.070 H Neutrophils # 4.1 Lymphocytes # 1.1 Monocytes # 0.9 Eosinophils # 0.1 Basophils # 0.0 Nucleated Red Blood Cells # 0.0 Sodium Level 139 Potassium Level 4.3 Chloride Level 109 Carbon Dioxide Level 27 Anion Gap 3 L Blood Urea Nitrogen 10 Creatinine 0.64 Est Glomerular Filtrat Rate mL/min Glucose Level 104 Calcium Level 8.0 L Exam/Review of Systems Exam Vitals Vital Signs Date Temp Pulse Resp B/P (MAP) Pulse Ox O2 O2 Flow FiO2 Time Delivery Rate 01/02/19 97.5 72 18 127/56 96 Room Air 15:02 (79) Intake and Output 01/01/19 01/01/19 01/02/19 1515:00 23:00 07:00 IntakeIntake Total 1050 ml 1390 ml 620 ml OutputOutput Total 1 ml BalanceBalance 1050 ml 1389 ml 620 ml Exam Constitutional: alert, oriented Respiratory: clear to auscultation Cardiovascular: nl pulses Gastrointestinal: soft, non-tender Musculoskeletal: nl extremities to inspection Extremities: normal pulses Neurological: nl mental status Results Results 24hrs Laboratory Tests Test 01/02/19 05:05 01/02/19 15:55 White Blood Count 6.2 # Pending Red Blood Count 3.23 L Pending Hemoglobin 7.8 L Pending Hematocrit 26.1 L Pending Mean Corpuscular Volume 80.8 L Pending Mean Corpuscular Hemoglobin 24.1 L Pending Mean Corpuscular Hemoglobin Concent 29.9 L Pending Red Cell Distribution Width 15.9 H Pending Platelet Count 279 # Pending Mean Platelet Volume 8.3 Pending Immature Granulocytes % 1.100 H Neutrophils % 65.2 Lymphocytes % 17.3 Monocytes % 15.2 H Eosinophils % 1.0 Basophils % 0.2 Nucleated Red Blood Cells % 0.0 Immature Granulocytes # 0.070 H Neutrophils # 4.1 Lymphocytes # 1.1 Monocytes # 0.9 Eosinophils # 0.1 Basophils # 0.0 Nucleated Red Blood Cells # 0.0 Sodium Level 139 Potassium Level 4.3 Chloride Level 109 Carbon Dioxide Level 27 Anion Gap 3 L Blood Urea Nitrogen 10 Creatinine 0.64 Est Glomerular Filtrat Rate mL/min Glucose Level 104 Calcium Level 8.0 L Medications Medication Current Medications Acetaminophen (Tylenol Tab) 650 mg Q6H PRN PO MILD PAIN(1-3)OR ELEVATED TEMP Last administered on 01/01/19 08:32; Admin Dose 650 MG; Start 12/28/18 at 21:30 Amlodipine Besylate (Norvasc) 5 mg DAILY PO Last administered on 01/01/19 10:10; Admin Dose 5 MG; Start 12/29/18 at 09:00 Aspirin (Halfprin) 81 mg DAILY PO Last administered on 01/01/19 10:09; Admin Dose 81 MG; Start 12/29/18 at 09:00 Finasteride (Proscar) 5 mg DAILY PO Last administered on 01/01/19 10:09; Admin Dose 5 MG; Start 12/29/18 at 09:00 Gabapentin (Neurontin) 200 mg TID PO Last administered on 01/02/19 14:21; Admin Dose 200 MG; Start 12/29/18 at 09:00 Hydralazine HCl (Apresoline) 25 mg Q6H PRN PO BLOOD PRESSURE SUPPORT; Start 12/28/18 at 21:30 Loperamide HCl (Imodium Cap) 2 mg Q6 PRN PO DIARRHEA; Start 12/28/18 at 21:30 Nitroglycerin (Nitroglycerin (Sl Tab) 0.4 Mg) 1 tab PRN PRN SL CHEST PAIN; Start 12/28/18 at 21:30 Nystatin 1 applic BID TOP Last administered on 01/02/19 09:15; Admin Dose 1 APPLIC; Start 12/29/18 at 09:00 Oxycodone/ Acetaminophen (Endocet (10/ 325)) 1 tab Q4 PRN PO SEVERE PAIN LEVEL 7-10 Last administered on 01/02/19 14:27; Admin Dose 1 TAB; Start 12/28/18 at 21:30 Zolpidem Tartrate (Ambien) 5 mg HS PRN PO INSOMNIA; Start 12/28/18 at 21:30 Lorazepam (Ativan) 0.5 mg Q6H PRN PO ANXIETY Last administered on 12/31/18 22:26; Admin Dose 0.5 MG; Start 12/28/18 at 21:30 Ondansetron HCl (Zofran Inj) 4 mg Q6H PRN IV NAUSEA AND/OR VOMITING Last administered on 12/29/18 18:55; Admin Dose 4 MG; Start 12/29/18 at 09:00 Morphine Sulfate (morphine) 4 mg Q4H PRN IV SEVERE PAIN LEVEL 7-10 Last administered on 01/02/19 09:29; Admin Dose 4 MG; Start 12/29/18 at 10:30 Ferric Sodium Gluconate Complex 125 mg/Sodium Chloride 110 ml @ 110 mls/hr DAILY@1300 IVPB Last administered on 01/02/19 14:21; Admin Dose 110 MLS/HR; Start 12/30/18 at 13:00; Stop 01/03/19 at 13:59 Polyethylene Glycol (Miralax) 17 gm DAILY GTB Last administered on 12/31/18 12:25; Admin Dose 17 GM; Start 12/29/18 at 14:30 Al Hydrox/Mg Hydrox/Simethicone (Mag-Al Plus) 30 ml Q4H PRN PO GASTROINTESTINAL UPSET Last administered on 12/31/18 04:42; Admin Dose 30 ML; Start 12/30/18 at 12:00 Potassium Chloride/Dextrose/ Sod Cl 1,000 ml @ 50 mls/hr Q20H IV Last administered on 01/01/19 21:23; Admin Dose 50 MLS/HR; Start 12/31/18 at 22:30 Meropenem/Sodium Chloride 50 ml @ 100 mls/hr Q12 IVPB Last administered on 01/02/19 09:15; Admin Dose 100 MLS/HR; Start 01/01/19 at 11:00; Stop 01/08/19 at 10:59 LEAH BROUSSARD January 02, 2019 16:10
--- NOTE | 2019-01-02 17:11 | CONS ---
Assessment/Plan Assessment/Plan Assessment/Plan (Daily) Assessment/Plan Assessment/Plan Hospital Course (Demo Recall) 78 yo male with colon cancer diagnosed in Jul 2019 who refuses surgery presented with constipation 1. Fecal impaction and stercoral colitis: on miralax, lactulose. KUB 12/30/18 still showed significant amount of stool, KUB done on 01/01/2019 also shows fecal impaction 2. Colon cancer at hepatic flexure, dx on colonoscopy by Dr. Whyte Jul 2019 3. FOBT positive with chronic anemia 4. on anticoagulation due to atrial fibrillation 5. iron deficiency anemia 6. BLE pain, chronic per RN -consider dopplers, RN will follow up with primary 7. Leukocytosis with fevers. 8. UTI with E. coli 9. Unrepaired hip fx, surgery pending cardiac clearance Recommendations: Consider abx consider ble dopplers IV iron, no po iron continue bowel regimen Amities a 24 mcg twice daily also Dulcolax tonight since patient is still constipated. Discussed the patient again and again but he declined surgery and also a chemotherapy and radiation Consultation Date/Type/Reason Admit Date/Time December 30, 2018 at 07:26 Initial Consult Date 12/29/18 Date/Time of Note DATE: 01/02/19 TIME: 17:10 24 HR Interval Summary Constitutional: no complaints, improved Exam/Review of Systems Exam Vitals Vital Signs Date Temp Pulse Resp B/P (MAP) Pulse Ox O2 O2 Flow FiO2 Time Delivery Rate 01/02/19 97.5 72 18 127/56 96 Room Air 15:02 (79) Intake and Output 01/01/19 01/01/19 01/02/19 1515:00 23:00 07:00 IntakeIntake Total 1050 ml 1390 ml 620 ml OutputOutput Total 1 ml BalanceBalance 1050 ml 1389 ml 620 ml Constitutional: alert, oriented, well developed Psych: no complaints, nl mood/affect Head: normocephalic, atraumatic Eyes: nl conjunctiva, EOMI, nl lids, nl sclera, PERRL ENMT: nl external ears & nose, nl lips & teeth, nl nasal mucosa & septum Neck: supple, non-tender Respiratory: clear to auscultation, normal air movement Cardiovascular: regular rate and rhythm, nl pulses Gastrointestinal: soft, nl liver, spleen, non-tender Musculoskeletal: nl extremities to inspection, nl gait and stance Extremities: normal pulses 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, nl mental status, nl speech, nl strength Skin: nl turgor; No rash or lesions Lymph: nl lymph nodes Results Result Diagram: 01/02/19 1555 01/02/19 0505 Results 24hrs Laboratory Tests Test 01/02/19 05:05 01/02/19 15:55 White Blood Count 6.2 # 7.9 # Red Blood Count 3.23 L 3.86 L Hemoglobin 7.8 L 9.5 #L Hematocrit 26.1 L 31.1 L Mean Corpuscular Volume 80.8 L 80.6 L Mean Corpuscular Hemoglobin 24.1 L 24.6 L Mean Corpuscular Hemoglobin Concent 29.9 L 30.5 L Red Cell Distribution Width 15.9 H 15.9 H Platelet Count 279 # 281 Mean Platelet Volume 8.3 8.3 Immature Granulocytes % 1.100 H 0.800 H Neutrophils % 65.2 65.8 Lymphocytes % 17.3 16.5 Monocytes % 15.2 H 14.5 H Eosinophils % 1.0 2.3 Basophils % 0.2 0.1 Nucleated Red Blood Cells % 0.0 0.0 Immature Granulocytes # 0.070 H 0.060 H Neutrophils # 4.1 5.2 Lymphocytes # 1.1 1.3 Monocytes # 0.9 1.2 H Eosinophils # 0.1 0.2 Basophils # 0.0 0.0 Nucleated Red Blood Cells # 0.0 0.0 Sodium Level 139 Potassium Level 4.3 Chloride Level 109 Carbon Dioxide Level 27 Anion Gap 3 L Blood Urea Nitrogen 10 Creatinine 0.64 Est Glomerular Filtrat Rate mL/min Glucose Level 104 Calcium Level 8.0 L Medications Medication Current Medications Acetaminophen (Tylenol Tab) 650 mg Q6H PRN PO MILD PAIN(1-3)OR ELEVATED TEMP Last administered on 01/01/19at 08:32; Admin Dose 650 MG; Start 12/28/18 at 21:30 Amlodipine Besylate (Norvasc) 5 mg DAILY PO Last administered on 01/01/19at 10:10; Admin Dose 5 MG; Start 12/29/18 at 09:00 Aspirin (Halfprin) 81 mg DAILY PO Last administered on 01/01/19at 10:09; Admin Dose 81 MG; Start 12/29/18 at 09:00 Finasteride (Proscar) 5 mg DAILY PO Last administered on 01/01/19 10:09; Admin Dose 5 MG; Start 12/29/18 at 09:00 Gabapentin (Neurontin) 200 mg TID PO Last administered on 01/02/19 14:21; Admin Dose 200 MG; Start 12/29/18 at 09:00 Hydralazine HCl (Apresoline) 25 mg Q6H PRN PO BLOOD PRESSURE SUPPORT; Start 12/28/18 at 21:30 Loperamide HCl (Imodium Cap) 2 mg Q6 PRN PO DIARRHEA; Start 12/28/18 at 21:30 Nitroglycerin (Nitroglycerin (Sl Tab) 0.4 Mg) 1 tab PRN PRN SL CHEST PAIN; Start 12/28/18 at 21:30 Nystatin 1 applic BID TOP Last administered on 01/02/19 09:15; Admin Dose 1 APPLIC; Start 12/29/18 at 09:00 Oxycodone/ Acetaminophen (Endocet ( 325)) 1 tab Q4 PRN PO SEVERE PAIN LEVEL 7-10 Last administered on 01/02/19 14:27; Admin Dose 1 TAB; Start 12/28/18 at 21:30 Zolpidem Tartrate (Ambien) 5 mg HS PRN PO INSOMNIA; Start 12/28/18 at 21:30 Lorazepam (Ativan) 0.5 mg Q6H PRN PO ANXIETY Last administered on 12/31/18 22:26; Admin Dose 0.5 MG; Start 12/28/18 at 21:30 Ondansetron HCl (Zofran Inj) 4 mg Q6H PRN IV NAUSEA AND/OR VOMITING Last administered on 12/29/18 18:55; Admin Dose 4 MG; Start 12/29/18 at 09:00 Morphine Sulfate (morphine) 4 mg Q4H PRN IV SEVERE PAIN LEVEL 7-10 Last administered on 01/02/19 09:29; Admin Dose 4 MG; Start 12/29/18 at 10:30 Ferric Sodium Gluconate Complex 125 mg/Sodium Chloride 110 ml @ 110 mls/hr DAILY@1300 IVPB Last administered on 01/02/19 14:21; Admin Dose 110 MLS/HR; Start 12/30/18 at 13:00; Stop 01/03/19 at 13:59 Polyethylene Glycol (Miralax) 17 gm DAILY GTB Last administered on 12/31/18at 12:25; Admin Dose 17 GM; Start 12/29/18 at 14:30 Al Hydrox/Mg Hydrox/Simethicone (Mag-Al Plus) 30 ml Q4H PRN PO GASTROINTESTINAL UPSET Last administered on 12/31/18at 04:42; Admin Dose 30 ML; Start 12/30/18 at 12:00 Potassium Chloride/Dextrose/ Sod Cl 1,000 ml @ 50 mls/hr Q20H IV Last administered on 01/01/19at 21:23; Admin Dose 50 MLS/HR; Start 12/31/18 at 22:30 Meropenem/Sodium Chloride 50 ml @ 100 mls/hr Q12 IVPB Last administered on 01/02/19at 09:15; Admin Dose 100 MLS/HR; Start 01/01/19 at 11:00; Stop 01/08/19 at 10:59 SHANNON WHYTE MD January 02, 2019 17:11
[2019-01-02] MEDS ORDERED: BISACODYL (EC) 5 MG TAB PO ONE (17:30)
--- NOTE | 2019-01-02 18:16 | PSY ---
Date/Time of Note Date/Time of Note DATE: 01/02/19 TIME: 18:10 Psychiatric Subjective Eval Consent Pt consented to telemedicine: No Subjective Evaluation Patient location: inpatient Chief Complaint: abdominal pain x 2 days History of present illness Patient is a 78-year-old male with history of congestive heart failure, atrial fibrillation, hypertension, SVT, DVT of left lower extremity, and BPH, currently admitted on the medical unit. 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 Patient declines psychiatric meds, insisted the interviewer is trying to give him psych meds as a cover up. Past psychiatric history Long history of mental illness but not compliant with treatment Hospitalization: other Medical history Problems Medical Problems: (1) Abdominal pain Status: Acute (2) Abdominal pain Status: Acute (3) Acute kidney injury Status: Acute (4) Anemia Status: Chronic (5) Atrial fibrillation with RVR Status: Acute (6) Bilateral pneumonia Status: Acute (7) Cellulitis Status: Acute (8) Chest pain Status: Acute (9) Chest pain Status: Acute (10) Chest pain Status: Acute (11) Chest pain Status: Acute (12) Chest wall muscle strain Status: Acute (13) Colitis Status: Acute (14) Colitis Status: Acute (15) Constipation Status: Acute (16) Constipation Status: Acute (17) DVT (deep vein thrombosis) in Status: Acute (18) DVT (deep venous thrombosis) Status: Acute (19) Inguinal hernia Status: Acute (20) Normocytic anemia Status: Acute (21) Severe sepsis Status: Acute (22) Shoulder pain, right Status: Acute (23) Shoulder pain, right Status: Acute (24) SVT (supraventricular tachycardia) Status: Acute Allergies: Coded Allergies: codeine (Verified Allergy, Unknown, 12/28/18) Substance Abuse Substance abuse history: No Prior substance abuse treatmen: No Social History Marital status: other DPA/Conservatorship: No Psychiatric Objective Eval Physical Examination: Physical Examination: Not Applicable Mental Status Examination: Appearance: Groomed Eye Contact: Fair Psychomotor Activity: Agitated Behavior: Agitated Speech: Soft AFFECT: Constricted Mood: Anxious Though Process: Loose, Tangential Thought Content: Delusions Suicidal: No Homicidal: No On 72 hour hold: No Orientation: x2 Cognition: Alert Insight: Severe Judgement: Severe Attention Span: Distractible Laboratory Results Laboratory Tests Test 01/01/19 04:46 01/02/19 05:05 01/02/19 15:55 White Blood Count 11.4 10^3/ul 6.2 10^3/ul 7.9 10^3/ul Red Blood Count 3.84 10^6/ul 3.23 10^6/ul 3.86 10^6/ul Hemoglobin 9.2 g/dl 7.8 g/dl 9.5 g/dl Hematocrit 30.4 % 26.1 % 31.1 % Mean Corpuscular Volume 79.2 fl 80.8 fl 80.6 fl Mean Corpuscular Hemoglobin 24.0 pg 24.1 pg 24.6 pg Mean Corpuscular 30.3 g/dl 29.9 g/dl 30.5 g/dl Hemoglobin Concent Red Cell Distribution Width 15.9 % 15.9 % 15.9 % Platelet Count 377 10^3/UL 279 10^3/UL 281 10^3/UL Mean Platelet Volume 8.5 fl 8.3 fl 8.3 fl Immature Granulocytes % 0.800 % 1.100 % 0.800 % Neutrophils % 91.0 % 65.2 % 65.8 % Lymphocytes % 4.0 % 17.3 % 16.5 % Monocytes % 3.7 % 15.2 % 14.5 % Eosinophils % 0.3 % 1.0 % 2.3 % Basophils % 0.2 % 0.2 % 0.1 % Nucleated Red Blood Cells % 0.0 /100WBC 0.0 /100WBC 0.0 /100WBC Immature Granulocytes # 0.090 10^3/ul 0.070 10^3/ul 0.060 10^3/ul Neutrophils # 10.4 10^3/ul 4.1 10^3/ul 5.2 10^3/ul Lymphocytes # 0.5 10^3/ul 1.1 10^3/ul 1.3 10^3/ul Monocytes # 0.4 10^3/ul 0.9 10^3/ul 1.2 10^3/ul Eosinophils # 0.0 10^3/ul 0.1 10^3/ul 0.2 10^3/ul Basophils # 0.0 10^3/ul 0.0 10^3/ul 0.0 10^3/ul Nucleated Red Blood Cells # 0.0 10^3/ul 0.0 10^3/ul 0.0 10^3/ul Sodium Level 136 mmol/L 139 mmol/L Potassium Level 4.5 mmol/L 4.3 mmol/L Chloride Level 105 mmol/L 109 mmol/L Carbon Dioxide Level 24 mmol/L 27 mmol/L Anion Gap 7 3 Blood Urea Nitrogen 7 mg/dl 10 mg/dl Creatinine 0.58 mg/dl 0.64 mg/dl Est Glomerular Filtrat mL/min mL/min Rate mL/min Glucose Level 112 mg/dl 104 mg/dl Calcium Level 7.9 mg/dl 8.0 mg/dl Assessment and Plan Recommendation/Plan Medication Management Patient declined Multiple antipsychotics: No Discharge Disposition: Other Legal Status: Voluntary (Does not meet criteria for 5150 hold) MARGRET PEREZ NP January 02, 2019 18:16
[2019-01-02] MEDS: AL HYDROX/MG HYDROX/SIMETH 30 ML CUP PO PRN (18:28)
[2019-01-02 20:08] VITALS: BP 118/59; PULSE 62; RESP 18
[2019-01-02] MEDS: LUBIPROSTONE 24 MCG CAP PO SCH (20:36)
--- NOTE | 2019-01-02 21:02 | CONS ---
Assessment/Plan Assessment/Plan Hospital Course (Demo Recall) IMP: 1.Pre-op for surgery upon femur fracture-per DR Rodarte note ok to proceed moderate to high risk- Echo with Nl EF 08/25 EF 60. No sig valve lesions/neg trop 2.AF-eliquis held for surgery 3.HTN 4.fecal impaction 5. h/o colon ca 6. BPH Recc: -Complete gayatri -serial ecg's -Continue norvasc and start BB given h/o af -holding eliquis for surgery -GI following for fecal impaction/colon ca -Continue amitiza -Contineu abx's and f/u cx data Consultation Date/Type/Reason Admit Date/Time December 30, 2018 at 07:26 Initial Consult Date 12/29/18 Type of Consult Cardiology Reason for Consultation preop Requesting Provider: OSIRIS CIFUENTES MD Date/Time of Note DATE: 01/02/19 TIME: 20:56 Exam/Review of Systems Vital Signs Vitals Vital Signs Date Temp Pulse Resp B/P (MAP) Pulse Ox O2 O2 Flow FiO2 Time Delivery Rate 01/02/19 97.8 62 18 118/59 97 20:08 (78) 01/02/19 Room Air 15:02 Intake and Output 01/01/19 01/01/19 01/02/19 1515:00 23:00 07:00 IntakeIntake Total 1050 ml 1390 ml 620 ml OutputOutput Total 1 ml BalanceBalance 1050 ml 1389 ml 620 ml Exam Exam Review of Systems: CONSTITUTIONAL: No fevers, chills. PULMONARY: No sob CARDIOVASCULAR: No chest pain/palpitations GASTROINTESTINAL: No nausea/vomiting. GENITOURINARY: No hematuria/dysuria. MUSCULOSKELETAL: leg pain PSYCHIATRIC: The patient denies depression. NEUROLOGIC: No weakness Constitutional: alert Psych: no complaints Head: normocephalic ENMT: mucosa pink and moist Neck: supple, jvd (9 cm water) Respiratory: clear to auscultation Cardiovascular: regular rate and rhythm Gastrointestinal: soft, non-tender Musculoskeletal: muscle weakness (mild generalized) Extremities: edema (none) Neurological: other (No focal defiicts) Labs Result Diagram: 01/02/19 1555 01/02/19 0505 Results 24hrs Laboratory Tests Test 01/02/19 05:05 01/02/19 15:55 White Blood Count 6.2 # 7.9 # Red Blood Count 3.23 L 3.86 L Hemoglobin 7.8 L 9.5 #L Hematocrit 26.1 L 31.1 L Mean Corpuscular Volume 80.8 L 80.6 L Mean Corpuscular Hemoglobin 24.1 L 24.6 L Mean Corpuscular Hemoglobin Concent 29.9 L 30.5 L Red Cell Distribution Width 15.9 H 15.9 H Platelet Count 279 # 281 Mean Platelet Volume 8.3 8.3 Immature Granulocytes % 1.100 H 0.800 H Neutrophils % 65.2 65.8 Lymphocytes % 17.3 16.5 Monocytes % 15.2 H 14.5 H Eosinophils % 1.0 2.3 Basophils % 0.2 0.1 Nucleated Red Blood Cells % 0.0 0.0 Immature Granulocytes # 0.070 H 0.060 H Neutrophils # 4.1 5.2 Lymphocytes # 1.1 1.3 Monocytes # 0.9 1.2 H Eosinophils # 0.1 0.2 Basophils # 0.0 0.0 Nucleated Red Blood Cells # 0.0 0.0 Sodium Level 139 Potassium Level 4.3 Chloride Level 109 Carbon Dioxide Level 27 Anion Gap 3 L Blood Urea Nitrogen 10 Creatinine 0.64 Est Glomerular Filtrat Rate mL/min Glucose Level 104 Calcium Level 8.0 L Medications Medications Current Medications Acetaminophen (Tylenol Tab) 650 mg Q6H PRN PO MILD PAIN(1-3)OR ELEVATED TEMP Last administered on 01/01/19 08:32; Admin Dose 650 MG; Start 12/28/18 at 21:30 Amlodipine Besylate (Norvasc) 5 mg DAILY PO Last administered on 01/01/19 10:10; Admin Dose 5 MG; Start 12/29/18 at 09:00 Aspirin (Halfprin) 81 mg DAILY PO Last administered on 01/01/19 10:09; Admin Dose 81 MG; Start 12/29/18 at 09:00 Finasteride (Proscar) 5 mg DAILY PO Last administered on 01/01/19 10:09; Admin Dose 5 MG; Start 12/29/18 at 09:00 Gabapentin (Neurontin) 200 mg TID PO Last administered on 01/02/19 20:36; Admin Dose 200 MG; Start 12/29/18 at 09:00 Hydralazine HCl (Apresoline) 25 mg Q6H PRN PO BLOOD PRESSURE SUPPORT; Start 12/28/18 at 21:30 Loperamide HCl (Imodium Cap) 2 mg Q6 PRN PO DIARRHEA; Start 12/28/18 at 21:30 Nitroglycerin (Nitroglycerin (Sl Tab) 0.4 Mg) 1 tab PRN PRN SL CHEST PAIN; Start 12/28/18 at 21:30 Nystatin 1 applic BID TOP Last administered on 01/02/19 20:36; Admin Dose 1 APPLIC; Start 12/29/18 at 09:00 Oxycodone/ Acetaminophen (Endocet ()) 1 tab Q4 PRN PO SEVERE PAIN LEVEL 7-10 Last administered on 01/02/19 20:42; Admin Dose 1 TAB; Start 12/28/18 at 21:30 Zolpidem Tartrate (Ambien) 5 mg HS PRN PO INSOMNIA; Start 12/28/18 at 21:30 Lorazepam (Ativan) 0.5 mg Q6H PRN PO ANXIETY Last administered on 12/31/18 22:26; Admin Dose 0.5 MG; Start 12/28/18 at 21:30 Ondansetron HCl (Zofran Inj) 4 mg Q6H PRN IV NAUSEA AND/OR VOMITING Last administered on 12/29/18 18:55; Admin Dose 4 MG; Start 12/29/18 at 09:00 Morphine Sulfate (morphine) 4 mg Q4H PRN IV SEVERE PAIN LEVEL 7-10 Last a dministered on 01/02/19 09:29; Admin Dose 4 MG; Start 12/29/18 at 10:30 Ferric Sodium Gluconate Complex 125 mg/Sodium Chloride 110 ml @ 110 mls/hr DAILY@1300 IVPB Last administered on 01/02/19 14:21; Admin Dose 110 MLS/HR; Start 12/30/18 at 13:00; Stop 01/03/19 at 13:59 Polyethylene Glycol (Miralax) 17 gm DAILY GTB Last administered on 12/31/18 12:25; Admin Dose 17 GM; Start 12/29/18 at 14:30 Al Hydrox/Mg Hydrox/Simethicone (Mag-Al Plus) 30 ml Q4H PRN PO GASTROINTESTINAL UPSET Last administered on 01/02/19 18:28; Admin Dose 30 ML; Start 12/30/18 at 12:00 Potassium Chloride/Dextrose/ Sod Cl 1,000 ml @ 50 mls/hr Q20H IV Last administered on 01/02/19 20:43; Admin Dose 50 MLS/HR; Start 12/31/18 at 22:30 Meropenem/Sodium Chloride 50 ml @ 100 mls/hr Q12 IVPB Last administered on 12/06 20:36; Admin Dose 100 MLS/HR; Start 01/01/19 at 11:00; Stop 01/08/19 at 10:59 Lubiprostone (Amitiza) 24 mcg BID PO Last administered on 01/02/19 20:36; Admin Dose 24 MCG; Start 01/02/19 at 21:00 RICH MANSFIELD January 02, 2019 21:02
[2019-01-03 02:00] VITALS: BP 124/60; PULSE 66; RESP 18
[2019-01-03] MEDS: OXYCODONE/ACETAMINOPHEN (10/325) TAB PO PRN ×4 (06:16→22:51)
[2019-01-03 08:24] VITALS: BP 142/62; PULSE 63; RESP 18
[2019-01-03] MEDS: GABAPENTIN 100 MG CAP PO SCH ×3 (08:46→20:17)
[2019-01-03] MEDS: LUBIPROSTONE 24 MCG CAP PO SCH ×2 (08:47→20:17)
[2019-01-03] MEDS: MEROPENEM 500MG/50 ML (PMX) 50 ML IVPB SCH ×2 (08:47→20:17)
[2019-01-03] MEDS: FINASTERIDE 5 MG TAB PO SCH (08:47)
[2019-01-03] MEDS: AMLODIPINE 5 MG TAB PO SCH (08:47)
[2019-01-03] MEDS: ASPIRIN (EC) 81 MG TAB PO SCH (08:47)
[2019-01-03] MEDS: POLYETHYLENE GLYCOL 17 GM PACKET GTB SCH (08:47)
[2019-01-03] MEDS: NYSTATIN 15 GM POWDER BTL TOP SCH ×2 (08:49→20:16)
[2019-01-03] MEDS: morphine 4 MG/ML VIAL IV PRN (09:35)
--- NOTE | 2019-01-03 11:21 | CONS ---
Assessment/Plan Assessment/Plan Assessment/Plan (Daily) Assessment/Plan Assessment/Plan Hospital Course (Demo Recall) 78 yo male with colon cancer diagnosed in Jul 2019 who refuses surgery presented with constipation 1. Fecal impaction and stercoral colitis: on miralax, lactulose. KUB 12/30/18 still showed significant amount of stool, KUB done on 01/01/2019 also shows fecal impaction 2. Colon cancer at hepatic flexure, dx on colonoscopy by Dr. Whyte Jul 2019 3. FOBT positive with chronic anemia 4. on anticoagulation due to atrial fibrillation 5. iron deficiency anemia 6. BLE pain, chronic per RN -consider dopplers, RN will follow up with primary 7. Leukocytosis with fevers. 8. UTI with E. coli 9. Unrepaired hip fx, surgery pending cardiac clearance Recommendations: Consider abx IV iron, no po iron continue bowel regimen Amities a 24 mcg twice daily also Dulcolax tonight since patient is still constipated. Discussed the patient again and again but he declined surgery and also a chemotherapy and radiation Consultation Date/Type/Reason Admit Date/Time December 30, 2018 at 07:26 Initial Consult Date 12/29/18 Requesting Provider: OSIRIS CIFUENTES MD Date/Time of Note DATE: 01/03/19 TIME: 11:19 24 HR Interval Summary Free Text/Dictation Finally had a good bowel movements Constitutional: improved Exam/Review of Systems Exam Vitals Vital Signs Date Temp Pulse Resp B/P (MAP) Pulse Ox O2 O2 Flow FiO2 Time Delivery Rate 01/03/19 98.5 63 18 142/62 96 08:24 (88) 01/03/19 Room Air 02:00 Intake and Output 01/02/19 01/02/19 01/03/19 1515:00 23:00 07:00 IntakeIntake Total 400 ml 1840 ml 400 ml BalanceBalance 400 ml 1840 ml 400 ml Constitutional: alert, oriented, well developed Psych: no complaints, nl mood/affect Head: normocephalic, atraumatic Eyes: nl conjunctiva, EOMI, nl lids, nl sclera, PERRL ENMT: nl external ears & nose, nl lips & teeth, nl nasal mucosa & septum Neck: supple, non-tender Respiratory: clear to auscultation, normal air movement Cardiovascular: regular rate and rhythm, nl pulses Gastrointestinal: soft, nl liver, spleen, non-tender Musculoskeletal: nl extremities to inspection, nl gait and stance Extremities: normal pulses Neurological: DEHYDRATOR TENDER II-XII intact, nl mental status, nl speech, nl strength Skin: nl turgor; No rash or lesions Lymph: nl lymph nodes Results Result Diagram: 01/02/19 1555 01/02/19 0505 Results 24hrs Laboratory Tests Test 01/02/19 15:55 01/02/19 21:00 01/03/19 00:47 01/03/19 05:20 White Blood Count 7.9 # Red Blood Count 3.86 L Hemoglobin 9.5 #L Hematocrit 31.1 L Mean Corpuscular 80.6 L Volume Mean Corpuscular 24.6 L Hemoglobin Mean Corpuscular 30.5 L Hemoglobin Concen t Red Cell 15.9 H Distribution Width Platelet Count 281 Mean Platelet 8.3 Volume Immature 0.800 H Granulocytes % Neutrophils % 65.8 Lymphocytes % 16.5 Monocytes % 14.5 H Eosinophils % 2.3 Basophils % 0.1 Nucleated Red 0.0 Blood Cells % Immature 0.060 H Granulocytes # Neutrophils # 5.2 Lymphocytes # 1.3 Monocytes # 1.2 H Eosinophils # 0.2 Basophils # 0.0 Nucleated Red 0.0 Blood Cells # Stool Occult POSITIVE Blood Troponin I < 0.012 < 0.012 Test 01/03/19 06:33 Lab Scanned BLOOD TRANSFUSIO Report N Medications Medication Current Medications Acetaminophen (Tylenol Tab) 650 mg Q6H PRN PO MILD PAIN(1-3)OR ELEVATED TEMP Last administered on 01/01/19at 08:32; Admin Dose 650 MG; Start 12/28/18 at 21:30 Amlodipine Besylate (Norvasc) 5 mg DAILY PO Last administered on 01/03/19 08:47; Admin Dose 5 MG; Start 12/29/18 at 09:00 Aspirin (Halfprin) 81 mg DAILY PO Last administered on 01/03/19 08:47; Admin Dose 81 MG; Start 12/29/18 at 09:00 Finasteride (Proscar) 5 mg DAILY PO Last administered on 01/03/19 08:47; Admin Dose 5 MG; Start 12/29/18 at 09:00 Gabapentin (Neurontin) 200 mg TID PO Last administered on 01/03/19 08:46; Admin Dose 200 MG; Start 12/29/18 at 09:00 Hydralazine HCl (Apresoline) 25 mg Q6H PRN PO BLOOD PRESSURE SUPPORT; Start 12/28/18 at 21:30 Loperamide HCl (Imodium Cap) 2 mg Q6 PRN PO DIARRHEA; Start 12/28/18 at 21:30 Nitroglycerin (Nitroglycerin (Sl Tab) 0.4 Mg) 1 tab PRN PRN SL CHEST PAIN; Start 12/28/18 at 21:30 Nystatin 1 applic BID TOP Last administered on 01/03/19 08:49; Admin Dose 1 APPLIC; Start 12/29/18 at 09:00 Oxycodone/ Acetaminophen (Endocet ()) 1 tab Q4 PRN PO SEVERE PAIN LEVEL 7-10 Last administered on 01/03/19 06:16; Admin Dose 1 TAB; Start 12/28/18 at 21:30 Zolpidem Tartrate (Ambien) 5 mg HS PRN PO INSOMNIA; Start 12/28/18 at 21:30 Lorazepam (Ativan) 0.5 mg Q6H PRN PO ANXIETY Last administered on 12/31/18 22:26; Admin Dose 0.5 MG; Start 12/28/18 at 21:30 Ondansetron HCl (Zofran Inj) 4 mg Q6H PRN IV NAUSEA AND/OR VOMITING Last a dministered on 12/29/18 18:55; Admin Dose 4 MG; Start 12/29/18 at 09:00 Morphine Sulfate (morphine) 4 mg Q4H PRN IV SEVERE PAIN LEVEL 7-10 Last administered on 01/03/19 09:35; Admin Dose 4 MG; Start 12/29/18 at 10:30 Ferric Sodium Gluconate Complex 125 mg/Sodium Chloride 110 ml @ 110 mls/hr SARA Y@1300 IVPB Last administered on 01/02/19 14:21; Admin Dose 110 MLS/HR; Start 12/30/18 at 13:00; Stop 01/03/19 at 13:59 Polyethylene Glycol (Miralax) 17 gm DAILY GTB Last administered on 01/03/19 08:47; Admin Dose 17 GM; Start 12/29/18 at 14:30 Al Hydrox/Mg Hydrox/Simethicone (Mag-Al Plus) 30 ml Q4H PRN PO GASTROINTESTINAL UPSET Last administered on 01/02/19 18:28; Admin Dose 30 ML; Start 12/30/18 at 12:00 Potassium Chloride/Dextrose/ Sod Cl 1,000 ml @ 50 mls/hr Q20H IV Last administered on 01/02/19 20:43; Admin Dose 50 MLS/HR; Start 12/31/18 at 22:30 Meropenem/Sodium Chloride 50 ml @ 100 mls/hr Q12 IVPB Last administered on 01/03/19 08:47; Admin Dose 100 MLS/HR; Start 01/01/19 at 11:00; Stop 01/08/19 at 10:59 Lubiprostone (Amitiza) 24 mcg BID PO Last administered on 01/03/19 08:47; Admin Dose 24 MCG; Start 01/02/19 at 21:00 SHANNON WHYTE MD January 03, 2019 11:20
--- NOTE | 2019-01-03 13:01 | CONS ---
Assessment/Plan Assessment/Plan Hospital Course (Demo Recall) Patient is alert feels good no fevers Antimicrobials: Meropenem PHYSICAL EXAMINATION: GENERAL: Well-developed, elderly man who is in no distress. HEENT: Head atraumatic, normocephalic. Sclerae anicteric. Buccal mucosa dry. NECK: Supple, trachea midline. CHEST: Rise symmetrical. Breath sounds diminished to bases. HEART: S1, S2. ABDOMEN: Soft, bowel sounds present. EXTREMITIES: Without cyanosis. The patient has multiple pressure sores on his heels. Assessment: 1. E. coli ESBL UTI 2. Severe constipation with fecal impaction 3. Stercoral colitis 4. Colon cancer, patient refused surgical intervention in the past 5. Left hip fracture Plan: Remains stable, continue present care and antibiotics, pt refused left hip surgery, pending psych eval Consultation Date/Type/Reason Admit Date/Time December 30, 2018 at 07:26 Initial Consult Date 12/29/18 Type of Consult id Requesting Provider: OSIRIS CIFUENTES MD Date/Time of Note DATE: 01/03/19 TIME: 13:00 Exam/Review of Systems Exam Vitals Vital Signs Date Temp Pulse Resp B/P (MAP) Pulse Ox O2 O2 Flow FiO2 Time Delivery Rate 01/03/19 98.5 63 18 142/62 96 08:24 (88) 01/03/19 Room Air 02:00 Intake and Output 01/02/19 01/02/19 01/03/19 1515:00 23:00 07:00 IntakeIntake Total 400 ml 1840 ml 400 ml BalanceBalance 400 ml 1840 ml 400 ml Results Result Diagram: 01/02/19 1555 01/02/19 0505 Results 24hrs Laboratory Tests Test 01/02/19 15:55 01/02/19 21:00 01/03/19 00:47 01/03/19 05:20 White Blood Count 7.9 # Red Blood Count 3.86 L Hemoglobin 9.5 #L Hematocrit 31.1 L Mean Corpuscular 80.6 L Volume Mean Corpuscular 24.6 L Hemoglobin Mean Corpuscular 30.5 L Hemoglobin Concen t Red Cell 15.9 H Distribution Width Platelet Count 281 Mean Platelet 8.3 Volume Immature 0.800 H Granulocytes % Neutrophils % 65.8 Lymphocytes % 16.5 Monocytes % 14.5 H Eosinophils % 2.3 Basophils % 0.1 Nucleated Red 0.0 Blood Cells % Immature 0.060 H Granulocytes # Neutrophils # 5.2 Lymphocytes # 1.3 Monocytes # 1.2 H Eosinophils # 0.2 Basophils # 0.0 Nucleated Red 0.0 Blood Cells # Stool Occult POSITIVE Blood Troponin I < 0.012 < 0.012 Test 01/03/19 06:33 Lab Scanned BLOOD TRANSFUSIO Report N Medications Medication Current Medications Acetaminophen (Tylenol Tab) 650 mg Q6H PRN PO MILD PAIN(1-3)OR ELEVATED TEMP Last administered on 01/01/19 08:32; Admin Dose 650 MG; Start 12/28/18 at 21:30 Amlodipine Besylate (Norvasc) 5 mg DAILY PO Last administered on 01/03/19 08:47; Admin Dose 5 MG; Start 12/29/18 at 09:00 Aspirin (Halfprin) 81 mg DAILY PO Last administered on 01/03/19 08:47; Admin Dose 81 MG; Start 12/29/18 at 09:00 Finasteride (Proscar) 5 mg DAILY PO Last administered on 01/03/19 08:47; Admin Dose 5 MG; Start 12/29/18 at 09:00 Gabapentin (Neurontin) 200 mg TID PO Last administered on 01/03/19 08:46; Admin Dose 200 MG; Start 12/29/18 at 09:00 Hydralazine HCl (Apresoline) 25 mg Q6H PRN PO BLOOD PRESSURE SUPPORT; Start 12/28/18 at 21:30 Loperamide HCl (Imodium Cap) 2 mg Q6 PRN PO DIARRHEA; Start 12/28/18 at 21:30 Nitroglycerin (Nitroglycerin (Sl Tab) 0.4 Mg) 1 tab PRN PRN SL CHEST PAIN; Start 12/28/18 at 21:30 Nystatin 1 applic BID TOP Last administered on 01/03/19 08:49; Admin Dose 1 APPLIC; Start 12/29/18 at 09:00 Oxycodone/ Acetaminophen (Endocet (10/ 325)) 1 tab Q4 PRN PO SEVERE PAIN LEVEL 7-10 Last administered on 01/03/19 12:19; Admin Dose 1 TAB; Start 12/28/18 at 21:30 Zolpidem Tartrate (Ambien) 5 mg HS PRN PO INSOMNIA; Start 12/28/18 at 21:30 Lorazepam (Ativan) 0.5 mg Q6H PRN PO ANXIETY Last administered on 12/31/18 22:26; Admin Dose 0.5 MG; Start 12/28/18 at 21:30 Ondansetron HCl (Zofran Inj) 4 mg Q6H PRN IV NAUSEA AND/OR VOMITING Last administered on 12/29/18 18:55; Admin Dose 4 MG; Start 12/29/18 at 09:00 Morphine Sulfate (morphine) 4 mg Q4H PRN IV SEVERE PAIN LEVEL 7-10 Last administered on 01/03/19 09:35; Admin Dose 4 MG; Start 12/29/18 at 10:30 Ferric Sodium Gluconate Complex 125 mg/Sodium Chloride 110 ml @ 110 mls/hr DAILY@1300 IVPB Last administered on 01/02/19 14:21; Admin Dose 110 MLS/HR; Start 12/30/18 at 13:00; Stop 01/03/19 at 13:59 Polyethylene Glycol (Miralax) 17 gm DAILY GTB Last administered on 01/03/19 08:47; Admin Dose 17 GM; Start 12/29/18 at 14:30 Al Hydrox/Mg Hydrox/Simethicone (Mag-Al Plus) 30 ml Q4H PRN PO GASTROINTESTINAL UPSET Last administered on 01/02/19 18:28; Admin Dose 30 ML; Start 12/30/18 at 12:00 Potassium Chloride/Dextrose/ Sod Cl 1,000 ml @ 50 mls/hr Q20H IV Last administered on 01/02/19 20:43; Admin Dose 50 MLS/HR; Start 12/31/18 at 22:30 Meropenem/Sodium Chloride 50 ml @ 100 mls/hr Q12 IVPB Last administered on 01/03/19 08:47; Admin Dose 100 MLS/HR; Start 01/01/19 at 11:00; Stop 01/08/19 at 10:59 Lubiprostone (Amitiza) 24 mcg BID PO Last administered on 01/03/19 08:47; Admin Dose 24 MCG; Start 01/02/19 at 21:00 RIZWANA HARMAN NP January 03, 2019 13:01
[2019-01-03] MEDS: SOD FERRIC GLUC COMPLX 125 MG in SOD CHLORIDE 0.9% 100 ML IVPB SCH (13:55)
[2019-01-03 14:55] VITALS: BP 114/55; PULSE 70; RESP 20
--- NOTE | 2019-01-03 18:08 | PN ---
Date/Time of Note Date/Time of Note DATE: 01/03/19 TIME: 18:01 Assessment/Plan VTE Prophylaxis Risk score (from [facility] [place], [place])>0 risk: 13 SCD applied (from [facility] [place], [place]): Yes Pharmacological prophylaxis: LMWH Lines/Catheters IV Catheter Type (from [facility]): Peripheral IV Urinary Cath still in place: No Assessment/Plan Hospital Course Patient remains hemodynamically stable, refused left hip arthroplasty for fracture, refusing treatment for colon cancer, refusing to be evaluated by psychiatrist, patient is delusional. Continues on meropenem for E. coli ESBL urinary infection. 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 Juanjose Cohen is following from ortho standpoint. Cleared by Dr. Rodarte from cardiology standpoint for hemiarthroplasty. Patient refused surgery today. - Fecal impaction and stercoral colitis. Continue Miralax and Lactulose. Dr. Castano is following in gastroenterology consultation. - E. coli ESBL UTI, continue meropenem. Dr. Mcnamara is following in infection disease consultation. - Paroxysmal atrial fibrillation, patient is in sinus rhythm on admission. Will hold Eliquis for now. Continue aspirin. - Hypertension, continue Norvasc. - Benign prostatic hypertrophy. Continue Proscar. - Peripheral neuropathy. Continue Neurontin. - Paranoid psychosis. Patient was prescribed Seroquel during last admission, however refused to take it. The patient is not on any psych medication. TERE Thompson saw patient for psychiatric evaluation. - Colon cancer. The patient refused further workup. - Bilateral inguinal hernias without evidence of obstruction or strangulation - History of C. difficile colitis Further recommendations will depend on hospital course. Plan of care discussed with Dr. Baron. Result Diagram: 01/02/19 1555 01/02/19 0505 Results 24hrs Laboratory Tests Test 01/02/19 21:00 01/03/19 00:47 01/03/19 05:20 01/03/19 06:33 Stool Occult POSITIVE Blood Troponin I < 0.012 < 0.012 Lab Scanned BLOOD TRANSFUSIO Report N Exam/Review of Systems Exam Vitals Vital Signs Date Temp Pulse Resp B/P (MAP) Pulse Ox O2 O2 Flow FiO2 Time Delivery Rate 01/03/19 97.8 70 20 114/55 99 14:55 (74) 01/03/19 Room Air 02:00 Intake and Output 01/02/19 01/02/19 01/03/19 1515:00 23:00 07:00 IntakeIntake Total 400 ml 1840 ml 400 ml BalanceBalance 400 ml 1840 ml 400 ml Exam Constitutional: alert, oriented Respiratory: clear to auscultation Cardiovascular: nl pulses Gastrointestinal: soft, non-tender Musculoskeletal: nl extremities to inspection Extremities: normal pulses Neurological: nl mental status Results Results 24hrs Laboratory Tests Test 01/02/19 21:00 01/03/19 00:47 01/03/19 05:20 01/03/19 06:33 Stool Occult POSITIVE Blood Troponin I < 0.012 < 0.012 Lab Scanned BLOOD TRANSFUSIO Report N Medications Medication Current Medications Acetaminophen (Tylenol Tab) 650 mg Q6H PRN PO MILD PAIN(1-3)OR ELEVATED TEMP Last administered on 01/01/19 08:32; Admin Dose 650 MG; Start 12/28/18 at 21:30 Amlodipine Besylate (Norvasc) 5 mg DAILY PO Last administered on 01/03/19 08:47; Admin Dose 5 MG; Start 12/29/18 at 09:00 Aspirin (Halfprin) 81 mg DAILY PO Last administered on 01/03/19 08:47; Admin Dose 81 MG; Start 12/29/18 at 09:00 Finasteride (Proscar) 5 mg DAILY PO Last administered on 01/03/19 08:47; Admin Dose 5 MG; Start 12/29/18 at 09:00 Gabapentin (Neurontin) 200 mg TID PO Last administered on 01/03/19 13:55; Admin Dose 200 MG; Start 12/29/18 at 09:00 Hydralazine HCl (Apresoline) 25 mg Q6H PRN PO BLOOD PRESSURE SUPPORT; Start 12/28/18 at 21:30 Loperamide HCl (Imodium Cap) 2 mg Q6 PRN PO DIARRHEA; Start 12/28/18 at 21:30 Nitroglycerin (Nitroglycerin (Sl Tab) 0.4 Mg) 1 tab PRN PRN SL CHEST PAIN; Start 12/28/18 at 21:30 Nystatin 1 applic BID TOP Last administered on 01/03/19 08:49; Admin Dose 1 APPLIC; Start 12/29/18 at 09:00 Oxycodone/ Acetaminophen (Endocet (10/ 325)) 1 tab Q4 PRN PO SEVERE PAIN LEVEL 7-10 Last administered on 01/03/19 12:19; Admin Dose 1 TAB; Start 12/28/18 at 21:30 Zolpidem Tartrate (Ambien) 5 mg HS PRN PO INSOMNIA; Start 12/28/18 at 21:30 Lorazepam (Ativan) 0.5 mg Q6H PRN PO ANXIETY Last administered on 12/31/18 22:26; Admin Dose 0.5 MG; Start 12/28/18 at 21:30 Ondansetron HCl (Zofran Inj) 4 mg Q6H PRN IV NAUSEA AND/OR VOMITING Last administered on 12/29/18 18:55; Admin Dose 4 MG; Start 12/29/18 at 09:00 Morphine Sulfate (morphine) 4 mg Q4H PRN IV SEVERE PAIN LEVEL 7-10 Last administered on 01/03/19 09:35; Admin Dose 4 MG; Start 12/29/18 at 10:30 Polyethylene Glycol (Miralax) 17 gm DAILY GTB Last administered on 01/03/19 08:47; Admin Dose 17 GM; Start 12/29/18 at 14:30 Al Hydrox/Mg Hydrox/Simethicone (Mag-Al Plus) 30 ml Q4H PRN PO GASTROINTESTINAL UPSET Last administered on 01/02/19 18:28; Admin Dose 30 ML; Start 12/30/18 at 12:00 Potassium Chloride/Dextrose/ Sod Cl 1,000 ml @ 50 mls/hr Q20H IV Last administered on 01/02/19 20:43; Admin Dose 50 MLS/HR; Start 12/31/18 at 22:30 Meropenem/Sodium Chloride 50 ml @ 100 mls/hr Q12 IVPB Last administered on 01/03/19 08:47; Admin Dose 100 MLS/HR; Start 01/01/19 at 11:00; Stop 01/08/19 at 10:59 Lubiprostone (Amitiza) 24 mcg BID PO Last administered on 01/03/19 08:47; Admin Dose 24 MCG; Start 01/02/19 at 21:00 LEAH BROUSSARD January 03, 2019 18:08
[2019-01-03] MEDS: D5W-0.45 NACL + KCL 20 MEQ 1,000 ML IV SCH (18:30)
--- NOTE | 2019-01-03 19:32 | CONS ---
Assessment/Plan Assessment/Plan Hospital Course (Demo Recall) IMP: 1.Pre-op for surgery upon femur fracture-Ok to proceed with surgery at overall moderate to high risk- Echo with Nl EF 08/25 EF 60. No sig valve lesions/neg trop x 3 2.AF-eliquis held for surgery 3.HTN 4.fecal impaction 5. h/o colon ca 6. BPH Recc: -serial ecg's -Continue norvasc and start BB given h/o af -holding eliquis for surgery -GI following for fecal impaction/colon ca -Continue amitiza -Contineu abx's and f/u cx data -patient refused surgery today. ? if will attempt again Consultation Date/Type/Reason Admit Date/Time December 30, 2018 at 07:26 Initial Consult Date 12/29/18 Type of Consult Cardiology Reason for Consultation preop Requesting Provider: OSIRIS CIFUENTES MD Date/Time of Note DATE: 01/03/19 TIME: 19:29 Exam/Review of Systems Vital Signs Vitals Vital Signs Date Temp Pulse Resp B/P (MAP) Pulse Ox O2 O2 Flow FiO2 Time Delivery Rate 01/03/19 97.8 70 20 114/55 99 14:55 (74) 01/03/19 Room Air 02:00 Intake and Output 01/02/19 01/02/19 01/03/19 1515:00 23:00 07:00 IntakeIntake Total 400 ml 1840 ml 400 ml BalanceBalance 400 ml 1840 ml 400 ml Exam Exam Review of Systems: CONSTITUTIONAL: No fevers, chills. PULMONARY: No sob CARDIOVASCULAR: No chest pain/palpitations GASTROINTESTINAL: No nausea/vomiting. GENITOURINARY: No hematuria/dysuria. MUSCULOSKELETAL: No myagias/arthalgias. PSYCHIATRIC: The patient denies depression. NEUROLOGIC: No weakness Constitutional: alert, oriented Psych: no complaints Head: normocephalic ENMT: mucosa pink and moist Neck: supple, jvd (9 cm water) Respiratory: diminished breath sounds (at bases/B) Cardiovascular: regular rate and rhythm Gastrointestinal: soft, non-tender Musculoskeletal: muscle tone (normal) Extremities: edema (none) Neurological: other (No focal deficits) Labs Result Diagram: 01/02/19 1555 01/02/19 0505 Results 24hrs Laboratory Tests Test 01/02/19 21:00 01/03/19 00:47 01/03/19 05:20 01/03/19 06:33 Stool Occult POSITIVE Blood Troponin I < 0.012 < 0.012 Lab Scanned BLOOD TRANSFUSIO Report N Medications Medications Current Medications Acetaminophen (Tylenol Tab) 650 mg Q6H PRN PO MILD PAIN(1-3)OR ELEVATED TEMP Last administered on 01/01/19 08:32; Admin Dose 650 MG; Start 12/28/18 at 21:30 Amlodipine Besylate (Norvasc) 5 mg DAILY PO Last administered on 01/03/19 08:47; Admin Dose 5 MG; Start 12/29/18 at 09:00 Aspirin (Halfprin) 81 mg DAILY PO Last administered on 01/03/19 08:47; Admin Dose 81 MG; Start 12/29/18 at 09:00 Finasteride (Proscar) 5 mg DAILY PO Last administered on 01/03/19 08:47; Admin Dose 5 MG; Start 12/29/18 at 09:00 Gabapentin (Neurontin) 200 mg TID PO Last administered on 01/03/19 13:55; Admin Dose 200 MG; Start 12/29/18 at 09:00 Hydralazine HCl (Apresoline) 25 mg Q6H PRN PO BLOOD PRESSURE SUPPORT; Start 12/28/18 at 21:30 Loperamide HCl (Imodium Cap) 2 mg Q6 PRN PO DIARRHEA; Start 12/28/18 at 21:30 Nitroglycerin (Nitroglycerin (Sl Tab) 0.4 Mg) 1 tab PRN PRN SL CHEST PAIN; Start 12/28/18 at 21:30 Nystatin 1 applic BID TOP Last administered on 01/03/19 08:49; Admin Dose 1 APPLIC; Start 12/29/18 at 09:00 Oxycodone/ Acetaminophen (Endocet (10/ 325)) 1 tab Q4 PRN PO SEVERE PAIN LEVEL 7-10 Last administered on 01/03/19 18:34; Admin Dose 1 TAB; Start 12/28/18 at 21:30 Zolpidem Tartrate (Ambien) 5 mg HS PRN PO INSOMNIA; Start 12/28/18 at 21:30 Lorazepam (Ativan) 0.5 mg Q6H PRN PO ANXIETY Last administered on 12/31/18 22:26; Admin Dose 0.5 MG; Start 12/28/18 at 21:30 Ondansetron HCl (Zofran Inj) 4 mg Q6H PRN IV NAUSEA AND/OR VOMITING Last administered on 12/29/18 18:55; Admin Dose 4 MG; Start 12/29/18 at 09:00 Morphine Sulfate (morphine) 4 mg Q4H PRN IV SEVERE PAIN LEVEL 7-10 Last administered on 01/03/19 09:35; Admin Dose 4 MG; Start 12/29/18 at 10:30 Polyethylene Glycol (Miralax) 17 gm DAILY GTB Last administered on 01/03/19 08:47; Admin Dose 17 GM; Start 12/29/18 at 14:30 Al Hydrox/Mg Hydrox/Simethicone (Mag-Al Plus) 30 ml Q4H PRN PO GASTROINTESTINAL UPSET Last administered on 01/02/19 18:28; Admin Dose 30 ML; Start 12/30/18 at 12:00 Potassium Chloride/Dextrose/ Sod Cl 1,000 ml @ 50 mls/hr Q20H IV Last administered on 01/03/19 18:30; Admin Dose 50 MLS/HR; Start 12/31/18 at 22:30 Meropenem/Sodium Chloride 50 ml @ 100 mls/hr Q12 IVPB Last administered on 01/03/19 08:47; Admin Dose 100 MLS/HR; Start 01/01/19 at 11:00; Stop 01/08/19 at 10:59 Lubiprostone (Amitiza) 24 mcg BID PO Last administered on 01/03/19 08:47; Admin Dose 24 MCG; Start 01/02/19 at 21:00 Enoxaparin Sodium (Lovenox) 30 mg DAILY SC ; Start 01/04/19 at 09:00 RICH MANSFIELD January 03, 2019 19:32
[2019-01-03 19:55] VITALS: BP 94/55; PULSE 68; RESP 20
[2019-01-04 02:00] VITALS: BP 117/59; PULSE 62; RESP 18
[2019-01-04] MEDS: OXYCODONE/ACETAMINOPHEN (10/325) TAB PO PRN ×4 (03:00→22:01)
[2019-01-04] MEDS: D5W-0.45 NACL + KCL 20 MEQ 1,000 ML IV SCH ×2 (05:52→15:54)
[2019-01-04 07:54] VITALS: BP 119/60; PULSE 56; RESP 20
[2019-01-04] MEDS: ASPIRIN (EC) 81 MG TAB PO SCH (08:30)
[2019-01-04] MEDS: GABAPENTIN 100 MG CAP PO SCH ×3 (08:30→21:39)
[2019-01-04] MEDS: LUBIPROSTONE 24 MCG CAP PO SCH ×2 (08:30→21:00)
[2019-01-04] MEDS: AMLODIPINE 5 MG TAB PO SCH (08:30)
[2019-01-04] MEDS: POLYETHYLENE GLYCOL 17 GM PACKET GTB SCH (08:30)
[2019-01-04] MEDS: FINASTERIDE 5 MG TAB PO SCH (08:30)
[2019-01-04] MEDS: MEROPENEM 500MG/50 ML (PMX) 50 ML IVPB SCH ×2 (08:30→21:40)
[2019-01-04] MEDS: NYSTATIN 15 GM POWDER BTL TOP SCH ×2 (08:31→21:00)
[2019-01-04] MEDS ORDERED: ENOXAPARIN 30 MG/0.3 ML SYG SC SCH (09:00)
[2019-01-04] MEDS: AL HYDROX/MG HYDROX/SIMETH 30 ML CUP PO PRN (10:35)
[2019-01-04] MEDS: morphine 4 MG/ML VIAL IV PRN (11:37)
--- NOTE | 2019-01-04 11:44 | PN ---
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 Juanjose Cohen is following from ortho standpoint. - Cleared by Dr. Rodarte from cardiology standpoint for hemiarthroplasty. Patient refused surgery - Fecal impaction and stercoral colitis. Continue Miralax and Lactulose. Dr. Castano is following in gastroenterology consultation. - E. coli ESBL UTI, continue meropenem. Dr. Mcnamara is following in infection disease consultation. - Paroxysmal atrial fibrillation, patient is in sinus rhythm on admission. Will hold Eliquis for now. Continue aspirin. - Hypertension, continue Norvasc. - Benign prostatic hypertrophy. Continue Proscar. - Peripheral neuropathy. Continue Neurontin. - Paranoid psychosis. Patient was prescribed Seroquel during last admission, however refused to take it. The patient is not on any psych medication. DNP Onnaveen saw patient for psychiatric evaluation. - Colon cancer. The patient refused further workup. - Bilateral inguinal hernias without evidence of obstruction or strangulation - History of C. difficile colitis Further recommendations will depend on hospital course. Plan of care discussed with Dr. Baron. Result Diagram: 01/02/19 1555 01/02/19 0505 Results 24hrs Laboratory Tests Test 01/04/19 05:32 Lab Scanned Report REFERENCE LAB Subjective 24 Hr Interval Summary Free Text/Dictation nad afebrile no new events reported overnight dw staff Eyes: no complaints ENT: no complaints Respiratory: no complaints Cardiovascular: no complaints Gastrointestinal: no complaints Genitourinary: no complaints Musculoskeletal: bone/joint pain, restricted range of motion Skin: no complaints Neurologic: no complaints Endocrine: no complaints Lymphatic: no complaints Psychological: nl mood/affect Exam/Review of Systems Exam Vitals Vital Signs Date Temp Pulse Resp B/P (MAP) Pulse Ox O2 O2 Flow FiO2 Time Delivery Rate 01/04/19 97.7 56 20 119/60 100 07:54 (79) 01/03/19 Room Air 02:00 Intake and Output 01/03/19 01/03/19 01/04/19 1515:00 23:00 07:00 IntakeIntake Total 610 ml 640 ml 645 ml BalanceBalance 610 ml 640 ml 645 ml Constitutional: alert, well developed Psych: nl mood/affect Eyes: nl lids, nl sclera ENMT: nl external ears & nose Neck: non-tender Respiratory: clear to auscultation Cardiovascular: nl pulses, other (S1S2) Gastrointestinal: soft, non-tender Musculoskeletal: nl extremities to inspection Neurological: nl speech, other (alert/respoansive) Lymph: nontender Results Results 24hrs Laboratory Tests Test 01/04/19 05:32 Lab Scanned Report REFERENCE LAB Medications Medication Current Medications Acetaminophen (Tylenol Tab) 650 mg Q6H PRN PO MILD PAIN(1-3)OR ELEVATED TEMP Last administered on 01/01/19 08:32; Admin Dose 650 MG; Start 12/28/18 at 21:30 Amlodipine Besylate (Norvasc) 5 mg DAILY PO Last administered on 01/04/19 08:30; Admin Dose 5 MG; Start 12/29/18 at 09:00 Aspirin (Halfprin) 81 mg DAILY PO Last administered on 01/04/19 08:30; Admin Dose 81 MG; Start 12/29/18 at 09:00 Finasteride (Proscar) 5 mg DAILY PO Last administered on 01/04/19 08:30; Admin Dose 5 MG; Start 12/29/18 at 09:00 Gabapentin (Neurontin) 200 mg TID PO Last administered on 01/04/19 08:30; Admin Dose 200 MG; Start 12/29/18 at 09:00 Hydralazine HCl (Apresoline) 25 mg Q6H PRN PO BLOOD PRESSURE SUPPORT; Start 12/28/18 at 21:30 Loperamide HCl (Imodium Cap) 2 mg Q6 PRN PO DIARRHEA; Start 12/28/18 at 21:30 Nitroglycerin (Nitroglycerin (Sl Tab) 0.4 Mg) 1 tab PRN PRN SL CHEST PAIN; Start 12/28/18 at 21:30 Nystatin 1 applic BID TOP Last administered on 01/04/19 08:31; Admin Dose 1 APPLIC; Start 12/29/18 at 09:00 Oxycodone/ Acetaminophen (Endocet (10/ 325)) 1 tab Q4 PRN PO SEVERE PAIN LEVEL 7-10 Last administered on 01/04/19 07:16; Admin Dose 1 TAB; Start 12/28/18 at 21:30 Zolpidem Tartrate (Ambien) 5 mg HS PRN PO INSOMNIA; Start 12/28/18 at 21:30 Lorazepam (Ativan) 0.5 mg Q6H PRN PO ANXIETY Last administered on 12/31/18 22:26; Admin Dose 0.5 MG; Start 12/28/18 at 21:30 Ondansetron HCl (Zofran Inj) 4 mg Q6H PRN IV NAUSEA AND/OR VOMITING Last administered on 12/29/18 18:55; Admin Dose 4 MG; Start 12/29/18 at 09:00 Morphine Sulfate (morphine) 4 mg Q4H PRN IV SEVERE PAIN LEVEL 7-10 Last administered on 01/03/19 09:35; Admin Dose 4 MG; Start 12/29/18 at 10:30 Polyethylene Glycol (Miralax) 17 gm DAILY GTB Last administered on 01/04/19 08:30; Admin Dose 17 GM; Start 12/29/18 at 14:30 Al Hydrox/Mg Hydrox/Simethicone (Mag-Al Plus) 30 ml Q4H PRN PO GASTROINTESTINAL UPSET Last administered on 01/04/19 10:35; Admin Dose 30 ML; Start 12/30/18 at 12:00 Potassium Chloride/Dextrose/ Sod Cl 1,000 ml @ 50 mls/hr Q20H IV Last ad ministered on 01/03/19 18:30; Admin Dose 50 MLS/HR; Start 12/31/18 at 22:30 Meropenem/Sodium Chloride 50 ml @ 100 mls/hr Q12 IVPB Last administered on 01/04/19 08:30; Admin Dose 100 MLS/HR; Start 01/01/19 at 11:00; Stop 01/08/19 at 10:59 Lubiprostone (Amitiza) 24 mcg BID PO Last administered on 01/04/19 08:30; Admin Dose 24 MCG; Start 01/02/19 at 21:00 Enoxaparin Sodium (Lovenox) 30 mg DAILY SC Last administered on 5/31/19at 08:36; Admin Dose 30 MG; Start 01/04/19 at 09:00 YAZ BARTLETT January 04, 2019 11:43
--- NOTE | 2019-01-04 12:37 | CONS ---
Assessment/Plan Assessment/Plan Hospital Course (Demo Recall) No acute changes patient looks comfortable afebrile Antimicrobials: Meropenem #4 PHYSICAL EXAMINATION: GENERAL: Well-developed, elderly man who is in no distress. HEENT: Head atraumatic, normocephalic. Sclerae anicteric. Buccal mucosa dry. NECK: Supple, trachea midline. CHEST: Rise symmetrical. Breath sounds diminished to bases. HEART: S1, S2. ABDOMEN: Soft, bowel sounds present. EXTREMITIES: Without cyanosis. The patient has multiple pressure sores on his heels. Assessment: 1. E. coli ESBL UTI 2. Severe constipation with fecal impaction 3. Stercoral colitis 4. Colon cancer, patient refused surgical intervention in the past 5. Left hip fracture Plan: Remains stable, continue present care, antibiotics for 3 more days Consultation Date/Type/Reason Admit Date/Time December 30, 2018 at 07:26 Initial Consult Date 12/29/18 Type of Consult id Requesting Provider: OSIRIS CIFUENTES MD Date/Time of Note DATE: 01/04/19 TIME: 12:36 Exam/Review of Systems Exam Vitals Vital Signs Date Temp Pulse Resp B/P (MAP) Pulse Ox O2 O2 Flow FiO2 Time Delivery Rate 01/04/19 97.7 56 20 119/60 100 07:54 (79) 01/03/19 Room Air 02:00 Intake and Output 01/03/19 01/03/19 01/04/19 1515:00 23:00 07:00 IntakeIntake Total 610 ml 640 ml 645 ml BalanceBalance 610 ml 640 ml 645 ml Results Result Diagram: 01/02/19 1555 01/02/19 0505 Results 24hrs Laboratory Tests Test 01/04/19 05:32 Lab Scanned Report REFERENCE LAB Medications Medication Current Medications Acetaminophen (Tylenol Tab) 650 mg Q6H PRN PO MILD PAIN(1-3)OR ELEVATED TEMP Last administered on 01/01/19at 08:32; Admin Dose 650 MG; Start 12/28/18 at 21:30 Amlodipine Besylate (Norvasc) 5 mg DAILY PO Last administered on 01/04/19at 08:30; Admin Dose 5 MG; Start 12/29/18 at 09:00 Aspirin (Halfprin) 81 mg DAILY PO Last administered on 01/04/19at 08:30; Admin Dose 81 MG; Start 12/29/18 at 09:00 Finasteride (Proscar) 5 mg DAILY PO Last administered on 01/04/19 08:30; Admin Dose 5 MG; Start 12/29/18 at 09:00 Gabapentin (Neurontin) 200 mg TID PO Last administered on 01/04/19 08:30; Admin Dose 200 MG; Start 12/29/18 at 09:00 Hydralazine HCl (Apresoline) 25 mg Q6H PRN PO BLOOD PRESSURE SUPPORT; Start 12/28/18 at 21:30 Loperamide HCl (Imodium Cap) 2 mg Q6 PRN PO DIARRHEA; Start 12/28/18 at 21:30 Nitroglycerin (Nitroglycerin (Sl Tab) 0.4 Mg) 1 tab PRN PRN SL CHEST PAIN; S tart 12/28/18 at 21:30 Nystatin 1 applic BID TOP Last administered on 01/04/19 08:31; Admin Dose 1 APPLIC; Start 12/29/18 at 09:00 Oxycodone/ Acetaminophen (Endocet (10 325)) 1 tab Q4 PRN PO SEVERE PAIN LEVEL 7-10 Last administered on 01/04/19 07:16; Admin Dose 1 TAB; Start 12/28/18 at 21:30 Zolpidem Tartrate (Ambien) 5 mg HS PRN PO INSOMNIA; Start 12/28/18 at 21:30 Lorazepam (Ativan) 0.5 mg Q6H PRN PO ANXIETY Last administered on 12/31/18 22:26; Admin Dose 0.5 MG; Start 12/28/18 at 21:30 Ondansetron HCl (Zofran Inj) 4 mg Q6H PRN IV NAUSEA AND/OR VOMITING Last administered on 12/29/18 18:55; Admin Dose 4 MG; Start 12/29/18 at 09:00 Morphine Sulfate (morphine) 4 mg Q4H PRN IV SEVERE PAIN LEVEL 7-10 Last administered on 01/04/19 11:37; Admin Dose 4 MG; Start 12/29/18 at 10:30 Polyethylene Glycol (Miralax) 17 gm DAILY GTB Last administered on 01/04/19 08:30; Admin Dose 17 GM; Start 12/29/18 at 14:30 Al Hydrox/Mg Hydrox/Simethicone (Mag-Al Plus) 30 ml Q4H PRN PO GASTROINTESTINAL UPSET Last administered on 01/04/19at 10:35; Admin Dose 30 ML; Start 12/30/18 at 12:00 Potassium Chloride/Dextrose/ Sod Cl 1,000 ml @ 50 mls/hr Q20H IV Last administered on 01/03/19 18:30; Admin Dose 50 MLS/HR; Start 12/31/18 at 22:30 Meropenem/Sodium Chloride 50 ml @ 100 mls/hr Q12 IVPB Last administered on 01/04/19at 08:30; Admin Dose 100 MLS/HR; Start 01/01/19 at 11:00; Stop 01/08/19 at 10:59 Lubiprostone (Amitiza) 24 mcg BID PO Last administered on 01/04/19at 08:30; Admin Dose 24 MCG; Start 01/02/19 at 21:00 Enoxaparin Sodium (Lovenox) 30 mg DAILY SC Last administered on 01/04/19at 0 8:36; Admin Dose 30 MG; Start 01/04/19 at 09:00 RIZWANA HARMAN NP January 04, 2019 12:37
[2019-01-04 13:51] VITALS: BP 118/58; PULSE 68; RESP 18
--- NOTE | 2019-01-04 16:22 | CONS ---
Assessment/Plan Assessment/Plan Assessment/Plan (Daily) ment/Plan Assessment/Plan Hospital Course (Demo Recall) 78 yo male with colon cancer diagnosed in Jul 2019 who refuses surgery presented with constipation 1. Fecal impaction and stercoral colitis: on miralax, lactulose. KUB 12/30/18 still showed significant amount of stool, KUB done on 01/01/2019 also shows fecal impaction 2. Colon cancer at hepatic flexure, dx on colonoscopy by Dr. Whyte Jul 2019 3. FOBT positive with chronic anemia 4. on anticoagulation due to atrial fibrillation 5. iron deficiency anemia 6. BLE pain, chronic per RN -consider dopplers, RN will follow up with primary 7. Leukocytosis with fevers. 8. UTI with E. coli 9. Unrepaired hip fx, surgery pending cardiac clearance Recommendations: Consider abx IV iron, no po iron continue bowel regimen Amities a 24 mcg twice daily also Dulcolax tonight since patient is still constipated. Advance diet Consultation Date/Type/Reason Admit Date/Time December 30, 2018 at 07:26 Initial Consult Date 12/29/18 Requesting Provider: OSIRIS CIFUENTES MD Date/Time of Note DATE: 01/04/19 TIME: 16:21 24 HR Interval Summary Free Text/Dictation No abdominal pain, patient has a good bowel movement is hungry Constitutional: improved Exam/Review of Systems Exam Vitals Vital Signs Date Temp Pulse Resp B/P (MAP) Pulse Ox O2 O2 Flow FiO2 Time Delivery Rate 01/04/19 98.5 68 18 118/58 96 13:51 (78) 01/03/19 Room Air 02:00 Intake and Output 01/03/19 01/03/19 01/04/19 1515:00 23:00 07:00 IntakeIntake Total 610 ml 640 ml 645 ml BalanceBalance 610 ml 640 ml 645 ml Constitutional: alert, oriented, well developed Psych: no complaints, nl mood/affect Head: normocephalic, atraumatic Eyes: nl conjunctiva, EOMI, nl lids, nl sclera, PERRL ENMT: nl external ears & nose, nl lips & teeth, nl nasal mucosa & septum Neck: supple, non-tender Respiratory: clear to auscultation, normal air movement Cardiovascular: regular rate and rhythm, nl pulses Gastrointestinal: soft, nl liver, spleen, non-tender Musculoskeletal: nl extremities to inspection, nl gait and stance Extremities: normal pulses Neurological: MANAGER DEVELOPMENTAL II-XII intact, nl mental status, nl speech, nl strength Skin: nl turgor; No rash or lesions Lymph: nl lymph nodes Results Result Diagram: 01/02/19 1555 01/02/19 0505 Results 24hrs Laboratory Tests Test 01/04/19 05:32 Lab Scanned Report REFERENCE LAB Medications Medication Current Medications Acetaminophen (Tylenol Tab) 650 mg Q6H PRN PO MILD PAIN(1-3)OR ELEVATED TEMP Last administered on 01/01/19 08:32; Admin Dose 650 MG; Start 12/28/18 at 21:30 Amlodipine Besylate (Norvasc) 5 mg DAILY PO Last administered on 01/04/19 08:30; Admin Dose 5 MG; Start 12/29/18 at 09:00 Aspirin (Halfprin) 81 mg DAILY PO Last administered on 01/04/19 08:30; Admin Dose 81 MG; Start 12/29/18 at 09:00 Finasteride (Proscar) 5 mg DAILY PO Last administered on 01/04/19 08:30; Admin Dose 5 MG; Start 12/29/18 at 09:00 Gabapentin (Neurontin) 200 mg TID PO Last administered on 01/04/19 13:35; Admin Dose 200 MG; Start 12/29/18 at 09:00 Hydralazine HCl (Apresoline) 25 mg Q6H PRN PO BLOOD PRESSURE SUPPORT; Start 12/28/18 at 21:30 Loperamide HCl (Imodium Cap) 2 mg Q6 PRN PO DIARRHEA; Start 12/28/18 at 21:30 Nitroglycerin (Nitroglycerin (Sl Tab) 0.4 Mg) 1 tab PRN PRN SL CHEST PAIN; Start 12/28/18 at 21:30 Nystatin 1 applic BID TOP Last administered on 01/04/19 08:31; Admin Dose 1 APPLIC; Start 12/29/18 at 09:00 Oxycodone/ Acetaminophen (Endocet (10/ 325)) 1 tab Q4 PRN PO SEVERE PAIN LEVEL 7-10 Last administered on 01/04/19 15:54; Admin Dose 1 TAB; Start 12/28/18 at 21:30 Zolpidem Tartrate (Ambien) 5 mg HS PRN PO INSOMNIA; Start 12/28/18 at 21:30 Lorazepam (Ativan) 0.5 mg Q6H PRN PO ANXIETY Last administered on 12/31/18 22:26; Admin Dose 0.5 MG; Start 12/28/18 at 21:30 Ondansetron HCl (Zofran Inj) 4 mg Q6H PRN IV NAUSEA AND/OR VOMITING Last administered on 12/29/18 18:55; Admin Dose 4 MG; Start 12/29/18 at 09:00 Morphine Sulfate (morphine) 4 mg Q4H PRN IV SEVERE PAIN LEVEL 7-10 Last administered on 01/04/19 11:37; Admin Dose 4 MG; Start 12/29/18 at 10:30 Polyethylene Glycol (Miralax) 17 gm DAILY GTB Last administered on 01/04/19 08:30; Admin Dose 17 GM; Start 12/29/18 at 14:30 Al Hydrox/Mg Hydrox/Simethicone (Mag-Al Plus) 30 ml Q4H PRN PO GASTROINTESTINAL UPSET Last administered on 01/04/19 10:35; Admin Dose 30 ML; Start 12/30/18 at 12:00 Potassium Chloride/Dextrose/ Sod Cl 1,000 ml @ 50 mls/hr Q20H IV Last administered on 01/04/19 15:54; Admin Dose 50 MLS/HR; Start 12/31/18 at 22:30 Meropenem/Sodium Chloride 50 ml @ 100 mls/hr Q12 IVPB Last administered on 01/04/19 08:30; Admin Dose 100 MLS/HR; Start 01/01/19 at 11:00; Stop 01/08/19 at 10:59 Lubiprostone (Amitiza) 24 mcg BID PO Last administered on 01/04/19 08:30; Admin Dose 24 MCG; Start 01/02/19 at 21:00 Enoxaparin Sodium (Lovenox) 30 mg DAILY SC Last administered on 01/04/19 08:36; Admin Dose 30 MG; Start 01/04/19 at 09:00 SHANNON WHYTE MD January 04, 2019 16:22
--- NOTE | 2019-01-04 17:20 | CONS ---
Assessment/Plan Assessment/Plan Hospital Course (Demo Recall) IMP: 1.Pre-op for surgery upon femur fracture-Ok to proceed with surgery at overall moderate to high risk- Echo with Nl EF 08/25 EF 60. No sig valve lesions/neg trop x 3 2.AF-eliquis held for surgery 3.HTN 4.fecal impaction 5. h/o colon ca 6. BPH Recc: -serial ecg's -Continue norvasc and start BB given h/o af -holding eliquis still in anticipation of possible surgery and thus will cover with lovenox -GI following for fecal impaction/colon ca -Continue amitiza -Contineu abx's and f/u cx data -patient still refusing surgery? if surgery will still be done Consultation Date/Type/Reason Admit Date/Time December 30, 2018 at 07:26 Initial Consult Date 12/29/18 Type of Consult Cardiology Reason for Consultation Preop Requesting Provider: OSIRIS CIFUENTES MD Date/Time of Note DATE: 01/04/19 TIME: 17:17 Exam/Review of Systems Vital Signs Vitals Vital Signs Date Temp Pulse Resp B/P (MAP) Pulse Ox O2 O2 Flow FiO2 Time Delivery Rate 01/04/19 98.5 68 18 118/58 96 13:51 (78) 01/03/19 Room Air 02:00 Intake and Output 01/03/19 01/03/19 01/04/19 1515:00 23:00 07:00 IntakeIntake Total 610 ml 640 ml 645 ml BalanceBalance 610 ml 640 ml 645 ml Exam Exam Review of Systems: CONSTITUTIONAL: No fevers, chills. PULMONARY: No sob CARDIOVASCULAR: No chest pain/palpitations GASTROINTESTINAL: No nausea/vomiting. GENITOURINARY: No hematuria/dysuria. MUSCULOSKELETAL: No myagias/arthalgias. PSYCHIATRIC: The patient denies depression. NEUROLOGIC: No weakness Constitutional: alert, oriented Psych: no complaints Head: normocephalic ENMT: mucosa pink and moist Neck: supple, jvd (8 cm water) Respiratory: clear to auscultation Cardiovascular: regular rate and rhythm Gastrointestinal: soft, non-tender Musculoskeletal: muscle tone (normal) Extremities: edema (none) Neurological: other (NO focal deficits) Labs Result Diagram: 01/02/19 1555 01/02/19 0505 Results 24hrs Laboratory Tests Test 01/04/19 05:32 Lab Scanned Report REFERENCE LAB Medications Medications Current Medications Acetaminophen (Tylenol Tab) 650 mg Q6H PRN PO MILD PAIN(1-3)OR ELEVATED TEMP Last administered on 01/01/19 08:32; Admin Dose 650 MG; Start 12/28/18 at 21:30 Amlodipine Besylate (Norvasc) 5 mg DAILY PO Last administered on 01/04/19 08:30; Admin Dose 5 MG; Start 12/29/18 at 09:00 Aspirin (Halfprin) 81 mg DAILY PO Last administered on 01/04/19 08:30; Admin Dose 81 MG; Start 12/29/18 at 09:00 Finasteride (Proscar) 5 mg DAILY PO Last administered on 01/04/19 08:30; Admin Dose 5 MG; Start 12/29/18 at 09:00 Gabapentin (Neurontin) 200 mg TID PO Last administered on 01/04/19 13:35; Admin Dose 200 MG; Start 12/29/18 at 09:00 Hydralazine HCl (Apresoline) 25 mg Q6H PRN PO BLOOD PRESSURE SUPPORT; Start 12/28/18 at 21:30 Loperamide HCl (Imodium Cap) 2 mg Q6 PRN PO DIARRHEA; Start 12/28/18 at 21:30 Nitroglycerin (Nitroglycerin (Sl Tab) 0.4 Mg) 1 tab PRN PRN SL CHEST PAIN; Start 12/28/18 at 21:30 Nystatin 1 applic BID TOP Last administered on 01/04/19 08:31; Admin Dose 1 APPLIC; Start 12/29/18 at 09:00 Oxycodone/ Acetaminophen (Endocet (10/ 325)) 1 tab Q4 PRN PO SEVERE PAIN LEVEL 7-10 Last administered on 01/04/19 15:54; Admin Dose 1 TAB; Start 12/28/18 at 21:30 Zolpidem Tartrate (Ambien) 5 mg HS PRN PO INSOMNIA; Start 12/28/18 at 21:30 Lorazepam (Ativan) 0.5 mg Q6H PRN PO ANXIETY Last administered on 12/31/18 22:26; Admin Dose 0.5 MG; Start 12/28/18 at 21:30 Ondansetron HCl (Zofran Inj) 4 mg Q6H PRN IV NAUSEA AND/OR VOMITING Last administered on 12/29/18 18:55; Admin Dose 4 MG; Start 12/29/18 at 09:00 Morphine Sulfate (morphine) 4 mg Q4H PRN IV SEVERE PAIN LEVEL 7-10 Last administered on 01/04/19 11:37; Admin Dose 4 MG; Start 12/29/18 at 10:30 Polyethylene Glycol (Miralax) 17 gm DAILY GTB Last administered on 01/04/19 08:30; Admin Dose 17 GM; Start 12/29/18 at 14:30 Al Hydrox/Mg Hydrox/Simethicone (Mag-Al Plus) 30 ml Q4H PRN PO GASTROINTESTINAL UPSET Last administered on 01/04/19 10:35; Admin Dose 30 ML; Start 12/30/18 at 12:00 Potassium Chloride/Dextrose/ Sod Cl 1,000 ml @ 50 mls/hr Q20H IV Last administered on 01/04/19 15:54; Admin Dose 50 MLS/HR; Start 12/31/18 at 22:30 Meropenem/Sodium Chloride 50 ml @ 100 mls/hr Q12 IVPB Last administered on 01/04/19 08:30; Admin Dose 100 MLS/HR; Start 01/01/19 at 11:00; Stop 01/08/19 at 10:59 Lubiprostone (Amitiza) 24 mcg BID PO Last administered on 01/04/19 08:30; Admi n Dose 24 MCG; Start 01/02/19 at 21:00 Enoxaparin Sodium (Lovenox) 30 mg DAILY SC Last administered on 01/04/19 08:36; Admin Dose 30 MG; Start 01/04/19 at 09:00 RICH MANSFIELD January 04, 2019 17:20
[2019-01-04 19:52] VITALS: BP 99/54; PULSE 79; RESP 18
[2019-01-04] MEDS: ENOXAPARIN 60 MG/0.6 ML SYG SC SCH (21:00)
[2019-01-05 01:59] VITALS: BP 136/63; PULSE 60; RESP 18
[2019-01-05] MEDS: OXYCODONE/ACETAMINOPHEN (10/325) TAB PO PRN ×4 (06:34→21:53)
[2019-01-05 08:12] VITALS: BP 137/65; PULSE 56; RESP 18
[2019-01-05] MEDS: ASPIRIN (EC) 81 MG TAB PO SCH (08:46)
[2019-01-05] MEDS: POLYETHYLENE GLYCOL 17 GM PACKET GTB SCH (08:46)
[2019-01-05] MEDS: LUBIPROSTONE 24 MCG CAP PO SCH ×2 (08:46→21:16)
[2019-01-05] MEDS: MEROPENEM 500MG/50 ML (PMX) 50 ML IVPB SCH ×2 (08:46→21:13)
[2019-01-05] MEDS: AMLODIPINE 5 MG TAB PO SCH (08:47)
[2019-01-05] MEDS: FINASTERIDE 5 MG TAB PO SCH (08:47)
[2019-01-05] MEDS: GABAPENTIN 100 MG CAP PO SCH ×3 (08:47→21:13)
[2019-01-05] MEDS: NYSTATIN 15 GM POWDER BTL TOP SCH ×2 (08:48→21:17)
--- NOTE | 2019-01-05 09:56 | CONS ---
Assessment/Plan Assessment/Plan Assessment/Plan (Daily) Assessment/Plan Hospital Course (Demo Recall) 78 yo male with colon cancer diagnosed in Jul 2019 who refuses surgery presented with constipation 1. Fecal impaction and stercoral colitis: on miralax, lactulose. KUB 12/30/18 still showed significant amount of stool, KUB done on 01/01/2019 also shows fecal impaction 2. Colon cancer at hepatic flexure, dx on colonoscopy by Dr. Whyte Jul 2019 3. FOBT positive with chronic anemia 4. on anticoagulation due to atrial fibrillation 5. iron deficiency anemia 6. BLE pain, chronic per RN -consider dopplers, RN will follow up with primary 7. Leukocytosis with fevers. 8. UTI with E. coli 9. Unrepaired hip fx, surgery pending cardiac clearance Recommendations: Consider abx IV iron, no po iron continue bowel regimen Amities a 24 mcg twice daily Advance diet Dulcolax today Consultation Date/Type/Reason Admit Date/Time December 30, 2018 at 07:26 Initial Consult Date 12/29/18 Requesting Provider: OSIRIS CIFUENTES MD Date/Time of Note DATE: 01/05/19 TIME: 09:54 24 HR Interval Summary Free Text/Dictation No bowel movements today No abdominal pain Exam/Review of Systems Exam Vitals Vital Signs Date Temp Pulse Resp B/P (MAP) Pulse Ox O2 O2 Flow FiO2 Time Delivery Rate 01/05/19 97.7 56 18 137/65 94 Room Air 08:12 (89) Intake and Output 01/04/19 01/04/19 01/05/19 1515:00 23:00 07:00 IntakeIntake Total 690 ml 50 ml 480 ml BalanceBalance 690 ml 50 ml 480 ml Constitutional: alert, oriented, well developed Psych: no complaints, nl mood/affect Head: normocephalic, atraumatic Eyes: nl conjunctiva, EOMI, nl lids, nl sclera, PERRL ENMT: nl external ears & nose, nl lips & teeth, nl nasal mucosa & septum Neck: supple, non-tender Respiratory: clear to auscultation, normal air movement Cardiovascular: regular rate and rhythm, nl pulses Gastrointestinal: soft, nl liver, spleen, non-tender Musculoskeletal: nl extremities to inspection, nl gait and stance Extremities: normal pulses Neurological: [employer] II-XII intact, nl mental status, nl speech, nl strength Skin: nl turgor; No rash or lesions Lymph: nl lymph nodes Results Result Diagram: 01/02/19 1555 01/02/19 0505 Medications Medication Current Medications Acetaminophen (Tylenol Tab) 650 mg Q6H PRN PO MILD PAIN(1-3)OR ELEVATED TEMP Last administered on 01/01/19 08:32; Admin Dose 650 MG; Start 12/28/18 at 21:30 Amlodipine Besylate (Norvasc) 5 mg DAILY PO Last administered on 01/05/19 08:47; Admin Dose 5 MG; Start 12/29/18 at 09:00 Aspirin (Halfprin) 81 mg DAILY PO Last administered on 01/05/19 08:46; Admin Dose 81 MG; Start 12/29/18 at 09:00 Finasteride (Proscar) 5 mg DAILY PO Last administered on 01/05/19 08:47; Admin Dose 5 MG; Start 12/29/18 at 09:00 Gabapentin (Neurontin) 200 mg TID PO Last administered on 01/05/19 08:47; Admin Dose 200 MG; Start 12/29/18 at 09:00 Hydralazine HCl (Apresoline) 25 mg Q6H PRN PO BLOOD PRESSURE SUPPORT; Start 12/28/18 at 21:30 Loperamide HCl (Imodium Cap) 2 mg Q6 PRN PO DIARRHEA; Start 12/28/18 at 21:30 Nitroglycerin (Nitroglycerin (Sl Tab) 0.4 Mg) 1 tab PRN PRN SL CHEST PAIN; Start 12/28/18 at 21:30 Nystatin 1 applic BID TOP Last administered on 01/05/19at 08:48; Admin Dose 1 APPLIC; Start 12/29/18 at 09:00 Oxycodone/ Acetaminophen (Endocet (10/ 325)) 1 tab Q4 PRN PO SEVERE PAIN LEVEL 7-10 Last administered on 01/05/19 06:34; Admin Dose 1 TAB; Start 12/28/18 at 21:30 Zolpidem Tartrate (Ambien) 5 mg HS PRN PO INSOMNIA; Start 12/28/18 at 21:30 Lorazepam (Ativan) 0.5 mg Q6H PRN PO ANXIETY Last administered on 5/27/19at 22:26; Admin Dose 0.5 MG; Start 12/28/18 at 21:30 Ondansetron HCl (Zofran Inj) 4 mg Q6H PRN IV NAUSEA AND/OR VOMITING Last administered on 12/29/18 18:55; Admin Dose 4 MG; Start 12/29/18 at 09:00 Morphine Sulfate (morphine) 4 mg Q4H PRN IV SEVERE PAIN LEVEL 7-10 Last administered on 01/04/19 11:37; Admin Dose 4 MG; Start 12/29/18 at 10:30 Polyethylene Glycol (Miralax) 17 gm DAILY GTB Last administered on 01/04/19 08:30; Admin Dose 17 GM; Start 12/29/18 at 14:30 Al Hydrox/Mg Hydrox/Simethicone (Mag-Al Plus) 30 ml Q4H PRN PO GASTROINTESTINAL UPSET Last administered on 01/04/19 10:35; Admin Dose 30 ML; Start 12/30/18 at 12:00 Potassium Chloride/Dextrose/ Sod Cl 1,000 ml @ 50 mls/hr Q20H IV Last administered on 01/04/19 15:54; Admin Dose 50 MLS/HR; Start 12/31/18 at 22:30 Meropenem/Sodium Chloride 50 ml @ 100 mls/hr Q12 IVPB Last administered on 01/05/19 08:46; Admin Dose 100 MLS/HR; Start 01/01/19 at 11:00; Stop 01/08/19 at 10:59 Lubiprostone (Amitiza) 24 mcg BID PO Last administered on 01/04/19 08:30; Admin Dose 24 MCG; Start 01/02/19 at 21:00 Enoxaparin Sodium (Lovenox) 50 mg BID SC ; Start 01/04/19 at 21:00 SHANNON WHYTE MD Jan 05, 2019 09:56
[2019-01-05] MEDS ORDERED: BISACODYL (EC) 5 MG TAB PO ONE (10:00)
[2019-01-05] MEDS: ENOXAPARIN 60 MG/0.6 ML SYG SC SCH ×2 (10:03→21:16)
[2019-01-05] MEDS: AL HYDROX/MG HYDROX/SIMETH 30 ML CUP PO PRN ×2 (12:22→23:18)
[2019-01-05] MEDS: D5W-0.45 NACL + KCL 20 MEQ 1,000 ML IV SCH ×2 (12:36→22:30)
--- NOTE | 2019-01-05 12:54 | PN ---
Date/Time of Note Date/Time of Note DATE: 01/05/19 TIME: 12:54 Assessment/Plan VTE Prophylaxis Risk score (from Ns)>0 risk: 11 SCD applied (from [facility]): No SCD contraindicated: other Pharmacological prophylaxis: LMWH Lines/Catheters IV Catheter Type (from [facility]): Peripheral IV Urinary Cath still in place: No Assessment/Plan Hospital Course - Fracture deformity of the left proximal femur, new compared to 06/[address] Juanjose Cohen is following from ortho standpoint. Cleared by Dr. Rodarte from cardiology standpoint for hemiarthroplasty. Patient refused surgery today. - Fecal impaction and stercoral colitis. Continue Miralax and Lactulose. Dr. Castano is following in gastroenterology consultation. - E. coli ESBL UTI, continue meropenem. Dr. Mcnamara is following in infection disease consultation. - Paroxysmal atrial fibrillation, patient is in sinus rhythm on admission. Will hold Eliquis for now. Continue aspirin. - Hypertension, continue Norvasc. - Benign prostatic hypertrophy. Continue Proscar. - Peripheral neuropathy. Continue Neurontin. - Paranoid psychosis. Patient was prescribed Seroquel during last admission, however refused to take it. The patient is not on any psych medication. TERE Thompson saw patient for psychiatric evaluation. - Colon cancer. The patient refused further workup. - Bilateral inguinal hernias without evidence of obstruction or strangulation - History of C. difficile colitis Result Diagram: 01/02/19 1555 01/02/19 0505 Subjective 24 Hr Interval Summary Free Text/Dictation Patient denies any complaints Exam/Review of Systems Exam Vitals Vital Signs Date Temp Pulse Resp B/P (MAP) Pulse Ox O2 O2 Flow FiO2 Time Delivery Rate 01/05/19 97.7 56 18 137/65 94 Room Air 08:12 (89) Intake and Output 01/04/19 01/04/19 01/05/19 1515:00 23:00 07:00 IntakeIntake Total 690 ml 50 ml 480 ml BalanceBalance 690 ml 50 ml 480 ml Constitutional: well developed Head: normocephalic, atraumatic Neck: supple Respiratory: clear to auscultation Cardiovascular: regular rate and rhythm Gastrointestinal: soft, non-tender Extremities: normal pulses Medications Medication Current Medications Acetaminophen (Tylenol Tab) 650 mg Q6H PRN PO MILD PAIN(1-3)OR ELEVATED TEMP Last administered on 01/01/19 08:32; Admin Dose 650 MG; Start 12/28/18 at 21:30 Amlodipine Besylate (Norvasc) 5 mg DAILY PO Last administered on 01/05/19 08:47; Admin Dose 5 MG; Start 12/29/18 at 09:00 Aspirin (Halfprin) 81 mg DAILY PO Last administered on 01/05/19 08:46; Admin Dose 81 MG; Start 12/29/18 at 09:00 Finasteride (Proscar) 5 mg DAILY PO Last administered on 01/05/19 08:47; Admin Dose 5 MG; Start 12/29/18 at 09:00 Gabapentin (Neurontin) 200 mg TID PO Last administered on 01/05/19 12:22; Admin Dose 200 MG; Start 12/29/18 at 09:00 Hydralazine HCl (Apresoline) 25 mg Q6H PRN PO BLOOD PRESSURE SUPPORT; Start 12/28/18 at 21:30 Loperamide HCl (Imodium Cap) 2 mg Q6 PRN PO DIARRHEA; Start 12/28/18 at 21:30 Nitroglycerin (Nitroglycerin (Sl Tab) 0.4 Mg) 1 tab PRN PRN SL CHEST PAIN; S tart 12/28/18 at 21:30 Nystatin 1 applic BID TOP Last administered on 01/05/19 08:48; Admin Dose 1 A PPLIC; Start 12/29/18 at 09:00 Oxycodone/ Acetaminophen (Endocet (10/ 325)) 1 tab Q4 PRN PO SEVERE PAIN LEVEL 7-10 Last administered on 01/05/19 12:23; Admin Dose 1 TAB; Start 12/28/18 at 21:30 Zolpidem Tartrate (Ambien) 5 mg HS PRN PO INSOMNIA; Start 12/28/18 at 21:30 Lorazepam (Ativan) 0.5 mg Q6H PRN PO ANXIETY Last administered on 12/31/18 22:26; Admin Dose 0.5 MG; Start 12/28/18 at 21:30 Ondansetron HCl (Zofran Inj) 4 mg Q6H PRN IV NAUSEA AND/OR VOMITING Last administered on 12/29/18 18:55; Admin Dose 4 MG; Start 12/29/18 at 09:00 Morphine Sulfate (morphine) 4 mg Q4H PRN IV SEVERE PAIN LEVEL 7-10 Last administered on 01/04/19 11:37; Admin Dose 4 MG; Start 12/29/18 at 10:30 Polyethylene Glycol (Miralax) 17 gm DAILY GTB Last administered on 01/04/19 08:30; Admin Dose 17 GM; Start 12/29/18 at 14:30 Al Hydrox/Mg Hydrox/Simethicone (Mag-Al Plus) 30 ml Q4H PRN PO GASTROINTESTINAL UPSET Last administered on 01/05/19 12:22; Admin Dose 30 ML; Start 12/30/18 at 12:00 Potassium Chloride/Dextrose/ Sod Cl 1,000 ml @ 50 mls/hr Q20H IV Last administered on 01/05/19 12:36; Admin Dose 50 MLS/HR; Start 12/31/18 at 22:30 Meropenem/Sodium Chloride 50 ml @ 100 mls/hr Q12 IVPB Last administered on 01/05/19 08:46; Admin Dose 100 MLS/HR; Start 01/01/19 at 11:00; Stop 01/08/19 at 10:59 Lubiprostone (Amitiza) 24 mcg BID PO Last administered on 01/04/19 08:30; Admin Dose 24 MCG; Start 01/02/19 at 21:00 Enoxaparin Sodium (Lovenox) 50 mg BID SC Last administered on 01/05/19 10:03; Admin Dose 50 MG; Start 01/04/19 at 21:00 MARKY TUTTLE Jan 05, 2019 12:54
--- NOTE | 2019-01-05 13:01 | CONS ---
Consult Date/Type/Reason Admit Date/Time December 30, 2018 at 07:26 Initial Consult Date 12/29/18 Requesting Provider: OSIRIS CIFUENTES MD Date/Time of Note DATE: 01/05/19 TIME: 12:59 Subjective NO acute events - pt appears comfortable - refusing surgery per reports. ROS: No fever, no chills, no nausea, no vomiting, no diarrhea/constipation No recent weight changes No chest pain, no PND, no orthopnea No dizziness, blurred vision No thirst, no heat or cold intolerance Objective Vitals Vital Signs Date Temp Pulse Resp B/P (MAP) Pulse Ox O2 O2 Flow FiO2 Time Delivery Rate 01/05/19 97.7 56 18 137/65 94 Room Air 08:12 (89) Intake and Output 01/04/19 01/04/19 01/05/19 1515:00 23:00 07:00 IntakeIntake Total 690 ml 50 ml 480 ml BalanceBalance 690 ml 50 ml 480 ml Exam General: WN/WD/NAD, AOx 1-2 dementia HEENT: Unicetric/atraumatic/EOMI ( follow commands) NECK: JVD elevated, no thyromegaly Lymph: no lymphadenopathy HEART: regular with no S3, II/ systolic murmur at apex LUNGS: Coarse sounds ABD: soft, NT, ND, +BS : Intact Neuro: non focal SKIN: chronic changes EXT: trace edema Results/Medications Result Diagram: 01/02/19 1555 01/02/19 0505 Home Meds Reported Medications Apixaban* (Eliquis*) 2.5 Mg Tablet, 5 MG PO BID 12/28/18 Ascorbic Acid* (Vitamin C*) 500 Mg Capsule.sa, 500 MG PO DAILY, CAP 12/28/18 Nystatin (Nystatin Powder) 1 Each Powder.ea., 1 APPLIC TOPICAL DAILY, #1 BOTTLE 12/28/18 Magnesium Hydroxide* (Milk Of Magnesia*) 400 Mg/5 Ml Oral.susp, 30 ML PO DAILY, ML 12/28/18 Hydralazine Hcl* (Hydralazine Hcl*) 25 Mg Tab, 25 MG PO Q6H PRN for BLOOD PRESSURE SUPPORT, #60 TAB 12/28/18 Ferrous Sulfate* (Ferrous Sulfate*) 325 Mg Tabec, 325 MG PO BID, TAB 12/28/18 Methyl Salicylate/Menthol (Bengay Greaseless Cream) 57 Gm Cream..g., 57 GM TP TID APPLY TO LEFT HIP 12/28/18 Aspirin (Low Dose Aspirin) 81 Mg Tablet.dr, 81 MG PO DAILY, #30 TAB 12/28/18 Oxycodone HCl/Acetaminophen (Percocet 10-325 mg Tablet) 1 Each Tablet, 1 EACH PO Q4 PRN for SEVERE PAIN LEVEL 7-10, TAB 07/03/18 Loperamide Hcl* (Loperamide Hcl*) 2 Mg Cap, 2 MG PO Q6 PRN for DIARRHEA, CAP 07/03/18 Amlodipine Besylate* (Norvasc*) 5 Mg Tablet, 5 MG PO DAILY, TAB HOLD FOR SBP<110 OR HR<60 07/03/18 Acetaminophen* (Acetaminophen*) 650 Mg Tablet, 650 MG PO Q6H PRN for PAIN AND OR ELEVATED TEMP, #30 TAB 07/03/18 Guaifenesin-Dextromethorphan* (Robitussin* DM) 100MG/10MG/5ML Syrup, 10 ML PO Q4H PRN for COUGH, ML 01/27/18 Nitroglycerin* (Nitroglycerin* SL) 0.4 Mg Tab.subl, 0.4 MG SL Q5MIN PRN for CHEST PAIN, BOTTLE 01/27/18 Multivitamin with Minerals (Multivitamins with Minerals) 1 Each Tablet, 1 EACH PO DAILY, TAB 01/27/18 Melatonin (Melatin) 3 Mg Tablet, 3 MG PO QHS, TAB 01/27/18 Gabapentin* (Gabapentin*) 100 Mg Capsule, 200 MG PO TID, #180 CAP 01/27/18 Mineral Oil* (Fleet* Mineral Oil Enema) Unknown Strength Oil, 118 ML AL Q72H PRN for CONSTIPATION, ENEMA 01/27/18 Finasteride* (Finasteride*) 5 Mg Tablet, 5 MG PO DAILY, TAB 01/27/18 Medications Current Medications Acetaminophen (Tylenol Tab) 650 mg Q6H PRN PO MILD PAIN(1-3)OR ELEVATED TEMP Last administered on 01/01/19at 08:32; Admin Dose 650 MG; Start 12/28/18 at 21:30 Amlodipine Besylate (Norvasc) 5 mg DAILY PO Last administered on 01/05/19at 08:47; Admin Dose 5 MG; Start 12/29/18 at 09:00 Aspirin (Halfprin) 81 mg DAILY PO Last administered on 01/05/19 08:46; Admin Dose 81 MG; Start 12/29/18 at 09:00 Finasteride (Proscar) 5 mg DAILY PO Last administered on 01/05/19 08:47; Admin Dose 5 MG; Start 12/29/18 at 09:00 Gabapentin (Neurontin) 200 mg TID PO Last administered on 01/05/19 12:22; Admin Dose 200 MG; Start 12/29/18 at 09:00 Hydralazine HCl (Apresoline) 25 mg Q6H PRN PO BLOOD PRESSURE SUPPORT; Start 12/28/18 at 21:30 Loperamide HCl (Imodium Cap) 2 mg Q6 PRN PO DIARRHEA; Start 12/28/18 at 21:30 Nitroglycerin (Nitroglycerin (Sl Tab) 0.4 Mg) 1 tab PRN PRN SL CHEST PAIN; Start 12/28/18 at 21:30 Nystatin 1 applic BID TOP Last administered on 01/05/19 08:48; Admin Dose 1 APPLIC; Start 12/29/18 at 09:00 Oxycodone/ Acetaminophen (Endocet (10/ 325)) 1 tab Q4 PRN PO SEVERE PAIN LEVEL 7-10 Last administered on 01/05/19 12:23; Admin Dose 1 TAB; Start 12/28/18 at 21:30 Zolpidem Tartrate (Ambien) 5 mg HS PRN PO INSOMNIA; Start 12/28/18 at 21:30 Lorazepam (Ativan) 0.5 mg Q6H PRN PO ANXIETY Last administered on 12/31/18 22:26; Admin Dose 0.5 MG; Start 12/28/18 at 21:30 Ondansetron HCl (Zofran Inj) 4 mg Q6H PRN IV NAUSEA AND/OR VOMITING Last administered on 12/29/18 18:55; Admin Dose 4 MG; Start 12/29/18 at 09:00 Morphine Sulfate (morphine) 4 mg Q4H PRN IV SEVERE PAIN LEVEL 7-10 Last administered on 01/04/19 11:37; Admin Dose 4 MG; Start 12/29/18 at 10:30 Polyethylene Glycol (Miralax) 17 gm DAILY GTB Last administered on 01/04/19 08:30; Admin Dose 17 GM; Start 12/29/18 at 14:30 Al Hydrox/Mg Hydrox/Simethicone (Mag-Al Plus) 30 ml Q4H PRN PO GASTROINTESTINAL UPSET Last administered on 01/05/19 12:22; Admin Dose 30 ML; Start 12/30/18 at 12:00 Potassium Chloride/Dextrose/ Sod Cl 1,000 ml @ 50 mls/hr Q20H IV Last administered on 01/05/19 12:36; Admin Dose 50 MLS/HR; Start 12/31/18 at 22:30 Meropenem/Sodium Chloride 50 ml @ 100 mls/hr Q12 IVPB Last administered on 01/05/19 08:46; Admin Dose 100 MLS/HR; Start 01/01/19 at 11:00; Stop 01/08/19 at 10:59 Lubiprostone (Amitiza) 24 mcg BID PO Last administered on 01/04/19 08:30; Admin Dose 24 MCG; Start 01/02/19 at 21:00 Enoxaparin Sodium (Lovenox) 50 mg BID SC Last administered on 01/05/19 10:03; Admin Dose 50 MG; Start 01/04/19 at 21:00 Assessment/Plan Hospital Course (Demo Recall) 1.Pre-op for surgery upon femur fracture-Ok to proceed with surgery at overall moderate to high risk- Echo with Nl EF 08/25 EF 60. No sig valve lesions/neg trop x 3 - still refusing procedure 2.AF-eliquis held for surgery, now on lovenox - if surgery is not planned, will switch back to Eliquis for convenience. 3.HTN - reasonably controlled now. 4.fecal impaction - defer to GI. 5. h/o colon ca - GI following for fecal impaction/colon ca SHYANN STARR MD Jan 05, 2019 13:01
--- NOTE | 2019-01-05 13:47 | CONS ---
Assessment/Plan Assessment/Plan Hospital Course (Demo Recall) No acute changes patient looks comfortable Antimicrobials: Meropenem #5 PHYSICAL EXAMINATION: GENERAL: Well-developed, elderly man who is in no distress. HEENT: Head atraumatic, normocephalic. Sclerae anicteric. Buccal mucosa dry. NECK: Supple, trachea midline. CHEST: Rise symmetrical. Breath sounds diminished to bases. HEART: S1, S2. ABDOMEN: Soft, bowel sounds present. EXTREMITIES: Without cyanosis. The patient has multiple pressure sores on his heels. Assessment: 1. E. coli ESBL UTI 2. Severe constipation with fecal impaction 3. Stercoral colitis 4. Colon cancer, patient refused surgical intervention in the past 5. Left hip fracture Plan: Remains stable, continue present care, antibiotics for 2 more days, GI, cardiology recommendations Consultation Date/Type/Reason Admit Date/Time December 30, 2018 at 07:26 Initial Consult Date 12/29/18 Type of Consult id Requesting Provider: OSIRIS CIFUENTES MD Date/Time of Note DATE: 01/05/19 TIME: 13:45 Exam/Review of Systems Exam Vitals Vital Signs Date Temp Pulse Resp B/P (MAP) Pulse Ox O2 O2 Flow FiO2 Time Delivery Rate 01/05/19 97.7 56 18 137/65 94 Room Air 08:12 (89) Intake and Output 01/04/19 01/04/19 01/05/19 1515:00 23:00 07:00 IntakeIntake Total 690 ml 50 ml 480 ml BalanceBalance 690 ml 50 ml 480 ml Results Result Diagram: 01/02/19 1555 01/02/19 0505 Medications Medication Current Medications Acetaminophen (Tylenol Tab) 650 mg Q6H PRN PO MILD PAIN(1-3)OR ELEVATED TEMP Last administered on 01/01/19at 08:32; Admin Dose 650 MG; Start 12/28/18 at 21:30 Amlodipine Besylate (Norvasc) 5 mg DAILY PO Last administered on 01/05/19at 08:47; Admin Dose 5 MG; Start 12/29/18 at 09:00 Aspirin (Halfprin) 81 mg DAILY PO Last administered on 01/05/19at 08:46; Admin Dose 81 MG; Start 12/29/18 at 09:00 Finasteride (Proscar) 5 mg DAILY PO Last administered on 01/05/19 08:47; Admin Dose 5 MG; Start 12/29/18 at 09:00 Gabapentin (Neurontin) 200 mg TID PO Last administered on 01/05/19 12:22; Admin Dose 200 MG; Start 12/29/18 at 09:00 Hydralazine HCl (Apresoline) 25 mg Q6H PRN PO BLOOD PRESSURE SUPPORT; Start 12/28/18 at 21:30 Loperamide HCl (Imodium Cap) 2 mg Q6 PRN PO DIARRHEA; Start 12/28/18 at 21:30 Nitroglycerin (Nitroglycerin (Sl Tab) 0.4 Mg) 1 tab PRN PRN SL CHEST PAIN; Start 12/28/18 at 21:30 Nystatin 1 applic BID TOP Last administered on 01/05/19 08:48; Admin Dose 1 APPLIC; Start 12/29/18 at 09:00 Oxycodone/ Acetaminophen (Endocet (10 325)) 1 tab Q4 PRN PO SEVERE PAIN LEVEL 7-10 Last administered on 01/05/19 12:23; Admin Dose 1 TAB; Start 12/28/18 at 21:30 Zolpidem Tartrate (Ambien) 5 mg HS PRN PO INSOMNIA; Start 12/28/18 at 21:30 Lorazepam (Ativan) 0.5 mg Q6H PRN PO ANXIETY Last administered on 12/31/18 22:26; Admin Dose 0.5 MG; Start 12/28/18 at 21:30 Ondansetron HCl (Zofran Inj) 4 mg Q6H PRN IV NAUSEA AND/OR VOMITING Last administered on 12/29/18 18:55; Admin Dose 4 MG; Start 12/29/18 at 09:00 Morphine Sulfate (morphine) 4 mg Q4H PRN IV SEVERE PAIN LEVEL 7-10 Last administered on 01/04/19 11:37; Admin Dose 4 MG; Start 12/29/18 at 10:30 Polyethylene Glycol (Miralax) 17 gm DAILY GTB Last administered on 01/04/19 08:30; Admin Dose 17 GM; Start 12/29/18 at 14:30 Al Hydrox/Mg Hydrox/Simethicone (Mag-Al Plus) 30 ml Q4H PRN PO GASTROINTESTINAL UPSET Last administered on 6/1/19at 12:22; Admin Dose 30 ML; Start 12/30/18 at 12:00 Potassium Chloride/Dextrose/ Sod Cl 1,000 ml @ 50 mls/hr Q20H IV Last administered on 01/05/19at 12:36; Admin Dose 50 MLS/HR; Start 12/31/18 at 22:30 Meropenem/Sodium Chloride 50 ml @ 100 mls/hr Q12 IVPB Last administered on 01/05/19at 08:46; Admin Dose 100 MLS/HR; Start 01/01/19 at 11:00; Stop 01/08/19 at 10:59 Lubiprostone (Amitiza) 24 mcg BID PO Last administered on 01/04/19at 08:30; Admin Dose 24 MCG; Start 01/02/19 at 21:00 Enoxaparin Sodium (Lovenox) 50 mg BID SC Last administered on 01/05/19at 10:03; Admin Dose 50 MG; Start 01/04/19 at 21:00 RIZWANA HARMAN NP Jan 05, 2019 13:47
[2019-01-05 17:10] VITALS: BP 122/58; PULSE 65; RESP 18
[2019-01-05 20:00] VITALS: BP 131/64; PULSE 62; RESP 18
[2019-01-06 02:00] VITALS: BP 126/58; PULSE 68; RESP 20
[2019-01-06] MEDS: MEROPENEM 500MG/50 ML (PMX) 50 ML IVPB SCH ×2 (08:28→20:27)
[2019-01-06] MEDS: NYSTATIN 15 GM POWDER BTL TOP SCH ×2 (08:28→20:31)
[2019-01-06] MEDS: POLYETHYLENE GLYCOL 17 GM PACKET GTB SCH (08:28)
[2019-01-06] MEDS: ASPIRIN (EC) 81 MG TAB PO SCH (08:29)
[2019-01-06] MEDS: LUBIPROSTONE 24 MCG CAP PO SCH ×2 (08:29→20:27)
[2019-01-06] MEDS: GABAPENTIN 100 MG CAP PO SCH ×3 (08:29→20:27)
[2019-01-06] MEDS: FINASTERIDE 5 MG TAB PO SCH (08:29)
[2019-01-06] MEDS: AMLODIPINE 5 MG TAB PO SCH (08:29)
[2019-01-06] MEDS: ENOXAPARIN 60 MG/0.6 ML SYG SC SCH ×2 (08:31→20:29)
[2019-01-06] MEDS: OXYCODONE/ACETAMINOPHEN (10/325) TAB PO PRN ×2 (08:40→18:29)
[2019-01-06] MEDS: D5W-0.45 NACL + KCL 20 MEQ 1,000 ML IV SCH ×2 (08:40→17:32)
[2019-01-06 08:45] VITALS: BP 138/64; PULSE 64; RESP 18
--- NOTE | 2019-01-06 11:56 | PN ---
Date/Time of Note Date/Time of Note DATE: 01/06/19 TIME: 11:55 Assessment/Plan VTE Prophylaxis Risk score (from [facility] [place], [place])>0 risk: 11 SCD applied (from [facility] [place], [place]): No SCD contraindicated: other Pharmacological prophylaxis: LMWH Lines/Catheters IV Catheter Type (from [facility]): Peripheral IV Urinary Cath still in place: No Assessment/Plan Hospital Course - Fracture deformity of the left proximal femur, new compared to 06/[address] Juanjose Cohen is following from ortho standpoint. Cleared by Dr. Rodarte from cardiology standpoint for hemiarthroplasty. Patient refused surgery today. - Fecal impaction and stercoral colitis. Continue Miralax and Lactulose. Dr. Castano is following in gastroenterology consultation. - E. coli ESBL UTI, continue meropenem. Dr. Mcnamara is following in infection disease consultation. - Paroxysmal atrial fibrillation, patient is in sinus rhythm on admission. Will hold Eliquis for now. Continue aspirin. - Hypertension, continue Norvasc. - Benign prostatic hypertrophy. Continue Proscar. - Peripheral neuropathy. Continue Neurontin. - Paranoid psychosis. Patient was prescribed Seroquel during last admission, however refused to take it. The patient is not on any psych medication. TERE Thompson saw patient for psychiatric evaluation. - Colon cancer. The patient refused further workup. - Bilateral inguinal hernias without evidence of obstruction or strangulation - History of C. difficile colitis Result Diagram: 01/02/19 1555 01/02/19 0505 Subjective 24 Hr Interval Summary Free Text/Dictation Patient has no complaints Exam/Review of Systems Exam Vitals Vital Signs Date Temp Pulse Resp B/P (MAP) Pulse Ox O2 O2 Flow FiO2 Time Delivery Rate 01/06/19 97.6 64 18 138/64 99 Room Air 08:45 (88) Intake and Output 01/05/19 01/05/19 01/06/19 1515:00 23:00 07:00 IntakeIntake Total 1650 ml 770 ml 1100 ml BalanceBalance 1650 ml 770 ml 1100 ml Constitutional: well developed Head: normocephalic, atraumatic Neck: supple Respiratory: clear to auscultation Cardiovascular: regular rate and rhythm Gastrointestinal: soft, non-tender Extremities: normal pulses Medications Medication Current Medications Acetaminophen (Tylenol Tab) 650 mg Q6H PRN PO MILD PAIN(1-3)OR ELEVATED TEMP Last administered on 01/01/19 08:32; Admin Dose 650 MG; Start 12/28/18 at 21:30 Amlodipine Besylate (Norvasc) 5 mg DAILY PO Last administered on 01/06/19 08:29; Admin Dose 5 MG; Start 12/29/18 at 09:00 Aspirin (Halfprin) 81 mg DAILY PO Last administered on 01/06/19 08:29; Admin Dose 81 MG; Start 12/29/18 at 09:00 Finasteride (Proscar) 5 mg DAILY PO Last administered on 01/06/19 08:29; Admin Dose 5 MG; Start 12/29/18 at 09:00 Gabapentin (Neurontin) 200 mg TID PO Last administered on 01/06/19 08:29; Admin Dose 200 MG; Start 12/29/18 at 09:00 Hydralazine HCl (Apresoline) 25 mg Q6H PRN PO BLOOD PRESSURE SUPPORT; Start 12/28/18 at 21:30 Loperamide HCl (Imodium Cap) 2 mg Q6 PRN PO DIARRHEA; Start 12/28/18 at 21:30 Nitroglycerin (Nitroglycerin (Sl Tab) 0.4 Mg) 1 tab PRN PRN SL CHEST PAIN; S tart 12/28/18 at 21:30 Nystatin 1 applic BID TOP Last administered on 01/06/19 08:28; Admin Dose 1 A PPLIC; Start 12/29/18 at 09:00 Oxycodone/ Acetaminophen (Endocet (10/ 325)) 1 tab Q4 PRN PO SEVERE PAIN LEVEL 7-10 Last administered on 01/06/19 08:40; Admin Dose 1 TAB; Start 12/28/18 at 21:30 Zolpidem Tartrate (Ambien) 5 mg HS PRN PO INSOMNIA; Start 12/28/18 at 21:30 Lorazepam (Ativan) 0.5 mg Q6H PRN PO ANXIETY Last administered on 12/31/18 22:26; Admin Dose 0.5 MG; Start 12/28/18 at 21:30 Ondansetron HCl (Zofran Inj) 4 mg Q6H PRN IV NAUSEA AND/OR VOMITING Last administered on 12/29/18 18:55; Admin Dose 4 MG; Start 12/29/18 at 09:00 Morphine Sulfate (morphine) 4 mg Q4H PRN IV SEVERE PAIN LEVEL 7-10 Last administered on 01/04/19 11:37; Admin Dose 4 MG; Start 12/29/18 at 10:30 Polyethylene Glycol (Miralax) 17 gm DAILY GTB Last administered on 01/06/19 08:28; Admin Dose 17 GM; Start 12/29/18 at 14:30 Al Hydrox/Mg Hydrox/Simethicone (Mag-Al Plus) 30 ml Q4H PRN PO GASTROINTESTINAL UPSET Last administered on 01/05/19 23:18; Admin Dose 30 ML; Start 12/30/18 at 12:00 Potassium Chloride/Dextrose/ Sod Cl 1,000 ml @ 50 mls/hr Q20H IV Last administered on 01/06/19 08:40; Admin Dose 50 MLS/HR; Start 12/31/18 at 22:30 Meropenem/Sodium Chloride 50 ml @ 100 mls/hr Q12 IVPB Last administered on 01/06/19 08:28; Admin Dose 100 MLS/HR; Start 01/01/19 at 11:00; Stop 01/08/19 at 10:59 Lubiprostone (Amitiza) 24 mcg BID PO Last administered on 01/06/19 08:29; Admin Dose 24 MCG; Start 01/02/19 at 21:00 Enoxaparin Sodium (Lovenox) 50 mg BID SC Last administered on 01/06/19 08:31; Admin Dose 50 MG; Start 01/04/19 at 21:00 MARKY TUTTLE Jan 06, 2019 11:55
[2019-01-06] MEDS: morphine 4 MG/ML VIAL IV PRN (12:41)
[2019-01-06 13:57] VITALS: BP 115/61; PULSE 69; RESP 18
--- NOTE | 2019-01-06 14:09 | CONS ---
Consult Date/Type/Reason Admit Date/Time December 30, 2018 at 07:26 Initial Consult Date 12/29/18 Requesting Provider: OSIRIS CIFUENTES MD Date/Time of Note DATE: 01/06/19 TIME: 14:06 Subjective NO acute events - pt stable - refused surgery - plan for dispo now - con't pain rx - no CP ROS: No fever, no chills, no nausea, no vomiting, no diarrhea/constipation No recent weight changes No chest pain, no PND, no orthopnea - mild sob No dizziness, blurred vision No thirst, no heat or cold intolerance Objective Vitals Vital Signs Date Temp Pulse Resp B/P (MAP) Pulse Ox O2 O2 Flow FiO2 Time Delivery Rate 01/06/19 98.6 69 18 115/61 96 Room Air 13:57 (79) Intake and Output 01/05/19 01/05/19 01/06/19 1515:00 23:00 07:00 IntakeIntake Total 1650 ml 770 ml 1100 ml BalanceBalance 1650 ml 770 ml 1100 ml Exam General: WN/WD/NAD, AOx 1-2 confusing HEENT: Unicetric/atraumatic/EOMI (follows commands) NECK: JVD elevated, no thyromegaly Lymph: no lymphadenopathy HEART: regular with no S3, II/ systolic murmur at apex LUNGS: Coarse sounds ABD: soft, NT, ND, +BS : Intact Neuro: non focal SKIN: chronic changes EXT: trace edema Results/Medications Result Diagram: 01/02/19 1555 01/02/19 0505 Home Meds Reported Medications Apixaban* (Eliquis*) 2.5 Mg Tablet, 5 MG PO BID 12/28/18 Ascorbic Acid* (Vitamin C*) 500 Mg Capsule.sa, 500 MG PO DAILY, CAP 12/28/18 Nystatin (Nystatin Powder) 1 Each Powder.ea., 1 APPLIC TOPICAL DAILY, #1 BOTTLE 12/28/18 Magnesium Hydroxide* (Milk Of Magnesia*) 400 Mg/5 Ml Oral.susp, 30 ML PO DAILY, ML 12/28/18 Hydralazine Hcl* (Hydralazine Hcl*) 25 Mg Tab, 25 MG PO Q6H PRN for BLOOD PRESSURE SUPPORT, #60 TAB 12/28/18 Ferrous Sulfate* (Ferrous Sulfate*) 325 Mg Tabec, 325 MG PO BID, TAB 12/28/18 Methyl Salicylate/Menthol (Bengay Greaseless Cream) 57 Gm Cream..g., 57 GM TP TID APPLY TO LEFT HIP 12/28/18 Aspirin (Low Dose Aspirin) 81 Mg Tablet.dr, 81 MG PO DAILY, #30 TAB 12/28/18 Oxycodone HCl/Acetaminophen (Percocet 10-325 mg Tablet) 1 Each Tablet, 1 EACH PO Q4 PRN for SEVERE PAIN LEVEL 7-10, TAB 07/03/18 Loperamide Hcl* (Loperamide Hcl*) 2 Mg Cap, 2 MG PO Q6 PRN for DIARRHEA, CAP 07/03/18 Amlodipine Besylate* (Norvasc*) 5 Mg Tablet, 5 MG PO DAILY, TAB HOLD FOR SBP<110 OR HR<60 07/03/18 Acetaminophen* (Acetaminophen*) 650 Mg Tablet, 650 MG PO Q6H PRN for PAIN AND OR ELEVATED TEMP, #30 TAB 07/03/18 Guaifenesin-Dextromethorphan* (Robitussin* DM) 100MG/10MG/5ML Syrup, 10 ML PO Q4H PRN for COUGH, ML 01/27/18 Nitroglycerin* (Nitroglycerin* SL) 0.4 Mg Tab.subl, 0.4 MG SL Q5MIN PRN for CHEST PAIN, BOTTLE 01/27/18 Multivitamin with Minerals (Multivitamins with Minerals) 1 Each Tablet, 1 EACH PO DAILY, TAB 01/27/18 Melatonin (Melatin) 3 Mg Tablet, 3 MG PO QHS, TAB 01/27/18 Gabapentin* (Gabapentin*) 100 Mg Capsule, 200 MG PO TID, #180 CAP 01/27/18 Mineral Oil* (Fleet* Mineral Oil Enema) Unknown Strength Oil, 118 ML KS Q72H PRN for CONSTIPATION, ENEMA 01/27/18 Finasteride* (Finasteride*) 5 Mg Tablet, 5 MG PO DAILY, TAB 01/27/18 Medications Current Medications Acetaminophen (Tylenol Tab) 650 mg Q6H PRN PO MILD PAIN(1-3)OR ELEVATED TEMP L ast administered on 01/01/19at 08:32; Admin Dose 650 MG; Start 12/28/18 at 21:30 Amlodipine Besylate (Norvasc) 5 mg DAILY PO Last administered on 01/06/19 08:29; Admin Dose 5 MG; Start 12/29/18 at 09:00 Aspirin (Halfprin) 81 mg DAILY PO Last administered on 01/06/19 08:29; Admin Dose 81 MG; Start 12/29/18 at 09:00 Finasteride (Proscar) 5 mg DAILY PO Last administered on 01/06/19 08:29; Admin Dose 5 MG; Start 12/29/18 at 09:00 Gabapentin (Neurontin) 200 mg TID PO Last administered on 01/06/19 13:04; Admin Dose 200 MG; Start 12/29/18 at 09:00 Hydralazine HCl (Apresoline) 25 mg Q6H PRN PO BLOOD PRESSURE SUPPORT; Start 12/28/18 at 21:30 Loperamide HCl (Imodium Cap) 2 mg Q6 PRN PO DIARRHEA; Start 12/28/18 at 21:30 Nitroglycerin (Nitroglycerin (Sl Tab) 0.4 Mg) 1 tab PRN PRN SL CHEST PAIN; Start 12/28/18 at 21:30 Nystatin 1 applic BID TOP Last administered on 01/06/19 08:28; Admin Dose 1 APPLIC; Start 12/29/18 at 09:00 Oxycodone/ Acetaminophen (Endocet (10/ 325)) 1 tab Q4 PRN PO SEVERE PAIN LEVEL 7-10 Last administered on 01/06/19 08:40; Admin Dose 1 TAB; Start 12/28/18 at 21:30 Zolpidem Tartrate (Ambien) 5 mg HS PRN PO INSOMNIA; Start 12/28/18 at 21:30 Lorazepam (Ativan) 0.5 mg Q6H PRN PO ANXIETY Last administered on 12/31/18 22:26; Admin Dose 0.5 MG; Start 12/28/18 at 21:30 Ondansetron HCl (Zofran Inj) 4 mg Q6H PRN IV NAUSEA AND/OR VOMITING Last administered on 12/29/18 18:55; Admin Dose 4 MG; Start 12/29/18 at 09:00 Morphine Sulfate (morphine) 4 mg Q4H PRN IV SEVERE PAIN LEVEL 7-10 Last administered on 01/06/19 12:41; Admin Dose 4 MG; Start 12/29/18 at 10:30 Polyethylene Glycol (Miralax) 17 gm DAILY GTB Last administered on 01/06/19 08:28; Admin Dose 17 GM; Start 12/29/18 at 14:30 Al Hydrox/Mg Hydrox/Simethicone (Mag-Al Plus) 30 ml Q4H PRN PO GASTROINTESTINAL UPSET Last administered on 01/05/19 23:18; Admin Dose 30 ML; Start 12/30/18 at 12:00 Potassium Chloride/Dextrose/ Sod Cl 1,000 ml @ 50 mls/hr Q20H IV Last administered on 01/06/19 08:40; Admin Dose 50 MLS/HR; Start 12/31/18 at 22:30 Meropenem/Sodium Chloride 50 ml @ 100 mls/hr Q12 IVPB Last administered on 01/06/19 08:28; Admin Dose 100 MLS/HR; Start 01/01/19 at 11:00; Stop 01/08/19 at 10:59 Lubiprostone (Amitiza) 24 mcg BID PO Last administered on 01/06/19 08:29; Admin Dose 24 MCG; Start 01/02/19 at 21:00 Enoxaparin Sodium (Lovenox) 50 mg BID SC Last administered on 01/06/19 08:31; Admin Dose 50 MG; Start 01/04/19 at 21:00 Assessment/Plan Hospital Course (Demo Recall) 1.Pre-op for surgery upon femur fracture-Ok to proceed with surgery at overall moderate to high risk- Echo with Nl EF 08/25 EF 60. No sig valve lesions/neg trop x 3 - still refusing procedure - doubt surgery will happen as pt contiues to refuse. 2.AF-eliquis held for surgery, now on lovenox - if surgery is not planned, will switch back to Eliquis for convenience. Dipo with Eliqius. 3.HTN - reasonably controlled now - reasonable control now. 4.fecal impaction - defer to GI. 5. h/o colon ca - GI following for fecal impaction/colon ca - GI follows. SHYANN STARR MD Jan 06, 2019 14:09
--- NOTE | 2019-01-06 14:16 | CONS ---
Assessment/Plan Assessment/Plan Hospital Course (Demo Recall) No acute changes awake, looks comfortable Antimicrobials: Meropenem #6 PHYSICAL EXAMINATION: GENERAL: Well-developed, elderly man who is in no distress. HEENT: Head atraumatic, normocephalic. Sclerae anicteric. Buccal mucosa dry. NECK: Supple, trachea midline. CHEST: Rise symmetrical. Breath sounds diminished to bases. HEART: S1, S2. ABDOMEN: Soft, bowel sounds present. EXTREMITIES: Without cyanosis. The patient has multiple pressure sores on his heels. Assessment: 1. E. coli ESBL UTI 2. Severe constipation with fecal impaction 3. Stercoral colitis 4. Colon cancer, patient refused surgical intervention in the past 5. Left hip fracture Plan: Remains stable, continue present care, completing antibiotics for UTI Consultation Date/Type/Reason Admit Date/Time December 30, 2018 at 07:26 Initial Consult Date 12/29/18 Type of Consult id Requesting Provider: OSIRIS CIFUENTES MD Date/Time of Note DATE: 01/06/19 TIME: 14:15 Exam/Review of Systems Exam Vitals Vital Signs Date Temp Pulse Resp B/P (MAP) Pulse Ox O2 O2 Flow FiO2 Time Delivery Rate 01/06/19 98.6 69 18 115/61 96 Room Air 13:57 (79) Intake and Output 01/05/19 01/05/19 01/06/19 1515:00 23:00 07:00 IntakeIntake Total 1650 ml 770 ml 1100 ml BalanceBalance 1650 ml 770 ml 1100 ml Results Result Diagram: 01/02/19 1555 01/02/19 0505 Medications Medication Current Medications Acetaminophen (Tylenol Tab) 650 mg Q6H PRN PO MILD PAIN(1-3)OR ELEVATED TEMP Last administered on 01/01/19at 08:32; Admin Dose 650 MG; Start 12/28/18 at 21:30 Amlodipine Besylate (Norvasc) 5 mg DAILY PO Last administered on 01/06/19 08:29; Admin Dose 5 MG; Start 12/29/18 at 09:00 Aspirin (Halfprin) 81 mg DAILY PO Last administered on 01/06/19at 08:29; Admin Dose 81 MG; Start 12/29/18 at 09:00 Finasteride (Proscar) 5 mg DAILY PO Last administered on 6/2/19at 08:29; Admin Dose 5 MG; Start 12/29/18 at 09:00 Gabapentin (Neurontin) 200 mg TID PO Last administered on 01/06/19 13:04; Admin Dose 200 MG; Start 12/29/18 at 09:00 Hydralazine HCl (Apresoline) 25 mg Q6H PRN PO BLOOD PRESSURE SUPPORT; Start 12/28/18 at 21:30 Loperamide HCl (Imodium Cap) 2 mg Q6 PRN PO DIARRHEA; Start 12/28/18 at 21:30 Nitroglycerin (Nitroglycerin (Sl Tab) 0.4 Mg) 1 tab PRN PRN SL CHEST PAIN; Start 12/28/18 at 21:30 Nystatin 1 applic BID TOP Last administered on 01/06/19 08:28; Admin Dose 1 APPLIC; Start 12/29/18 at 09:00 Oxycodone/ Acetaminophen (Endocet (10/ 325)) 1 tab Q4 PRN PO SEVERE PAIN LEVEL 7-10 Last administered on 01/06/19 08:40; Admin Dose 1 TAB; Start 12/28/18 at 21:30 Zolpidem Tartrate (Ambien) 5 mg HS PRN PO INSOMNIA; Start 12/28/18 at 21:30 Lorazepam (Ativan) 0.5 mg Q6H PRN PO ANXIETY Last administered on 12/31/18 22:26; Admin Dose 0.5 MG; Start 12/28/18 at 21:30 Ondansetron HCl (Zofran Inj) 4 mg Q6H PRN IV NAUSEA AND/OR VOMITING Last administered on 12/29/18 18:55; Admin Dose 4 MG; Start 12/29/18 at 09:00 Morphine Sulfate (morphine) 4 mg Q4H PRN IV SEVERE PAIN LEVEL 7-10 Last administered on 01/06/19 12:41; Admin Dose 4 MG; Start 12/29/18 at 10:30 Polyethylene Glycol (Miralax) 17 gm DAILY GTB Last administered on 01/06/19 08 :28; Admin Dose 17 GM; Start 12/29/18 at 14:30 Al Hydrox/Mg Hydrox/Simethicone (Mag-Al Plus) 30 ml Q4H PRN PO GASTROINTESTINAL UPSET Last administered on 01/05/19 23:18; Admin Dose 30 ML; Start 12/30/18 at 12:00 Potassium Chloride/Dextrose/ Sod Cl 1,000 ml @ 50 mls/hr Q20H IV Last administered on 01/06/19 08:40; Admin Dose 50 MLS/HR; Start 12/31/18 at 22:30 Meropenem/Sodium Chloride 50 ml @ 100 mls/hr Q12 IVPB Last administered on 01/06/19 08:28; Admin Dose 100 MLS/HR; Start 01/01/19 at 11:00; Stop 01/08/19 at 10:59 Lubiprostone (Amitiza) 24 mcg BID PO Last administered on 01/06/19 08:29; Admin Dose 24 MCG; Start 01/02/19 at 21:00 Enoxaparin Sodium (Lovenox) 50 mg BID SC Last administered on 01/06/19 08:31; Admin Dose 50 MG; Start 01/04/19 at 21:00 RIZWANA HARMAN NP Jan 06, 2019 14:16
[2019-01-06 18:55] VITALS: BP 131/76; PULSE 66; RESP 18
[2019-01-06 20:05] VITALS: BP 136/58; PULSE 86; RESP 18
[2019-01-07 01:17] VITALS: BP 108/56; PULSE 65; RESP 18
[2019-01-07] MEDS: OXYCODONE/ACETAMINOPHEN (10/325) TAB PO PRN (04:37)
--- NOTE | 2019-01-07 07:07 | CONS ---
DATE OF ADMISSION: 12/30/2018 DATE OF CONSULTATION: SUBJECTIVE: No complaint. The patient has got good bowel movement. His appetite is good. OBJECTIVE: VITAL SIGNS: Stable. ABDOMEN: Benign. LUNGS: Clear. EXTREMITIES: No edema. CENTRAL NERVOUS SYSTEM: Grossly within normal limit. IMPRESSION: 1. Colon cancer confined to the hepatic flexure, for which the patient absolutely refused surgery an d chemo. 2. Chronic constipation. 3. Fracture and deformity of the left proximal femur. The patient again refused surgery. 4. Anemia. 5. Benign prostatic hypertrophy. 6. Peripheral neuropathy. 7. Psychosis. PLAN: At this point is to continue present care. The patient is on a regular diet. He has declined both surgery for the colon cancer and also for his left hip fracture. Psychiatric evaluation also w as obtained. We will continue present care in the interim. Dictated By: SHANNON WHYTE MD PJ/NTS Conf#: [id number] DID#: [id number] CC: OSIRIS CIFUENTES MD; CHRIS OSWALD NP;*End*
[2019-01-07 07:26] VITALS: BP 124/62; PULSE 66; RESP 18
--- NOTE | 2019-01-07 08:38 | CONS ---
Assessment/Plan Assessment/Plan Hospital Course (Demo Recall) 78 yo male with colon cancer diagnosed in Jul 2019 who refuses surgery presented with constipation 1. Fecal impaction and stercoral colitis 2. Colon cancer at hepatic flexure, dx on colonoscopy by Dr. Castano Jul 2019 3. Chronic anemia with positive FOB secondary to colon cancer 4. A fib 7. Leukocytosis with fevers. -resolved 8. ESBL UTI -continue abx 9. Unrepaired hip fx, cleared for surgery but pt refuses Recommendations: Continue present care Pt examined and plan of care discussed with Dr. Castano Consultation Date/Type/Reason Admit Date/Time December 30, 2018 at 07:26 Initial Consult Date 12/29/18 Requesting Provider: OSIRIS CIFUENTES MD Date/Time of Note DATE: 01/07/19 TIME: 08:34 24 HR Interval Summary Free Text/Dictation No acute changes. C/O pain in rt forearm Exam/Review of Systems Exam Vitals Vital Signs Date Temp Pulse Resp B/P (MAP) Pulse Ox O2 O2 Flow FiO2 Time Delivery Rate 01/07/19 97.7 66 18 124/62 98 Room Air 07:26 (82) Intake and Output 01/06/19 01/06/19 01/07/19 1515:00 23:00 07:00 IntakeIntake Total 850 ml 790 ml 300 ml BalanceBalance 850 ml 790 ml 300 ml Constitutional: alert Psych: no complaints Head: normocephalic Eyes: PERRL Respiratory: normal air movement Cardiovascular: regular rate and rhythm Gastrointestinal: soft, tender Neurological: confused Results Result Diagram: 01/07/19 0455 01/07/19 0455 Results 24hrs Laboratory Tests Test 01/07/19 04:55 White Blood Count 7.6 Red Blood Count 3.91 L Hemoglobin 9.8 L Hematocrit 32.3 L Mean Corpuscular Volume 82.6 Mean Corpuscular Hemoglobin 25.1 L Mean Corpuscular Hemoglobin Concent 30.3 L Red Cell Distribution Width 17.7 H Platelet Count 396 # Mean Platelet Volume 8.2 Immature Granulocytes % 0.700 H Neutrophils % 59.9 Lymphocytes % 25.0 Monocytes % 10.4 Eosinophils % 3.5 Basophils % 0.5 Nucleated Red Blood Cells % 0.0 Immature Granulocytes # 0.050 H Neutrophils # 4.6 Lymphocytes # 1.9 Monocytes # 0.8 Eosinophils # 0.3 Basophils # 0.0 Nucleated Red Blood Cells # 0.0 Sodium Level 139 Potassium Level 4.3 Chloride Level 106 Carbon Dioxide Level 29 Anion Gap 4 L Blood Urea Nitrogen 10 Creatinine 0.63 Est Glomerular Filtrat Rate mL/min Glucose Level 96 Calcium Level 8.1 L Medications Medication Current Medications Acetaminophen (Tylenol Tab) 650 mg Q6H PRN PO MILD PAIN(1-3)OR ELEVATED TEMP Last administered on 01/01/19 08:32; Admin Dose 650 MG; Start 12/28/18 at 21:30 Amlodipine Besylate (Norvasc) 5 mg DAILY PO Last administered on 01/06/19 08:29; Admin Dose 5 MG; Start 12/29/18 at 09:00 Aspirin (Halfprin) 81 mg DAILY PO Last administered on 01/06/19 08:29; Admin Dose 81 MG; Start 12/29/18 at 09:00 Finasteride (Proscar) 5 mg DAILY PO Last administered on 01/06/19 08:29; Admin Dose 5 MG; Start 12/29/18 at 09:00 Gabapentin (Neurontin) 200 mg TID PO Last administered on 01/06/19 20:27; Admin Dose 200 MG; Start 12/29/18 at 09:00 Hydralazine HCl (Apresoline) 25 mg Q6H PRN PO BLOOD PRESSURE SUPPORT; Start 12/28/18 at 21:30 Loperamide HCl (Imodium Cap) 2 mg Q6 PRN PO DIARRHEA; Start 12/28/18 at 21:30 Nitroglycerin (Nitroglycerin (Sl Tab) 0.4 Mg) 1 tab PRN PRN SL CHEST PAIN; Start 12/28/18 at 21:30 Nystatin 1 applic BID TOP Last administered on 01/06/19 20:31; Admin Dose 1 APPLIC; Start 12/29/18 at 09:00 Oxycodone/ Acetaminophen (Endocet (10 325)) 1 tab Q4 PRN PO SEVERE PAIN LEVEL 7-10 Last administered on 01/07/19 04:37; Admin Dose 1 TAB; Start 12/28/18 at 21:30 Zolpidem Tartrate (Ambien) 5 mg HS PRN PO INSOMNIA; Start 12/28/18 at 21:30 Lorazepam (Ativan) 0.5 mg Q6H PRN PO ANXIETY Last administered on 12/31/18 22:26; Admin Dose 0.5 MG; Start 12/28/18 at 21:30 Ondansetron HCl (Zofran Inj) 4 mg Q6H PRN IV NAUSEA AND/OR VOMITING Last administered on 12/29/18 18:55; Admin Dose 4 MG; Start 12/29/18 at 09:00 Morphine Sulfate (morphine) 4 mg Q4H PRN IV SEVERE PAIN LEVEL 7-10 Last administered on 01/06/19 12:41; Admin Dose 4 MG; Start 12/29/18 at 10:30 Polyethylene Glycol (Miralax) 17 gm DAILY GTB Last administered on 01/06/19 08:28; Admin Dose 17 GM; Start 12/29/18 at 14:30 Al Hydrox/Mg Hydrox/Simethicone (Mag-Al Plus) 30 ml Q4H PRN PO GASTROINTESTINAL UPSET Last administered on 01/05/19 23:18; Admin Dose 30 ML; Start 12/30/18 at 12:00 Meropenem/Sodium Chloride 50 ml @ 100 mls/hr Q12 IVPB Last administered on 01/06/19 20:27; Admin Dose 100 MLS/HR; Start 01/01/19 at 11:00; Stop 01/08/19 at 10:59 Lubiprostone (Amitiza) 24 mcg BID PO Last administered on 01/06/19 20:27; Admin Dose 24 MCG; Start 01/02/19 at 21:00 Enoxaparin Sodium (Lovenox) 50 mg BID SC Last administered on 01/06/19 20:29; Admin Dose 50 MG; Start 01/04/19 at 21:00 AMITA SHELLEY Jan 07, 2019 08:38
[2019-01-07] MEDS: MEROPENEM 500MG/50 ML (PMX) 50 ML IVPB SCH ×2 (09:06→21:10)
[2019-01-07] MEDS: FINASTERIDE 5 MG TAB PO SCH (09:07)
[2019-01-07] MEDS: GABAPENTIN 100 MG CAP PO SCH ×3 (09:07→21:10)
[2019-01-07] MEDS: ASPIRIN (EC) 81 MG TAB PO SCH (09:07)
[2019-01-07] MEDS: POLYETHYLENE GLYCOL 17 GM PACKET GTB SCH (09:07)
[2019-01-07] MEDS: LUBIPROSTONE 24 MCG CAP PO SCH ×2 (09:07→21:10)
[2019-01-07] MEDS: NYSTATIN 15 GM POWDER BTL TOP SCH ×2 (09:08→21:18)
[2019-01-07] MEDS: AMLODIPINE 5 MG TAB PO SCH (09:08)
[2019-01-07] MEDS: ENOXAPARIN 60 MG/0.6 ML SYG SC SCH ×2 (09:21→21:12)
--- NOTE | 2019-01-07 13:07 | CONS ---
Assessment/Plan Assessment/Plan Hospital Course (Demo Recall) IMP: 1.Pre-op for surgery upon femur fracture-Ok to proceed with surgery at overall moderate to high risk- Echo with Nl EF 08/25 EF 60. No sig valve lesions/neg trop x 3 2.AF-eliquis held for surgery 3.HTN 4.fecal impaction 5. h/o colon ca 6. BPH Recc: -serial ecg's -Continue norvasc and start BB given h/o af -holding eliquis still in anticipation of possible surgery and thus covering with lovenox -GI following for fecal impaction/colon ca -Continue amitiza -Contineu abx's and f/u cx data -patient still refusing all surgeries, pnding psych eval Consultation Date/Type/Reason Admit Date/Time December 30, 2018 at 07:26 Initial Consult Date 12/29/18 Type of Consult Cardiology Reason for Consultation preop Requesting Provider: OSIRIS CIFUENTES MD Date/Time of Note DATE: 01/07/19 TIME: 13:04 Exam/Review of Systems Vital Signs Vitals Vital Signs Date Temp Pulse Resp B/P (MAP) Pulse Ox O2 O2 Flow FiO2 Time Delivery Rate 01/07/19 97.7 66 18 124/62 98 Room Air 07:26 (82) Intake and Output 01/06/19 01/06/19 01/07/19 1515:00 23:00 07:00 IntakeIntake Total 850 ml 790 ml 300 ml BalanceBalance 850 ml 790 ml 300 ml Exam Exam Review of Systems: CONSTITUTIONAL: No fevers, chills. PULMONARY: No sob CARDIOVASCULAR: No chest pain/palpitations GASTROINTESTINAL: No nausea/vomiting. GENITOURINARY: No hematuria/dysuria. MUSCULOSKELETAL: No myagias/arthalgias. PSYCHIATRIC: The patient denies depression. NEUROLOGIC: No weakness Constitutional: alert, oriented Psych: no complaints Head: normocephalic ENMT: mucosa pink and moist Neck: supple, jvd (9 cm water) Respiratory: diminished breath sounds (at bases/B) Cardiovascular: regular rate and rhythm Gastrointestinal: soft, non-tender Musculoskeletal: muscle weakness (mild generalized) Extremities: edema (none) Labs Result Diagram: 01/07/19 0455 01/07/19 0455 Results 24hrs Laboratory Tests Test 01/07/19 04:55 White Blood Count 7.6 Red Blood Count 3.91 L Hemoglobin 9.8 L Hematocrit 32.3 L Mean Corpuscular Volume 82.6 Mean Corpuscular Hemoglobin 25.1 L Mean Corpuscular Hemoglobin Concent 30.3 L Red Cell Distribution Width 17.7 H Platelet Count 396 # Mean Platelet Volume 8.2 Immature Granulocytes % 0.700 H Neutrophils % 59.9 Lymphocytes % 25.0 Monocytes % 10.4 Eosinophils % 3.5 Basophils % 0.5 Nucleated Red Blood Cells % 0.0 Immature Granulocytes # 0.050 H Neutrophils # 4.6 Lymphocytes # 1.9 Monocytes # 0.8 Eosinophils # 0.3 Basophils # 0.0 Nucleated Red Blood Cells # 0.0 Sodium Level 139 Potassium Level 4.3 Chloride Level 106 Carbon Dioxide Level 29 Anion Gap 4 L Blood Urea Nitrogen 10 Creatinine 0.63 Est Glomerular Filtrat Rate mL/min Glucose Level 96 Calcium Level 8.1 L Medications Medications Current Medications Acetaminophen (Tylenol Tab) 650 mg Q6H PRN PO MILD PAIN(1-3)OR ELEVATED TEMP Last administered on 01/01/19 08:32; Admin Dose 650 MG; Start 12/28/18 at 21:30 Amlodipine Besylate (Norvasc) 5 mg DAILY PO Last administered on 01/07/19 09:08; Admin Dose 5 MG; Start 12/29/18 at 09:00 Aspirin (Halfprin) 81 mg DAILY PO Last administered on 01/07/19 09:07; Admin Dose 81 MG; Start 12/29/18 at 09:00 Finasteride (Proscar) 5 mg DAILY PO Last administered on 01/07/19 09:07; Admin Dose 5 MG; Start 12/29/18 at 09:00 Gabapentin (Neurontin) 200 mg TID PO Last administered on 01/07/19 09:07; Admin Dose 200 MG; Start 12/29/18 at 09:00 Hydralazine HCl (Apresoline) 25 mg Q6H PRN PO BLOOD PRESSURE SUPPORT; Start 12/28/18 at 21:30 Loperamide HCl (Imodium Cap) 2 mg Q6 PRN PO DIARRHEA; Start 12/28/18 at 21:30 Nitroglycerin (Nitroglycerin (Sl Tab) 0.4 Mg) 1 tab PRN PRN SL CHEST PAIN; Start 12/28/18 at 21:30 Nystatin 1 applic BID TOP Last administered on 01/07/19 09:08; Admin Dose 1 APPLIC; Start 12/29/18 at 09:00 Oxycodone/ Acetaminophen (Endocet (10/ 325)) 1 tab Q4 PRN PO SEVERE PAIN LEVEL 7-10 Last administered on 01/07/19 04:37; Admin Dose 1 TAB; Start 12/28/18 at 21:30 Zolpidem Tartrate (Ambien) 5 mg HS PRN PO INSOMNIA; Start 12/28/18 at 21:30 Lorazepam (Ativan) 0.5 mg Q6H PRN PO ANXIETY Last administered on 12/31/18 22:26; Admin Dose 0.5 MG; Start 12/28/18 at 21:30 Ondansetron HCl (Zofran Inj) 4 mg Q6H PRN IV NAUSEA AND/OR VOMITING Last administered on 12/29/18 18:55; Admin Dose 4 MG; Start 12/29/18 at 09:00 Morphine Sulfate (morphine) 4 mg Q4H PRN IV SEVERE PAIN LEVEL 7-10 Last administered on 01/06/19 12:41; Admin Dose 4 MG; Start 12/29/18 at 10:30 Polyethylene Glycol (Miralax) 17 gm DAILY GTB Last administered on 01/07/19 09:07; Admin Dose 17 GM; Start 12/29/18 at 14:30 Al Hydrox/Mg Hydrox/Simethicone (Mag-Al Plus) 30 ml Q4H PRN PO GASTROINTESTINAL UPSET Last administered on 01/05/19 23:18; Admin Dose 30 ML; Start 12/30/18 at 12:00 Meropenem/Sodium Chloride 50 ml @ 100 mls/hr Q12 IVPB Last administered on 01/07/19 09:06; Admin Dose 100 MLS/HR; Start 01/01/19 at 11:00; Stop 01/08/19 at 10:59 Lubiprostone (Amitiza) 24 mcg BID PO Last administered on 01/07/19 09:07; Admin Dose 24 MCG; Start 01/02/19 at 21:00 Enoxaparin Sodium (Lovenox) 50 mg BID SC Last administered on 01/07/19 09:21; Admin Dose 50 MG; Start 01/04/19 at 21:00 RICH MANSFIELD Jan 07, 2019 13:07
[2019-01-07] MEDS: morphine 4 MG/ML VIAL IV PRN ×3 (13:26→23:26)
--- NOTE | 2019-01-07 13:28 | CONS ---
Assessment/Plan Assessment/Plan Hospital Course (Demo Recall) No acute changes awake, looks comfortable Antimicrobials: Meropenem #7 PHYSICAL EXAMINATION: GENERAL: Well-developed, elderly man who is in no distress. HEENT: Head atraumatic, normocephalic. Sclerae anicteric. Buccal mucosa dry. NECK: Supple, trachea midline. CHEST: Rise symmetrical. Breath sounds diminished to bases. HEART: S1, S2. ABDOMEN: Soft, bowel sounds present. EXTREMITIES: Without cyanosis. The patient has multiple pressure sores on his heels. Assessment: 1. E. coli ESBL UTI 2. Severe constipation with fecal impaction 3. Stercoral colitis 4. Colon cancer, patient refused surgical intervention in the past 5. Left hip fracture Plan: Remains stable, continue present care, dc abx in am Consultation Date/Type/Reason Admit Date/Time December 30, 2018 at 07:26 Initial Consult Date 12/29/18 Type of Consult id Requesting Provider: OSIRIS CIFUENTES MD Date/Time of Note DATE: 01/07/19 TIME: 13:28 Exam/Review of Systems Exam Vitals Vital Signs Date Temp Pulse Resp B/P (MAP) Pulse Ox O2 O2 Flow FiO2 Time Delivery Rate 01/07/19 97.7 66 18 124/62 98 Room Air 07:26 (82) Intake and Output 01/06/19 01/06/19 01/07/19 1515:00 23:00 07:00 IntakeIntake Total 850 ml 790 ml 300 ml BalanceBalance 850 ml 790 ml 300 ml Results Result Diagram: 01/07/19 0455 01/07/19 0455 Results 24hrs Laboratory Tests Test 01/07/19 04:55 White Blood Count 7.6 Red Blood Count 3.91 L Hemoglobin 9.8 L Hematocrit 32.3 L Mean Corpuscular Volume 82.6 Mean Corpuscular Hemoglobin 25.1 L Mean Corpuscular Hemoglobin Concent 30.3 L Red Cell Distribution Width 17.7 H Platelet Count 396 # Mean Platelet Volume 8.2 Immature Granulocytes % 0.700 H Neutrophils % 59.9 Lymphocytes % 25.0 Monocytes % 10.4 Eosinophils % 3.5 Basophils % 0.5 Nucleated Red Blood Cells % 0.0 Immature Granulocytes # 0.050 H Neutrophils # 4.6 Lymphocytes # 1.9 Monocytes # 0.8 Eosinophils # 0.3 Basophils # 0.0 Nucleated Red Blood Cells # 0.0 Sodium Level 139 Potassium Level 4.3 Chloride Level 106 Carbon Dioxide Level 29 Anion Gap 4 L Blood Urea Nitrogen 10 Creatinine 0.63 Est Glomerular Filtrat Rate mL/min Glucose Level 96 Calcium Level 8.1 L Medications Medication Current Medications Acetaminophen (Tylenol Tab) 650 mg Q6H PRN PO MILD PAIN(1-3)OR ELEVATED TEMP Last administered on 01/01/19 08:32; Admin Dose 650 MG; Start 12/28/18 at 21:30 Amlodipine Besylate (Norvasc) 5 mg DAILY PO Last administered on 01/07/19 09:08; Admin Dose 5 MG; Start 12/29/18 at 09:00 Aspirin (Halfprin) 81 mg DAILY PO Last administered on 01/07/19 09:07; Admin Dose 81 MG; Start 12/29/18 at 09:00 Finasteride (Proscar) 5 mg DAILY PO Last administered on 01/07/19 09:07; Admin Dose 5 MG; Start 12/29/18 at 09:00 Gabapentin (Neurontin) 200 mg TID PO Last administered on 01/07/19 13:20; Admin Dose 200 MG; Start 12/29/18 at 09:00 Hydralazine HCl (Apresoline) 25 mg Q6H PRN PO BLOOD PRESSURE SUPPORT; Start 12/28/18 at 21:30 Loperamide HCl (Imodium Cap) 2 mg Q6 PRN PO DIARRHEA; Start 12/28/18 at 21:30 Nitroglycerin (Nitroglycerin (Sl Tab) 0.4 Mg) 1 tab PRN PRN SL CHEST PAIN; Start 12/28/18 at 21:30 Nystatin 1 applic BID TOP Last administered on 01/07/19 09:08; Admin Dose 1 APPLIC; Start 12/29/18 at 09:00 Oxycodone/ Acetaminophen (Endocet (10/ 325)) 1 tab Q4 PRN PO SEVERE PAIN LEVEL 7-10 Last administered on 01/07/19 04:37; Admin Dose 1 TAB; Start 12/28/18 at 21:30 Zolpidem Tartrate (Ambien) 5 mg HS PRN PO INSOMNIA; Start 12/28/18 at 21:30 Lorazepam (Ativan) 0.5 mg Q6H PRN PO ANXIETY Last administered on 12/31/18 22:26; Admin Dose 0.5 MG; Start 12/28/18 at 21:30 Ondansetron HCl (Zofran Inj) 4 mg Q6H PRN IV NAUSEA AND/OR VOMITING Last administered on 12/29/18 18:55; Admin Dose 4 MG; Start 12/29/18 at 09:00 Morphine Sulfate (morphine) 4 mg Q4H PRN IV SEVERE PAIN LEVEL 7-10 Last administered on 01/07/19 13:26; Admin Dose 4 MG; Start 12/29/18 at 10:30 Polyethylene Glycol (Miralax) 17 gm DAILY GTB Last administered on 01/07/19 09:07; Admin Dose 17 GM; Start 12/29/18 at 14:30 Al Hydrox/Mg Hydrox/Simethicone (Mag-Al Plus) 30 ml Q4H PRN PO GASTROINTESTINAL UPSET Last administered on 01/05/19 23:18; Admin Dose 30 ML; Start 12/30/18 at 12:00 Meropenem/Sodium Chloride 50 ml @ 100 mls/hr Q12 IVPB Last administered on 01/07/19 09:06; Admin Dose 100 MLS/HR; Start 01/01/19 at 11:00; Stop 01/08/19 at 10:59 Lubiprostone (Amitiza) 24 mcg BID PO Last administered on 01/07/19 09:07; Admin Dose 24 MCG; Start 01/02/19 at 21:00 Enoxaparin Sodium (Lovenox) 50 mg BID SC Last administered on 01/07/19 09:21; Admin Dose 50 MG; Start 01/04/19 at 21:00 Metoprolol Tartrate (Lopressor) 25 mg BID PO ; Start 01/07/19 at 21:00 RIZWANA HARMAN NP Jan 07, 2019 13:28
[2019-01-07 13:53] VITALS: BP 117/61; RESP 20
[2019-01-07 15:58] VITALS: BP 126/62; PULSE 90; RESP 18
[2019-01-07 20:40] VITALS: BP 93/52; PULSE 67; RESP 18
[2019-01-07] MEDS: METOPROLOL 25 MG TAB PO SCH (21:00)
--- NOTE | 2019-01-07 22:38 | PN ---
Date/Time of Note Date/Time of Note DATE: 01/07/19 TIME: 22:36 Assessment/Plan VTE Prophylaxis Risk [place]from [facility] [place]0 risk: 17 SCD applied (from [facility] [place]): Yes Pharmacological prophylaxis: LMWH Lines/Catheters IV Catheter Type (from [facility]): [place] Urinary Cath still in place: No Assessment/Plan Hospital Course Pt completing meropenem for E. coli ESBL urinary infection He has declined both surgery for the colon cancer and also for his left hip fracture. 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 Juanjose Cohen is following from ortho standpoint. Cleared by Dr. Rodarte from cardiology standpoint for hemiarthroplasty. Patient refused surgery today. - Fecal impaction and stercoral colitis. Continue Miralax and Lactulose. Dr. Castano is following in gastroenterology consultation. - E. coli ESBL UTI, continue meropenem. Dr. Mcnamara is following in infection disease consultation. - Paroxysmal atrial fibrillation, patient is in sinus rhythm on admission. Will hold Eliquis for now. Continue aspirin. - Hypertension, continue Norvasc. - Benign prostatic hypertrophy. Continue Proscar. - Peripheral neuropathy. Continue Neurontin. - Paranoid psychosis. Patient was prescribed Seroquel during last admission, however refused to take it. The patient is not on any psych medication. TERE Thompson saw patient for psychiatric evaluation. - Colon cancer. The patient refused further workup. - Bilateral inguinal hernias without evidence of obstruction or strangulation - History of C. difficile colitis Further recommendations will depend on hospital course. Plan of care discussed with Dr. Baron. Result Diagram: 01/07/19 0455 01/07/19 0455 Results 24hrs Laboratory Tests Test 01/07/19 04:55 White Blood Count 7.6 Red Blood Count 3.91 L Hemoglobin 9.8 L Hematocrit 32.3 L Mean Corpuscular Volume 82.6 Mean Corpuscular Hemoglobin 25.1 L Mean Corpuscular Hemoglobin Concent 30.3 L Red Cell Distribution Width 17.7 H Platelet Count 396 # Mean Platelet Volume 8.2 Immature Granulocytes % 0.700 H Neutrophils % 59.9 Lymphocytes % 25.0 Monocytes % 10.4 Eosinophils % 3.5 Basophils % 0.5 Nucleated Red Blood Cells % 0.0 Immature Granulocytes # 0.050 H Neutrophils # 4.6 Lymphocytes # 1.9 Monocytes # 0.8 Eosinophils # 0.3 Basophils # 0.0 Nucleated Red Blood Cells # 0.0 Sodium Level 139 Potassium Level 4.3 Chloride Level 106 Carbon Dioxide Level 29 Anion Gap 4 L Blood Urea Nitrogen 10 Creatinine 0.63 Est Glomerular Filtrat Rate mL/min Glucose Level 96 Calcium Level 8.1 L Exam/Review of Systems Exam Vitals Vital Signs Date Temp Pulse Resp B/P (MAP) Pulse Ox O2 O2 Flow FiO2 Time Delivery Rate 01/07/19 97.5 67 18 93/52 (66) 96 20:40 01/07/19 Room Air 13:53 Intake and Output 01/06/19 01/06/19 01/07/19 1515:00 23:00 07:00 IntakeIntake Total 850 ml 790 ml 300 ml BalanceBalance 850 ml 790 ml 300 ml Exam Constitutional: alert, oriented Respiratory: clear to auscultation Cardiovascular: nl pulses Gastrointestinal: soft, non-tender Musculoskeletal: nl extremities to inspection Extremities: normal pulses Neurological: nl mental status Results Results 24hrs Laboratory Tests Test 01/07/19 04:55 White Blood Count 7.6 Red Blood Count 3.91 L Hemoglobin 9.8 L Hematocrit 32.3 L Mean Corpuscular Volume 82.6 Mean Corpuscular Hemoglobin 25.1 L Mean Corpuscular Hemoglobin Concent 30.3 L Red Cell Distribution Width 17.7 H Platelet Count 396 # Mean Platelet Volume 8.2 Immature Granulocytes % 0.700 H Neutrophils % 59.9 Lymphocytes % 25.0 Monocytes % 10.4 Eosinophils % 3.5 Basophils % 0.5 Nucleated Red Blood Cells % 0.0 Immature Granulocytes # 0.050 H Neutrophils # 4.6 Lymphocytes # 1.9 Monocytes # 0.8 Eosinophils # 0.3 Basophils # 0.0 Nucleated Red Blood Cells # 0.0 Sodium Level 139 Potassium Level 4.3 Chloride Level 106 Carbon Dioxide Level 29 Anion Gap 4 L Blood Urea Nitrogen 10 Creatinine 0.63 Est Glomerular Filtrat Rate mL/min Glucose Level 96 Calcium Level 8.1 L Medications Medication Current Medications Acetaminophen (Tylenol Tab) 650 mg Q6H PRN PO MILD PAIN(1-3)OR ELEVATED TEMP Last administered on 01/01/19at 08:32; Admin Dose 650 MG; Start 12/28/18 at 21:30 Amlodipine Besylate (Norvasc) 5 mg DAILY PO Last administered on 01/07/19 09:08; Admin Dose 5 MG; Start 12/29/18 at 09:00 Aspirin (Halfprin) 81 mg DAILY PO Last administered on 01/07/19 09:07; Admin Dose 81 MG; Start 12/29/18 at 09:00 Finasteride (Proscar) 5 mg DAILY PO Last administered on 01/07/19 09:07; Admin Dose 5 MG; Start 12/29/18 at 09:00 Gabapentin (Neurontin) 200 mg TID PO Last administered on 01/07/19 21:10; Admin Dose 200 MG; Start 12/29/18 at 09:00 Hydralazine HCl (Apresoline) 25 mg Q6H PRN PO BLOOD PRESSURE SUPPORT; Start 12/28/18 at 21:30 Loperamide HCl (Imodium Cap) 2 mg Q6 PRN PO DIARRHEA; Start 12/28/18 at 21:30 Nitroglycerin (Nitroglycerin (Sl Tab) 0.4 Mg) 1 tab PRN PRN SL CHEST PAIN; Start 12/28/18 at 21:30 Nystatin 1 applic BID TOP Last administered on 01/07/19 21:18; Admin Dose 1 APPLIC; Start 12/29/18 at 09:00 Oxycodone/ Acetaminophen (Endocet (10/ 325)) 1 tab Q4 PRN PO SEVERE PAIN LEVEL 7-10 Last administered on 01/07/19 04:37; Admin Dose 1 TAB; Start 12/28/18 at 21:30 Zolpidem Tartrate (Ambien) 5 mg HS PRN PO INSOMNIA; Start 12/28/18 at 21:30 Lorazepam (Ativan) 0.5 mg Q6H PRN PO ANXIETY Last administered on 12/31/18 22:26; Admin Dose 0.5 MG; Start 12/28/18 at 21:30 Ondansetron HCl (Zofran Inj) 4 mg Q6H PRN IV NAUSEA AND/OR VOMITING Last administered on 12/29/18 18:55; Admin Dose 4 MG; Start 12/29/18 at 09:00 Morphine Sulfate (morphine) 4 mg Q4H PRN IV SEVERE PAIN LEVEL 7-10 Last administered on 01/07/19 18:21; Admin Dose 4 MG; Start 12/29/18 at 10:30 Polyethylene Glycol (Miralax) 17 gm DAILY GTB Last administered on 01/07/19 09:07; Admin Dose 17 GM; Start 12/29/18 at 14:30 Al Hydrox/Mg Hydrox/Simethicone (Mag-Al Plus) 30 ml Q4H PRN PO GASTROINTESTINAL UPSET Last administered on 01/05/19 23:18; Admin Dose 30 ML; Start 12/30/18 at 12:00 Meropenem/Sodium Chloride 50 ml @ 100 mls/hr Q12 IVPB Last administered on 01/07/19 21:10; Admin Dose 100 MLS/HR; Start 01/01/19 at 11:00; Stop 01/08/19 at 06:00 Lubiprostone (Amitiza) 24 mcg BID PO Last administered on 01/07/19at 21:10; Admin Dose 24 MCG; Start 01/02/19 at 21:00 Enoxaparin Sodium (Lovenox) 50 mg BID SC Last administered on 01/07/19at 21:12; Admin Dose 50 MG; Start 01/04/19 at 21:00 Metoprolol Tartrate (Lopressor) 25 mg BID PO ; Start 01/07/19 at 21:00 LEAH BROUSSARD Jan 07, 2019 22:38
[2019-01-08] MEDS: OXYCODONE/ACETAMINOPHEN (10/325) TAB PO PRN ×3 (01:11→14:53)
[2019-01-08 02:50] VITALS: BP 133/60; PULSE 71; RESP 18
--- NOTE | 2019-01-08 07:08 | CONS ---
Assessment/Plan Assessment/Plan Hospital Course (Demo Recall) 78 yo male with colon cancer diagnosed in Jul 2019 who refuses surgery presented with constipation 1. Fecal impaction secondary to colon cancer -improved 2. Colon cancer at hepatic flexure, dx on colonoscopy by Dr. Castano Jul 2019 3. Chronic anemia with positive FOB secondary to colon cancer 4. A fib 7. Leukocytosis with fevers. -resolved 8. ESBL UTI -continue abx 9. Unrepaired hip fx, cleared for surgery but pt refuses Recommendations: Continue present care dulcolax 20 mg x 1 Pt examined and plan of care discussed with Dr. Castano Consultation Date/Type/Reason Admit Date/Time December 30, 2018 at 07:26 Initial Consult Date 12/29/18 Requesting Provider: OSIRIS CIFUENTES MD Date/Time of Note DATE: 01/08/19 TIME: 07:06 24 HR Interval Summary Free Text/Dictation Pt continues to refuse intervention for colon cancer, hip surgery and psych medications. He is having small bm qd with no evidence of GI bleeding. HH stable. Per RN, diet is poor. Exam/Review of Systems Exam Vitals Vital Signs Date Temp Pulse Resp B/P (MAP) Pulse Ox O2 O2 Flow FiO2 Time Delivery Rate 01/08/19 98.4 71 18 133/60 97 02:50 (84) 01/07/19 Room Air 13:53 Intake and Output 01/07/19 01/07/19 01/08/19 1515:00 23:00 07:00 IntakeIntake Total 290 ml 290 ml BalanceBalance 290 ml 290 ml Constitutional: alert Psych: no complaints Head: normocephalic Eyes: nl sclera, PERRL ENMT: mucosa pink and moist Respiratory: normal air movement Cardiovascular: regular rate and rhythm Gastrointestinal: soft, tender Neurological: confused Results Result Diagram: 01/07/19 0455 01/07/19 045 Medications Medication Current Medications Acetaminophen (Tylenol Tab) 650 mg Q6H PRN PO MILD PAIN(1-3)OR ELEVATED TEMP Last administered on 01/01/19at 08:32; Admin Dose 650 MG; Start 12/28/18 at 21:30 Amlodipine Besylate (Norvasc) 5 mg DAILY PO Last administered on 01/07/19at 09:08; Admin Dose 5 MG; Start 12/29/18 at 09:00 Aspirin (Halfprin) 81 mg DAILY PO Last administered on 01/07/19 09:07; Admin Dose 81 MG; Start 12/29/18 at 09:00 Finasteride (Proscar) 5 mg DAILY PO Last administered on 01/07/19 09:07; Admin Dose 5 MG; Start 12/29/18 at 09:00 Gabapentin (Neurontin) 200 mg TID PO Last administered on 01/07/19 21:10; Admin Dose 200 MG; Start 12/29/18 at 09:00 Hydralazine HCl (Apresoline) 25 mg Q6H PRN PO BLOOD PRESSURE SUPPORT; Start 12/28/18 at 21:30 Loperamide HCl (Imodium Cap) 2 mg Q6 PRN PO DIARRHEA; Start 12/28/18 at 21:30 Nitroglycerin (Nitroglycerin (Sl Tab) 0.4 Mg) 1 tab PRN PRN SL CHEST PAIN; Start 12/28/18 at 21:30 Nystatin 1 applic BID TOP Last administered on 01/07/19 21:18; Admin Dose 1 APPLIC; Start 12/29/18 at 09:00 Oxycodone/ Acetaminophen (Endocet (10/ 325)) 1 tab Q4 PRN PO SEVERE PAIN LEVEL 7-10 Last administered on 01/08/19 01:11; Admin Dose 1 TAB; Start 12/28/18 at 21:30 Zolpidem Tartrate (Ambien) 5 mg HS PRN PO INSOMNIA; Start 12/28/18 at 21:30 Lorazepam (Ativan) 0.5 mg Q6H PRN PO ANXIETY Last administered on 12/31/18 22:26; Admin Dose 0.5 MG; Start 12/28/18 at 21:30 Ondansetron HCl (Zofran Inj) 4 mg Q6H PRN IV NAUSEA AND/OR VOMITING Last administered on 12/29/18 18:55; Admin Dose 4 MG; Start 12/29/18 at 09:00 Morphine Sulfate (morphine) 4 mg Q4H PRN IV SEVERE PAIN LEVEL 7-10 Last administered on 01/07/19 23:26; Admin Dose 4 MG; Start 12/29/18 at 10:30 Polyethylene Glycol (Miralax) 17 gm DAILY GTB Last administered on 6/3/19at 09:07; Admin Dose 17 GM; Start 12/29/18 at 14:30 Al Hydrox/Mg Hydrox/Simethicone (Mag-Al Plus) 30 ml Q4H PRN PO GASTROINTESTINAL UPSET Last administered on 01/05/19at 23:18; Admin Dose 30 ML; Start 12/30/18 at 12:00 Lubiprostone (Amitiza) 24 mcg BID PO Last administered on 01/07/19at 21:10; Admin Dose 24 MCG; Start 01/02/19 at 21:00 Enoxaparin Sodium (Lovenox) 50 mg BID SC Last administered on 01/07/19at 21:12; Admin Dose 50 MG; Start 01/04/19 at 21:00 Metoprolol Tartrate (Lopressor) 25 mg BID PO ; Start 01/07/19 at 21:00 AMITA SHELLEY Jan 08, 2019 07:08
[2019-01-08] MEDS ORDERED: BISACODYL (EC) 5 MG TAB PO ONE (07:30)
[2019-01-08 07:56] VITALS: BP 129/61; PULSE 65; RESP 16
[2019-01-08] MEDS: LUBIPROSTONE 24 MCG CAP PO SCH ×2 (08:45→20:14)
[2019-01-08] MEDS: GABAPENTIN 100 MG CAP PO SCH ×3 (08:46→20:11)
[2019-01-08] MEDS: ASPIRIN (EC) 81 MG TAB PO SCH (08:46)
[2019-01-08] MEDS: AMLODIPINE 5 MG TAB PO SCH (08:47)
[2019-01-08] MEDS: FINASTERIDE 5 MG TAB PO SCH (08:47)
[2019-01-08] MEDS: METOPROLOL 25 MG TAB PO SCH ×2 (08:47→20:14)
[2019-01-08] MEDS: POLYETHYLENE GLYCOL 17 GM PACKET GTB SCH (08:47)
[2019-01-08] MEDS: NYSTATIN 15 GM POWDER BTL TOP SCH ×2 (08:48→20:14)
[2019-01-08] MEDS: ENOXAPARIN 60 MG/0.6 ML SYG SC SCH ×2 (09:02→20:13)
--- NOTE | 2019-01-08 10:20 | CONS ---
Consult Date/Type/Reason Admit Date/Time December 30, 2018 at 07:26 Initial Consult Date 12/29/18 Requesting Provider: OSIRIS CIFUENTES MD Date/Time of Note DATE: 01/08/19 TIME: 10:18 Subjective NO acute events - pt off tele - feels comfortable - denies CP. ROS: No fever, no chills, no nausea, no vomiting, no diarrhea/constipation No recent weight changes No chest pain, no PND, no orthopnea No dizziness, blurred vision No thirst, no heat or cold intolerance Objective Vitals Vital Signs Date Temp Pulse Resp B/P (MAP) Pulse Ox O2 O2 Flow FiO2 Time Delivery Rate 01/08/19 98.2 65 16 129/61 98 Room Air 07:56 (83) Intake and Output 01/07/19 01/07/19 01/08/19 1515:00 23:00 07:00 IntakeIntake Total 290 ml 290 ml BalanceBalance 290 ml 290 ml Exam General: WN/WD/NAD, AOx 2 dementia HEENT: Unicetric/atraumatic/EOMI (follow commands) NECK: JVD elevated, no thyromegaly Lymph: no lymphadenopathy HEART: regular with no S3, II/ systolic murmur at apex LUNGS: Coarse sounds ABD: soft, NT, ND, +BS : Intact Neuro: non focal SKIN: chronic changes EXT: trace edema Results/Medications Result Diagram: 01/07/1945401/07/19454 Home Meds Reported Medications Apixaban* (Eliquis*) 2.5 Mg Tablet, 5 MG PO BID 12/28/18 Ascorbic Acid* (Vitamin C*) 500 Mg Capsule.sa, 500 MG PO DAILY, CAP 12/28/18 Nystatin (Nystatin Powder) 1 Each Powder.ea., 1 APPLIC TOPICAL DAILY, #1 BOTTLE 12/28/18 Magnesium Hydroxide* (Milk Of Magnesia*) 400 Mg/5 Ml Oral.susp, 30 ML PO DAILY, ML 12/28/18 Hydralazine Hcl* (Hydralazine Hcl*) 25 Mg Tab, 25 MG PO Q6H PRN for BLOOD PRESSURE SUPPORT, #60 TAB 12/28/18 Ferrous Sulfate* (Ferrous Sulfate*) 325 Mg Tabec, 325 MG PO BID, TAB 12/28/18 Methyl Salicylate/Menthol (Bengay Greaseless Cream) 57 Gm Cream..g., 57 GM TP TID APPLY TO LEFT HIP 12/28/18 Aspirin (Low Dose Aspirin) 81 Mg Tablet.dr, 81 MG PO DAILY, #30 TAB 12/28/18 Oxycodone HCl/Acetaminophen (Percocet 10-325 mg Tablet) 1 Each Tablet, 1 EACH PO Q4 PRN for SEVERE PAIN LEVEL 7-10, TAB 07/03/18 Loperamide Hcl* (Loperamide Hcl*) 2 Mg Cap, 2 MG PO Q6 PRN for DIARRHEA, CAP 07/03/18 Amlodipine Besylate* (Norvasc*) 5 Mg Tablet, 5 MG PO DAILY, TAB HOLD FOR SBP<110 OR HR<60 07/03/18 Acetaminophen* (Acetaminophen*) 650 Mg Tablet, 650 MG PO Q6H PRN for PAIN AND OR ELEVATED TEMP, #30 TAB 07/03/18 Guaifenesin-Dextromethorphan* (Robitussin* DM) 100MG/10MG/5ML Syrup, 10 ML PO Q4H PRN for COUGH, ML 01/27/18 Nitroglycerin* (Nitroglycerin* SL) 0.4 Mg Tab.subl, 0.4 MG SL Q5MIN PRN for CHEST PAIN, BOTTLE 01/27/18 Multivitamin with Minerals (Multivitamins with Minerals) 1 Each Tablet, 1 EACH PO DAILY, TAB 01/27/18 Melatonin (Melatin) 3 Mg Tablet, 3 MG PO QHS, TAB 01/27/18 Gabapentin* (Gabapentin*) 100 Mg Capsule, 200 MG PO TID, #180 CAP 01/27/18 Mineral Oil* (Fleet* Mineral Oil Enema) Unknown Strength Oil, 118 ML [place] Q72H PRN for CONSTIPATION, ENEMA 01/27/18 Finasteride* (Finasteride*) 5 Mg Tablet, 5 MG PO DAILY, TAB 01/27/18 Medications Current Medications Acetaminophen (Tylenol Tab) 650 mg Q6H PRN PO MILD PAIN(1-3)OR ELEVATED TEMP Last administered on 01/01/19at 08:32; Admin Dose 650 MG; Start 12/28/18 at 21:30 Amlodipine Besylate (Norvasc) 5 mg DAILY PO Last administered on 01/08/19at 08:47; Admin Dose 5 MG; Start 12/29/18 at 09:00 Aspirin (Halfprin) 81 mg DAILY PO Last administered on 01/08/19 08:46; Admin Dose 81 MG; Start 12/29/18 at 09:00 Finasteride (Proscar) 5 mg DAILY PO Last administered on 01/08/19 08:47; Admin Dose 5 MG; Start 12/29/18 at 09:00 Gabapentin (Neurontin) 200 mg TID PO Last administered on 01/08/19 08:46; Admin Dose 200 MG; Start 12/29/18 at 09:00 Hydralazine HCl (Apresoline) 25 mg Q6H PRN PO BLOOD PRESSURE SUPPORT; Start 12/28/18 at 21:30 Loperamide HCl (Imodium Cap) 2 mg Q6 PRN PO DIARRHEA; Start 12/28/18 at 21:30 Nitroglycerin (Nitroglycerin (Sl Tab) 0.4 Mg) 1 tab PRN PRN SL CHEST PAIN; Start 12/28/18 at 21:30 Nystatin 1 applic BID TOP Last administered on 01/08/19 08:48; Admin Dose 1 APPLIC; Start 12/29/18 at 09:00 Oxycodone/ Acetaminophen (Endocet (10/ 325)) 1 tab Q4 PRN PO SEVERE PAIN LEVEL 7-10 Last administered on 01/08/19 10:01; Admin Dose 1 TAB; Start 12/28/18 at 21:30 Zolpidem Tartrate (Ambien) 5 mg HS PRN PO INSOMNIA; Start 12/28/18 at 21:30 Lorazepam (Ativan) 0.5 mg Q6H PRN PO ANXIETY Last administered on 12/31/18 22:26; Admin Dose 0.5 MG; Start 12/28/18 at 21:30 Ondansetron HCl (Zofran Inj) 4 mg Q6H PRN IV NAUSEA AND/OR VOMITING Last administered on 12/29/18 18:55; Admin Dose 4 MG; Start 12/29/18 at 09:00 Morphine Sulfate (morphine) 4 mg Q4H PRN IV SEVERE PAIN LEVEL 7-10 Last administered on 01/07/19 23:26; Admin Dose 4 MG; Start 12/29/18 at 10:30 Polyethylene Glycol (Miralax) 17 gm DAILY GTB Last administered on 01/08/19 08:47; Admin Dose 17 GM; Start 12/29/18 at 14:30 Al Hydrox/Mg Hydrox/Simethicone (Mag-Al Plus) 30 ml Q4H PRN PO GASTROINTESTINAL UPSET Last administered on 01/05/19 23:18; Admin Dose 30 ML; Start 12/30/18 at 12:00 Lubiprostone (Amitiza) 24 mcg BID PO Last administered on 01/08/19 08:45; Admin Dose 24 MCG; Start 01/02/19 at 21:00 Enoxaparin Sodium (Lovenox) 50 mg BID SC Last administered on 01/08/19 09:02; Admin Dose 50 MG; Start 01/04/19 at 21:00 Metoprolol Tartrate (Lopressor) 25 mg BID PO Last administered on 01/08/19 08:47; Admin Dose 25 MG; Start 01/07/19 at 21:00 Assessment/Plan Hospital Course (Demo Recall) 1.Pre-op for surgery upon femur fracture-Ok to proceed with surgery at overall moderate to high risk- Echo with Nl EF 08/25 EF 60. No sig valve lesions/neg trop x 3 - still refusing procedure - doubt surgery will happen as pt contiues to refuse. NO surgery planned nw. 2.AF-eliquis held for surgery, now on lovenox - if surgery is not planned, will switch back to Eliquis for convenience. Dipo with Eliqius. Treated. 3.HTN - reasonably controlled now - reasonable control now. On meds. 4.fecal impaction - defer to GI. Better now. 5. h/o colon ca - GI following for fecal impaction/colon ca - GI follows. SHYANN STARR MD Jan 08, 2019 10:20
[2019-01-08 14:00] VITALS: BP 111/62; PULSE 71; RESP 18
--- NOTE | 2019-01-08 16:07 | PN ---
Date/Time of Note Date/Time of Note DATE: 01/08/19 TIME: 16:05 Assessment/Plan VTE Prophylaxis Risk score (from [facility])>0 risk: 17 SCD applied (from [facility]): Yes Pharmacological prophylaxis: LMWH Lines/Catheters IV C[facility]ter Type (from [facility]): Saline Lock Urinary Cath still in place: No Assessment/Plan Hospital Course Patient remains hemodynamically stable afebrile. patient declined declined both surgery for the colon cancer and also for his left hip fracture. [facility]. 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 Juanjose Cohen is following from ortho standpoint. Cleared by Dr. Rodarte from cardiology standpoint for hemiarthroplasty. Patient refused surgery today. - Fecal impaction and stercoral colitis. Continue Miralax and Lactulose. Dr. Castano is following in gastroenterology consultation. - E. coli ESBL UTI, status post treatment with meropenem. Dr. Mcnamara is following in infection disease consultation. - Paroxysmal atrial fibrillation, patient is in sinus rhythm on admission. Will hold Eliquis for now. Continue aspirin. - Hypertension, continue Norvasc. - Benign prostatic hypertrophy. Continue Proscar. - Peripheral neuropathy. Continue Neurontin. - Paranoid psychosis. Patient was prescribed Seroquel during last admission, however refused to take it. The patient is not on any psych medication. TERE Thompson saw patient for psychiatric evaluation. - Colon cancer. The patient refused further workup. - Bilateral inguinal hernias without evidence of obstruction or strangulation - History of C. difficile colitis Further recommendations will depend on hospital course. Plan of care discussed with Dr. Baron. Result Diagram: 01/07/19 0455 01/07/19 0455 Exam/Review of Systems Exam Vitals Vital Signs Date Temp Pulse Resp B/P (MAP) Pulse Ox O2 O2 Flow FiO2 Time Delivery Rate 01/08/19 98.2 71 18 111/62 96 Room Air 14:00 (78) Intake and Output 01/07/19 01/07/19 01/08/19 1515:00 23:00 07:00 IntakeIntake Total 290 ml 290 ml BalanceBalance 290 ml 290 ml Exam Constitutional: alert, oriented Respiratory: clear to auscultation Cardiovascular: nl pulses Gastrointestinal: soft, non-tender Musculoskeletal: nl extremities to inspection Extremities: normal pulses Neurological: nl mental status Medications Medication Current Medications Acetaminophen (Tylenol Tab) 650 mg Q6H PRN PO MILD PAIN(1-3)OR ELEVATED TEMP Last administered on 01/01/19 08:32; Admin Dose 650 MG; Start 12/28/18 at 21:30 Amlodipine Besylate (Norvasc) 5 mg DAILY PO Last administered on 01/08/19 08:47; Admin Dose 5 MG; Start 12/29/18 at 09:00 Aspirin (Halfprin) 81 mg DAILY PO Last administered on 01/08/19 08:46; Admin Dose 81 MG; Start 12/29/18 at 09:00 Finasteride (Proscar) 5 mg DAILY PO Last administered on 01/08/19 08:47; Admin Dose 5 MG; Start 12/29/18 at 09:00 Gabapentin (Neurontin) 200 mg TID PO Last administered on 01/08/19 12:45; Admin Dose 200 MG; Start 12/29/18 at 09:00 Hydralazine HCl (Apresoline) 25 mg Q6H PRN PO BLOOD PRESSURE SUPPORT; Start at 21:30 Loperamide HCl (Imodium Cap) 2 mg Q6 PRN PO DIARRHEA; Start 12/28/18 at 21:30 Nitroglycerin (Nitroglycerin (Sl Tab) 0.4 Mg) 1 tab PRN PRN SL CHEST PAIN; Start 12/28/18 at 21:30 Nystatin 1 applic BID TOP Last administered on 01/08/19 08:48; Admin Dose 1 APPLIC; Start 12/29/18 at 09:00 Oxycodone/ Acetaminophen (Endocet (10/ 325)) 1 tab Q4 PRN PO SEVERE PAIN LEVEL 7-10 Last administered on 01/08/19 14:53; Admin Dose 1 TAB; Start 12/28/18 at 21:30 Zolpidem Tartrate (Ambien) 5 mg HS PRN PO INSOMNIA; Start 12/28/18 at 21:30 Lorazepam (Ativan) 0.5 mg Q6H PRN PO ANXIETY Last administered on 12/31/18 22:26; Admin Dose 0.5 MG; Start 12/28/18 at 21:30 Ondansetron HCl (Zofran Inj) 4 mg Q6H PRN IV NAUSEA AND/OR VOMITING Last administered on 12/29/18 18:55; Admin Dose 4 MG; Start 12/29/18 at 09:00 Morphine Sulfate (morphine) 4 mg Q4H PRN IV SEVERE PAIN LEVEL 7-10 Last administered on 01/07/19 23:26; Admin Dose 4 MG; Start 12/29/18 at 10:30 Polyethylene Glycol (Miralax) 17 gm DAILY GTB Last administered on 01/08/19 08:47; Admin Dose 17 GM; Start 12/29/18 at 14:30 Al Hydrox/Mg Hydrox/Simethicone (Mag-Al Plus) 30 ml Q4H PRN PO GASTROINTESTINAL UPSET Last administered on 01/05/19 23:18; Admin Dose 30 ML; Start 12/30/18 at 12:00 Lubiprostone (Amitiza) 24 mcg BID PO Last administered on 01/08/19 08:45; Admin Dose 24 MCG; Start 01/02/19 at 21:00 Enoxaparin Sodium (Lovenox) 50 mg BID SC Last administered on 01/08/19 09:02; Admin Dose 50 MG; Start 01/04/19 at 21:00 Metoprolol Tartrate (Lopressor) 25 mg BID PO Last administered on 01/08/19 08:47; Admin Dose 25 MG; Start 01/07/19 at 21:00 LEAH BROUSSARD Jan 08, 2019 16:07
[2019-01-08 19:36] VITALS: BP 100/51; PULSE 64; RESP 18
[2019-01-08] MEDS: morphine 4 MG/ML VIAL IV PRN (19:38)
[2019-01-09 01:36] VITALS: BP 111/69; PULSE 65; RESP 18
[2019-01-09] MEDS: morphine 4 MG/ML VIAL IV PRN ×3 (01:36→12:08)
[2019-01-09 07:57] VITALS: BP 129/70; PULSE 66; RESP 18
[2019-01-09] MEDS: LUBIPROSTONE 24 MCG CAP PO SCH (09:30)
[2019-01-09] MEDS: FINASTERIDE 5 MG TAB PO SCH (09:30)
[2019-01-09] MEDS: METOPROLOL 25 MG TAB PO SCH (09:31)
[2019-01-09] MEDS: AMLODIPINE 5 MG TAB PO SCH (09:31)
[2019-01-09] MEDS: ASPIRIN (EC) 81 MG TAB PO SCH (09:31)
[2019-01-09] MEDS: GABAPENTIN 100 MG CAP PO SCH ×2 (09:31→12:08)
[2019-01-09] MEDS: POLYETHYLENE GLYCOL 17 GM PACKET GTB SCH (09:32)
[2019-01-09] MEDS: ENOXAPARIN 60 MG/0.6 ML SYG SC SCH (09:33)
[2019-01-09] MEDS: NYSTATIN 15 GM POWDER BTL TOP SCH (12:09)
--- NOTE | 2019-01-09 13:47 | CONS ---
Assessment/Plan Assessment/Plan Hospital Course (Demo Recall) IMP: 1.Pre-op for surgery upon femur fracture-Ok to proceed with surgery at overall moderate to high risk- Echo with Nl EF 08/25 EF 60. No sig valve lesions/neg trop x 3 2.AF-eliquis held for surgery 3.HTN 4.fecal impaction 5. h/o colon ca 6. BPH Recc: -serial ecg's -Continue norvasc and BB -holding eliquis still in anticipation of possible surgery and thus covering with lovenox but if no surgery to be done can be resumed on eliquis -GI following for fecal impaction/colon ca -Continue amitiza -Contineu abx's and f/u cx data -s/p eval by psych and started on seroquel but is refusing -patient still refusing all surgeries, -Pnding d/c to SNF Consultation Date/Type/Reason Admit Date/Time December 30, 2018 at 07:26 Initial Consult Date 12/29/18 Type of Consult Cardiology Reason for Consultation Preop Requesting Provider: OSIRIS CIFUENTES MD Date/Time of Note DATE: 01/09/19 TIME: 13:45 Exam/Review of Systems Vital Signs Vitals Vital Signs Date Temp Pulse Resp B/P (MAP) Pulse Ox O2 O2 Flow FiO2 Time Delivery Rate 01/09/19 98.0 66 18 129/70 96 Room Air 07:57 (89) Intake and Output 01/08/19 01/08/19 01/09/19 1515:00 23:00 07:00 IntakeIntake Total 300 ml 400 ml OutputOutput Total 600 ml BalanceBalance 300 ml -200 ml Exam Exam Review of Systems: CONSTITUTIONAL: No fevers, chills. PULMONARY: No sob CARDIOVASCULAR: No chest pain/palpitations GASTROINTESTINAL: No nausea/vomiting. GENITOURINARY: No hematuria/dysuria. MUSCULOSKELETAL: No myagias/arthalgias. PSYCHIATRIC: The patient denies depression. NEUROLOGIC: No weakness Constitutional: alert Psych: no complaints Head: normocephalic ENMT: mucosa pink and moist Neck: supple, jvd (9 cm water) Respiratory: clear to auscultation Cardiovascular: regular rate and rhythm Gastrointestinal: soft, non-tender Musculoskeletal: muscle weakness (mild generalized) Extremities: edema (none) Labs Result Diagram: 01/07/195 01/07/195 Medications Medications Current Medications Acetaminophen (Tylenol Tab) 650 mg Q6H PRN PO MILD PAIN(1-3)OR ELEVATED TEMP Last administered on 01/01/19 08:32; Admin Dose 650 MG; Start 12/28/18 at 21:30 Amlodipine Besylate (Norvasc) 5 mg DAILY PO Last administered on 01/09/19 09:31; Admin Dose 5 MG; Start 12/29/18 at 09:00 Aspirin (Halfprin) 81 mg DAILY PO Last administered on 01/09/19 09:31; Admin Dose 81 MG; Start 12/29/18 at 09:00 Finasteride (Proscar) 5 mg DAILY PO Last administered on 01/09/19 09:30; Admin Dose 5 MG; Start 12/29/18 at 09:00 Gabapentin (Neurontin) 200 mg TID PO Last administered on 01/09/19 12:08; Admin Dose 200 MG; Start 12/29/18 at 09:00 Hydralazine HCl (Apresoline) 25 mg Q6H PRN PO BLOOD PRESSURE SUPPORT; Start 12/28/18 at 21:30 Loperamide HCl (Imodium Cap) 2 mg Q6 PRN PO DIARRHEA; Start 12/28/18 at 21:30 Nitroglycerin (Nitroglycerin (Sl Tab) 0.4 Mg) 1 tab PRN PRN SL CHEST PAIN; Start 12/28/18 at 21:30 Nystatin 1 applic BID TOP Last administered on 01/09/19 12:09; Admin Dose 1 APPLIC; Start 12/29/18 at 09:00 Oxycodone/ Acetaminophen (Endocet (10/ 325)) 1 tab Q4 PRN PO SEVERE PAIN LEVEL 7-10 Last administered on 01/08/19 14:53; Admin Dose 1 TAB; Start 12/28/18 at 21:30 Zolpidem Tartrate (Ambien) 5 mg HS PRN PO INSOMNIA; Start 12/28/18 at 21:30 Lorazepam (Ativan) 0.5 mg Q6H PRN PO ANXIETY Last administered on 12/31/18 22:26; Admin Dose 0.5 MG; Start 12/28/18 at 21:30 Ondansetron HCl (Zofran Inj) 4 mg Q6H PRN IV NAUSEA AND/OR VOMITING Last administered on 12/29/18 18:55; Admin Dose 4 MG; Start 12/29/18 at 09:00 Morphine Sulfate (morphine) 4 mg Q4H PRN IV SEVERE PAIN LEVEL 7-10 Last administered on 01/09/19 12:08; Admin Dose 4 MG; Start 12/29/18 at 10:30 Polyethylene Glycol (Miralax) 17 gm DAILY GTB Last administered on 01/09/19 09:32; Admin Dose 17 GM; Start 12/29/18 at 14:30 Al Hydrox/Mg Hydrox/Simethicone (Mag-Al Plus) 30 ml Q4H PRN PO GASTROINTESTINAL UPSET Last administered on 01/05/19 23:18; Admin Dose 30 ML; Start 12/30/18 at 12:00 Lubiprostone (Amitiza) 24 mcg BID PO Last administered on 01/09/19 09:30; Admin Dose 24 MCG; Start 01/02/19 at 21:00 Enoxaparin Sodium (Lovenox) 50 mg BID SC Last administered on 01/09/19 09:33; Admin Dose 50 MG; Start 01/04/19 at 21:00 Metoprolol Tartrate (Lopressor) 25 mg BID PO Last administered on 01/09/19 09:31; Admin Dose 25 MG; Start 01/07/19 at 21:00 RICH MANSFIELD Jan 09, 2019 13:47
--- NOTE | 2019-01-09 19:49 | DS ---
Date/Time of Note Date/Time of Note DATE: 01/09/19 TIME: 19:45 Discharge Summary Admission/Discharge Info Admit Date/Time December 30, 2018 at 07:26 Discharge Date/Time Jan 09, 2019 at 14:30 Patient Condition: Stable Hx of Present Illness The patient is an 78-year-old gentleman well known to me from previous several admissions. The patient has colon cancer for which he has refused further treatment. The patient also has history of hypertension, paroxysmal atrial fibrillation, benign prostatic hypertrophy and paranoid psychosis. The patient is a resident of [facility]. The patient was complaining of diffuse abdominal pain and therefore, patient was sent to ER for further evaluation and management. The patient reported that he had been constipated for the last few days. The patient took Milk of Magnesia at [facility] a few days ago. After that he did have a bowel movement; however, he has been taking Milk of Magnesia every day. Due to history of colon cancer, the patient underwent CT of the abdomen and pelvis to make sure he does not have any obstruction. CT of the abdomen revealed large amount of stool throughout the colon with a large amount of stool in the rectosigmoid colon with associated wall thickening. Finding was suspicious for fecal impaction and stercoral colitis. The patient also was noted to have mild left hydronephrosis, a large hiatal hernia containing large portion of stomach. The patient also was noted to have a fracture deformity of the left proximal femur, new compared to 06/2018 CT abdominal pelvis exam. As per report, this may be acute or subacute. The patient's gallbladder was also somewhat distended. The patient denied any chest pain, shortness of breath. No history of palpitation. No history of dizziness, syncope. No history of vomiting. No history of nausea. No history of leg edema. The patient did have neuropathy pain for which he takes gabapentin. The patient did not have any headache, dizziness, or syncope. The patient has gener alized weakness and has been lately wheelchair bound. No reported focal motor weakness and as described above, the pain was diffuse, was going on for a few days with no aggravating or relieving factors. There was no recent rectal bleed. Hospital Course Patient declined declined both surgery for the colon cancer and also for his left hip fracture. DC planning to [facility] facility. - Fracture deformity of the left proximal femur, new compared to 06/[address] Juanjose Cohen is following from ortho standpoint. Cleared by Dr. Rodarte from cardiology standpoint for hemiarthroplasty. Patient refused surgery today. - Fecal impaction and stercoral colitis. Continue Miralax and Lactulose. Dr. Castano is following in gastroenterology consultation. - E. coli ESBL UTI, status post treatment with meropenem. Dr. Mcnamara is following in infection disease consultation. - Paroxysmal atrial fibrillation, patient is in sinus rhythm on admission. Will hold Eliquis for now. Continue aspirin. - Hypertension, continue Norvasc. - Benign prostatic hypertrophy. Continue Proscar. - Peripheral neuropathy. Continue Neurontin. - Paranoid psychosis. Patient was prescribed Seroquel during last admission, however refused to take it. The patient is not on any psych medication. DNP [place] saw patient for psychiatric evaluation, pt refused to be evaluated. - Colon cancer. The patient refused further workup. - Bilateral inguinal hernias without evidence of obstruction or strangulation - History of C. difficile colitis Plan of care discussed with Dr. Baron. Home Meds Reported Medications Apixaban* (Eliquis*) 2.5 Mg Tablet, 5 MG PO BID 12/28/18 Ascorbic Acid* (Vitamin C*) 500 Mg Capsule.sa, 500 MG PO DAILY, CAP 12/28/18 Nystatin (Nystatin Powder) 1 Each Powder.ea., 1 APPLIC TOPICAL DAILY, #1 BOTTLE 12/28/18 Magnesium Hydroxide* (Milk Of Magnesia*) 400 Mg/5 Ml Oral.susp, 30 ML PO DAILY, ML 12/28/18 Hydralazine Hcl* (Hydralazine Hcl*) 25 Mg Tab, 25 MG PO Q6H PRN for BLOOD PRESSURE SUPPORT, #60 TAB 12/28/18 Ferrous Sulfate* (Ferrous Sulfate*) 325 Mg Tabec, 325 MG PO BID, TAB 12/28/18 Methyl Salicylate/Menthol (Bengay Greaseless Cream) 57 Gm Cream..g., 57 GM TP TID APPLY TO LEFT HIP 12/28/18 Aspirin (Low Dose Aspirin) 81 Mg Tablet., 81 MG PO DAILY, #30 TAB 12/28/18 Oxycodone HCl/Acetaminophen (Percocet 10-325 mg Tablet) 1 Each Tablet, 1 EACH PO Q4 PRN for SEVERE PAIN LEVEL 7-10, TAB 07/03/18 Loperamide Hcl* (Loperamide Hcl*) 2 Mg Cap, 2 MG PO Q6 PRN for DIARRHEA, CAP 07/03/18 Amlodipine Besylate* (Norvasc*) 5 Mg Tablet, 5 MG PO DAILY, TAB HOLD FOR SBP<110 OR HR<60 07/03/18 Acetaminophen* (Acetaminophen*) 650 Mg Tablet, 650 MG PO Q6H PRN for PAIN AND OR ELEVATED TEMP, #30 TAB 07/03/18 Guaifenesin-Dextromethorphan* (Robitussin* DM) 100MG/10MG/5ML Syrup, 10 ML PO Q4H PRN for COUGH, ML 01/27/18 Nitroglycerin* (Nitroglycerin* SL) 0.4 Mg Tab.subl, 0.4 MG SL Q5MIN PRN for CHEST PAIN, BOTTLE 01/27/18 Multivitamin with Minerals (Multivitamins with Minerals) 1 Each Tablet, 1 EACH PO DAILY, TAB 01/27/18 Melatonin (Melatin) 3 Mg Tablet, 3 MG PO QHS, TAB 01/27/18 Gabapentin* (Gabapentin*) 100 Mg Capsule, 200 MG PO TID, #180 CAP 01/27/18 Mineral Oil* (Fleet* Mineral Oil Enema) Unknown Strength Oil, 118 ML [place] Q72H PRN for CONSTIPATION, ENEMA 01/27/18 Finasteride* (Finasteride*) 5 Mg Tablet, 5 MG PO DAILY, TAB 01/27/18 Follow-up Plan d/c to [facility] with current orders Primary Care Provider MD BOBO Akers SVETLANA Jan 09, 2019 19:48
== END 2019-01-09 14:30 | DRG 543 ==
LOC: E/R 16:48 → 2NE 17:05 → OBSVTOIN 12-30 07:26 → 5EC 01-07 15:40
PROVIDERS: ADMIT Internal Medicine; ATTEND Internal Medicine
PROC: 30233N1 Transfusion of Nonautologous Red Blood Cells into Peripheral Vein, Percutaneous Approach (ICD-10-PCS; principal; 2019-01-02)
DX: M84.452A Pathological fracture, left femur, initial encounter for fracture (principal); C18.3 Malignant neoplasm of hepatic flexure; N39.0 Urinary tract infection, site not specified; N13.30 Unspecified hydronephrosis; D68.69 Other thrombophilia; K56.41 Fecal impaction; K52.89 Other specified noninfective gastroenteritis and colitis; I48.0 Paroxysmal atrial fibrillation; Z79.01 Long term (current) use of anticoagulants; F22 Delusional disorders; D50.0 Iron deficiency anemia secondary to blood loss (chronic); K44.9 Diaphragmatic hernia without obstruction or gangrene; N40.0 Benign prostatic hyperplasia without lower urinary tract symptoms; Z99.3 Dependence on wheelchair; R19.5 Other fecal abnormalities; Z91.81 History of falling; Z79.02 Long term (current) use of antithrombotics/antiplatelets; B96.20 Unspecified Escherichia coli [E. coli] as the cause of diseases classified elsewhere
CPT/HCPCS: 36430; 71045; 74018; 74176; 80048; 80053; 81001; 82270; 83690; 83735; 84484; 85025; 86850; 86900; 86901; 86920; 87086; 93005; A4310; G0378; J1170; J1650; J2185; J2270; J2405; J2543; J2916; J3480; P9016

== ENCOUNTER 2019-02-08 16:56 | Inpatient (IN) | payer MEDICARE, OTHER ==
[~2019-02-08] VITALS: Ht 177.8 cm; Wt 70.3 kg
[~2019-02-08 16:56] MED LIST changes: +APIX2.5T PO; -APIX5TAB PO; +ASCO500C7 PO; +ASPI81TA52 PO; -DOCU-144 PO; +FER325 PO; +HYDR-3671 PO; +MAGN400O19 PO; +METH57CR7 TP; +NYST1POW22 TOPICAL; -QUET25TA33 PO
--- NOTE | 2019-02-08 17:04 | ERD ---
ER Documentation Chief Complaint Chief Complaint ROS All systems reviewed and are negative except as per history of present illness. Medications Home Meds Reported Medications Apixaban* (Eliquis*) 2.5 Mg Tablet, 5 MG PO BID 12/28/18 Ascorbic Acid* (Vitamin C*) 500 Mg Capsule.sa, 500 MG PO DAILY, CAP 12/28/18 Nystatin (Nystatin Powder) 1 Each Powder.ea., 1 APPLIC TOPICAL DAILY, #1 BOTTLE 12/28/18 Magnesium Hydroxide* (Milk Of Magnesia*) 400 Mg/5 Ml Oral.susp, 30 ML PO DAILY, ML 12/28/18 Hydralazine Hcl* (Hydralazine Hcl*) 25 Mg Tab, 25 MG PO Q6H PRN for BLOOD PRESSURE SUPPORT, #60 TAB 12/28/18 Ferrous Sulfate* (Ferrous Sulfate*) 325 Mg Tabec, 325 MG PO BID, TAB 12/28/18 Methyl Salicylate/Menthol (Bengay Greaseless Cream) 57 Gm Cream..g., 57 GM TP TID APPLY TO LEFT HIP 12/28/18 Aspirin (Low Dose Aspirin) 81 Mg Tablet.dr, 81 MG PO DAILY, #30 TAB 12/28/18 Oxycodone HCl/Acetaminophen (Percocet 10-325 mg Tablet) 1 Each Tablet, 1 EACH PO Q4 PRN for SEVERE PAIN LEVEL 7-10, TAB 07/03/18 Loperamide Hcl* (Loperamide Hcl*) 2 Mg Cap, 2 MG PO Q6 PRN for DIARRHEA, CAP 07/03/18 Amlodipine Besylate* (Norvasc*) 5 Mg Tablet, 5 MG PO DAILY, TAB HOLD FOR SBP<110 OR HR<60 07/03/18 Acetaminophen* (Acetaminophen*) 650 Mg Tablet, 650 MG PO Q6H PRN for PAIN AND OR ELEVATED TEMP, #30 TAB 07/03/18 Guaifenesin-Dextromethorphan* (Robitussin* DM) 100MG/10MG/5ML Syrup, 10 ML PO Q4H PRN for COUGH, ML 01/27/18 Nitroglycerin* (Nitroglycerin* SL) 0.4 Mg Tab.subl, 0.4 MG SL Q5MIN PRN for CHEST PAIN, BOTTLE 01/27/18 Multivitamin with Minerals (Multivitamins with Minerals) 1 Each Tablet, 1 EACH PO DAILY, TAB 01/27/18 Melatonin (Melatin) 3 Mg Tablet, 3 MG PO QHS, TAB 01/27/18 Gabapentin* (Gabapentin*) 100 Mg Capsule, 200 MG PO TID, #180 CAP 01/27/18 Mineral Oil* (Fleet* Mineral Oil Enema) Unknown Strength Oil, 118 ML [place] Q72H PRN for CONSTIPATION, ENEMA 01/27/18 Finasteride* (Finasteride*) 5 Mg Tablet, 5 MG PO DAILY, TAB 01/27/18 Allergies Allergies: Coded Allergies: codeine (Verified Allergy, Unknown, 12/28/18) PMhx/Soc Prior left proximal femur fracture, UTIs, paroxysmal atrial fibrillation, BPH, hypertension, peripheral neuropathy, psychosis, colon cancer, bilateral inguinal hernias History of Surgery: No Anesthesia Reaction: No Hx Neurological Disorder: Yes (Migarine headache) Hx Respiratory Disorders: No Hx Cardiac Disorders: Yes (HTN , CHF, A. Fib) Hx Psychiatric Problems: Yes (Paranoid Psychosis) Hx Miscellaneous Medical Probl: Yes (High Cholesterol , Left LE DVT ) Hx Alcohol Use: No Hx Substance Use: No Hx Tobacco Use: No Physical Exam Physical Exam Const: No acute distress Head: Atraumatic Eyes: Normal Conjunctiva ENT: Normal External Ears, Nose and Mouth. Neck: Full range of motion. No meningismus. Resp: Clear to auscultation bilaterally Cardio: Regular rate and rhythm, no murmurs Abd: Soft, non tender, non distended. Normal bowel sounds Skin: No petechiae or rashes Back: No midline or flank tenderness Ext: No cyanosis, or edema Neur: Awake and alert Psych: Normal Mood and Affect JESSE URIBE MD Feb 08, 2019 17:04
[2019-02-08] MEDS ORDERED: ONDANSETRON 4 MG INJ IV STA (17:05)
[2019-02-08] MEDS ORDERED: SOD CHLORIDE 0.9% 1,000 ML IV STA (17:05)
[2019-02-08] MEDS ORDERED: FAMOTIDINE 20 MG INJ IV STA (17:05)
[2019-02-08] MEDS ORDERED: morphine 4 MG/ML VIAL IV STA (17:05)
--- NOTE | 2019-02-08 19:02 | ERD ---
ER Documentation Chief Complaint Chief Complaint NAUSEA/VOMITING HPI 78-year-old male with a history of untreated colon cancer presenting with severe abdominal pain as well as nonbloody nonbilious vomiting at long term today. Patient is not answering questions appropriately, possibly limited due to pain and discomfort. He is complaining of diffuse abdominal pain, severe, constant. Per his records, he does have a history of multiple visits for abdominal pain. Last time he was admitted in December 2018 for severe constipation, fecal impaction, and stercoral colitis. On that admission, his constipation was treated and he was consulted by GI. Patient reportedly refused any treatment for his cancer. No recent fevers or chills. No other complaints. ROS Limited secondary to severe pain Medications Home Meds Reported Medications Apixaban* (Eliquis*) 2.5 Mg Tablet, 5 MG PO BID 12/28/18 Ascorbic Acid* (Vitamin C*) 500 Mg Capsule.sa, 500 MG PO DAILY, CAP 12/28/18 Nystatin (Nystatin Powder) 1 Each Powder.ea., 1 APPLIC TOPICAL DAILY, #1 BOTTLE 12/28/18 Magnesium Hydroxide* (Milk Of Magnesia*) 400 Mg/5 Ml Oral.susp, 30 ML PO DAILY, ML 12/28/18 Hydralazine Hcl* (Hydralazine Hcl*) 25 Mg Tab, 25 MG PO Q6H PRN for BLOOD PRESSURE SUPPORT, #60 TAB 12/28/18 Ferrous Sulfate* (Ferrous Sulfate*) 325 Mg Tabec, 325 MG PO BID, TAB 12/28/18 Methyl Salicylate/Menthol (Bengay Greaseless Cream) 57 Gm Cream..g., 57 GM TP TID APPLY TO LEFT HIP 12/28/18 Aspirin (Low Dose Aspirin) 81 Mg Tablet.dr, 81 MG PO DAILY, #30 TAB 12/28/18 Oxycodone HCl/Acetaminophen (Percocet 10-325 mg Tablet) 1 Each Tablet, 1 EACH PO Q4 PRN for SEVERE PAIN LEVEL 7-10, TAB 07/03/18 Loperamide Hcl* (Loperamide Hcl*) 2 Mg Cap, 2 MG PO Q6 PRN for DIARRHEA, CAP 07/03/18 Amlodipine Besylate* (Norvasc*) 5 Mg Tablet, 5 MG PO DAILY, TAB HOLD FOR SBP<110 OR HR<60 07/03/18 Acetaminophen* (Acetaminophen*) 650 Mg Tablet, 650 MG PO Q6H PRN for PAIN AND OR ELEVATED TEMP, #30 TAB 07/03/18 Guaifenesin-Dextromethorphan* (Robitussin* DM) 100MG/10MG/5ML Syrup, 10 ML PO Q4H PRN for COUGH, ML 01/27/18 Nitroglycerin* (Nitroglycerin* SL) 0.4 Mg Tab.subl, 0.4 MG SL Q5MIN PRN for CHEST PAIN, BOTTLE 01/27/18 Multivitamin with Minerals (Multivitamins with Minerals) 1 Each Tablet, 1 EACH PO DAILY, TAB 01/27/18 Melatonin (Melatin) 3 Mg Tablet, 3 MG PO QHS, TAB 01/27/18 Gabapentin* (Gabapentin*) 100 Mg Capsule, 200 MG PO TID, #180 CAP 01/27/18 Mineral Oil* (Fleet* Mineral Oil Enema) Unknown Strength Oil, 118 ML OR Q72H PRN for CONSTIPATION, ENEMA 01/27/18 Finasteride* (Finasteride*) 5 Mg Tablet, 5 MG PO DAILY, TAB 01/27/18 Allergies Allergies: Coded Allergies: codeine (Verified Allergy, Unknown, 12/28/18) PMhx/Soc History of Surgery: No Anesthesia Reaction: No Hx Neurological Disorder: Yes (Migarine headache) Hx Respiratory Disorders: No Hx Cardiac Disorders: Yes (HTN , CHF, A. Fib) Hx Psychiatric Problems: Yes (Paranoid Psychosis) Hx Miscellaneous Medical Probl: Yes (High Cholesterol , Left LE DVT ) Hx Alcohol Use: No Hx Substance Use: No Hx Tobacco Use: No Smoking Status: Never smoker FmHx Unable to obtain Physical Exam Vitals Vital Signs Date Temp Pulse Resp B/P (MAP) Pulse Ox O2 O2 Flow FiO2 Time Delivery Rate 02/08/19 97.4 19:15 02/08/19 97.6 19:09 02/08/19 52 20 170/65 96 17:28 (100) 02/08/19 97 20 170/65 96 Room Air 17:28 (100) Physical Exam Const: In significant distress, moaning secondary to pain. Actively vomiting yellow fluid. Head: Atraumatic Eyes: Normal Conjunctiva ENT: Normal External Ears, Nose and Mouth. Neck: Full range of motion. No meningismus. Resp: Clear to auscultation bilaterally Cardio: Regular rate and rhythm, no murmurs Abd: Distended, soft, diffusely tender to palpation, worse in the upper abdomen. No palpable masses. Hypoactive bowel sounds. Skin: No petechiae or rashes Back: No midline or flank tenderness Ext: No cyanosis, or edema Neur: Awake and alert, no facial asymmetry, moving all extremities Psych: Normal Mood and Affect Result Diagram: 02/08/19 4326 Results 24 hrs Laboratory Tests Test 02/08/19 17:40 White Blood Count 13.4 10^3/ul Red Blood Count 4.86 10^6/ul Hemoglobin 13.5 g/dl Hematocrit 42.2 % Mean Corpuscular Volume 86.8 fl Mean Corpuscular Hemoglobin 27.8 pg Mean Corpuscular Hemoglobin Concent 32.0 g/dl Red Cell Distribution Width 20.2 % Platelet Count 336 10^3/UL Mean Platelet Volume 8.7 fl Immature Granulocytes % 0.600 % Neutrophils % 82.2 % Lymphocytes % 10.8 % Monocytes % 5.1 % Eosinophils % 1.0 % Basophils % 0.3 % Nucleated Red Blood Cells % 0.0 /100WBC Immature Granulocytes # 0.080 10^3/ul Neutrophils # 11.0 10^3/ul Lymphocytes # 1.4 10^3/ul Monocytes # 0.7 10^3/ul Eosinophils # 0.1 10^3/ul Basophils # 0.0 10^3/ul Nucleated Red Blood Cells # 0.0 10^3/ul Current Medications Medications Dose Sig/Terrence Start Time Status Last (Trade) Ordered Route PRN Stop Time Admin Dose Reason Admin Sodium 1,000 ml @ Q1H STAT 02/08/19 DC 02/08/19 Chloride 1,000 mls/hr IV 17:05 02/08/19 17:12 18:04 Morphine 4 mg ONCE STAT 02/08/19 DC 02/08/19 Sulfate IV 17:05 02/08/19 17:13 (morphine) 17:07 Ondansetron 4 mg ONCE STAT 02/08/19 DC 02/08/19 HCl (Zofran IV 17:05 02/08/19 17:13 Inj) 17:07 Famotidine 20 mg ONCE STAT 02/08/19 DC 02/08/19 (Pepcid Iv) IV 17:05 02/08/19 17:13 17:07 Ondansetron 4 mg BRIDGE ORDER 02/08/19 HCl (Zofran PRN IV 19:30 02/09/19 Inj) NAUSEA/VOMITI 19:29 NG 650 mg ER BRIDGE 02/08/19 Acetaminophen PRN PO 19:30 02/09/19 (Tylenol .MILD PAIN 19:29 Tab) 1-3 OR TEMP Lactulose 100 ml Q8 OR 02/08/19 (Lactulose 22:00 Enema) Procedures/MDM EMERGENT LABS AND DIAGNOSTIC STUDIES: Lab Results above were reviewed and interpreted by me. CBC: Leukocytosis, likely stress response. Doubt infection. No anemia CMP: No evidence of clinically significant electrolyte abnormality, acidosis, renal failure, hypoglycemia, liver disease, or biliary obstruction Lipase: no evidence of pancreatitis Troponin within normal limits, not indicative of cardiac ischemia 12-lead EKG was interpreted by Nam Sifuentes MD: Sinus rhythm with sinus arrhythmia with first-degree AV block Normal axis Normal intervals No acute ST or T wave changes suggestive of acute ischemia or STEMI. Radiology Results as interpreted by Radiology below were reviewed by Juanpablo Sifuentes MD: CXR: mod to large hiatal hernia, no acute abnormalities CT Abdomen and Pelvis: IMPRESSION: 1. Large amount of stool distends the rectum and sigmoid colon, with mild bowel wall thickening. Amount of stool is decreased compared to prior exam. Correlate for persistent fecal impaction and stercoral colitis. 2. Large right inguinal hernia contains a long segment of small bowel, similar to prior exam. No evidence of bowel obstruction at this time. 3. Large hiatal hernia containing the majority of the stomach. 4. Ectasia of the partially visualized ascending thoracic aorta measuring at least 4.4 cm in diameter. Initial Nursing notes reviewed. Previous Medical Records requested via the Electronic Health Record. EMERGENCY DEPARTMENT COURSE / MEDICAL DECISION MAKING: Patient is presenting with severe abdominal pain with nonbloody and nonbilious vomiting. Vitals were unremarkable upon arrival. Differential includes but is not limited to small bowel obstruction, perforated viscous, constipation, volvulus, colitis, gastroenteritis. Bloodwork ordered to evaluate for above. Labs did not show any significant abnormalities. CT did show evidence of severe constipation. I have a low suspicion for aortic dissection or acute coronary syndrome. I suspect the patient is most likely suffering from obstipation, likely secondary to chronic opioid use as well as known colon cancer that has not been treated due to patient's refusal. I spoke with Dr. Baron, who is the admitting doctor last time for the patient. He agreed to admit the patient for further management. Patient's pain and vomiting improved with medications in the ER. I gave him IV fluids for hydration. I ordered rectal lactulose to help with the constipation. Further management will be deferred to the inpatient team. Departure Diagnosis: Primary Impression: Obstipation Additional Impressions: Abdominal pain Abdominal location: generalized Qualified Codes: R10.84 - Generalized abdominal pain Nausea and vomiting Vomiting type: unspecified Vomiting Intractability: non-intractable Qualified Codes: R11.2 - Nausea with vomiting, unspecified Condition: Fair MARIA G SIFUENTES MD Feb 08, 2019 19:02
[2019-02-08] MEDS ORDERED: ACETAMINOPHEN 325 MG TAB PO PRN (19:30)
[2019-02-08] MEDS ORDERED: ONDANSETRON 4 MG INJ IV PRN (19:30)
[2019-02-08] MEDS ORDERED: LACTULOSE ENEMA 1,000 ML BTL PR SCH (22:00)
[2019-02-09 01:10] VITALS: Ht 177.8 cm; Wt 70.3 kg
[2019-02-09 01:30] VITALS: BP 146/70; PULSE 88; RESP 18
[2019-02-09] MEDS ORDERED: GUAI5SYR2 PO (02:14)
[2019-02-09] MEDS ORDERED: LUBI24CA7 PO (02:14)
[2019-02-09] MEDS ORDERED: PROT946L PO (02:14)
[2019-02-09] MEDS ORDERED: ZOLP5TAB7 PO (02:14)
[2019-02-09] MEDS ORDERED: POLY17PO6 PO (02:14)
[2019-02-09] MEDS ORDERED: MELA3TAB29 PO (02:14)
[2019-02-09] MEDS ORDERED: METO25TA4 PO (02:14)
[2019-02-09] MEDS ORDERED: ALPH200T2 PO (02:14)
[2019-02-09] MEDS: DEXTROSE 5%-0.45% NACL 1,000 ML IV SCH ×2 (03:00→15:46)
[2019-02-09] MEDS: LACTULOSE 30ML CUP PO SCH ×5 (04:39→20:14)
[2019-02-09 07:32] VITALS: BP 141/67; PULSE 70; RESP 18
--- NOTE | 2019-02-09 11:06 | CONS ---
DATE OF ADMISSION: 02/08/2019 DATE OF CONSULTATION: 02/09/2019 TYPE OF CONSULTATION: GASTROINTESTINAL. Thank you for the referral. HISTORY OF PRESENT ILLNESS: The patient is an 78-year-old male with a history of colon cancer, comes to the hospital for abdominal pain with vomiting. He also complains of right-sided chest pain and s houlder pain. Patient has not had a good bowel movement. No GI bleeding. He has declined treatment for his cancer. 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 The patient was hospitalized last month with a fecal impaction. REVIEW OF SYSTEM: Negative. HOME MEDICATIONS: Reviewed. He was on: 1. Eliquis. 2. Hydralazine. 3. Iron tablet. 4. Aspirin. 5. Finasteride. ALLERGIES: ALLERGIC TO CODEINE. PAST MEDICAL HISTORY: Cancer of the colon, migraine headache, atrial fibrillation, hypertension, his tory of CHF, psychosis, left lower extremity deep venous thrombosis. PHYSICAL EXAMINATION: GENERAL: Alert, awake, in distress secondary to pain. CARDIOVASCULAR: No murmur, gallop or click. LUNGS: Clear. ABDOMEN: Soft, diffusely tender. No peritonitis. Bowel sounds good. No mass upper abdomen. EXTREMITIES: No edema. CENTRAL NERVOUS SYSTEM: Grossly within normal limits. CMP was normal. LABORATORY DATA: WBC is 14.1, hematocrit is 42. CAT scan of the abdomen and pelvis done which shows again fecal impaction and also a large right inguinal hernia, reducible. IMPRESSION: 1. Fecal impaction. 2. Cancer of the colon. 3. Atrial fibrillation. 4. Right inguinal hernia, reducible. 5. Psychosis. PLAN: To give Mag citrate, one dose now. Patient is already on lactulose and will repeat KUB in a.m . Dictated By: SHANNON JAMES/NTS Conf#: [id number] DID#: [id number] CC: OSIRIS CIFUENTES MD;*EndCC*
--- NOTE | 2019-02-09 11:21 | PSY ---
Date/Time of Note Date/Time of Note DATE: 02/09/19 TIME: 10:57 Psychiatric Subjective Eval Consent Pt consented to telemedicine: No Subjective Evaluation Patient location: inpatient Chief Complaint: NAUSEA/VOMITING History of present illness Patient is a 78-year-old male with history of congestive heart failure, atrial fibrillation, hypertension, and BPH, currently admitted on the medical unit. 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, he has poor impulse control, poor coping skills Medical history Problems Medical Problems: (1) Abdominal pain Status: Acute (2) Abdominal pain Status: Acute (3) Abdominal pain Status: Acute (4) Acute kidney injury Status: Acute (5) Anemia Status: Chronic (6) Atrial fibrillation with RVR Status: Acute (7) Bilateral pneumonia Status: Acute (8) Cellulitis Status: Acute (9) Chest pain Status: Acute (10) Chest pain Status: Acute (11) Chest pain Status: Acute (12) Chest pain Status: Acute (13) Chest wall muscle strain Status: Acute (14) Colitis Status: Acute (15) Colitis Status: Acute (16) Constipation Status: Acute (17) Constipation Status: Acute (18) DVT (deep vein thrombosis) in Status: Acute (19) DVT (deep venous thrombosis) Status: Acute (20) Inguinal hernia Status: Acute (21) Nausea and vomiting Status: Acute (22) Normocytic anemia Status: Acute (23) Obstipation Status: Acute (24) Severe sepsis Status: Acute (25) Shoulder pain, right Status: Acute (26) Shoulder pain, right Status: Acute (27) SVT (supraventricular tachycardia) Status: Acute Allergies: Coded Allergies: codeine (Unverified Allergy, Unknown, 02/09/19) Substance Abuse Prior substance abuse treatmen: No Social History Marital status: other DPA/Conservatorship: No Psychiatric Objective Eval Review of Systems: Review of Systems: Not Applicable Physical Examination: Sleep: Other (Denies) Appetite: Adequate Energy: Adequate Interest: Adequate Mental Status Examination: Appearance: Poor Hygiene Eye Contact: Fair Behavior: Hostile Speech: Clear Mood: Anxious Though Process: Tangential Orientation: x2 Insight: Severe Judgement: Severe Laboratory Results Laboratory Tests Test 02/08/19 17:40 02/08/19 19:21 02/09/19 04:54 White Blood Count 13.4 10^3/ul 14.1 10^3/ul Red Blood Count 4.86 10^6/ul 4.81 10^6/ul Hemoglobin 13.5 g/dl 13.3 g/dl Hematocrit 42.2 % 42.4 % Mean Corpuscular Volume 86.8 fl 88.1 fl Mean Corpuscular Hemoglobin 27.8 pg 27.7 pg Mean Corpuscular 32.0 g/dl 31.4 g/dl Hemoglobin Concent Red Cell Distribution Width 20.2 % 20.4 % Platelet Count 336 10^3/UL 310 10^3/UL Mean Platelet Volume 8.7 fl 8.5 fl Immature Granulocytes % 0.600 % 0.600 % Neutrophils % 82.2 % 85.9 % Lymphocytes % 10.8 % 5.7 % Monocytes % 5.1 % 7.7 % Eosinophils % 1.0 % 0.0 % Basophils % 0.3 % 0.1 % Nucleated Red Blood Cells % 0.0 /100WBC 0.0 /100WBC Immature Granulocytes # 0.080 10^3/ul 0.080 10^3/ul Neutrophils # 11.0 10^3/ul 12.1 10^3/ul Lymphocytes # 1.4 10^3/ul 0.8 10^3/ul Monocytes # 0.7 10^3/ul 1.1 10^3/ul Eosinophils # 0.1 10^3/ul 0.0 10^3/ul Basophils # 0.0 10^3/ul 0.0 10^3/ul Nucleated Red Blood Cells # 0.0 10^3/ul 0.0 10^3/ul Sodium Level 142 mmol/L 142 mmol/L Potassium Level 4.3 mmol/L 5.1 mmol/L Chloride Level 108 mmol/L 105 mmol/L Carbon Dioxide Level 23 mmol/L 27 mmol/L Anion Gap 11 10 Blood Urea Nitrogen 16 mg/dl 18 mg/dl Creatinine 0.82 mg/dl 0.74 mg/dl Est Glomerular Filtrat mL/min mL/min Rate mL/min Glucose Level 139 mg/dl 148 mg/dl Calcium Level 8.9 mg/dl 9.0 mg/dl Total Bilirubin 0.4 mg/dl Direct Bilirubin 0.00 mg/dl Indirect Bilirubin 0.4 mg/dl Aspartate Amino 19 IU/L Transf (AST/SGOT) Alanine 15 IU/L Aminotransferase (ALT/SGPT) Alkaline Phosphatase 97 IU/L Troponin I < 0.012 ng/ml Total Protein 7.2 g/dl Albumin 4.0 g/dl Globulin 3.20 g/dl Albumin/Globulin Ratio 1.25 Lipase 68 U/L Assessment and Plan Assessment/Diagnosis Diagnosis Psychosis NOS Recommendation/Plan Medication Management Declined Multiple antipsychotics: No Discharge Disposition: Other Legal Status: Voluntary (None meets criteria for 5150 hold) MARGRET PEREZ NP Feb 09, 2019 11:20
[2019-02-09 11:33] VITALS: BP 115/80; PULSE 135; RESP 18
[2019-02-09] MEDS ORDERED: MAGNESIUM CITRATE 300 ML BTL PO ONE (12:00)
[2019-02-09 14:00] VITALS: BP 115/87; PULSE 137; RESP 20
[2019-02-09] MEDS: AMLODIPINE 5 MG TAB PO SCH (15:00)
[2019-02-09] MEDS ORDERED: LOPERAMIDE 2 MG CAP PO PRN (15:00)
[2019-02-09] MEDS ORDERED: NITROGLYCERIN (SL) 0.4 MG TAB SL PRN (15:00)
[2019-02-09] MEDS ORDERED: ACETAMINOPHEN 325 MG TAB PO PRN (15:00)
[2019-02-09] MEDS ORDERED: ZOLPIDEM 5 MG TAB PO PRN (15:00)
[2019-02-09] MEDS: FINASTERIDE 5 MG TAB PO SCH (15:00)
[2019-02-09] MEDS: LUBIPROSTONE 24 MCG CAP PO SCH ×2 (15:00→20:13)
[2019-02-09] MEDS: APIXABAN 5 MG TABLET PO SCH ×2 (15:00→20:13)
[2019-02-09] MEDS ORDERED: GUAIFENESIN/DM 5ML CUP PO PRN ×2 (15:00)
[2019-02-09] MEDS: ASPIRIN (EC) 81 MG TAB PO SCH (15:00)
[2019-02-09] MEDS: ONDANSETRON 4 MG INJ IV PRN ×2 (15:14→20:21)
[2019-02-09] MEDS: METOPROLOL 25 MG TAB PO SCH ×2 (15:18→20:11)
[2019-02-09] MEDS ORDERED: METOPROLOL 5 MG INJ IV PRN (15:30)
[2019-02-09 16:42] VITALS: BP 101/70; PULSE 144; RESP 20
[2019-02-09] MEDS ORDERED: PENDING SANTYL ORDER FOR WOUND CARE XX PRN (17:00)
[2019-02-09] MEDS ORDERED: AL HYDROX/MG HYDROX/SIMETH 30 ML CUP PO ONE (18:00)
[2019-02-09] MEDS: morphine 2 MG INJ IV PRN ×2 (18:07→22:53)
[2019-02-09 19:44] VITALS: BP 130/64; PULSE 87; RESP 20
[2019-02-09] MEDS: GABAPENTIN 100 MG CAP PO SCH ×2 (20:11→20:19)
[2019-02-09] MEDS: MELATONIN 3 MG TABLET PO SCH (20:12)
[2019-02-09] MEDS: OXYCODONE/ACETAMINOPHEN (10/325) TAB PO PRN (20:13)
[2019-02-09] MEDS: FERROUS SULFATE (EC) 325 MG TAB PO SCH ×2 (20:13→20:19)
[2019-02-09] MEDS ORDERED: MELATONIN 3 MG TABLET PO SCH (21:00)
[2019-02-10] VITALS (8 sets, daily range): BP systolic 98–126; BP diastolic 55–64; PULSE 52–73; RESP 20
[2019-02-10] MEDS: LACTULOSE 30ML CUP PO SCH ×3 (00:23→07:32)
[2019-02-10] MEDS: DEXTROSE 5%-0.45% NACL 1,000 ML IV SCH ×3 (05:10→21:30)
[2019-02-10] MEDS: PANTOPRAZOLE (EC) 40 MG TAB PO SCH (05:38)
[2019-02-10] MEDS: METOPROLOL 25 MG TAB PO SCH ×2 (07:46→21:00)
[2019-02-10] MEDS: POLYETHYLENE GLYCOL 17 GM PACKET PO SCH (07:47)
[2019-02-10] MEDS: MAGNESIUM HYDROXIDE 30ML CUP PO SCH (07:47)
[2019-02-10] MEDS: LUBIPROSTONE 24 MCG CAP PO SCH ×2 (08:23→21:22)
[2019-02-10] MEDS: GABAPENTIN 100 MG CAP PO SCH ×4 (08:23→21:00)
[2019-02-10] MEDS: FINASTERIDE 5 MG TAB PO SCH (08:23)
[2019-02-10] MEDS: APIXABAN 5 MG TABLET PO SCH ×2 (08:24→21:22)
[2019-02-10] MEDS: ASPIRIN (EC) 81 MG TAB PO SCH (08:24)
[2019-02-10] MEDS: FERROUS SULFATE (EC) 325 MG TAB PO SCH ×3 (08:24→21:00)
[2019-02-10] MEDS: MULTIVITAMINS/MINERALS TAB PO SCH ×2 (08:24→08:31)
[2019-02-10] MEDS: NYSTATIN 15 GM POWDER BTL TOP SCH (08:24)
[2019-02-10] MEDS: ASCORBIC ACID 500 MG TAB PO SCH ×2 (08:24→08:31)
[2019-02-10] MEDS: AMLODIPINE 5 MG TAB PO SCH (09:00)
[2019-02-10] MEDS: morphine 2 MG INJ IV PRN ×2 (11:06→21:22)
--- NOTE | 2019-02-10 11:07 | HP ---
Date/Time of Note Date/Time of Note DATE: 02/09/19 TIME: 10:30 Assessment/Plan VTE Prophylaxis SCD contraindicated: other Pharmacological prophylaxis: other Pharm contraindication: other Lines/Catheters IV Catheter Type (from Nrsg): Peripheral IV Assessment/Plan Assessment/Plan - Fecal impaction and stercoral colitis. Continue Miralax and Lactulose. - Dr. Castano is consulted in gastroenterology consultation. - Abdominal pain 2/2 to above - pain- general - Acute Nausea and vomiting- none at present - Hypertension, continue Norvasc - Paroxysmal atrial fibrillation- sinus rhythm on admission. - hold Eliquis for now. Continue aspirin - 12/28/2018- Fracture deformity of the left proximal femur, new compared to 06/2018 CT - ortho consult appreciated - Benign prostatic hypertrophy. Continue Proscar - Colon cancer. - The patient refused further workup - continue to monitor -- Bilateral inguinal hernias without evidence of obstruction or strangulation - Paranoid psychosis. - Psych consult-notified - Patient was prescribed Seroquel during last admission, but he is refusing meds - Peripheral neuropathy. Continue Neurontin - History of C. difficile colitis- no reported diarrhea Dw Dr Baron Further recommendations will depend on hospital course. Plan of care discussed with Dr. Baron. Result Diagram: 02/09/19 0454 02/09/19 0454 Results 24hrs Laboratory Tests Test 02/08/19 17:40 02/08/19 19:21 02/09/19 04:54 White Blood Count 13.4 #H 14.1 H Red Blood Count 4.86 # 4.81 Hemoglobin 13.5 #L 13.3 L Hematocrit 42.2 # 42.4 Mean Corpuscular Volume 86.8 88.1 Mean Corpuscular Hemoglobin 27.8 L 27.7 L Mean Corpuscular Hemoglobin Concent 32.0 31.4 L Red Cell Distribution Width 20.2 H 20.4 H Platelet Count 336 310 Mean Platelet Volume 8.7 8.5 Immature Granulocytes % 0.600 H 0.600 H Neutrophils % 82.2 H 85.9 H Lymphocytes % 10.8 L 5.7 L Monocytes % 5.1 7.7 Eosinophils % 1.0 0.0 Basophils % 0.3 0.1 Nucleated Red Blood Cells % 0.0 0.0 Immature Granulocytes # 0.080 H 0.080 H Neutrophils # 11.0 H 12.1 H Lymphocytes # 1.4 0.8 Monocytes # 0.7 1.1 H Eosinophils # 0.1 0.0 Basophils # 0.0 0.0 Nucleated Red Blood Cells # 0.0 0.0 Sodium Level 142 142 Potassium Level 4.3 5.1 Chloride Level 108 105 Carbon Dioxide Level 23 27 Anion Gap 11 10 Blood Urea Nitrogen 16 18 Creatinine 0.82 0.74 Est Glomerular Filtrat Rate mL/min Glucose Level 139 148 Calcium Level 8.9 9.0 Total Bilirubin 0.4 Direct Bilirubin 0.00 Indirect Bilirubin 0.4 Aspartate Amino Transf (AST/SGOT) 19 Alanine Aminotransferase (ALT/SGPT) 15 Alkaline Phosphatase 97 Troponin I < 0.012 Total Protein 7.2 Albumin 4.0 Globulin 3.20 Albumin/Globulin Ratio 1.25 Lipase 68 HPI/ROS Admit Date/Time Admit Date/Time Feb 08, 2019 at 19:24 ROS HPI This is an 78-year-old male, a SNF resident is well known to me from previous admissions, with a history of DVT, untreated colon cancer, hypertension, CHF, paroxysmal atrial fibrillation, benign prostatic hypertrophy and paranoid psychosis. The patient is admitted with c/o of diffuse abdominal pain and nonbloody nonbilious vomiting at long term today. He is complaining of diffuse constant abdominal pain, severe, constant, denies nausea/vomitting. Per his old records, he has been to multiple visits for abdominal pain. His last admission was in December 2018 for severe constipation, fecal impaction, and stercoral colitis. denies any chest pain.No reported shortness of breath; headache; fever; dizziness, nausea/vomitting focal weakness/numbness ; any bi lateral calf pain. No recent fevers or chills. No other complaints. 1500- Patient has tachycardia; alert; denies any chest pain.No reported shortness of breath; headache; fever; dizziness, nausea/vomitting focal weakness/numbness ; any bilateral calf pain. Patient refused medicine but was convinced to take Metoprolol. Will transfer to [facility]; IV Metoprolol ordered, cardiology notified. Will continue to monitor.Plan of care dw staff. Dw Dr Baron. ROS Limited secondary to severe pain Medications Home Meds Reported Medications Apixaban* (Eliquis*) 2.5 Mg Tablet, 5 MG PO BID 12/28/18 Ascorbic Acid* (Vitamin C*) 500 Mg Capsule.sa, 500 MG PO DAILY, CAP 12/28/18 Nystatin (Nystatin Powder) 1 Each Powder.ea., 1 APPLIC TOPICAL DAILY, #1 BOTTLE 12/28/18 Magnesium Hydroxide* (Milk Of Magnesia*) 400 Mg/5 Ml Oral.susp, 30 ML PO DAILY, ML 12/28/18 Hydralazine Hcl* (Hydralazine Hcl*) 25 Mg Tab, 25 MG PO Q6H PRN for BLOOD PRESSURE SUPPORT, #60 TAB 12/28/18 Ferrous Sulfate* (Ferrous Sulfate*) 325 Mg Tabec, 325 MG PO BID, TAB 12/28/18 Methyl Salicylate/Menthol (Bengay Greaseless Cream) 57 Gm Cream..g., 57 GM TP TID APPLY TO LEFT HIP 12/28/18 Aspirin (Low Dose Aspirin) 81 Mg Tablet.dr, 81 MG PO DAILY, #30 TAB 12/28/18 Oxycodone HCl/Acetaminophen (Percocet 10-325 mg Tablet) 1 Each Tablet, 1 EACH PO Q4 PRN for SEVERE PAIN LEVEL 7-10, TAB 07/03/18 Loperamide Hcl* (Loperamide Hcl*) 2 Mg Cap, 2 MG PO Q6 PRN for DIARRHEA, CAP 07/03/18 Amlodipine Besylate* (Norvasc*) 5 Mg Tablet, 5 MG PO DAILY, TAB HOLD FOR SBP<110 OR HR<60 07/03/18 Acetaminophen* (Acetaminophen*) 650 Mg Tablet, 650 MG PO Q6H PRN for PAIN AND OR ELEVATED TEMP, #30 TAB 07/03/18 Guaifenesin-Dextromethorphan* (Robitussin* DM) 100MG/10MG/5ML Syrup, 10 ML PO Q4H PRN for COUGH, ML 01/27/18 Nitroglycerin* (Nitroglycerin* SL) 0.4 Mg Tab.subl, 0.4 MG SL Q5MIN PRN for CHEST PAIN, BOTTLE 01/27/18 Multivitamin with Minerals (Multivitamins with Minerals) 1 Each Tablet, 1 EACH P O DAILY, TAB 01/27/18 Melatonin (Melatin) 3 Mg Tablet, 3 MG PO QHS, TAB 01/27/18 Gabapentin* (Gabapentin*) 100 Mg Capsule, 200 MG PO TID, #180 CAP 01/27/18 Mineral Oil* (Fleet* Mineral Oil Enema) Unknown Strength Oil, 118 ML [place] Q72H PRN for CONSTIPATION, ENEMA 01/27/18 Finasteride* (Finasteride*) 5 Mg Tablet, 5 MG PO DAILY, TAB 01/27/18 Allergies codeine (Verified Allergy, Unknown, 12/28/18) Eyes: no complaints ENT: no complaints Respiratory: no complaints Cardiovascular: no complaints Gastrointestinal: pain Genitourinary: no complaints Musculoskeletal: restricted range of motion Skin: no complaints Neurologic: no complaints Psychological: nl mood/affect PMH/Family/Social Past Medical History PMhx/Soc History of Surgery: No Anesthesia Reaction: No Hx Neurological Disorder: Yes (Migarine headache) Hx Respiratory Disorders: No Hx Cardiac Disorders: Yes (HTN , CHF, paroxysmal atrial fibrillation) Hx GI Disorders: untreated colon cancer Hx MS Disorders:Fracture deformity of the left proximal femur Hx Psychiatric Problems: Yes (Paranoid Psychosis) Hx Miscellaneous Medical Probl: Yes (High Cholesterol , Left LE DVT ,benign prostatic hypertrophy Hx Alcohol Use: former alcohol drinker;had been drinking for the last several years Hx Substance Use: No Hx Tobacco Use: yes Smoking Status: Ex-smoker Medical History: cancer, deep vein thrombosis, high cholesterol, hypertension Medications Current Medications Ondansetron HCl (Zofran Inj) 4 mg BRIDGE ORDER PRN IV NAUSEA/VOMITING; Start 02/08/19 at 19:30; Stop 02/09/19 at 19:29 Acetaminophen (Tylenol Tab) 650 mg ER BRIDGE PRN PO .MILD PAIN 1-3 OR TEMP; Start 02/08/19 at 19:30; Stop 02/09/19 at 19:29 Ondansetron HCl (Zofran Inj) 4 mg Q4H PRN IV NAUSEA AND/OR VOMITING; Start 02/09/19 at 02:30 Lactulose (Enulose) 20 gm Q4 PO Last administered on 02/09/19at 09:35; Admin Dose 20 GM; Start 02/09/19 at 05:00 Dextrose/Sodium Chloride 1,000 ml @ 75 mls/hr [id number] IV Last administered on 02/09/19at 03:00; Admin Dose 75 MLS/HR; Start 02/09/19 at 02:30; Stop 02/12/19 at 02:30 Morphine Sulfate (morphine) 2 mg Q3 PRN IV SEVERE PAIN LEVEL 7-10; Start 02/09/19 at 02:30 Coded Allergies: codeine (Unverified Allergy, Unknown, 02/09/19) Past Surgical History Past Surgical Hx: other Family History Significant Family History: no pertinent family hx Social History SOCIAL HISTORY: Ex-smoker, former alcohol drinker, had been drinking for the last several years. Alcohol Use: other (former drinker ) Smoking Status: Former smoker Drug Use: none Exam/Review of Systems Vital Signs Vitals Vital Signs Date Temp Pulse Resp B/P (MAP) Pulse Ox O2 O2 Flow FiO2 Time Delivery Rate 02/09/19 98.3 70 18 141/67 97 07:32 (91) 02/09/19 Room Air 01:30 Intake and Output 02/08/19 02/08/19 02/09/19 1515:00 23:00 07:00 IntakeIntake Total 225 ml BalanceBalance 225 ml Exam Constitutional: alert, well developed Psych: nl mood/affect Head: normocephalic Eyes: nl lids, nl sclera ENMT: nl external ears & nose Neck: non-tender Respiratory: clear to auscultation Cardiovascular: nl pulses, other (s1s2) Gastrointestinal: soft, distended Musculoskeletal: range of motion Extremities: normal pulses Neurological: nl speech, confused, other Skin: nl YAZ [place] Feb 09, 2019 10:40
--- NOTE | 2019-02-10 11:33 | CONS ---
Consultation Date/Type/Reason Admit Date/Time Feb 08, 2019 at 19:24 Type of Consult Cardiology Date/Time of Note DATE: 02/10/19 TIME: 11:32 Hx of Present Illness 78 yo with HTN,CAD, a. fib on Eliquis - had episode of a. f a. fib with RVR - converted to sinus - con't Eliquis - hold BB with low HR - full note dictated # [id number] Past Medical History Home Meds Reported Medications Zolpidem Tartrate* (Zolpidem Tartrate*) 5 Mg Tablet, 5 MG PO QHS PRN for INSOMNIA, #30 TAB 02/09/19 Guaifenesin-Dextromethorphan* (Robitussin* DM) 100MG/10MG/5ML Syrup, 10 ML PO Q6H PRN for COUGH, ML 02/09/19 Protein Supplement (Promod) 946 Ml Liquid, 30 ML PO TID for SUPPLEMENT 02/09/19 Polyethylene Glycol* (Miralax*) 17 Gm Powd.pack, 17 GM PO DAILY, #30 PACKET 02/09/19 Metoprolol Tartrate* (Lopressor*) 25 Mg Tablet, 25 MG PO BID for HTN, #60 TAB 02/09/19 Melatonin (MELADOX) 3 Mg Tablet.er, 3 MG PO QHS, TAB 02/09/19 Lubiprostone* (Amitiza*) 24 Mcg Capsule, 24 MCG PO BID, #60 CAP 02/09/19 Alpha Lipoic Acid (Alpha Lipoic Acid) 200 Mg Tablet, 200 MG PO BID, TAB 02/09/19 Apixaban* (Eliquis*) 2.5 Mg Tablet, 5 MG PO BID 12/28/18 Ascorbic Acid* (Vitamin C*) 500 Mg Capsule.sa, 500 MG PO DAILY, CAP 12/28/18 Nystatin (Nystatin Powder) 1 Each Powder.ea., 1 APPLIC TOPICAL DAILY, #1 BOTTLE 12/28/18 Magnesium Hydroxide* (Milk Of Magnesia*) 400 Mg/5 Ml Oral.susp, 30 ML PO DAILY, ML 12/28/18 Hydralazine Hcl* (Hydralazine Hcl*) 25 Mg Tab, 25 MG PO Q6H PRN for BLOOD PRESSURE SUPPORT, #60 TAB 12/28/18 Ferrous Sulfate* (Ferrous Sulfate*) 325 Mg Tabec, 325 MG PO BID, TAB 12/28/18 Methyl Salicylate/Menthol (Bengay Greaseless Cream) 57 Gm Cream..g., 57 GM TP TID APPLY TO LEFT HIP 12/28/18 Aspirin (Low Dose Aspirin) 81 Mg Tablet.dr, 81 MG PO DAILY, #30 TAB 12/28/18 Oxycodone HCl/Acetaminophen (Percocet 10-325 mg Tablet) 1 Each Tablet, 1 EACH PO Q4 PRN for SEVERE PAIN LEVEL 7-10, TAB 07/03/18 Loperamide Hcl* (Loperamide Hcl*) 2 Mg Cap, 2 MG PO Q6 PRN for DIARRHEA, CAP 07/03/18 Amlodipine Besylate* (Norvasc*) 5 Mg Tablet, 5 MG PO DAILY, TAB HOLD FOR SBP<110 OR HR<60 07/03/18 Acetaminophen* (Acetaminophen*) 650 Mg Tablet, 650 MG PO Q6H PRN for PAIN AND OR ELEVATED TEMP, #30 TAB 07/03/18 Guaifenesin-Dextromethorphan* (Robitussin* DM) 100MG/10MG/5ML Syrup, 10 ML PO Q4H PRN for COUGH, ML 01/27/18 Nitroglycerin* (Nitroglycerin* SL) 0.4 Mg Tab.subl, 0.4 MG SL Q5MIN PRN for CHEST PAIN, BOTTLE 01/27/18 Multivitamin with Minerals (Multivitamins with Minerals) 1 Each Tablet, 1 EACH PO DAILY, TAB 01/27/18 Melatonin (Melatin) 3 Mg Tablet, 3 MG PO QHS, TAB 01/27/18 Gabapentin* (Gabapentin*) 100 Mg Capsule, 200 MG PO TID, #180 CAP 01/27/18 Mineral Oil* (Fleet* Mineral Oil Enema) Unknown Strength Oil, 118 ML AR Q72H PRN for CONSTIPATION, ENEMA 01/27/18 Finasteride* (Finasteride*) 5 Mg Tablet, 5 MG PO DAILY, TAB 01/27/18 Medications Current Medications Ondansetron HCl (Zofran Inj) 4 mg Q4H PRN IV NAUSEA AND/OR VOMITING Last administered on 02/09/19at 20:21; Admin Dose 4 MG; Start 02/09/19 at 02:30 Dextrose/Sodium Chloride 1,000 ml @ 75 mls/hr [id number] IV Last administered on 02/10/19at 05:38; Admin Dose 75 MLS/HR; Start 02/09/19 at 02:30; Stop 02/12/19 at 02:30 Morphine Sulfate (morphine) 2 mg Q3 PRN IV SEVERE PAIN LEVEL 7-10 Last administered on 02/10/19at 11:06; Admin Dose 2 MG; Start 02/09/19 at 02:30 Acetaminophen (Tylenol Tab) 650 mg Q6H PRN PO MILD PAIN(1-3)OR ELEVATED TEMP; Start 02/09/19 at 15:00 Amlodipine Besylate (Norvasc) 5 mg DAILY PO ; Start 02/09/19 at 15:00 Apixaban (Eliquis) 5 mg BID PO Last administered on 02/10/19at 08:24; Admin Dose 5 MG; Start 02/09/19 at 15:00 Ascorbic Acid (Vitamin C) 500 mg DAILY PO ; Start 02/10/19 at 09:00 Aspirin (Halfprin) 81 mg DAILY PO Last administered on 02/10/19at 08:24; Admin Dose 81 MG; Start 02/09/19 at 15:00 Ferrous Sulfate (Ferrous Sulfate (Ec)) 325 mg BID PO ; Start 02/09/19 at 21:00 Finasteride (Proscar) 5 mg DAILY PO Last administered on 02/10/19at 08:23; Admin Dose 5 MG; Start 02/09/19 at 15:00 Gabapentin (Neurontin) 200 mg TID PO ; Start 02/09/19 at 21:00 Guaifenesin/ Dextromethorphan (Robitussin Dm Liquid Cup) 10 ml Q4H PRN PO COUGH; Start 02/09/19 at 15:00 Hydralazine HCl (Apresoline) 25 mg Q6H PRN PO FOR SBP ABOVE 160; Start 02/09/19 at 15:00 Loperamide HCl (Imodium Cap) 2 mg Q6H PRN PO DIARRHEA; Start 02/09/19 at 15:00 Lubiprostone (Amitiza) 24 mcg BID PO Last administered on 02/10/19at 08:23; Admin Dose 24 MCG; Start 02/09/19 at 15:00 Magnesium Hydroxide (Milk Of Mag) 30 ml DAILY PO ; Start 02/10/19 at 09:00 Melatonin (Melatonin) 3 mg QHS PO Last administered on 02/09/19at 20:12; Admin Dose 3 MG; Start 02/09/19 at 21:00 Metoprolol Tartrate (Lopressor) 25 mg BID PO Last administered on 02/09/19at 20:11; Admin Dose 25 MG; Start 02/09/19 at 15:00 Nitroglycerin (Nitroglycerin (Sl Tab) 0.4 Mg) 1 tab [id number] PRN SL CHEST PAIN; Start 02/09/19 at 15:00 Nystatin 1 applic DAILY TOP Last administered on 02/10/19at 08:24; Admin Dose 1 APPLIC; Start 02/10/19 at 09:00 Oxycodone/ Acetaminophen (Endocet (10 325)) 1 tab Q4 PRN PO SEVERE PAIN LEVEL 7-10 Last administered on 02/09/19at 20:13; Admin Dose 1 TAB; Start 02/09/19 at 15: 00 Polyethylene Glycol (Miralax) 17 gm DAILY PO ; Start 02/10/19 at 09:00 Zolpidem Tartrate (Ambien) 5 mg QHS PRN PO INSOMNIA; Start 02/09/19 at 15:00 Multivitamins/ Minerals (Theragran-M) 1 tab DAILY PO ; Start 02/10/19 at 09:00 Metoprolol Tartrate (Lopressor) 5 mg Q4H PRN IV NOTE; FOR HR > 100 Last administered on 02/09/19at 16:46; Admin Dose 5 MG; Start 02/09/19 at 15:30 Miscellaneous Information (Pending [facility] Order For Wound Care) This patient stacy... PRN PRN XX WOUND CARE; Start 02/09/19 at 17:00 Pantoprazole (Protonix Tab) 40 mg DAILY@06 PO Last administered on 02/10/19at 05:38; Admin Dose 40 MG; Start 02/10/19 at 06:00 Allergies: Coded Allergies: codeine (Unverified Allergy, Unknown, 02/09/19) Past Surgical History Past Surgical Hx: other Social History Smoking Status: Never smoker Exam/Review of Systems Vital Signs Vitals Vital Signs Date Temp Pulse Resp B/P (MAP) Pulse Ox O2 O2 Flow FiO2 Time Delivery Rate 02/10/19 97.7 65 20 103/64 100 Nasal 11:13 (77) Cannula Intake and Output 02/09/19 02/09/19 02/10/19 1515:00 23:00 07:00 IntakeIntake Total 735 ml 30 ml 900 ml OutputOutput Total 1 ml BalanceBalance 735 ml 30 ml 899 ml Labs Result Diagram: 02/09/19 0454 02/09/19 0454 Results 24hrs Laboratory Tests Test 02/09/19 17:57 Troponin I < 0.012 Medications Medications Current Medications Ondansetron HCl (Zofran Inj) 4 mg Q4H PRN IV NAUSEA AND/OR VOMITING Last administered on 02/09/19 20:21; Admin Dose 4 MG; Start 02/09/19 at 02:30 Dextrose/Sodium Chloride 1,000 ml @ 75 mls/hr [id number] IV Last administered on 02/10/19at 05:38; Admin Dose 75 MLS/HR; Start 02/09/19 at 02:30; Stop 02/12/19 at 02:30 Morphine Sulfate (morphine) 2 mg Q3 PRN IV SEVERE PAIN LEVEL 7-10 Last ad ministered on 02/10/19at 11:06; Admin Dose 2 MG; Start 02/09/19 at 02:30 Acetaminophen (Tylenol Tab) 650 mg Q6H PRN PO MILD PAIN(1-3)OR ELEVATED TEMP; Start 02/09/19 at 15:00 Amlodipine Besylate (Norvasc) 5 mg DAILY PO ; Start 02/09/19 at 15:00 Apixaban (Eliquis) 5 mg BID PO Last administered on 02/10/19at 08:24; Admin Dose 5 MG; Start 02/09/19 at 15:00 Ascorbic Acid (Vitamin C) 500 mg DAILY PO ; Start 02/10/19 at 09:00 Aspirin (Halfprin) 81 mg DAILY PO Last administered on 02/10/19 08:24; Admin Dose 81 MG; Start 02/09/19 at 15:00 Ferrous Sulfate (Ferrous Sulfate (Ec)) 325 mg BID PO ; Start 02/09/19 at 21:00 Finasteride (Proscar) 5 mg DAILY PO Last administered on 02/10/19at 08:23; Admin Dose 5 MG; Start 02/09/19 at 15:00 Gabapentin (Neurontin) 200 mg TID PO ; Start 02/09/19 at 21:00 Guaifenesin/ Dextromethorphan (Robitussin Dm Liquid Cup) 10 ml Q4H PRN PO COUGH; Start 02/09/19 at 15:00 Hydralazine HCl (Apresoline) 25 mg Q6H PRN PO FOR SBP ABOVE 160; Start 02/09/19 at 15:00 Loperamide HCl (Imodium Cap) 2 mg Q6H PRN PO DIARRHEA; Start 02/09/19 at 15:00 Lubiprostone (Amitiza) 24 mcg BID PO Last administered on 02/10/19at 08:23; Admin Dose 24 MCG; Start 02/09/19 at 15:00 Magnesium Hydroxide (Milk Of Mag) 30 ml DAILY PO ; Start 02/10/19 at 09:00 Melatonin (Melatonin) 3 mg QHS PO Last administered on 02/09/19at 20:12; Admin Dose 3 MG; Start 02/09/19 at 21:00 Metoprolol Tartrate (Lopressor) 25 mg BID PO Last administered on 02/09/19at 20:11; Admin Dose 25 MG; Start 02/09/19 at 15:00 Nitroglycerin (Nitroglycerin (Sl Tab) 0.4 Mg) 1 tab [id number] PRN SL CHEST PAIN; Start 02/09/19 at 15:00 Nystatin 1 applic DAILY TOP Last administered on 02/10/19at 08:24; Admin Dose 1 APPLIC; Start 02/10/19 at 09:00 Oxycodone/ Acetaminophen (Endocet (10/ 325)) 1 tab Q4 PRN PO SEVERE PAIN LEVEL 7-10 Last administered on 02/09/19at 20:13; Admin Dose 1 TAB; Start 02/09/19 at 15:00 Polyethylene Glycol (Miralax) 17 gm DAILY PO ; Start 02/10/19 at 09:00 Zolpidem Tartrate (Ambien) 5 mg QHS PRN PO INSOMNIA; Start 02/09/19 at 15:00 Multivitamins/ Minerals (Theragran-M) 1 tab DAILY PO ; Start 02/10/19 at 09:00 Metoprolol Tartrate (Lopressor) 5 mg Q4H PRN IV NOTE; FOR HR > 100 Last administered on 02/09/19at 16:46; Admin Dose 5 MG; Start 02/09/19 at 15:30 Miscellaneous Information (Pending Santyl Order For Wound Care) This patient stacy... PRN PRN XX WOUND CARE; Start 02/09/19 at 17:00 Pantoprazole (Protonix Tab) 40 mg DAILY@06 PO Last administered on 02/10/19at 05:38; Admin Dose 40 MG; Start 02/10/19 at 06:00 SHYANN STARR MD Feb 10, 2019 11:33
--- NOTE | 2019-02-10 13:53 | CONS ---
Assessment/Plan Assessment/Plan Assessment/Plan (Daily) IMPRESSION: 1. Fecal impaction. Had multiple bowel movements 2. Cancer of the colon. 3. Atrial fibrillation. 4. Right inguinal hernia, reducible. 5. Psychosis. Plan Reduce the dose of lactulose KUB was ordered so far it is not done Consultation Date/Type/Reason Admit Date/Time Feb 08, 2019 at 19:24 Initial Consult Date Date/Time of Note DATE: 02/10/19 TIME: 13:52 24 HR Interval Summary Constitutional: no complaints, improved Exam/Review of Systems Exam Vitals Vital Signs Date Temp Pulse Resp B/P (MAP) Pulse Ox O2 O2 Flow FiO2 Time Delivery Rate 02/10/19 2.0 12:39 02/10/19 97.7 65 20 103/64 100 Nasal 11:13 (77) Cannula Intake and Output 02/09/19 02/09/19 02/10/19 1515:00 23:00 07:00 IntakeIntake Total 735 ml 30 ml 900 ml OutputOutput Total 1 ml BalanceBalance 735 ml 30 ml 899 ml Constitutional: alert, oriented, well developed Psych: no complaints, nl mood/affect Head: normocephalic, atraumatic Eyes: nl conjunctiva, EOMI, nl lids, nl sclera, PERRL ENMT: nl external ears & nose, nl lips & teeth, nl nasal mucosa & septum Neck: supple, non-tender Respiratory: clear to auscultation, normal air movement Cardiovascular: regular rate and rhythm, nl pulses Gastrointestinal: soft, nl liver, spleen, non-tender Musculoskeletal: nl extremities to inspection, nl gait and stance Extremities: normal pulses Neurological: [employer] II-XII intact, nl mental status, nl speech, nl strength Skin: nl turgor; No rash or lesions Lymph: nl lymph nodes Results Result Diagram: 02/09/19 0454 02/09/19 0454 Results 24hrs Laboratory Tests Test 02/09/19 17:57 Troponin I < 0.012 Medications Medication Current Medications Ondansetron HCl (Zofran Inj) 4 mg Q4H PRN IV NAUSEA AND/OR VOMITING Last administered on 02/09/19at 20:21; Admin Dose 4 MG; Start 02/09/19 at 02:30 Dextrose/Sodium Chloride 1,000 ml @ 75 mls/hr [id number] IV Last administered on 02/10/19at 05:38; Admin Dose 75 MLS/HR; Start 02/09/19 at 02:30; Stop 02/12/19 at 02:30 Morphine Sulfate (morphine) 2 mg Q3 PRN IV SEVERE PAIN LEVEL 7-10 Last administered on 02/10/19at 11:06; Admin Dose 2 MG; Start 02/09/19 at 02:30 Acetaminophen (Tylenol Tab) 650 mg Q6H PRN PO MILD PAIN(1-3)OR ELEVATED TEMP; Start 02/09/19 at 15:00 Amlodipine Besylate (Norvasc) 5 mg DAILY PO ; Start 02/09/19 at 15:00 Apixaban (Eliquis) 5 mg BID PO Last administered on 02/10/19at 08:24; Admin Dose 5 MG; Start 02/09/19 at 15:00 Ascorbic Acid (Vitamin C) 500 mg DAILY PO ; Start 02/10/19 at 09:00 Aspirin (Halfprin) 81 mg DAILY PO Last administered on 02/10/19at 08:24; Admin Dose 81 MG; Start 02/09/19 at 15:00 Ferrous Sulfate (Ferrous Sulfate (Ec)) 325 mg BID PO ; Start 02/09/19 at 21:00 Finasteride (Proscar) 5 mg DAILY PO Last administered on 02/10/19at 08:23; Admin Dose 5 MG; Start 02/09/19 at 15:00 Gabapentin (Neurontin) 200 mg TID PO ; Start 02/09/19 at 21:00 Guaifenesin/ Dextromethorphan (Robitussin Dm Liquid Cup) 10 ml Q4H PRN PO CO UGH; Start 02/09/19 at 15:00 Hydralazine HCl (Apresoline) 25 mg Q6H PRN PO FOR SBP ABOVE 160; Start 02/09/19 at 15:00 Loperamide HCl (Imodium Cap) 2 mg Q6H PRN PO DIARRHEA; Start 02/09/19 at 15:00 Lubiprostone (Amitiza) 24 mcg BID PO Last administered on 02/10/19at 08:23; Admin Dose 24 MCG; Start 02/09/19 at 15:00 Magnesium Hydroxide (Milk Of Mag) 30 ml DAILY PO ; Start 02/10/19 at 09:00 Melatonin (Melatonin) 3 mg QHS PO Last administered on 02/09/19at 20:12; Admin Dose 3 MG; Start 02/09/19 at 21:00 Metoprolol Tartrate (Lopressor) 25 mg BID PO Last administered on 02/09/19at 20:11; Admin Dose 25 MG; Start 02/09/19 at 15:00 Nitroglycerin (Nitroglycerin (Sl Tab) 0.4 Mg) 1 tab [id number] PRN SL CHEST PAIN; Start 02/09/19 at 15:00 Nystatin 1 applic DAILY TOP Last administered on 02/10/19at 08:24; Admin Dose 1 APPLIC; Start 02/10/19 at 09:00 Oxycodone/ Acetaminophen (Endocet (10)) 1 tab Q4 PRN PO SEVERE PAIN LEVEL 7-10 Last administered on 02/09/19at 20:13; Admin Dose 1 TAB; Start 02/09/19 at 15:00 Polyethylene Glycol (Miralax) 17 gm DAILY PO ; Start 02/10/19 at 09:00 Zolpidem Tartrate (Ambien) 5 mg QHS PRN PO INSOMNIA; Start 02/09/19 at 15:00 Multivitamins/ Minerals (Theragran-M) 1 tab DAILY PO ; Start 02/10/19 at 09:00 Metoprolol Tartrate (Lopressor) 5 mg Q4H PRN IV NOTE; FOR HR > 100 Last ad ministered on 02/09/19at 16:46; Admin Dose 5 MG; Start 02/09/19 at 15:30 Miscellaneous Information (Pending [facility] Order For Wound Care) This patient stacy... PRN PRN XX WOUND CARE; Start 02/09/19 at 17:00 Pantoprazole (Protonix Tab) 40 mg DAILY@06 PO Last administered on 02/10/19at 05:38; Admin Dose 40 MG; Start 02/10/19 at 06:00 SHANNON WHYTE MD Feb 10, 2019 13:53
[2019-02-10] MEDS ORDERED: AL HYDROX/MG HYDROX/SIMETH 30 ML CUP PO PRN (14:30)
[2019-02-10] MEDS: MUPIROCIN 2% 22 GM OINT TOP SCH ×2 (16:00→21:23)
--- NOTE | 2019-02-10 16:02 | RADRPT ---
Vent Rate: 145 bpm RR Interval: 412 msec [place] Interval: 91 msec QRS Duration: 81 msec QT Interval: 328 msec QTC Interval: 511 msec P-R-T [place]: 0 - -14 - 69 degrees Supraventricular tachycardia...V-rate>(220-age), QRSd<120 ST depression, probably rate related...ST <-0.10mV & extreme tachycardia Electronically Signed By: Mathew Wallace
[2019-02-10] MEDS: MELATONIN 3 MG TABLET PO SCH (21:22)
[2019-02-10] MEDS: ONDANSETRON 4 MG INJ IV PRN (21:22)
[2019-02-10] MEDS: OXYCODONE/ACETAMINOPHEN (10/325) TAB PO PRN (22:52)
[2019-02-11] MEDS: OXYCODONE/ACETAMINOPHEN (10/325) TAB PO PRN ×5 (04:17→23:51)
[2019-02-11] MEDS: PANTOPRAZOLE (EC) 40 MG TAB PO SCH (04:17)
[2019-02-11 04:33] VITALS: BP 119/57; PULSE 58; RESP 20
--- NOTE | 2019-02-11 06:14 | CONS ---
DATE OF ADMISSION: 02/08/2019 DATE OF CONSULTATION: 02/10/2019 TYPE OF CONSULTATION: Cardiology. REFERRING PHYSICIAN: Osiris Cifuentes MD REASON FOR EVALUATION: Atrial fibrillation with conversion to sinus bradycardia. HISTORY OF PRESENT ILLNESS: Mr. Johnson is an 78-year-old gentleman known to me from prior admissions , history of hypertension, dyslipidemia, history of paroxysmal atrial fibrillation on anticoagulation , history of untreated colon cancer with recurrent infections who comes to the hospital now for evalu ation of abdominal pain. On presentation, the patient was in a fast rhythm most consistent with atri al flutter versus atrial fibrillation. He is anticoagulated ____Eliquis. After coming to the hospit al the patient successfully converted to sinus rhythm. He is anticoagulated with Eliquis so no addit ional anticoagulation is needed. The patient appears to be more comfortable now. I think for now, c onservative therapy is expected, especially given the history of colon cancer with poor prognosis. W e will continue to adjust medications as needed. PAST MEDICAL HISTORY: 1. Hypertension. 2. Dyslipidemia. 3. History of coronary artery disease. 4. History of atrial fibrillation in the past. 5. History of colon cancer. 6. History of psychiatric illness. ALLERGIES: THE PATIENT IS ALLERGIC TO CODEINE. SOCIAL HISTORY: The patient does not smoke, does not drink, does not use any drugs. FAMILY HISTORY: Negative for sudden cardiac or premature coronary artery disease. MEDICATIONS: Include: 1. Calcium. 2. Magnesium hydroxide. 3. Nystatin. 4. Pantoprazole 40 mg once a day. 5. Gabapentin. 6. Melatonin. 7. Metoprolol 5 mg IV was given. 8. He is on Eliquis 5 mg p.o. b.i.d. 9. Amlodipine 5 mg p.o. once a day. 10. Metoprolol tartrate 25 mg p.o. once a day, which is being held now with bradycardia. REVIEW OF SYSTEMS: CONSTITUTIONAL: No fevers, no chills, no recent weight change. HEENT: No changes in vision or hearing. CARDIAC: As reported, the patient was ____. RESPIRATORY: Short of breath. GASTROINTESTINAL: Abdominal pain as described, better now. GENITOURINARY: No change. NEUROLOGIC: No focal neurologic deficits. HEMATOLOGIC: ____. PSYCHIATRIC: History of psychiatric illness. PHYSICAL EXAMINATION: VITAL SIGNS: Temperature is 98.6, heart rate now is 65 and sinus, blood pressure 103/64. GENERAL: He is a well-nourished gentleman, alert and oriented x3, somewhat aware of his condition. A psychiatric component is noted. NECK: Supple. JVD 6-7 cm. HEART: Regular, soft 1/6 murmur. PMI is minimally displaced. There is no S3. LUNGS: Coarse to base. ABDOMEN: Distended, bowel sounds are present. ____. EXTREMITIES: Trace edema. ECG read by me is supraventricular tachycardia fast rhythm, possibly atrial flutter with rapid ventri cular response. Now it is inversion to sinus rhythm. LABORATORY DATA: White blood cell count 14.1, hemoglobin is 13.3, platelets 310. His INR is 1.0. S odium 142, potassium 4.1, BUN is 18, creatinine is 0.6, troponin is normal at 0.015. ASSESSMENT AND PLAN: 1. Atrial fibrillation in patient with history of atrial fibrillation, atrial flutter now converted to sinus. Continue current medicines now. Will hold off on his beta lance given reasonable relati ve bradycardia. If the patient becomes again tachycardic, will resume his beta lance, possibly at a lower dose. 2. Hypertension. Blood pressure well controlled now. Continue to adjust medicines as needed. 3. Chest pain. The patient did not rule in for ischemia. Troponins are negative on initial assessm ent. 4. History of ____state. The patient is on Eliquis. Continue dosing at 5 mg b.i.d., which is appro priate. 5. Colon cancer, not treated. Primary team follows. GI to follow up. I would like to thank Dr. Cifuentes for referring this patient for my evaluation. Dictated By: SHYANN STARR MD ML/NTS Conf#: [id number] DID#: [id number] CC: RICH MANSFIELD MD; OSIRIS CIFUENTES MD;*EndCC*
[2019-02-11 07:23] VITALS: BP 111/56; PULSE 56; RESP 19
[2019-02-11] MEDS: POLYETHYLENE GLYCOL 17 GM PACKET PO SCH (08:09)
[2019-02-11] MEDS: FINASTERIDE 5 MG TAB PO SCH (08:10)
[2019-02-11] MEDS: LUBIPROSTONE 24 MCG CAP PO SCH ×2 (08:10→20:31)
[2019-02-11] MEDS: MAGNESIUM HYDROXIDE 30ML CUP PO SCH ×2 (08:10→09:00)
[2019-02-11] MEDS: AMLODIPINE 5 MG TAB PO SCH (08:10)
[2019-02-11] MEDS: ASPIRIN (EC) 81 MG TAB PO SCH (08:10)
[2019-02-11] MEDS: APIXABAN 5 MG TABLET PO SCH ×2 (08:10→20:30)
[2019-02-11] MEDS: MUPIROCIN 2% 22 GM OINT TOP SCH ×2 (08:11→20:32)
[2019-02-11] MEDS: ASCORBIC ACID 500 MG TAB PO SCH (08:15)
[2019-02-11] MEDS: NYSTATIN 15 GM POWDER BTL TOP SCH (08:15)
[2019-02-11] MEDS: METOPROLOL 25 MG TAB PO SCH ×3 (08:16→20:32)
[2019-02-11] MEDS: MULTIVITAMINS/MINERALS TAB PO SCH (08:16)
[2019-02-11] MEDS: GABAPENTIN 100 MG CAP PO SCH ×2 (08:16→12:33)
[2019-02-11] MEDS: FERROUS SULFATE (EC) 325 MG TAB PO SCH ×2 (08:16→20:31)
--- NOTE | 2019-02-11 11:40 | PN ---
Date/Time of Note Date/Time of Note DATE: 02/11/19 TIME: 11:26 Assessment/Plan VTE Prophylaxis Risk score (from Ns)>0 risk: 9 SCD applied (from Ns): Yes Pharmacological prophylaxis: apixaban Lines/Catheters IV C[facility]ter Type (from [facility] Peripheral IV Assessment/Plan Hospital Course Patient is awake, alert, tolerates a clear liquid diet well, stating improvement in abdominal pain however complains of generalized pain. Assessment/Plan - Atrial fibrillation with rapid rate ventricular response, currently atrial fibrillation at controlled rate. Continue Eliquis. Dr. Rodarte is following in cardiology consultation. - Fecal impaction, continue bowel regiment. Dr. Castano is following in gastroenterology consultation. - Hypertension, continue Norvasc. - Benign prostatic hypertrophy. Continue Proscar. - Peripheral neuropathy. Continue Neurontin. - Paranoid psychosis. S/p evaluation by DNP [place], pt refused psychiatric evaluation. - Colon cancer. The patient refused further workup. - Bilateral inguinal hernias without evidence of obstruction or strangulation. - Left proximal femur fracture, patient refused surgery. - History of C. difficile colitis Further recommendations will depend on hospital course. Plan of care discussed with Dr. Baron. Result Diagram: 02/09/19 0454 02/09/19 0454 Exam/Review of Systems Exam Vitals Vital Signs Date Temp Pulse Resp B/P (MAP) Pulse Ox O2 O2 Flow FiO2 Time Delivery Rate 02/11/19 97.7 56 19 111/56 94 Room Air 07:23 (74) 02/10/19 2.0 12:39 Intake and Output 02/10/19 02/10/19 02/11/19 1515:00 23:00 07:00 IntakeIntake Total 600 ml 410 ml 815 ml BalanceBalance 600 ml 410 ml 815 ml Constitutional: alert, oriented Psych: confusion Head: normocephalic Neck: supple Respiratory: clear to auscultation Cardiovascular: irregular rhythm Gastrointestinal: soft, non-tender Extremities: normal pulses Neurological: nl mental status, confused Medications Medication Current Medications Ondansetron HCl (Zofran Inj) 4 mg Q4H PRN IV NAUSEA AND/OR VOMITING Last administered on 02/10/19at 21:22; Admin Dose 4 MG; Start 02/09/19 at 02:30 Dextrose/Sodium Chloride 1,000 ml @ 75 mls/hr [id number] IV Last administered on 02/10/19at 21:30; Admin Dose 75 MLS/HR; Start 02/09/19 at 02:30; Stop 02/12/19 at 02:30 Morphine Sulfate (morphine) 2 mg Q3 PRN IV SEVERE PAIN LEVEL 7-10 Last admin istered on 02/10/19at 21:22; Admin Dose 2 MG; Start 02/09/19 at 02:30 Acetaminophen (Tylenol Tab) 650 mg Q6H PRN PO MILD PAIN(1-3)OR ELEVATED TEMP; Start 02/09/19 at 15:00 Amlodipine Besylate (Norvasc) 5 mg DAILY PO Last administered on 02/11/19 08:10; Admin Dose 5 MG; Start 02/09/19 at 15:00 Apixaban (Eliquis) 5 mg BID PO Last administered on 02/11/19 08:10; Admin Dose 5 MG; Start 02/09/19 at 15:00 Ascorbic Acid (Vitamin C) 500 mg DAILY PO ; Start 02/10/19 at 09:00 Aspirin (Halfprin) 81 mg DAILY PO Last administered on 02/11/19 08:10; Admin Dose 81 MG; Start 02/09/19 at 15:00 Ferrous Sulfate (Ferrous Sulfate (Ec)) 325 mg BID PO ; Start 02/09/19 at 21:00 Finasteride (Proscar) 5 mg DAILY PO Last administered on 02/11/19 08:10; Admin Dose 5 MG; Start 02/09/19 at 15:00 Gabapentin (Neurontin) 200 mg TID PO ; Start 02/09/19 at 21:00 Guaifenesin/ Dextromethorphan (Robitussin Dm Liquid Cup) 10 ml Q4H PRN PO COUGH; Start 02/09/19 at 15:00 Hydralazine HCl (Apresoline) 25 mg Q6H PRN PO FOR SBP ABOVE 160; Start 02/09/19 at 15:00 Loperamide HCl (Imodium Cap) 2 mg Q6H PRN PO DIARRHEA; Start 02/09/19 at 15:00 Lubiprostone (Amitiza) 24 mcg BID PO Last administered on 02/11/19 08:10; Admin Dose 24 MCG; Start 02/09/19 at 15:00 Magnesium Hydroxide (Milk Of Mag) 30 ml DAILY PO ; Start 02/10/19 at 09:00 Melatonin (Melatonin) 3 mg QHS PO Last administered on 02/10/19 21:22; Admin Dose 3 MG; Start 02/09/19 at 21:00 Metoprolol Tartrate (Lopressor) 25 mg BID PO Last administered on 02/09/19 20:11; Admin Dose 25 MG; Start 02/09/19 at 15:00 Nitroglycerin (Nitroglycerin (Sl Tab) 0.4 Mg) 1 tab [id number] PRN SL CHEST PAIN; Start 02/09/19 at 15:00 Nystatin 1 applic DAILY TOP Last administered on 02/11/19 08:15; Admin Dose 1 APPLIC; Start 02/10/19 at 09:00 Oxycodone/ Acetaminophen (Endocet (10/ 325)) 1 tab Q4 PRN PO SEVERE PAIN LEVEL 7-10 Last administered on 02/11/19 09:35; Admin Dose 1 TAB; Start 02/09/19 at 15:00 Polyethylene Glycol (Miralax) 17 gm DAILY PO Last administered on 02/11/19 08:09; Admin Dose 17 GM; Start 02/10/19 at 09:00 Zolpidem Tartrate (Ambien) 5 mg QHS PRN PO INSOMNIA; Start 02/09/19 at 15:00 Multivitamins/ Minerals (Theragran-M) 1 tab DAILY PO ; Start 02/10/19 at 09:00 Metoprolol Tartrate (Lopressor) 5 mg Q4H PRN IV NOTE; FOR HR > 100 Last administered on 02/09/19at 16:46; Admin Dose 5 MG; Start 02/09/19 at 15:30 Miscellaneous Information (Pending Santyl Order For Wound Care) This patient stacy... PRN PRN XX WOUND CARE; Start 02/09/19 at 17:00 Pantoprazole (Protonix Tab) 40 mg DAILY@06 PO Last administered on 02/11/19 04:17; Admin Dose 40 MG; Start 02/10/19 at 06:00 Al Hydrox/Mg Hydrox/Simethicone (Mag-Al Plus) 30 ml Q6H PRN PO GASTROINTESTINAL UPSET Last administered on 02/10/19 15:26; Admin Dose 30 ML; Start 02/10/19 at 14:30 Mupirocin (Bactroban) 1 applic BID TOP Last administered on 02/11/19at 08:11; Admin Dose 1 APPLIC; Start 02/10/19 at 15:30 LEAH BROUSSARD Feb 11, 2019 11:37
[2019-02-11 11:57] VITALS: BP 110/58; PULSE 81; RESP 16
[2019-02-11] MEDS: DEXTROSE 5%-0.45% NACL 1,000 ML IV SCH (12:32)
--- NOTE | 2019-02-11 12:56 | CONS ---
Assessment/Plan Assessment/Plan Hospital Course (Demo Recall) IMP: 1.PAF-in SR at this time with 1AVB 2.HTN 3.cad 4.colon ca refusing surgery 5.chest pain-resolved. Neg trop x 2 Recc: -Tele -serial ecg's -Continue current BB as tolerated -Contineu norvasc -likely ok to d/c asa to decrsae bleeding risk -Continue eliquis -complete gayatri Consultation Date/Type/Reason Admit Date/Time Feb 08, 2019 at 19:24 Initial Consult Date 02/08/19 Type of Consult Cardiology Reason for Consultation AF Requesting Provider: OSIRIS CIFUENETS MD Date/Time of Note DATE: 02/11/19 TIME: 12:52 Exam/Review of Systems Vital Signs Vitals Vital Signs Date Temp Pulse Resp B/P (MAP) Pulse Ox O2 O2 Flow FiO2 Time Delivery Rate 02/11/19 98.4 81 16 110/58 98 11:57 (75) 02/11/19 Room Air 07:23 02/10/19 2.0 12:39 Intake and Output 02/10/19 02/10/19 02/11/19 1515:00 23:00 07:00 IntakeIntake Total 600 ml 410 ml 815 ml BalanceBalance 600 ml 410 ml 815 ml Exam Exam Review of Systems: CONSTITUTIONAL: No fevers, chills. PULMONARY: No sob CARDIOVASCULAR: No chest pain/palpitations GASTROINTESTINAL: No nausea/vomiting. GENITOURINARY: No hematuria/dysuria. MUSCULOSKELETAL: No myagias/arthalgias. PSYCHIATRIC: The patient denies depression. NEUROLOGIC: No weakness Constitutional: alert Psych: no complaints Head: normocephalic ENMT: mucosa pink and moist Neck: supple, jvd (9 cm water) Respiratory: diminished breath sounds (at bases/B) Cardiovascular: regular rate and rhythm Gastrointestinal: soft, non-tender Musculoskeletal: muscle weakness (mild generalized) Extremities: edema (none) Neurological: other (NO focal deficits) Labs Result Diagram: 02/09/19 0454 02/09/19 0454 Medications Medications Current Medications Ondansetron HCl (Zofran Inj) 4 mg Q4H PRN IV NAUSEA AND/OR VOMITING Last administered on 02/10/19at 21:22; Admin Dose 4 MG; Start 02/09/19 at 02:30 Dextrose/Sodium Chloride 1,000 ml @ 75 mls/hr [id number] IV Last administered on 02/11/19at 12:32; Admin Dose 75 MLS/HR; Start 02/09/19 at 02:30; Stop 02/12/19 at 02:30 Morphine Sulfate (morphine) 2 mg Q3 PRN IV SEVERE PAIN LEVEL 7-10 Last administered on 02/10/19at 21:22; Admin Dose 2 MG; Start 02/09/19 at 02:30 Acetaminophen (Tylenol Tab) 650 mg Q6H PRN PO MILD PAIN(1-3)OR ELEVATED TEMP; Start 02/09/19 at 15:00 Amlodipine Besylate (Norvasc) 5 mg DAILY PO Last administered on 02/11/19 08:10; Admin Dose 5 MG; Start 02/09/19 at 15:00 Apixaban (Eliquis) 5 mg BID PO Last administered on 02/11/19 08:10; Admin Dose 5 MG; Start 02/09/19 at 15:00 Ascorbic Acid (Vitamin C) 500 mg DAILY PO ; Start 02/10/19 at 09:00 Aspirin (Halfprin) 81 mg DAILY PO Last administered on 02/11/19 08:10; Admin Dose 81 MG; Start 02/09/19 at 15:00 Ferrous Sulfate (Ferrous Sulfate (Ec)) 325 mg BID PO ; Start 02/09/19 at 21:00 Finasteride (Proscar) 5 mg DAILY PO Last administered on 02/11/19 08:10; Admin Dose 5 MG; Start 02/09/19 at 15:00 Gabapentin (Neurontin) 200 mg TID PO ; Start 02/09/19 at 21:00 Guaifenesin/ Dextromethorphan (Robitussin Dm Liquid Cup) 10 ml Q4H PRN PO COUGH; Start 02/09/19 at 15:00 Hydralazine HCl (Apresoline) 25 mg Q6H PRN PO FOR SBP ABOVE 160; Start 02/09/19 at 15:00 Loperamide HCl (Imodium Cap) 2 mg Q6H PRN PO DIARRHEA; Start 02/09/19 at 15:00 Lubiprostone (Amitiza) 24 mcg BID PO Last administered on 02/11/19 08:10; Admin Dose 24 MCG; Start 02/09/19 at 15:00 Magnesium Hydroxide (Milk Of Mag) 30 ml DAILY PO ; Start 02/10/19 at 09:00 Melatonin (Melatonin) 3 mg QHS PO Last administered on 02/10/19 21:22; Admin Dose 3 MG; Start 02/09/19 at 21:00 Metoprolol Tartrate (Lopressor) 25 mg BID PO Last administered on 02/09/19 20:11; Admin Dose 25 MG; Start 02/09/19 at 15:00 Nitroglycerin (Nitroglycerin (Sl Tab) 0.4 Mg) 1 tab [id number] PRN SL CHEST PAIN; Start 02/09/19 at 15:00 Nystatin 1 applic DAILY TOP Last administered on 02/11/19 08:15; Admin Dose 1 APPLIC; Start 02/10/19 at 09:00 Oxycodone/ Acetaminophen (Endocet (10/ 325)) 1 tab Q4 PRN PO SEVERE PAIN LEVEL 7-10 Last administered on 02/11/19 09:35; Admin Dose 1 TAB; Start 02/09/19 at 15:00 Polyethylene Glycol (Miralax) 17 gm DAILY PO Last administered on 02/11/19 08:09; Admin Dose 17 GM; Start 02/10/19 at 09:00 Zolpidem Tartrate (Ambien) 5 mg QHS PRN PO INSOMNIA; Start 02/09/19 at 15:00 Multivitamins/ Minerals (Theragran-M) 1 tab DAILY PO ; Start 02/10/19 at 09:00 Metoprolol Tartrate (Lopressor) 5 mg Q4H PRN IV NOTE; FOR HR > 100 Last admini stered on 02/09/19at 16:46; Admin Dose 5 MG; Start 02/09/19 at 15:30 Miscellaneous [facility] This patient stacy... PRN PRN XX WOUND CARE; Start 02/09/19 at 17:00 Pantoprazole (Protonix Tab) 40 mg DAILY@06 PO Last administered on 02/11/19 04:17; Admin Dose 40 MG; Start 02/10/19 at 06:00 Al Hydrox/Mg Hydrox/Simethicone (Mag-Al Plus) 30 ml Q6H PRN PO GASTROINTESTINAL UPSET Last administered on 7/7/19at 15:26; Admin Dose 30 ML; Start 02/10/19 at 14:30 Mupirocin (Bactroban) 1 applic BID TOP Last administered on 02/11/19at 08:11; Admin Dose 1 APPLIC; Start 02/10/19 at 15:30 RICH MANSFIELD Feb 11, 2019 12:56
[2019-02-11 16:17] VITALS: BP 122/57; PULSE 77; RESP 18
--- NOTE | 2019-02-11 18:08 | CONS ---
Assessment/Plan Assessment/Plan Assessment/Plan (Daily) Assessment/Plan Assessment/Plan (Daily) IMPRESSION: 1. Fecal impaction. Had multiple bowel movements 2. Cancer of the colon. 3. Atrial fibrillation. 4. Right inguinal hernia, reducible. 5. Psychosis. Plan Reduce the dose of lactulose KUB shows fecal impaction in the rectum and dilated colon. Relistor injection Manual disimpaction of rectum Consultation Date/Type/Reason Admit Date/Time Feb 08, 2019 at 19:24 Initial Consult Date Requesting Provider: OSIRIS CIFUENTES MD Date/Time of Note DATE: 02/11/19 TIME: 18:07 24 HR Interval Summary Free Text/Dictation Recent complaints of diarrhea Exam/Review of Systems Exam Vitals Vital Signs Date Temp Pulse Resp B/P (MAP) Pulse Ox O2 O2 Flow FiO2 Time Delivery Rate 02/11/19 98.2 77 18 122/57 97 16:17 (78) 02/11/19 Room Air 07:23 02/10/19 2.0 12:39 Intake and Output 02/10/19 02/10/19 02/11/19 1515:00 23:00 07:00 IntakeIntake Total 600 ml 410 ml 815 ml BalanceBalance 600 ml 410 ml 815 ml Constitutional: alert, oriented, well developed Psych: no complaints, nl mood/affect Head: normocephalic, atraumatic Eyes: nl conjunctiva, EOMI, nl lids, nl sclera, PERRL ENMT: nl external ears & nose, nl lips & teeth, nl nasal mucosa & septum Neck: supple, non-tender Respiratory: clear to auscultation, normal air movement Cardiovascular: regular rate and rhythm, nl pulses Gastrointestinal: soft, nl liver, spleen, non-tender Musculoskeletal: nl extremities to inspection, nl gait and stance Extremities: normal pulses Neurological: [employer] II-XII intact, nl mental status, nl speech, nl strength Skin: nl turgor; No rash or lesions Lymph: nl lymph nodes Results Result Diagram: 02/09/19 0454 02/09/19 0454 Results 24hrs Laboratory Tests Test 02/11/19 16:54 Troponin I < 0.012 Medications Medication Current Medications Ondansetron HCl (Zofran Inj) 4 mg Q4H PRN IV NAUSEA AND/OR VOMITING Last administered on 7/7/19at 21:22; Admin Dose 4 MG; Start 02/09/19 at 02:30 Morphine Sulfate (morphine) 2 mg Q3 PRN IV SEVERE PAIN LEVEL 7-10 Last administered on 02/10/19 21:22; Admin Dose 2 MG; Start 02/09/19 at 02:30 Acetaminophen (Tylenol Tab) 650 mg Q6H PRN PO MILD PAIN(1-3)OR ELEVATED TEMP; Start 02/09/19 at 15:00 Amlodipine Besylate (Norvasc) 5 mg DAILY PO Last administered on 02/11/19 08:10; Admin Dose 5 MG; Start 02/09/19 at 15:00 Apixaban (Eliquis) 5 mg BID PO Last administered on 02/11/19 08:10; Admin Dose 5 MG; Start 02/09/19 at 15:00 Ascorbic Acid (Vitamin C) 500 mg DAILY PO ; Start 02/10/19 at 09:00 Aspirin (Halfprin) 81 mg DAILY PO Last administered on 02/11/19 08:10; Admin Dose 81 MG; Start 02/09/19 at 15:00; Status Hold Ferrous Sulfate (Ferrous Sulfate (Ec)) 325 mg BID PO ; Start 02/09/19 at 21:00 Finasteride (Proscar) 5 mg DAILY PO Last administered on 02/11/19 08:10; Admin Dose 5 MG; Start 02/09/19 at 15:00 Guaifenesin/ Dextromethorphan (Robitussin Dm Liquid Cup) 10 ml Q4H PRN PO COUGH; Start 02/09/19 at 15:00 Hydralazine HCl (Apresoline) 25 mg Q6H PRN PO FOR SBP ABOVE 160; Start 02/09/19 at 15:00 Loperamide HCl (Imodium Cap) 2 mg Q6H PRN PO DIARRHEA; Start 02/09/19 at 15:00 Lubiprostone (Amitiza) 24 mcg BID PO Last administered on 02/11/19 08:10; Admin Dose 24 MCG; Start 02/09/19 at 15:00 Magnesium Hydroxide (Milk Of Mag) 30 ml DAILY PO ; Start 02/10/19 at 09:00 Melatonin (Melatonin) 3 mg QHS PO Last administered on 02/10/19 21:22; Admin Dose 3 MG; Start 02/09/19 at 21:00 Metoprolol Tartrate (Lopressor) 25 mg BID PO Last administered on 02/09/19 20:11; Admin Dose 25 MG; Start 02/09/19 at 15:00 Nitroglycerin (Nitroglycerin (Sl Tab) 0.4 Mg) 1 tab [id number] PRN SL CHEST PAIN; Start 02/09/19 at 15:00 Nystatin 1 applic DAILY TOP Last administered on 02/11/19 08:15; Admin Dose 1 APPLIC; Start 02/10/19 at 09:00 Oxycodone/ Acetaminophen (Endocet (10/ 325)) 1 tab Q4 PRN PO SEVERE PAIN LEVEL 7-10 Last administered on 02/11/19 14:39; Admin Dose 1 TAB; Start 02/09/19 at 15:00 Polyethylene Glycol (Miralax) 17 gm DAILY PO Last administered on 02/11/19 08:09; Admin Dose 17 GM; Start 02/10/19 at 09:00 Zolpidem Tartrate (Ambien) 5 mg QHS PRN PO INSOMNIA; Start 02/09/19 at 15:00 Multivitamins/ Minerals (Theragran-M) 1 tab DAILY PO ; Start 02/10/19 at 09:00 Metoprolol Tartrate (Lopressor) 5 mg Q4H PRN IV NOTE; FOR HR > 100 Last admin istered on 02/09/19at 16:46; Admin Dose 5 MG; Start 02/09/19 at 15:30 Miscellaneous Information (Pending [facility] Order For Wound Care) This patient stacy... PRN PRN XX WOUND CARE; Start 02/09/19 at 17:00 Pantoprazole (Protonix Tab) 40 mg DAILY@06 PO Last administered on 02/11/19 04:17; Admin Dose 40 MG; Start 02/10/19 at 06:00 Al Hydrox/Mg Hydrox/Simethicone (Mag-Al Plus) 30 ml Q6H PRN PO GASTROINTESTINAL UPSET Last administered on 02/10/19at 15:26; Admin Dose 30 ML; Start 02/10/19 at 14:30 Mupirocin (Bactroban) 1 applic BID TOP Last administered on 02/11/19 08:11; Admin Dose 1 APPLIC; Start 02/10/19 at 15:30 Gabapentin (Neurontin) 300 mg TID PO ; Start 02/11/19 at 21:00 SHANNON WHYTE MD Feb 11, 2019 18:08
[2019-02-11] MEDS: METHYLNALTREXONE 12 MG/0.6 ML VIAL SC SCH (18:55)
[2019-02-11 20:03] VITALS: BP 115/60; PULSE 91; RESP 20
[2019-02-11] MEDS: MELATONIN 3 MG TABLET PO SCH (20:31)
[2019-02-11] MEDS: GABAPENTIN 300 MG CAP PO SCH (20:31)
[2019-02-12] VITALS (7 sets, daily range): BP systolic 103–125; BP diastolic 52–64; PULSE 57–88; RESP 18–20
[2019-02-12] MEDS: PANTOPRAZOLE (EC) 40 MG TAB PO SCH (05:46)
[2019-02-12] MEDS: OXYCODONE/ACETAMINOPHEN (10/325) TAB PO PRN ×3 (05:47→19:56)
[2019-02-12] MEDS: MAGNESIUM HYDROXIDE 30ML CUP PO SCH (08:45)
[2019-02-12] MEDS: FINASTERIDE 5 MG TAB PO SCH (08:45)
[2019-02-12] MEDS: MULTIVITAMINS/MINERALS TAB PO SCH (08:45)
[2019-02-12] MEDS: AMLODIPINE 5 MG TAB PO SCH (08:46)
[2019-02-12] MEDS: METOPROLOL 25 MG TAB PO SCH ×2 (08:46→21:09)
[2019-02-12] MEDS: LUBIPROSTONE 24 MCG CAP PO SCH ×2 (08:48→21:07)
[2019-02-12] MEDS: APIXABAN 5 MG TABLET PO SCH ×2 (08:48→21:07)
[2019-02-12] MEDS: GABAPENTIN 300 MG CAP PO SCH ×3 (08:48→21:07)
[2019-02-12] MEDS: NYSTATIN 15 GM POWDER BTL TOP SCH (08:49)
[2019-02-12] MEDS: ASCORBIC ACID 500 MG TAB PO SCH (08:49)
[2019-02-12] MEDS: FERROUS SULFATE (EC) 325 MG TAB PO SCH ×2 (08:49→21:00)
[2019-02-12] MEDS: MUPIROCIN 2% 22 GM OINT TOP SCH ×2 (09:57→21:08)
[2019-02-12] MEDS: POLYETHYLENE GLYCOL 17 GM PACKET PO SCH (09:58)
--- NOTE | 2019-02-12 12:21 | CONS ---
Consult Date/Type/Reason Admit Date/Time Feb 08, 2019 at 19:24 Initial Consult Date Requesting Provider: OSIRIS CIFUENTES MD Date/Time of Note DATE: 02/12/19 TIME: 12:18 Subjective NO acute events - pt comfortable - in sinus now - rate well maintained. ROS: No fever, no chills, no nausea, no vomiting, no diarrhea/constipation No recent weight changes No chest pain, no PND, no orthopnea No dizziness, blurred vision No thirst, no heat or cold intolerance Objective Vitals Vital Signs Date Temp Pulse Resp B/P (MAP) Pulse Ox O2 O2 Flow FiO2 Time Delivery Rate 02/12/19 98.7 60 20 117/59 97 Room Air 11:31 (78) 02/10/19 2.0 12:39 Intake and Output 02/11/19 02/11/19 02/12/19 1414:59 22:59 06:59 IntakeIntake Total 1050 ml 340 ml OutputOutput Total 250 ml BalanceBalance 800 ml 340 ml Exam General: WN/WD/NAD, AOx 1-2 psych HEENT: Unicetric/atraumatic/EOMI ( follows commands) NECK: JVD elevated, no thyromegaly Lymph: no lymphadenopathy HEART: regular with no S3, II/ systolic murmur at apex LUNGS: Coarse sounds ABD: soft, NT, ND, +BS : Intact Neuro: non focal SKIN: chronic changes EXT: trace edema Results/Medications Result Diagram: 02/09/19 0454 02/12/19 0036 Results 24 hrs Laboratory Tests Test 02/11/19 16:54 02/12/19 00:36 Troponin I < 0.012 Sodium Level 139 Potassium Level 3.8 Chloride Level 109 Carbon Dioxide Level 23 Anion Gap 7 Blood Urea Nitrogen 17 Creatinine 0.64 Est Glomerular Filtrat Rate mL/min Glucose Level 137 Calcium Level 7.8 L Magnesium Level 2.0 Home Meds Reported Medications Zolpidem Tartrate* (Zolpidem Tartrate*) 5 Mg Tablet, 5 MG PO QHS PRN for INSOMNIA, #30 TAB 02/09/19 Guaifenesin-Dextromethorphan* (Robitussin* DM) 100MG/10MG/5ML Syrup, 10 ML PO Q6H PRN for COUGH, ML 02/09/19 Protein Supplement (Promod) 946 Ml Liquid, 30 ML PO TID for SUPPLEMENT 02/09/19 Polyethylene Glycol* (Miralax*) 17 Gm Powd.pack, 17 GM PO DAILY, #30 PACKET 02/09/19 Metoprolol Tartrate* (Lopressor*) 25 Mg Tablet, 25 MG PO BID for HTN, #60 TAB 02/09/19 Melatonin (MELADOX) 3 Mg Tablet.er, 3 MG PO QHS, TAB 02/09/19 Lubiprostone* (Amitiza*) 24 Mcg Capsule, 24 MCG PO BID, #60 CAP 02/09/19 Alpha Lipoic Acid (Alpha Lipoic Acid) 200 Mg Tablet, 200 MG PO BID, TAB 02/09/19 Apixaban* (Eliquis*) 2.5 Mg Tablet, 5 MG PO BID 12/28/18 Ascorbic Acid* (Vitamin C*) 500 Mg Capsule.sa, 500 MG PO DAILY, CAP 12/28/18 Nystatin (Nystatin Powder) 1 Each Powder.ea., 1 APPLIC TOPICAL DAILY, #1 BOTTLE 12/28/18 Magnesium Hydroxide* (Milk Of Magnesia*) 400 Mg/5 Ml Oral.susp, 30 ML PO DAILY, ML 12/28/18 Hydralazine Hcl* (Hydralazine Hcl*) 25 Mg Tab, 25 MG PO Q6H PRN for BLOOD PRESSURE SUPPORT, #60 TAB 12/28/18 Ferrous Sulfate* (Ferrous Sulfate*) 325 Mg Tabec, 325 MG PO BID, TAB 12/28/18 Methyl Salicylate/Menthol (Bengay Greaseless Cream) 57 Gm Cream..g., 57 GM TP TID APPLY TO LEFT HIP 12/28/18 Aspirin (Low Dose Aspirin) 81 Mg Tablet.dr, 81 MG PO DAILY, #30 TAB 12/28/18 Oxycodone HCl/Acetaminophen (Percocet 10-325 mg Tablet) 1 Each Tablet, 1 EACH PO Q4 PRN for SEVERE PAIN LEVEL 7-10, TAB 07/03/18 Loperamide Hcl* (Loperamide Hcl*) 2 Mg Cap, 2 MG PO Q6 PRN for DIARRHEA, CAP 07/03/18 Amlodipine Besylate* (Norvasc*) 5 Mg Tablet, 5 MG PO DAILY, TAB HOLD FOR SBP<110 OR HR<60 07/03/18 Acetaminophen* (Acetaminophen*) 650 Mg Tablet, 650 MG PO Q6H PRN for PAIN AND OR ELEVATED TEMP, #30 TAB 07/03/18 Guaifenesin-Dextromethorphan* (Robitussin* DM) 100MG/10MG/5ML Syrup, 10 ML PO Q4H PRN for COUGH, ML 01/27/18 Nitroglycerin* (Nitroglycerin* SL) 0.4 Mg Tab.subl, 0.4 MG SL Q5MIN PRN for CHEST PAIN, BOTTLE 01/27/18 Multivitamin with Minerals (Multivitamins with Minerals) 1 Each Tablet, 1 EACH PO DAILY, TAB 01/27/18 Melatonin (Melatin) 3 Mg Tablet, 3 MG PO QHS, TAB 01/27/18 Gabapentin* (Gabapentin*) 100 Mg Capsule, 200 MG PO TID, #180 CAP 01/27/18 Mineral Oil* (Fleet* Mineral Oil Enema) Unknown Strength Oil, 118 ML UT Q72H PRN for CONSTIPATION, ENEMA 01/27/18 Finasteride* (Finasteride*) 5 Mg Tablet, 5 MG PO DAILY, TAB 01/27/18 Medications Current Medications Ondansetron HCl (Zofran Inj) 4 mg Q4H PRN IV NAUSEA AND/OR VOMITING Last administered on 02/10/19 21:22; Admin Dose 4 MG; Start 02/09/19 at 02:30 Morphine Sulfate (morphine) 2 mg Q3 PRN IV SEVERE PAIN LEVEL 7-10 Last administered on 02/10/19 21:22; Admin Dose 2 MG; Start 02/09/19 at 02:30 Acetaminophen (Tylenol Tab) 650 mg Q6H PRN PO MILD PAIN(1-3)OR ELEVATED TEMP; Start 02/09/19 at 15:00 Amlodipine Besylate (Norvasc) 5 mg DAILY PO Last administered on 02/12/19 08:46; Admin Dose 5 MG; Start 02/09/19 at 15:00 Apixaban (Eliquis) 5 mg BID PO Last administered on 02/12/19 08:48; Admin Dose 5 MG; Start 02/09/19 at 15:00 Ascorbic Acid (Vitamin C) 500 mg DAILY PO ; Start 02/10/19 at 09:00 Aspirin (Halfprin) 81 mg DAILY PO Last administered on 02/11/19 08:10; Admin Dose 81 MG; Start 02/09/19 at 15:00; Status Hold Ferrous Sulfate (Ferrous Sulfate (Ec)) 325 mg BID PO ; Start 02/09/19 at 21:00 Finasteride (Proscar) 5 mg DAILY PO Last administered on 02/12/19 08:45; Admin Dose 5 MG; Start 02/09/19 at 15:00 Guaifenesin/ Dextromethorphan (Robitussin Dm Liquid Cup) 10 ml Q4H PRN PO COUGH; Start 02/09/19 at 15:00 Hydralazine HCl (Apresoline) 25 mg Q6H PRN PO FOR SBP ABOVE 160; Start 02/09/19 at 15:00 Loperamide HCl (Imodium Cap) 2 mg Q6H PRN PO DIARRHEA; Start 02/09/19 at 15:00 Lubiprostone (Amitiza) 24 mcg BID PO Last administered on 02/12/19 08:48; Admin Dose 24 MCG; Start 02/09/19 at 15:00 Magnesium Hydroxide (Milk Of Mag) 30 ml DAILY PO Last administered on 02/12/19 08:45; Admin Dose 30 ML; Start 02/10/19 at 09:00 Melatonin (Melatonin) 3 mg QHS PO Last administered on 02/11/19 20:31; Admin Dose 3 MG; Start 02/09/19 at 21:00 Metoprolol Tartrate (Lopressor) 25 mg BID PO Last administered on 02/12/19 08:46; Admin Dose 25 MG; Start 02/09/19 at 15:00 Nitroglycerin (Nitroglycerin (Sl Tab) 0.4 Mg) 1 tab [id number] PRN SL CHEST PAIN; Start 02/09/19 at 15:00 Nystatin 1 applic DAILY TOP Last administered on 02/11/19 08:15; Admin Dose 1 APPLIC; Start 02/10/19 at 09:00 Oxycodone/ Acetaminophen (Endocet (10/ 325)) 1 tab Q4 PRN PO SEVERE PAIN LEVEL 7-10 Last administered on 02/12/19 09:57; Admin Dose 1 TAB; Start 02/09/19 at 15:00 Polyethylene Glycol (Miralax) 17 gm DAILY PO Last administered on 02/12/19 09:58; Admin Dose 17 GM; Start 02/10/19 at 09:00 Zolpidem Tartrate (Ambien) 5 mg QHS PRN PO INSOMNIA; Start 02/09/19 at 15:00 Multivitamins/ Minerals (Theragran-M) 1 tab DAILY PO Last administered on 02/12/19 08:45; Admin Dose 1 TAB; Start 02/10/19 at 09:00 Metoprolol Tartrate (Lopressor) 5 mg Q4H PRN IV NOTE; FOR HR > 100 Last administered on 02/09/19at 16:46; Admin Dose 5 MG; Start 02/09/19 at 15:30 Miscellaneous Information (Pending [facility] Order For Wound Care) This patient stacy... PRN PRN XX WOUND CARE; Start 02/09/19 at 17:00 Pantoprazole (Protonix Tab) 40 mg DAILY@06 PO Last administered on 02/12/19 05:46; Admin Dose 40 MG; Start 02/10/19 at 06:00 Al Hydrox/Mg Hydrox/Simethicone (Mag-Al Plus) 30 ml Q6H PRN PO GASTROINTESTINAL UPSET Last administered on 02/10/19at 15:26; Admin Dose 30 ML; Start 02/10/19 at 14 :30 Mupirocin (Bactroban) 1 applic BID TOP Last administered on 02/12/19 09:57; Admin Dose 1 APPLIC; Start 02/10/19 at 15:30 Gabapentin (Neurontin) 300 mg TID PO Last administered on 02/12/19 08:48; Admin Dose 300 MG; Start 02/11/19 at 21:00 Methylnaltrexone [place] (Relistor) 12 mg Q48H SC Last administered on 02/11/19at 18:55; Admin Dose 12 MG; Start 02/11/19 at 18:30 Assessment/Plan Hospital Course (Demo Recall) 1. Atrial fibrillation in patient with history of atrial fibrillation, atrial flutter now converted to sinus. Continue current medicines now. Will hold off on his beta lance given reasonable relative bradycardia. If the patient becomes again tachycardic, will resume his beta lance, possibly at a lower dose. Now in sinus - rate controlled. 2. Hypertension. Blood pressure well controlled now. Continue to adjust medicines as needed. Trated to goal. 3. Chest pain. The patient did not rule in for ischemia. Troponins are negative on initial assessment. R/O SD. 4. History of secondary hypercoagulable state - The patient is on Eliquis. Continue dosing at 5 mg b.i.d., which is appropriate. NO bleeding wow 5. Colon cancer, not treated. Primary team follows. GI to follow up. SHYANN STARR MD Feb 12, 2019 12:21
--- NOTE | 2019-02-12 16:03 | PN ---
Date/Time of Note Date/Time of Note DATE: 02/12/19 TIME: 16:02 Assessment/Plan VTE Prophylaxis Risk score (from [facility] [place])>0 risk: 10 SCD applied (from [facility] [place]): Yes Pharmacological prophylaxis: NA/contraindicated Pharm contraindication: anticoag not tolerated Lines/Catheters IV Catheter Type (from [facility]): Peripheral IV Urinary Cath still in place: No Assessment/Plan Hospital Course Patient stated improvement in abdominal pain, able to tolerate p.o. diet, progress to mechanical soft. Patient continues to refuse any treatment for colon cancer including surgery. Assessment/Plan - Atrial fibrillation with rapid rate ventricular response, currently atrial fibrillation at controlled rate. Continue Eliquis. Dr. Rodarte is following in cardiology consultation. - Fecal impaction, continue bowel regiment. Dr. Castano is following in gastroenterology consultation. - Hypertension, continue Norvasc. - Benign prostatic hypertrophy. Continue Proscar. - Peripheral neuropathy. Continue Neurontin. - Paranoid psychosis. S/p evaluation by DNP On[place]we, pt refused psychiatric evaluation. - Colon cancer. The patient refused further workup. - Bilateral inguinal hernias without evidence of obstruction or strangulation. - Left proximal femur fracture, patient refused surgery. - History of C. difficile colitis Further recommendations will depend on hospital course. Plan of care discussed with Dr. Baron. Result Diagram: 02/09/19 0454 02/12/19 0036 Results 24hrs Laboratory Tests Test 02/11/19 16:54 02/12/19 00:36 Troponin I < 0.012 Sodium Level 139 Potassium Level 3.8 Chloride Level 109 Carbon Dioxide Level 23 Anion Gap 7 Blood Urea Nitrogen 17 Creatinine 0.64 Est Glomerular Filtrat Rate mL/min Glucose Level 137 Calcium Level 7.8 L Magnesium Level 2.0 Exam/Review of Systems Exam Vitals Vital Signs Date Temp Pulse Resp B/P (MAP) Pulse Ox O2 O2 Flow FiO2 Time Delivery Rate 02/12/19 97.5 65 20 106/52 97 Room Air 15:21 (70) 02/10/19 2.0 12:39 Intake and Output 02/11/19 02/11/19 02/12/19 1515:00 23:00 07:00 IntakeIntake Total 1050 ml 340 ml OutputOutput Total 250 ml BalanceBalance 800 ml 340 ml Exam Constitutional: alert, oriented Psych: confusion Head: normocephalic Neck: supple Respiratory: clear to auscultation Cardiovascular: irregular rhythm Gastrointestinal: soft, non-tender Extremities: normal pulses Neurological: nl mental status, confused Results Results 24hrs Laboratory Tests Test 02/11/19 16:54 02/12/19 00:36 Troponin I < 0.012 Sodium Level 139 Potassium Level 3.8 Chloride Level 109 Carbon Dioxide Level 23 Anion Gap 7 Blood Urea Nitrogen 17 Creatinine 0.64 Est Glomerular Filtrat Rate mL/min Glucose Level 137 Calcium Level 7.8 L Magnesium Level 2.0 Medications Medication Current Medications Ondansetron HCl (Zofran Inj) 4 mg Q4H PRN IV NAUSEA AND/OR VOMITING Last administered on 02/10/19 21:22; Admin Dose 4 MG; Start 02/09/19 at 02:30 Morphine Sulfate (morphine) 2 mg Q3 PRN IV SEVERE PAIN LEVEL 7-10 Last administered on 02/10/19 21:22; Admin Dose 2 MG; Start 02/09/19 at 02:30 Acetaminophen (Tylenol Tab) 650 mg Q6H PRN PO MILD PAIN(1-3)OR ELEVATED TEMP; Start 02/09/19 at 15:00 Amlodipine Besylate (Norvasc) 5 mg DAILY PO Last administered on 02/12/19at 08:46; Admin Dose 5 MG; Start 02/09/19 at 15:00 Apixaban (Eliquis) 5 mg BID PO Last administered on 02/12/19at 08:48; Admin Dose 5 MG; Start 02/09/19 at 15:00 Ascorbic Acid (Vitamin C) 500 mg DAILY PO ; Start 02/10/19 at 09:00 Aspirin (Halfprin) 81 mg DAILY PO Last administered on 02/11/19at 08:10; Admin Dose 81 MG; Start 02/09/19 at 15:00; Status Hold Ferrous Sulfate (Ferrous Sulfate (Ec)) 325 mg BID PO ; Start 02/09/19 at 21:00 Finasteride (Proscar) 5 mg DAILY PO Last administered on 02/12/19at 08:45; Admin Dose 5 MG; Start 02/09/19 at 15:00 Guaifenesin/ Dextromethorphan (Robitussin Dm Liquid Cup) 10 ml Q4H PRN PO COUGH; Start 02/09/19 at 15:00 Hydralazine HCl (Apresoline) 25 mg Q6H PRN PO FOR SBP ABOVE 160; Start 02/09/19 at 15:00 Loperamide HCl (Imodium Cap) 2 mg Q6H PRN PO DIARRHEA; Start 02/09/19 at 15:00 Lubiprostone (Amitiza) 24 mcg BID PO Last administered on 02/12/19 08:48; Admin Dose 24 MCG; Start 02/09/19 at 15:00 Magnesium Hydroxide (Milk Of Mag) 30 ml DAILY PO Last administered on 02/12/19 08:45; Admin Dose 30 ML; Start 02/10/19 at 09:00 Melatonin (Melatonin) 3 mg QHS PO Last administered on 02/11/19 20:31; Admin Dose 3 MG; Start 02/09/19 at 21:00 Metoprolol Tartrate (Lopressor) 25 mg BID PO Last administered on 02/12/19 08:46; Admin Dose 25 MG; Start 02/09/19 at 15:00 Nitroglycerin (Nitroglycerin (Sl Tab) 0.4 Mg) 1 tab [id number] PRN SL CHEST PAIN; Start 02/09/19 at 15:00 Nystatin 1 applic DAILY TOP Last administered on 02/11/19 08:15; Admin Dose 1 APPLIC; Start 02/10/19 at 09:00 Oxycodone/ Acetaminophen (Endocet (10/ 325)) 1 tab Q4 PRN PO SEVERE PAIN LEVEL 7-10 Last administered on 02/12/19 09:57; Admin Dose 1 TAB; Start 02/09/19 at 15:00 Polyethylene Glycol (Miralax) 17 gm DAILY PO Last administered on 02/12/19 09:58; Admin Dose 17 GM; Start 02/10/19 at 09:00 Zolpidem Tartrate (Ambien) 5 mg QHS PRN PO INSOMNIA; Start 02/09/19 at 15:00 Multivitamins/ Minerals (Theragran-M) 1 tab DAILY PO Last administered on 02/12/19 08:45; Admin Dose 1 TAB; Start 02/10/19 at 09:00 Metoprolol Tartrate (Lopressor) 5 mg Q4H PRN IV NOTE; FOR HR > 100 Last administered on 02/09/19 16:46; Admin Dose 5 MG; Start 02/09/19 at 15:30 Miscellaneous Information (Pending Santyl Order For Wound Care) This patient stacy... PRN PRN XX WOUND CARE; Start 02/09/19 at 17:00 Pantoprazole (Protonix Tab) 40 mg DAILY@06 PO Last administered on 02/12/19at 05:46; Admin Dose 40 MG; Start 02/10/19 at 06:00 Al Hydrox/Mg Hydrox/Simethicone (Mag-Al Plus) 30 ml Q6H PRN PO GASTROINTESTINAL UPSET Last administered on 02/10/19at 15:26; Admin Dose 30 ML; Start 02/10/19 at 14:30 Mupirocin (Bactroban) 1 applic BID TOP Last administered on 02/12/19at 09:57; Admin Dose 1 APPLIC; Start 02/10/19 at 15:30 Gabapentin (Neurontin) 300 mg TID PO Last administered on 02/12/19at 13:47; Admin Dose 300 MG; Start 02/11/19 at 21:00 Methylnaltrexone [place] (Relistor) 12 mg Q48H SC Last administered on 02/11/19at 18:55; Admin Dose 12 MG; Start 02/11/19 at 18:30 LEAH BROUSSARD Feb 12, 2019 16:03
[2019-02-12] MEDS: MELATONIN 3 MG TABLET PO SCH (21:07)
--- NOTE | 2019-02-13 00:02 | PN ---
Date/Time of Note Date/Time of Note DATE: 02/13/19 TIME: 00:02 Assessment/Plan VTE Prophylaxis Risk score (from [facility])>0 risk: 7 SCD applied (from [facility] [place]): Yes SCD contraindicated: other Pharmacological prophylaxis: other Pharm contraindication: other Lines/Catheters IV Catheter Type (from [facility] [place]): Peripheral IV Urinary Cath still in place: No Assessment/Plan Assessment/Plan - Bradycardia - tele monitoring -per cardiology consult - Tachycardia- resolved - Fecal impaction and stercoral colitis. Continue Miralax and Lactulose. - Dr. Castano is consulted in gastroenterology consultation. - Abdominal pain 2/2 to above - pain- general - Acute Nausea and vomiting- none at present - Hypertension, continue Norvasc - Paroxysmal atrial fibrillation- sinus rhythm on admission. - hold Eliquis for now. Continue aspirin - 12/28/2018- Fracture deformity of the left proximal femur, new compared to 06/2018 CT - ortho consult appreciated - patient refused any surgery/treatment - Benign prostatic hypertrophy. Continue Proscar - Colon cancer. - The patient refused further workup - continue to monitor -- Bilateral inguinal hernias without evidence of obstruction or strangulation - Paranoid psychosis. - Psych consult-notified - Patient was prescribed Seroquel during last admission, but he is refusing meds - Peripheral neuropathy. Continue Neurontin - History of C. difficile colitis- no reported diarrhea Dw Dr Baron Further recommendations will depend on hospital course. Plan of care discussed with Dr. Baron. Result Diagram: 02/09/19 0454 02/12/19 0036 Results 24hrs Laboratory Tests Test 02/12/19 00:36 Sodium Level 139 Potassium Level 3.8 Chloride Level 109 Carbon Dioxide Level 23 Anion Gap 7 Blood Urea Nitrogen 17 Creatinine 0.64 Est Glomerular Filtrat Rate mL/min Glucose Level 137 Calcium Level 7.8 L Magnesium Level 2.0 Subjective 24 Hr Interval Summary Free Text/Dictation Entry for - 02/10/2019 at 1500 Eyes: no complaints ENT: no complaints Respiratory: no complaints Cardiovascular: no complaints Gastrointestinal: no complaints Genitourinary: no complaints Musculoskeletal: restricted range of motion Psychological: nl mood/affect, anxiety Exam/Review of Systems Exam Vitals Vital Signs Date Temp Pulse Resp B/P (MAP) Pulse Ox O2 O2 Flow FiO2 Time Delivery Rate 02/12/19 98.1 61 18 123/58 96 Room Air 23:56 (79) 02/10/19 2.0 12:39 Intake and Output 02/12/19 02/12/19 02/13/19 1414:59 22:59 06:59 IntakeIntake Total 360 ml 120 ml OutputOutput Total 200 ml 200 ml BalanceBalance 160 ml -80 ml Constitutional: alert, well developed Psych: nl mood/affect Head: normocephalic Eyes: nl lids, nl sclera ENMT: nl external ears & nose Neck: non-tender Respiratory: clear to auscultation Cardiovascular: nl pulses, other (s1s2) Gastrointestinal: soft, non-tender Musculoskeletal: joint tenderness, range of motion Extremities: normal pulses Neurological: nl speech, other (alerty/responsie) Skin: nl turgor Lymph: nontender Results Results 24hrs Laboratory Tests Test 02/12/19 00:36 Sodium Level 139 Potassium Level 3.8 Chloride Level 109 Carbon Dioxide Level 23 Anion Gap 7 Blood Urea Nitrogen 17 Creatinine 0.64 Est Glomerular Filtrat Rate mL/min Glucose Level 137 Calcium Level 7.8 L Magnesium Level 2.0 Medications Medication Current Medications Ondansetron HCl (Zofran Inj) 4 mg Q4H PRN IV NAUSEA AND/OR VOMITING Last a dministered on 02/10/19at 21:22; Admin Dose 4 MG; Start 02/09/19 at 02:30 Morphine Sulfate (morphine) 2 mg Q3 PRN IV SEVERE PAIN LEVEL 7-10 Last administered on 02/10/19at 21:22; Admin Dose 2 MG; Start 02/09/19 at 02:30 Acetaminophen (Tylenol Tab) 650 mg Q6H PRN PO MILD PAIN(1-3)OR ELEVATED TEMP; Start 02/09/19 at 15:00 Amlodipine Besylate (Norvasc) 5 mg DAILY PO Last administered on 02/12/19at 08:46; Admin Dose 5 MG; Start 02/09/19 at 15:00 Apixaban (Eliquis) 5 mg BID PO Last administered on 02/12/19at 21:07; Admin Dose 5 MG; Start 02/09/19 at 15:00 Ascorbic Acid (Vitamin C) 500 mg DAILY PO ; Start 02/10/19 at 09:00 Aspirin (Halfprin) 81 mg DAILY PO Last administered on 7/8/19at 08:10; Admin Dose 81 MG; Start 02/09/19 at 15:00; Status Hold Ferrous Sulfate (Ferrous Sulfate (Ec)) 325 mg BID PO ; Start 02/09/19 at 21:00 Finasteride (Proscar) 5 mg DAILY PO Last administered on 02/12/19 08:45; Admin Dose 5 MG; Start 02/09/19 at 15:00 Guaifenesin/ Dextromethorphan (Robitussin Dm Liquid Cup) 10 ml Q4H PRN PO COUGH; Start 02/09/19 at 15:00 Hydralazine HCl (Apresoline) 25 mg Q6H PRN PO FOR SBP ABOVE 160; Start 02/09/19 at 15:00 Loperamide HCl (Imodium Cap) 2 mg Q6H PRN PO DIARRHEA; Start 02/09/19 at 15:00 Lubiprostone (Amitiza) 24 mcg BID PO Last administered on 02/12/19 21:07; Admin Dose 24 MCG; Start 02/09/19 at 15:00 Magnesium Hydroxide (Milk Of Mag) 30 ml DAILY PO Last administered on 02/12/19 08:45; Admin Dose 30 ML; Start 02/10/19 at 09:00 Melatonin (Melatonin) 3 mg QHS PO Last administered on 02/12/19 21:07; Admin Dose 3 MG; Start 02/09/19 at 21:00 Metoprolol Tartrate (Lopressor) 25 mg BID PO Last administered on 02/12/19 21:09; Admin Dose 25 MG; Start 02/09/19 at 15:00 Nitroglycerin (Nitroglycerin (Sl Tab) 0.4 Mg) 1 tab [id number] PRN SL CHEST PAIN; Start 02/09/19 at 15:00 Nystatin 1 applic DAILY TOP Last administered on 02/11/19 08:15; Admin Dose 1 APPLIC; Start 02/10/19 at 09:00 Oxycodone/ Acetaminophen (Endocet (10/ 325)) 1 tab Q4 PRN PO SEVERE PAIN LEVEL 7-10 Last administered on 02/12/19 19:56; Admin Dose 1 TAB; Start 02/09/19 at 15:00 Polyethylene Glycol (Miralax) 17 gm DAILY PO Last administered on 02/12/19 09:58; Admin Dose 17 GM; Start 02/10/19 at 09:00 Zolpidem Tartrate (Ambien) 5 mg QHS PRN PO INSOMNIA; Start 02/09/19 at 15:00 Multivitamins/ Minerals (Theragran-M) 1 tab DAILY PO Last administered on 02/12/19 08:45; Admin Dose 1 TAB; Start 02/10/19 at 09:00 Metoprolol Tartrate (Lopressor) 5 mg Q4H PRN IV NOTE; FOR HR > 100 Last administered on 02/09/19 16:46; Admin Dose 5 MG; Start 02/09/19 at 15:30 Miscellaneous Information (Pending Santyl Order For Wound Care) This patient stacy... PRN PRN XX WOUND CARE; Start 02/09/19 at 17:00 Pantoprazole (Protonix Tab) 40 mg DAILY@06 PO Last administered on 02/12/19 05:46; Admin Dose 40 MG; Start 02/10/19 at 06:00 Al Hydrox/Mg Hydrox/Simethicone (Mag-Al Plus) 30 ml Q6H PRN PO GASTROINTESTINAL UPSET Last administered on 02/10/19 15:26; Admin Dose 30 ML; Start 02/10/19 at 14:30 Mupirocin (Bactroban) 1 applic BID TOP Last administered on 02/12/19 21:08; Admin Dose 1 APPLIC; Start 02/10/19 at 15:30 Gabapentin (Neurontin) 300 mg TID PO Last administered on 02/12/19 21:07; Admin Dose 300 MG; Start 02/11/19 at 21:00 Methylnaltrexone [place] (Relistor) 12 mg Q48H SC Last administered on 02/11/19 18:55; Admin Dose 12 MG; Start 02/11/19 at 18:30 YAZ BARTLETT Feb 13, 2019 00:02
[2019-02-13 03:44] VITALS: BP 131/62; PULSE 69; RESP 21
[2019-02-13] MEDS: PANTOPRAZOLE (EC) 40 MG TAB PO SCH (05:17)
[2019-02-13] MEDS: OXYCODONE/ACETAMINOPHEN (10/325) TAB PO PRN ×4 (05:18→20:28)
[2019-02-13 07:13] VITALS: BP 105/59; PULSE 65; RESP 20
--- NOTE | 2019-02-13 07:48 | CONS ---
Assessment/Plan Assessment/Plan Hospital Course (Demo Recall) 78 to male with colon cancer Pt had two BM overnight. Pt is having bm QD. Pt refusing manual disimpaction and enemas. Tolerating PO diet. 1. Fecal impaction. Had multiple bowel movements 2. Cancer of the colon. 3. Atrial fibrillation. 4. Right inguinal hernia, reducible. 5. Psychosis. Plan Continue with bowel regimen (amitiza and miralax) including relistor injection q 48 hours [facility] and for active GI bleeding, pt is on eliquis Pt is refusing Iron tablet and may contribute to fecal impaction, consider IV Iron. Pt examined and plan of care d/w Dr. Castano Consultation Date/Type/Reason Admit Date/Time Feb 08, 2019 at 19:24 Initial Consult Date Requesting Provider: OSIRIS CIFUENTES MD Date/Time of Note DATE: 02/13/19 TIME: 07:39 Exam/Review of Systems Exam Vitals Vital Signs Date Temp Pulse Resp B/P (MAP) Pulse Ox O2 O2 Flow FiO2 Time Delivery Rate 02/13/19 98.2 65 20 105/59 95 Room Air 07:13 (74) 02/10/19 2.0 12:39 Intake and Output 02/12/19 02/12/19 02/13/19 1515:00 23:00 07:00 IntakeIntake Total 360 ml 120 ml 500 ml OutputOutput Total 200 ml 200 ml 450 ml BalanceBalance 160 ml -80 ml 50 ml Constitutional: alert Psych: no complaints Head: normocephalic Eyes: nl sclera, PERRL Respiratory: normal air movement Cardiovascular: regular rate and rhythm Gastrointestinal: bowel sounds, tender Neurological: confused Results Result Diagram: 02/09/19 0454 02/12/19 0036 Medications Medication Current Medications Ondansetron HCl (Zofran Inj) 4 mg Q4H PRN IV NAUSEA AND/OR VOMITING Last administered on 02/10/19at 21:22; Admin Dose 4 MG; Start 02/09/19 at 02:30 Morphine Sulfate (morphine) 2 mg Q3 PRN IV SEVERE PAIN LEVEL 7-10 Last administered on 02/10/19at 21:22; Admin Dose 2 MG; Start 02/09/19 at 02:30 Acetaminophen (Tylenol Tab) 650 mg Q6H PRN PO MILD PAIN(1-3)OR ELEVATED TEMP; Start 02/09/19 at 15:00 Amlodipine Besylate (Norvasc) 5 mg DAILY PO Last administered on 02/12/19at 08:46; Admin Dose 5 MG; Start 02/09/19 at 15:00 Apixaban (Eliquis) 5 mg BID PO Last administered on 02/12/19at 21:07; Admin Dose 5 MG; Start 02/09/19 at 15:00 Ascorbic Acid (Vitamin C) 500 mg DAILY PO ; Start 02/10/19 at 09:00 Aspirin (Halfprin) 81 mg DAILY PO Last administered on 02/11/19 08:10; Admin Dose 81 MG; Start 02/09/19 at 15:00; Status Hold Ferrous Sulfate (Ferrous Sulfate (Ec)) 325 mg BID PO ; Start 02/09/19 at 21:00 Finasteride (Proscar) 5 mg DAILY PO Last administered on 02/12/19at 08:45; Admin Dose 5 MG; Start 02/09/19 at 15:00 Guaifenesin/ Dextromethorphan (Robitussin Dm Liquid Cup) 10 ml Q4H PRN PO COUGH; Start 02/09/19 at 15:00 Hydralazine HCl (Apresoline) 25 mg Q6H PRN PO FOR SBP ABOVE 160; Start 02/09/19 at 15:00 Loperamide HCl (Imodium Cap) 2 mg Q6H PRN PO DIARRHEA; Start 02/09/19 at 15:00 Lubiprostone (Amitiza) 24 mcg BID PO Last administered on 02/12/19at 21:07; Admin Dose 24 MCG; Start 02/09/19 at 15:00 Magnesium Hydroxide (Milk Of Mag) 30 ml DAILY PO Last administered on 02/12/19at 08:45; Admin Dose 30 ML; Start 02/10/19 at 09:00 Melatonin (Melatonin) 3 mg QHS PO Last administered on 02/12/19 21:07; Admin Dose 3 MG; Start 02/09/19 at 21:00 Metoprolol Tartrate (Lopressor) 25 mg BID PO Last administered on 02/12/19at 21:09; Admin Dose 25 MG; Start 02/09/19 at 15:00 Nitroglycerin (Nitroglycerin (Sl Tab) 0.4 Mg) 1 tab [id number] PRN SL CHEST PAIN; Start 02/09/19 at 15:00 Nystatin 1 applic DAILY TOP Last administered on 02/11/19 08:15; Admin Dose 1 APPLIC; Start 02/10/19 at 09:00 Oxycodone/ Acetaminophen (Endocet (10/ 325)) 1 tab Q4 PRN PO SEVERE PAIN LEVEL 7-10 Last administered on 02/13/19 05:18; Admin Dose 1 TAB; Start 02/09/19 at 15:00 Polyethylene Glycol (Miralax) 17 gm DAILY PO Last administered on 02/12/19 09:58; Admin Dose 17 GM; Start 02/10/19 at 09:00 Zolpidem Tartrate (Ambien) 5 mg QHS PRN PO INSOMNIA; Start 02/09/19 at 15:00 Multivitamins/ Minerals (Theragran-M) 1 tab DAILY PO Last administered on 02/12/19 08:45; Admin Dose 1 TAB; Start 02/10/19 at 09:00 Metoprolol Tartrate (Lopressor) 5 mg Q4H PRN IV NOTE; FOR HR > 100 Last administered on 02/09/19 16:46; Admin Dose 5 MG; Start 02/09/19 at 15:30 [facility] This patient stacy... PRN PRN XX WOUND CARE; Start 02/09/19 at 17:00 Pantoprazole (Protonix Tab) 40 mg DAILY@06 PO Last administered on 02/13/19 05:17; Admin Dose 40 MG; Start 02/10/19 at 06:00 Al Hydrox/Mg Hydrox/Simethicone (Mag-Al Plus) 30 ml Q6H PRN PO GASTROINTESTINAL UPSET Last administered on 02/10/19 15:26; Admin Dose 30 ML; Start 02/10/19 at 14:30 Mupirocin (Bactroban) 1 applic BID TOP Last administered on 02/12/19 21:08; Admin Dose 1 APPLIC; Start 02/10/19 at 15:30 Gabapentin (Neurontin) 300 mg TID PO Last administered on 02/12/19 21:07; Admin Dose 300 MG; Start 02/11/19 at 21:00 Methylnaltrexone [place] (Relistor) 12 mg Q48H SC Last administered on 02/11/19at 18:55; Admin Dose 12 MG; Start 02/11/19 at 18:30 AMITA SHELLEY Feb 13, 2019 07:48
[2019-02-13] MEDS: GABAPENTIN 300 MG CAP PO SCH ×3 (08:51→20:28)
[2019-02-13] MEDS: APIXABAN 5 MG TABLET PO SCH ×2 (08:52→20:27)
[2019-02-13] MEDS: ASCORBIC ACID 500 MG TAB PO SCH (08:52)
[2019-02-13] MEDS: FINASTERIDE 5 MG TAB PO SCH (08:53)
[2019-02-13] MEDS: METOPROLOL 25 MG TAB PO SCH ×2 (08:53→20:27)
[2019-02-13] MEDS: AMLODIPINE 5 MG TAB PO SCH (08:53)
[2019-02-13] MEDS: LUBIPROSTONE 24 MCG CAP PO SCH ×2 (08:54→20:26)
[2019-02-13] MEDS: MAGNESIUM HYDROXIDE 30ML CUP PO SCH (08:55)
[2019-02-13] MEDS: NYSTATIN 15 GM POWDER BTL TOP SCH (08:57)
[2019-02-13] MEDS: POLYETHYLENE GLYCOL 17 GM PACKET PO SCH (08:57)
[2019-02-13] MEDS: FERROUS SULFATE (EC) 325 MG TAB PO SCH ×2 (08:57→20:25)
[2019-02-13] MEDS: MUPIROCIN 2% 22 GM OINT TOP SCH ×2 (08:58→20:28)
[2019-02-13] MEDS: MULTIVITAMINS/MINERALS TAB PO SCH (08:59)
[2019-02-13 11:24] VITALS: BP 120/65; PULSE 67; RESP 20
[2019-02-13 15:22] VITALS: BP 128/62; PULSE 65; RESP 20
--- NOTE | 2019-02-13 15:26 | CONS ---
Assessment/Plan Assessment/Plan Hospital Course (Demo Recall) IMP: 1.PAF-REmains in SR at this time with 1AVB 2.HTN 3.cad 4.colon ca refusing surgery 5.chest pain-resolved. Neg trop x 3 6. Fecal impaction/constipation Recc: -Tele -serial ecg's -Continue current BB as tolerated -Contineu norvasc -Continue eliquis -Continue bowel regimen Consultation Date/Type/Reason Admit Date/Time Feb 08, 2019 at 19:24 Initial Consult Date 02/08/19 Type of Consult Cardiology Reason for Consultation PAF Requesting Provider: OSIRIS CIFUENTES MD Date/Time of Note DATE: 02/13/19 TIME: 15:24 Exam/Review of Systems Vital Signs Vitals Vital Signs Date Temp Pulse Resp B/P (MAP) Pulse Ox O2 O2 Flow FiO2 Time Delivery Rate 02/13/19 98.6 65 20 128/62 98 Room Air 15:22 (84) 02/10/19 2.0 12:39 Intake and Output 02/12/19 02/12/19 02/13/19 1515:00 23:00 07:00 IntakeIntake Total 360 ml 120 ml 500 ml OutputOutput Total 200 ml 200 ml 450 ml BalanceBalance 160 ml -80 ml 50 ml Exam Exam Review of Systems: CONSTITUTIONAL: No fevers, chills. PULMONARY: No sob CARDIOVASCULAR: No chest pain/palpitations GASTROINTESTINAL: constipation GENITOURINARY: No hematuria/dysuria. MUSCULOSKELETAL: No myagias/arthalgias. PSYCHIATRIC: The patient denies depression. NEUROLOGIC: No weakness Constitutional: alert Psych: no complaints Head: normocephalic ENMT: mucosa pink and moist Neck: supple, jvd (8 cm water) Respiratory: clear to auscultation Cardiovascular: regular rate and rhythm Gastrointestinal: soft, non-tender Musculoskeletal: muscle tone (normal) Extremities: edema (none) Neurological: other (No focal deficits) Labs Result Diagram: 02/09/19 0454 02/12/19 0036 Medications Medications Current Medications Ondansetron HCl (Zofran Inj) 4 mg Q4H PRN IV NAUSEA AND/OR VOMITING Last ad ministered on 02/10/19at 21:22; Admin Dose 4 MG; Start 02/09/19 at 02:30 Morphine Sulfate (morphine) 2 mg Q3 PRN IV SEVERE PAIN LEVEL 7-10 Last administered on 02/10/19 21:22; Admin Dose 2 MG; Start 02/09/19 at 02:30 Acetaminophen (Tylenol Tab) 650 mg Q6H PRN PO MILD PAIN(1-3)OR ELEVATED TEMP; Start 02/09/19 at 15:00 Amlodipine Besylate (Norvasc) 5 mg DAILY PO Last administered on 02/13/19 08:53; Admin Dose 5 MG; Start 02/09/19 at 15:00 Apixaban (Eliquis) 5 mg BID PO Last administered on 02/13/19 08:52; Admin Dose 5 MG; Start 02/09/19 at 15:00 Ascorbic Acid (Vitamin C) 500 mg DAILY PO Last administered on 02/13/19 08:52; Admin Dose 500 MG; Start 02/10/19 at 09:00 Aspirin (Halfprin) 81 mg DAILY PO Last administered on 02/11/19 08:10; Admin Dose 81 MG; Start 02/09/19 at 15:00; Status Hold Ferrous Sulfate (Ferrous Sulfate (Ec)) 325 mg BID PO ; Start 02/09/19 at 21:00 Finasteride (Proscar) 5 mg DAILY PO Last administered on 02/13/19 08:53; Admin Dose 5 MG; Start 02/09/19 at 15:00 Guaifenesin/ Dextromethorphan (Robitussin Dm Liquid Cup) 10 ml Q4H PRN PO COUGH; Start 02/09/19 at 15:00 Hydralazine HCl (Apresoline) 25 mg Q6H PRN PO FOR SBP ABOVE 160; Start 02/09/19 at 15:00 Loperamide HCl (Imodium Cap) 2 mg Q6H PRN PO DIARRHEA; Start 02/09/19 at 15:00 Lubiprostone (Amitiza) 24 mcg BID PO Last administered on 02/13/19 08:54; Admin Dose 24 MCG; Start 02/09/19 at 15:00 Magnesium Hydroxide (Milk Of Mag) 30 ml DAILY PO Last administered on 02/13/19 08:55; Admin Dose 30 ML; Start 02/10/19 at 09:00 Melatonin (Melatonin) 3 mg QHS PO Last administered on 02/12/19 21:07; Admin Dose 3 MG; Start 02/09/19 at 21:00 Metoprolol Tartrate (Lopressor) 25 mg BID PO Last administered on 02/13/19 08:53; Admin Dose 25 MG; Start 02/09/19 at 15:00 Nitroglycerin (Nitroglycerin (Sl Tab) 0.4 Mg) 1 tab [id number] PRN SL CHEST PAIN; Start 02/09/19 at 15:00 Nystatin 1 applic DAILY TOP Last administered on 02/13/19 08:57; Admin Dose 1 APPLIC; Start 02/10/19 at 09:00 Oxycodone/ Acetaminophen (Endocet ()) 1 tab Q4 PRN PO SEVERE PAIN LEVEL 7-10 Last administered on 02/13/19 10:55; Admin Dose 1 TAB; Start 02/09/19 at 15:00 Polyethylene Glycol (Miralax) 17 gm DAILY PO Last administered on 02/12/19 09:58; Admin Dose 17 GM; Start 02/10/19 at 09:00 Zolpidem Tartrate (Ambien) 5 mg QHS PRN PO INSOMNIA; Start 02/09/19 at 15:00 Multivitamins/ Minerals (Theragran-M) 1 tab DAILY PO Last administered on 02/12/19 08:45; Admin Dose 1 TAB; Start 02/10/19 at 09:00 Metoprolol Tartrate (Lopressor) 5 mg Q4H PRN IV NOTE; FOR HR > 100 Last administered on 02/09/19at 16:46; Admin Dose 5 MG; Start 02/09/19 at 15:30 Miscellaneous Information (Pending [facility] Order For Wound Care) This patient stacy... PRN PRN XX WOUND CARE; Start 02/09/19 at 17:00 Pantoprazole (Protonix Tab) 40 mg DAILY@06 PO Last administered on 02/13/19 05:17; Admin Dose 40 MG; Start 02/10/19 at 06:00 Al Hydrox/Mg Hydrox/Simethicone (Mag-Al Plus) 30 ml Q6H PRN PO GASTROINTESTINAL UPSET Last administered on 02/10/19 15:26; Admin Dose 30 ML; Start 02/10/19 at 14:30 Mupirocin (Bactroban) 1 applic BID TOP Last administered on 02/13/19 08:58; Admin Dose 1 APPLIC; Start 02/10/19 at 15:30 Gabapentin (Neurontin) 300 mg TID PO Last administered on 02/13/19at 13:09; Admin Dose 300 MG; Start 02/11/19 at 21:00 Methylnaltrexone [place] (Relistor) 12 mg Q48H SC Last administered on 02/11/19at 18:55; Admin Dose 12 MG; Start 02/11/19 at 18:30 RICH MANSFIELD Feb 13, 2019 15:26
[2019-02-13] MEDS: METHYLNALTREXONE 12 MG/0.6 ML VIAL SC SCH (18:26)
--- NOTE | 2019-02-13 18:42 | PN ---
Date/Time of Note Date/Time of Note DATE: 02/13/19 TIME: 18:40 Assessment/Plan VTE Prophylaxis [place] [facility] [place] risk: 7 SCD applied [place] [facility] [place] No SCD contraindicated: patient refusal Pharmacological prophylaxis: apixaban Lines/Catheters IV Catheter Type (from [facility]): Peripheral IV Urinary Cath still in place: No Assessment/Plan Hospital Course Patient had bowel movement x3, complains of occasional right lower abdominal pain, patient continues to refuse any treatment for colon cancer including surgery. Assessment/Plan - Atrial fibrillation with rapid rate ventricular response, currently atrial fibrillation at controlled rate. Continue Eliquis. Dr. Rodarte is following in cardiology consultation. - Fecal impaction, continue bowel regiment. Dr. Castano is following in gastroenterology consultation. - Hypertension, continue Norvasc. - Benign prostatic hypertrophy. Continue Proscar. - Peripheral neuropathy. Continue Neurontin. - Paranoid psychosis. S/p evaluation by DNP On[place]we, pt refused psychiatric evaluation. - Colon cancer. The patient refused further workup. - Bilateral inguinal hernias without evidence of obstruction or strangulation. - Left proximal femur fracture, patient refused surgery. - History of C. difficile colitis Further recommendations will depend on hospital course. Plan of care discussed with Dr. Baron. Result Diagram: 02/09/19 0454 02/12/19 0036 Exam/Review of Systems Exam Vitals Vital Signs Date Temp Pulse Resp B/P (MAP) Pulse Ox O2 O2 Flow FiO2 Time Delivery Rate 02/13/19 98.6 65 20 128/62 98 Room Air 15:22 (84) 02/10/19 2.0 12:39 Intake and Output 02/12/19 02/12/19 02/13/19 1515:00 23:00 07:00 IntakeIntake Total 360 ml 120 ml 500 ml OutputOutput Total 200 ml 200 ml 450 ml BalanceBalance 160 ml -80 ml 50 ml Exam Constitutional: alert, oriented Psych: confusion Head: normocephalic Neck: supple Respiratory: clear to auscultation Cardiovascular: irregular rhythm Gastrointestinal: soft, non-tender Extremities: normal pulses Neurological: nl mental status, confused Medications Medication Current Medications Ondansetron HCl (Zofran Inj) 4 mg Q4H PRN IV NAUSEA AND/OR VOMITING Last administered on 02/10/19at 21:22; Admin Dose 4 MG; Start 02/09/19 at 02:30 Morphine Sulfate (morphine) 2 mg Q3 PRN IV SEVERE PAIN LEVEL 7-10 Last administered on 02/10/19 21:22; Admin Dose 2 MG; Start 02/09/19 at 02:30 Acetaminophen (Tylenol Tab) 650 mg Q6H PRN PO MILD PAIN(1-3)OR ELEVATED TEMP; Start 02/09/19 at 15:00 Amlodipine Besylate (Norvasc) 5 mg DAILY PO Last administered on 02/13/19 08:53; Admin Dose 5 MG; Start 02/09/19 at 15:00 Apixaban (Eliquis) 5 mg BID PO Last administered on 02/13/19 08:52; Admin Dose 5 MG; Start 02/09/19 at 15:00 Ascorbic Acid (Vitamin C) 500 mg DAILY PO Last administered on 02/13/19 08:52; Admin Dose 500 MG; Start 02/10/19 at 09:00 Aspirin (Halfprin) 81 mg DAILY PO Last administered on 02/11/19 08:10; Admin Dose 81 MG; Start 02/09/19 at 15:00; Status Hold Ferrous Sulfate (Ferrous Sulfate (Ec)) 325 mg BID PO ; Start 02/09/19 at 21:00 Finasteride (Proscar) 5 mg DAILY PO Last administered on 02/13/19 08:53; Admin Dose 5 MG; Start 02/09/19 at 15:00 Guaifenesin/ Dextromethorphan (Robitussin Dm Liquid Cup) 10 ml Q4H PRN PO COUGH; Start 02/09/19 at 15:00 Hydralazine HCl (Apresoline) 25 mg Q6H PRN PO FOR SBP ABOVE 160; Start 02/09/19 at 15:00 Loperamide HCl (Imodium Cap) 2 mg Q6H PRN PO DIARRHEA; Start 02/09/19 at 15:00 Lubiprostone (Amitiza) 24 mcg BID PO Last administered on 02/13/19 08:54; Admin Dose 24 MCG; Start 02/09/19 at 15:00 Magnesium Hydroxide (Milk Of Mag) 30 ml DAILY PO Last administered on 02/13/19 08:55; Admin Dose 30 ML; Start 02/10/19 at 09:00 Melatonin (Melatonin) 3 mg QHS PO Last administered on 02/12/19 21:07; Admin Dose 3 MG; Start 02/09/19 at 21:00 Metoprolol Tartrate (Lopressor) 25 mg BID PO Last administered on 02/13/19 08:53; Admin Dose 25 MG; Start 02/09/19 at 15:00 Nitroglycerin (Nitroglycerin (Sl Tab) 0.4 Mg) 1 tab [id number] PRN SL CHEST PAIN; Start 02/09/19 at 15:00 Nystatin 1 applic DAILY TOP Last administered on 02/13/19 08:57; Admin Dose 1 APPLIC; Start 02/10/19 at 09:00 Oxycodone/ Acetaminophen (Endocet ()) 1 tab Q4 PRN PO SEVERE PAIN LEVEL 7-10 Last administered on 02/13/19 16:04; Admin Dose 1 TAB; Start 02/09/19 at 15:00 Polyethylene Glycol (Miralax) 17 gm DAILY PO Last administered on 02/12/19 09:58; Admin Dose 17 GM; Start 02/10/19 at 09:00 Zolpidem Tartrate (Ambien) 5 mg QHS PRN PO INSOMNIA; Start 02/09/19 at 15:00 Multivitamins/ Minerals (Theragran-M) 1 tab DAILY PO Last administered on 02/12/19 08:45; Admin Dose 1 TAB; Start 02/10/19 at 09:00 Metoprolol Tartrate (Lopressor) 5 mg Q4H PRN IV NOTE; FOR HR > 100 Last administered on 02/09/19 16:46; Admin Dose 5 MG; Start 02/09/19 at 15:30 Miscellaneous Information (Pending Santyl Order For Wound Care) This patient stacy... PRN PRN XX WOUND CARE; Start 02/09/19 at 17:00 Pantoprazole (Protonix Tab) 40 mg DAILY@06 PO Last administered on 02/13/19 05:17; Admin Dose 40 MG; Start 02/10/19 at 06:00 Al Hydrox/Mg Hydrox/Simethicone (Mag-Al Plus) 30 ml Q6H PRN PO GASTROINTESTINAL UPSET Last administered on 02/10/19 15:26; Admin Dose 30 ML; Start 02/10/19 at 14:30 Mupirocin (Bactroban) 1 applic BID TOP Last administered on 02/13/19at 08:58; Admin Dose 1 APPLIC; Start 02/10/19 at 15:30 Gabapentin (Neurontin) 300 mg TID PO Last administered on 02/13/19at 13:09; Admin Dose 300 MG; Start 02/11/19 at 21:00 Methylnaltrexone [place] (Relistor) 12 mg Q48H SC Last administered on 02/11/19at 18:55; Admin Dose 12 MG; Start 02/11/19 at 18:30 LEAH BROUSSARD Feb 13, 2019 18:42
[2019-02-13 20:01] VITALS: BP 122/76; PULSE 78; RESP 18
[2019-02-13] MEDS: MELATONIN 3 MG TABLET PO SCH (20:27)
[2019-02-14 00:03] VITALS: BP 93/53; PULSE 63; RESP 18
[2019-02-14 03:57] VITALS: BP 119/58; PULSE 71; RESP 22
[2019-02-14] MEDS: PANTOPRAZOLE (EC) 40 MG TAB PO SCH (05:44)
[2019-02-14] MEDS: OXYCODONE/ACETAMINOPHEN (10/325) TAB PO PRN ×4 (05:50→23:22)
[2019-02-14 07:21] VITALS: BP 102/59; PULSE 70; RESP 20
--- NOTE | 2019-02-14 07:32 | CONS ---
Assessment/Plan Assessment/Plan Hospital Course (Demo Recall) 78 to male with colon cancer Pt is having bm QD. Pt refusing manual disimpaction and enemas. Tolerating PO diet. Abd is soft, pos bowel sounds. No evidence of GI bleeding. HH has gone down. hgb 11. We will monitor. WBC trending down. C/o pain in feet when sheet moves around and tendonitis in elbow. 1. Fecal impaction. -improved 2. Cancer of the colon. 3. Atrial fibrillation. 4. Right inguinal hernia, reducible. 5. Psychosis. Plan Continue with bowel regimen (amitiza and miralax) including relistor injection q 48 hours [facility] and for active GI bleeding, pt is on eliquis Pt is refusing Iron tablet and may contribute to fecal impaction, consider IV Iron. Pt examined and plan of care d/w Dr. Castano Consultation Date/Type/Reason Admit Date/Time Feb 08, 2019 at 19:24 Initial Consult Date Requesting Provider: OSIRIS CIFUENTES MD Date/Time of Note DATE: 02/14/19 TIME: 07:29 Exam/Review of Systems Exam Vitals Vital Signs Date Temp Pulse Resp B/P (MAP) Pulse Ox O2 O2 Flow FiO2 Time Delivery Rate 02/14/19 98.0 70 20 102/59 92 Room Air 07:21 (73) 02/10/19 2.0 12:39 Intake and Output 02/13/19 02/13/19 02/14/19 1515:00 23:00 07:00 IntakeIntake Total 240 ml 510 ml BalanceBalance 240 ml 510 ml Constitutional: alert, oriented Head: normocephalic Eyes: nl sclera, PERRL Respiratory: normal air movement Cardiovascular: regular rate and rhythm Gastrointestinal: soft, non-tender, bowel sounds Neurological: nl mental status Results Result Diagram: 02/14/19 0537 02/14/19 0537 Results 24hrs Laboratory Tests Test 02/14/19 05:37 White Blood Count 12.3 H Red Blood Count 4.13 L Hemoglobin 11.6 L Hematocrit 36.0 L Mean Corpuscular Volume 87.2 Mean Corpuscular Hemoglobin 28.1 L Mean Corpuscular Hemoglobin Concent 32.2 Red Cell Distribution Width 19.1 H Platelet Count 268 Mean Platelet Volume 9.5 Immature Granulocytes % 1.000 H Neutrophils % 78.4 H Lymphocytes % 9.7 L Monocytes % 9.6 Eosinophils % 1.1 Basophils % 0.2 Nucleated Red Blood Cells % 0.0 Immature Granulocytes # 0.120 H Neutrophils # 9.6 H Lymphocytes # 1.2 Monocytes # 1.2 H Eosinophils # 0.1 Basophils # 0.0 Nucleated Red Blood Cells # 0.0 Sodium Level 138 Potassium Level 4.2 Chloride Level 104 Carbon Dioxide Level 28 Anion Gap 6 Blood Urea Nitrogen 16 Creatinine 0.60 L Est Glomerular Filtrat Rate mL/min Glucose Level 86 Calcium Level 8.5 Medications Medication Current Medications Ondansetron HCl (Zofran Inj) 4 mg Q4H PRN IV NAUSEA AND/OR VOMITING Last administered on 02/10/19 21:22; Admin Dose 4 MG; Start 02/09/19 at 02:30 Morphine Sulfate (morphine) 2 mg Q3 PRN IV SEVERE PAIN LEVEL 7-10 Last administered on 02/10/19 21:22; Admin Dose 2 MG; Start 02/09/19 at 02:30 Acetaminophen (Tylenol Tab) 650 mg Q6H PRN PO MILD PAIN(1-3)OR ELEVATED TEMP; Start 02/09/19 at 15:00 Amlodipine Besylate (Norvasc) 5 mg DAILY PO Last administered on 02/13/19 08:53; Admin Dose 5 MG; Start 02/09/19 at 15:00 Apixaban (Eliquis) 5 mg BID PO Last administered on 02/13/19 20:27; Admin Dose 5 MG; Start 02/09/19 at 15:00 Ascorbic Acid (Vitamin C) 500 mg DAILY PO Last administered on 02/13/19 08:52; Admin Dose 500 MG; Start 02/10/19 at 09:00 Aspirin (Halfprin) 81 mg DAILY PO Last administered on 02/11/19 08:10; Admin Dose 81 MG; Start 02/09/19 at 15:00; Status Hold Ferrous Sulfate (Ferrous Sulfate (Ec)) 325 mg BID PO ; Start 02/09/19 at 21:00 Finasteride (Proscar) 5 mg DAILY PO Last administered on 02/13/19 08:53; Admin Dose 5 MG; Start 02/09/19 at 15:00 Guaifenesin/ Dextromethorphan (Robitussin Dm Liquid Cup) 10 ml Q4H PRN PO COUGH; Start 02/09/19 at 15:00 Hydralazine HCl (Apresoline) 25 mg Q6H PRN PO FOR SBP ABOVE 160; Start 02/09/19 at 15:00 Loperamide HCl (Imodium Cap) 2 mg Q6H PRN PO DIARRHEA; Start 02/09/19 at 15:00 Lubiprostone (Amitiza) 24 mcg BID PO Last administered on 02/13/19 20:26; Admin Dose 24 MCG; Start 02/09/19 at 15:00 Magnesium Hydroxide (Milk Of Mag) 30 ml DAILY PO Last administered on 02/13/19 08:55; Admin Dose 30 ML; Start 02/10/19 at 09:00 Melatonin (Melatonin) 3 mg QHS PO Last administered on 02/13/19 20:27; Admin Dose 3 MG; Start 02/09/19 at 21:00 Metoprolol Tartrate (Lopressor) 25 mg BID PO Last administered on 02/13/19 20:27; Admin Dose 25 MG; Start 02/09/19 at 15:00 Nitroglycerin (Nitroglycerin (Sl Tab) 0.4 Mg) 1 tab [id number] PRN SL CHEST PAIN; Start 02/09/19 at 15:00 Nystatin 1 applic DAILY TOP Last administered on 02/13/19 08:57; Admin Dose 1 APPLIC; Start 02/10/19 at 09:00 Oxycodone/ Acetaminophen (Endocet (10/ 325)) 1 tab Q4 PRN PO SEVERE PAIN LEVEL 7-10 Last administered on 02/14/19at 05:50; Admin Dose 1 TAB; Start 02/09/19 at 15:00 Polyethylene Glycol (Miralax) 17 gm DAILY PO Last administered on 02/12/19 09:58; Admin Dose 17 GM; Start 02/10/19 at 09:00 Zolpidem Tartrate (Ambien) 5 mg QHS PRN PO INSOMNIA; Start 02/09/19 at 15:00 Multivitamins/ Minerals (Theragran-M) 1 tab DAILY PO Last administered on 02/12/19at 08:45; Admin Dose 1 TAB; Start 02/10/19 at 09:00 Metoprolol Tartrate (Lopressor) 5 mg Q4H PRN IV NOTE; FOR HR > 100 Last admi nistered on 02/09/19 16:46; Admin Dose 5 MG; Start 02/09/19 at 15:30 Miscellaneous Information (Pending Santyl Order For Wound Care) This patient stacy... PRN PRN XX WOUND CARE; Start 02/09/19 at 17:00 Pantoprazole (Protonix Tab) 40 mg DAILY@06 PO Last administered on 02/14/19 05:44; Admin Dose 40 MG; Start 02/10/19 at 06:00 Al Hydrox/Mg Hydrox/Simethicone (Mag-Al Plus) 30 ml Q6H PRN PO GASTROINTESTINAL UPSET Last administered on 02/10/19 15:26; Admin Dose 30 ML; Start 02/10/19 at 14:30 Mupirocin (Bactroban) 1 applic BID TOP Last administered on 02/13/19 20:28; Admin Dose 1 APPLIC; Start 02/10/19 at 15:30 Gabapentin (Neurontin) 300 mg TID PO Last administered on 02/13/19 20:28; Admin Dose 300 MG; Start 02/11/19 at 21:00 Methylnaltrexone [place] (Relistor) 12 mg Q48H SC Last administered on 02/11/19 18:55; Admin Dose 12 MG; Start 02/11/19 at 18:30 AMITA SHELLEY Feb 14, 2019 07:32
[2019-02-14] MEDS: FERROUS SULFATE (EC) 325 MG TAB PO SCH ×3 (09:00→21:00)
[2019-02-14] MEDS: ASCORBIC ACID 500 MG TAB PO SCH ×2 (09:00→09:18)
[2019-02-14] MEDS: LUBIPROSTONE 24 MCG CAP PO SCH ×2 (09:17→21:00)
[2019-02-14] MEDS: APIXABAN 5 MG TABLET PO SCH ×2 (09:17→21:54)
[2019-02-14] MEDS: MAGNESIUM HYDROXIDE 30ML CUP PO SCH (09:17)
[2019-02-14] MEDS: POLYETHYLENE GLYCOL 17 GM PACKET PO SCH (09:17)
[2019-02-14] MEDS: FINASTERIDE 5 MG TAB PO SCH (09:17)
[2019-02-14] MEDS: METOPROLOL 25 MG TAB PO SCH (09:17)
[2019-02-14] MEDS: AMLODIPINE 5 MG TAB PO SCH (09:18)
[2019-02-14] MEDS: MULTIVITAMINS/MINERALS TAB PO SCH (09:18)
[2019-02-14] MEDS: GABAPENTIN 300 MG CAP PO SCH ×3 (09:18→21:51)
[2019-02-14] MEDS: MUPIROCIN 2% 22 GM OINT TOP SCH ×2 (09:18→21:54)
[2019-02-14] MEDS: NYSTATIN 15 GM POWDER BTL TOP SCH (09:18)
[2019-02-14 11:16] VITALS: BP 106/54; PULSE 69; RESP 17
[2019-02-14 15:23] VITALS: BP 100/59; PULSE 65; RESP 18
--- NOTE | 2019-02-14 18:56 | CONS ---
Assessment/Plan Assessment/Plan Hospital Course (Demo Recall) IMP: 1.PAF-REmains in SR at this time with 1AVB but had epsiode of PAF with mild RVR yesterday 2.HTN-borderline Hotn 3.cad 4.colon ca refusing surgery 5.chest pain-resolved. Neg trop x 3 6. Fecal impaction/constipation Recc: -Tele -serial ecg's -Continue current BB with slight incresae -Decrease or hold norvasc to allow more BP room to uptitrate BB -Continue eliquis -Continue bowel regimen Consultation Date/Type/Reason Admit Date/Time Feb 08, 2019 at 19:24 Initial Consult Date 02/08/19 Type of Consult Cardiology Reason for Consultation PAF Requesting Provider: OSIRIS CIFUENTES MD Date/Time of Note DATE: 02/14/19 TIME: 18:53 Exam/Review of Systems Vital Signs Vitals Vital Signs Date Temp Pulse Resp B/P (MAP) Pulse Ox O2 O2 Flow FiO2 Time Delivery Rate 02/14/19 98.7 65 18 100/59 95 Room Air 15:23 (73) 02/10/19 2.0 12:39 Intake and Output 02/13/19 02/13/19 02/14/19 1515:00 23:00 07:00 IntakeIntake Total 240 ml 510 ml BalanceBalance 240 ml 510 ml Exam Exam Review of Systems: CONSTITUTIONAL: No fevers, chills. PULMONARY: No sob CARDIOVASCULAR: No chest pain/palpitations GASTROINTESTINAL: No nausea/vomiting. GENITOURINARY: No hematuria/dysuria. MUSCULOSKELETAL: No myagias/arthalgias. PSYCHIATRIC: The patient denies depression. NEUROLOGIC: No weakness Constitutional: alert Psych: no complaints Head: normocephalic ENMT: mucosa pink and moist Neck: supple, jvd (9 cm water) Respiratory: diminished breath sounds (at bases/B) Cardiovascular: regular rate and rhythm Gastrointestinal: soft, non-tender Musculoskeletal: muscle weakness (mild generalized) Extremities: edema (none) Neurological: other (No focal deficits) Labs Result Diagram: 02/14/19 0537 02/14/19 0537 Results 24hrs Laboratory Tests Test 02/14/19 05:37 White Blood Count 12.3 H Red Blood Count 4.13 L Hemoglobin 11.6 L Hematocrit 36.0 L Mean Corpuscular Volume 87.2 Mean Corpuscular Hemoglobin 28.1 L Mean Corpuscular Hemoglobin Concent 32.2 Red Cell Distribution Width 19.1 H Platelet Count 268 Mean Platelet Volume 9.5 Immature Granulocytes % 1.000 H Neutrophils % 78.4 H Lymphocytes % 9.7 L Monocytes % 9.6 Eosinophils % 1.1 Basophils % 0.2 Nucleated Red Blood Cells % 0.0 Immature Granulocytes # 0.120 H Neutrophils # 9.6 H Lymphocytes # 1.2 Monocytes # 1.2 H Eosinophils # 0.1 Basophils # 0.0 Nucleated Red Blood Cells # 0.0 Sodium Level 138 Potassium Level 4.2 Chloride Level 104 Carbon Dioxide Level 28 Anion Gap 6 Blood Urea Nitrogen 16 Creatinine 0.60 L Est Glomerular Filtrat Rate mL/min Glucose Level 86 Calcium Level 8.5 Medications Medications Current Medications Ondansetron HCl (Zofran Inj) 4 mg Q4H PRN IV NAUSEA AND/OR VOMITING Last administered on 02/10/19 21:22; Admin Dose 4 MG; Start 02/09/19 at 02:30 Morphine Sulfate (morphine) 2 mg Q3 PRN IV SEVERE PAIN LEVEL 7-10 Last administered on 02/10/19 21:22; Admin Dose 2 MG; Start 02/09/19 at 02:30 Acetaminophen (Tylenol Tab) 650 mg Q6H PRN PO MILD PAIN(1-3)OR ELEVATED TEMP; Start 02/09/19 at 15:00 Amlodipine Besylate (Norvasc) 5 mg DAILY PO Last administered on 02/14/19 09:18; Admin Dose 5 MG; Start 02/09/19 at 15:00 Apixaban (Eliquis) 5 mg BID PO Last administered on 02/14/19 09:17; Admin Dose 5 MG; Start 02/09/19 at 15:00 Ascorbic Acid (Vitamin C) 500 mg DAILY PO Last administered on 02/13/19at 08:52; Admin Dose 500 MG; Start 02/10/19 at 09:00 Aspirin (Halfprin) 81 mg DAILY PO Last administered on 02/11/19 08:10; Admin Dose 81 MG; Start 02/09/19 at 15:00; Status Hold Ferrous Sulfate (Ferrous Sulfate (Ec)) 325 mg BID PO ; Start 02/09/19 at 21:00 Finasteride (Proscar) 5 mg DAILY PO Last administered on 02/14/19 09:17; Admin Dose 5 MG; Start 02/09/19 at 15:00 Guaifenesin/ Dextromethorphan (Robitussin Dm Liquid Cup) 10 ml Q4H PRN PO COUGH; Start 02/09/19 at 15:00 Hydralazine HCl (Apresoline) 25 mg Q6H PRN PO FOR SBP ABOVE 160; Start 02/09/19 at 15:00 Loperamide HCl (Imodium Cap) 2 mg Q6H PRN PO DIARRHEA; Start 02/09/19 at 15:00 Lubiprostone (Amitiza) 24 mcg BID PO Last administered on 02/14/19 09:17; Admin Dose 24 MCG; Start 02/09/19 at 15:00 Magnesium Hydroxide (Milk Of Mag) 30 ml DAILY PO Last administered on 02/14/19 09:17; Admin Dose 30 ML; Start 02/10/19 at 09:00 Melatonin (Melatonin) 3 mg QHS PO Last administered on 02/13/19 20:27; Admin Dose 3 MG; Start 02/09/19 at 21:00 Metoprolol Tartrate (Lopressor) 25 mg BID PO Last administered on 02/14/19 09:17; Admin Dose 25 MG; Start 02/09/19 at 15:00 Nitroglycerin (Nitroglycerin (Sl Tab) 0.4 Mg) 1 tab [id number] PRN SL CHEST PAIN; Start 02/09/19 at 15:00 Nystatin 1 applic DAILY TOP Last administered on 02/14/19 09:18; Admin Dose 1 APPLIC; Start 02/10/19 at 09:00 Oxycodone/ Acetaminophen (Endocet (10/ 325)) 1 tab Q4 PRN PO SEVERE PAIN LEVEL 7-10 Last administered on 02/14/19 13:45; Admin Dose 1 TAB; Start 02/09/19 at 15:00 Polyethylene Glycol (Miralax) 17 gm DAILY PO Last administered on 02/14/19 09:17; Admin Dose 17 GM; Start 02/10/19 at 09:00 Zolpidem Tartrate (Ambien) 5 mg QHS PRN PO INSOMNIA; Start 02/09/19 at 15:00 Multivitamins/ Minerals (Theragran-M) 1 tab DAILY PO Last administered on 02/14/19 09:18; Admin Dose 1 TAB; Start 02/10/19 at 09:00 Metoprolol Tartrate (Lopressor) 5 mg Q4H PRN IV NOTE; FOR HR > 100 Last administered on 02/09/19 16:46; Admin Dose 5 MG; Start 02/09/19 at 15:30 Miscellaneous Information (Pending Santyl Order For Wound Care) This patient stacy... PRN PRN XX WOUND CARE; Start 02/09/19 at 17:00 Pantoprazole (Protonix Tab) 40 mg DAILY@06 PO Last administered on 02/14/19 05:44; Admin Dose 40 MG; Start 02/10/19 at 06:00 Al Hydrox/Mg Hydrox/Simethicone (Mag-Al Plus) 30 ml Q6H PRN PO GASTROINTESTINAL UPSET Last administered on 02/10/19 15:26; Admin Dose 30 ML; Start 02/10/19 at 14:30 Mupirocin (Bactroban) 1 applic BID TOP Last administered on 02/14/19 09:18; Admin Dose 1 APPLIC; Start 02/10/19 at 15:30 Gabapentin (Neurontin) 300 mg TID PO Last administered on 02/14/19 13:41; Admin Dose 300 MG; Start 02/11/19 at 21:00 Methylnaltrexone [place] (Relistor) 12 mg Q48H SC Last administered on 02/11/19 18:55; Admin Dose 12 MG; Start 02/11/19 at 18:30 RICH MANSFIELD Feb 14, 2019 18:55
[2019-02-14 19:37] VITALS: BP 130/66; RESP 18
[2019-02-14] MEDS: METOPROLOL 50 MG TAB PO SCH (21:52)
[2019-02-14] MEDS: MELATONIN 3 MG TABLET PO SCH (21:53)
[2019-02-15] VITALS: BP 109/64; PULSE 57; RESP 18
[2019-02-15] MEDS: OXYCODONE/ACETAMINOPHEN (10/325) TAB PO PRN ×2 (03:53→09:43)
[2019-02-15 04:00] VITALS: BP 112/61; PULSE 58; RESP 18
[2019-02-15] MEDS: PANTOPRAZOLE (EC) 40 MG TAB PO SCH (06:26)
[2019-02-15 07:52] VITALS: BP 120/60; PULSE 55; RESP 17
[2019-02-15] MEDS: POLYETHYLENE GLYCOL 17 GM PACKET PO SCH (09:00)
[2019-02-15] MEDS: FERROUS SULFATE (EC) 325 MG TAB PO SCH (09:00)
[2019-02-15] MEDS ORDERED: AMLODIPINE 2.5 MG TAB PO SCH (09:00)
[2019-02-15] MEDS: MULTIVITAMINS/MINERALS TAB PO SCH (09:00)
[2019-02-15] MEDS: ASCORBIC ACID 500 MG TAB PO SCH (09:00)
[2019-02-15] MEDS: METOPROLOL 50 MG TAB PO SCH (09:00)
[2019-02-15] MEDS: GABAPENTIN 300 MG CAP PO SCH ×2 (09:35→13:30)
[2019-02-15] MEDS: APIXABAN 5 MG TABLET PO SCH (09:36)
[2019-02-15] MEDS: FINASTERIDE 5 MG TAB PO SCH (09:36)
[2019-02-15] MEDS: LUBIPROSTONE 24 MCG CAP PO SCH (09:38)
[2019-02-15] MEDS: MAGNESIUM HYDROXIDE 30ML CUP PO SCH (09:38)
[2019-02-15] MEDS: NYSTATIN 15 GM POWDER BTL TOP SCH (09:46)
[2019-02-15] MEDS: MUPIROCIN 2% 22 GM OINT TOP SCH (09:46)
--- NOTE | 2019-02-15 11:43 | CONS ---
Assessment/Plan Assessment/Plan Hospital Course (Demo Recall) IMP: 1.PAF-REmains in SR at this time with 1AVB but had epsiode of PAF with mild RVR 02/13 2.HTN-borderline Hotn 3.cad 4.colon ca refusing surgery 5.chest pain-resolved. Neg trop x 3 6. Fecal impaction/constipation Recc: -Tele -serial ecg's -Continue current BB as tolerated and thus will reduce dose of BB given bradycardia today -norvasc as tolerated only -Continue eliquis -Continue bowel regimen Consultation Date/Type/Reason Admit Date/Time Feb 08, 2019 at 19:24 Initial Consult Date 02/08/19 Type of Consult Cardiology Reason for Consultation PAF Requesting Provider: OSIRIS CIFUENTES MD Date/Time of Note DATE: 02/15/19 TIME: 11:39 Exam/Review of Systems Vital Signs Vitals Vital Signs Date Temp Pulse Resp B/P (MAP) Pulse Ox O2 O2 Flow FiO2 Time Delivery Rate 02/15/19 97 21 08:22 02/15/19 97.5 55 17 120/60 07:52 (80) 02/15/19 Room Air 04:00 02/15/19 2.0 01:41 Intake and Output 02/14/19 02/14/19 02/15/19 1515:00 23:00 07:00 IntakeIntake Total 600 ml 880 ml 240 ml OutputOutput Total 2 ml BalanceBalance 598 ml 880 ml 240 ml Exam Exam Review of Systems: CONSTITUTIONAL: No fevers, chills. PULMONARY: No sob CARDIOVASCULAR: No chest pain/palpitations GASTROINTESTINAL: No nausea/vomiting. GENITOURINARY: No hematuria/dysuria. MUSCULOSKELETAL: No myagias/arthalgias. PSYCHIATRIC: The patient denies depression. NEUROLOGIC: No weakness Constitutional: alert Psych: no complaints Head: normocephalic ENMT: mucosa pink and moist Neck: supple, jvd (9 cm water) Respiratory: diminished breath sounds (at bases/B) Cardiovascular: other (bradycardic, regular rhythm) Gastrointestinal: soft, non-tender Musculoskeletal: muscle tone (normal) Extremities: edema (none) Neurological: other (No focal deficits) Labs Result Diagram: 02/14/19 0537 02/14/19 0537 Medications Medications Current Medications Ondansetron HCl (Zofran Inj) 4 mg Q4H PRN IV NAUSEA AND/OR VOMITING Last a dministered on 02/10/19 21:22; Admin Dose 4 MG; Start 02/09/19 at 02:30 Morphine Sulfate (morphine) 2 mg Q3 PRN IV SEVERE PAIN LEVEL 7-10 Last administered on 02/10/19 21:22; Admin Dose 2 MG; Start 02/09/19 at 02:30 Acetaminophen (Tylenol Tab) 650 mg Q6H PRN PO MILD PAIN(1-3)OR ELEVATED TEMP; Start 02/09/19 at 15:00 Apixaban (Eliquis) 5 mg BID PO Last administered on 02/15/19 09:36; Admin Dose 5 MG; Start 02/09/19 at 15:00 Ascorbic Acid (Vitamin C) 500 mg DAILY PO Last administered on 02/13/19 08:52; Admin Dose 500 MG; Start 02/10/19 at 09:00 Aspirin (Halfprin) 81 mg DAILY PO Last administered on 02/11/19 08:10; Admin Dose 81 MG; Start 02/09/19 at 15:00; Status Hold Ferrous Sulfate (Ferrous Sulfate (Ec)) 325 mg BID PO ; Start 02/09/19 at 21:00 Finasteride (Proscar) 5 mg DAILY PO Last administered on 02/15/19 09:36; Admin Dose 5 MG; Start 02/09/19 at 15:00 Guaifenesin/ Dextromethorphan (Robitussin Dm Liquid Cup) 10 ml Q4H PRN PO COUGH; Start 02/09/19 at 15:00 Hydralazine HCl (Apresoline) 25 mg Q6H PRN PO FOR SBP ABOVE 160; Start 02/09/19 at 15:00 Loperamide HCl (Imodium Cap) 2 mg Q6H PRN PO DIARRHEA; Start 02/09/19 at 15:00 Lubiprostone (Amitiza) 24 mcg BID PO Last administered on 02/15/19 09:38; Admin Dose 24 MCG; Start 02/09/19 at 15:00 Magnesium Hydroxide (Milk Of Mag) 30 ml DAILY PO Last administered on 02/15/19 09:38; Admin Dose 30 ML; Start 02/10/19 at 09:00 Melatonin (Melatonin) 3 mg QHS PO Last administered on 02/14/19 21:53; Admin Dose 3 MG; Start 02/09/19 at 21:00 Nitroglycerin (Nitroglycerin (Sl Tab) 0.4 Mg) 1 tab [id number] PRN SL CHEST PAIN; Start 02/09/19 at 15:00 Nystatin 1 applic DAILY TOP Last administered on 02/15/19 09:46; Admin Dose 1 APPLIC; Start 02/10/19 at 09:00 Oxycodone/ Acetaminophen (Endocet (10/ 325)) 1 tab Q4 PRN PO SEVERE PAIN LEVEL 7-10 Last administered on 02/15/19 09:43; Admin Dose 1 TAB; Start 02/09/19 at 15:00 Polyethylene Glycol (Miralax) 17 gm DAILY PO Last administered on 02/14/19 09:17; Admin Dose 17 GM; Start 02/10/19 at 09:00 Zolpidem Tartrate (Ambien) 5 mg QHS PRN PO INSOMNIA; Start 02/09/19 at 15:00 Multivitamins/ Minerals (Theragran-M) 1 tab DAILY PO Last administered on 02/14/19 09:18; Admin Dose 1 TAB; Start 02/10/19 at 09:00 Metoprolol Tartrate (Lopressor) 5 mg Q4H PRN IV NOTE; FOR HR > 100 Last administered on 02/09/19 16:46; Admin Dose 5 MG; Start 02/09/19 at 15:30 [facility] This patient stacy... PRN PRN XX WOUND CARE; Start 02/09/19 at 17:00 Pantoprazole (Protonix Tab) 40 mg DAILY@06 PO Last administered on 02/15/19 06:26; Admin Dose 40 MG; Start 02/10/19 at 06:00 Al Hydrox/Mg Hydrox/Simethicone (Mag-Al Plus) 30 ml Q6H PRN PO GASTROINTESTINAL UPSET Last administered on 02/10/19 15:26; Admin Dose 30 ML; Start 02/10/19 at 14:30 Mupirocin (Bactroban) 1 applic BID TOP Last administered on 02/15/19 09:46; Admin Dose 1 APPLIC; Start 02/10/19 at 15:30 Gabapentin (Neurontin) 300 mg TID PO Last administered on 02/15/19at 09:35; Admin Dose 300 MG; Start 02/11/19 at 21:00 Methylnaltrexone [place] (Relistor) 12 mg Q48H SC Last administered on 02/11/19at 18:55; Admin Dose 12 MG; Start 02/11/19 at 18:30 Metoprolol Tartrate (Lopressor) 50 mg BID PO Last administered on 02/14/19at 21:52; Admin Dose 50 MG; Start 02/14/19 at 21:00 Amlodipine Besylate (Norvasc) 2.5 mg DAILY PO ; Start 02/15/19 at 09:00 RICH MANSFIELD Feb 15, 2019 11:43
--- NOTE | 2019-02-15 12:18 | PN ---
Date/Time of Note Date/Time of Note DATE: 02/15/19 TIME: 12:15 Assessment/Plan VTE Prophylaxis Risk score (from [facility])>0 risk: 7 SCD applied (from [facility]): No SCD contraindicated: other Pharmacological prophylaxis: other Pharm contraindication: other Lines/Catheters IV Catheter Type (from [facility]): Peripheral IV Urinary Cath still in place: No Assessment/Plan Assessment/Plan - Atrial fibrillation with rapid rate ventricular response, currently atrial fibrillation at controlled rate. Continue Eliquis. Dr. Rodarte is following in cardiology consultation. - Fecal impaction, continue bowel regiment. Dr. Castano is following in gastroenterology consultation. - Hypertension, continue Norvasc. - Benign prostatic hypertrophy. Continue Proscar. - Peripheral neuropathy. Continue Neurontin. - Paranoid psychosis. S/p evaluation by DNP [place], pt refused psychiatric evaluation. - Colon cancer. The patient refused further workup. - Bilateral inguinal hernias without evidence of obstruction or strangulation. - Left proximal femur fracture, patient refused surgery. - History of C. difficile colitis Further recommendations will depend on hospital course. Plan of care discussed with Dr. Baron. Result Diagram: 02/14/19 0537 02/14/19 0537 Subjective 24 Hr Interval Summary Free Text/Dictation -Bradycardia -refuse any treatment for colon cancer including surgery. - no new events reported Eyes: no complaints Respiratory: no complaints Cardiovascular: no complaints Gastrointestinal: no complaints Genitourinary: no complaints Musculoskeletal: no complaints Skin: no complaints Neurologic: no complaints Endocrine: no complaints, polyuria Psychological: nl mood/affect Exam/Review of Systems Exam Vitals Vital Signs Date Temp Pulse Resp B/P (MAP) Pulse Ox O2 O2 Flow FiO2 Time Delivery Rate 02/15/19 97 21 08:22 02/15/19 97.5 55 17 120/60 07:52 (80) 02/15/19 Room Air 04:00 02/15/19 2.0 01:41 Intake and Output 02/14/19 02/14/19 02/15/19 1515:00 23:00 07:00 IntakeIntake Total 600 ml 880 ml 240 ml OutputOutput Total 2 ml BalanceBalance 598 ml 880 ml 240 ml Constitutional: alert, well developed Psych: nl mood/affect Eyes: nl lids, nl sclera ENMT: nl external ears & nose Respiratory: clear to auscultation Cardiovascular: nl pulses, other (s1s2) Gastrointestinal: soft Musculoskeletal: range of motion Extremities: normal pulses Lymph: nontender Medications Medication Current Medications Ondansetron HCl (Zofran Inj) 4 mg Q4H PRN IV NAUSEA AND/OR VOMITING Last admi nistered on 02/10/19 21:22; Admin Dose 4 MG; Start 02/09/19 at 02:30 Morphine Sulfate (morphine) 2 mg Q3 PRN IV SEVERE PAIN LEVEL 7-10 Last administered on 02/10/19 21:22; Admin Dose 2 MG; Start 02/09/19 at 02:30 Acetaminophen (Tylenol Tab) 650 mg Q6H PRN PO MILD PAIN(1-3)OR ELEVATED TEMP; Start 02/09/19 at 15:00 Apixaban (Eliquis) 5 mg BID PO Last administered on 02/15/19 09:36; Admin Dose 5 MG; Start 02/09/19 at 15:00 Ascorbic Acid (Vitamin C) 500 mg DAILY PO Last administered on 02/13/19 08:52; Admin Dose 500 MG; Start 02/10/19 at 09:00 Aspirin (Halfprin) 81 mg DAILY PO Last administered on 02/11/19 08:10; Admin Dose 81 MG; Start 02/09/19 at 15:00; Status Hold Ferrous Sulfate (Ferrous Sulfate (Ec)) 325 mg BID PO ; Start 02/09/19 at 21:00 Finasteride (Proscar) 5 mg DAILY PO Last administered on 02/15/19 09:36; Admin Dose 5 MG; Start 02/09/19 at 15:00 Guaifenesin/ Dextromethorphan (Robitussin Dm Liquid Cup) 10 ml Q4H PRN PO COUGH; Start 02/09/19 at 15:00 Hydralazine HCl (Apresoline) 25 mg Q6H PRN PO FOR SBP ABOVE 160; Start 02/09/19 at 15:00 Loperamide HCl (Imodium Cap) 2 mg Q6H PRN PO DIARRHEA; Start 02/09/19 at 15:00 Lubiprostone (Amitiza) 24 mcg BID PO Last administered on 02/15/19 09:38; Admin Dose 24 MCG; Start 02/09/19 at 15:00 Magnesium Hydroxide (Milk Of Mag) 30 ml DAILY PO Last administered on 02/15/19 09:38; Admin Dose 30 ML; Start 02/10/19 at 09:00 Melatonin (Melatonin) 3 mg QHS PO Last administered on 02/14/19 21:53; Admin Dose 3 MG; Start 02/09/19 at 21:00 Nitroglycerin (Nitroglycerin (Sl Tab) 0.4 Mg) 1 tab [id number] PRN SL CHEST PAIN; Start 02/09/19 at 15:00 Nystatin 1 applic DAILY TOP Last administered on 02/15/19 09:46; Admin Dose 1 APPLIC; Start 02/10/19 at 09:00 Oxycodone/ Acetaminophen (Endocet (10)) 1 tab Q4 PRN PO SEVERE PAIN LEVEL 7-10 Last administered on 02/15/19 09:43; Admin Dose 1 TAB; Start 02/09/19 at 15:00 Polyethylene Glycol (Miralax) 17 gm DAILY PO Last administered on 02/14/19 09:17; Admin Dose 17 GM; Start 02/10/19 at 09:00 Zolpidem Tartrate (Ambien) 5 mg QHS PRN PO INSOMNIA; Start 02/09/19 at 15:00 Multivitamins/ Minerals (Theragran-M) 1 tab DAILY PO Last administered on 02/14/19 09:18; Admin Dose 1 TAB; Start 02/10/19 at 09:00 Metoprolol Tartrate (Lopressor) 5 mg Q4H PRN IV NOTE; FOR HR > 100 Last administered on 02/09/19 16:46; Admin Dose 5 MG; Start 02/09/19 at 15:30 [facility]iscellaneous Information [facility] This patient stacy... PRN PRN XX WOUND CARE; Start 02/09/19 at 17:00 Pantoprazole (Protonix Tab) 40 mg DAILY@06 PO Last administered on 02/15/19 06:26; Admin Dose 40 MG; Start 02/10/19 at 06:00 Al Hydrox/Mg Hydrox/Simethicone (Mag-Al Plus) 30 ml Q6H PRN PO GASTROINTESTINAL UPSET Last administered on 02/10/19 15:26; Admin Dose 30 ML; Start 02/10/19 at 14:30 Mupirocin (Bactroban) 1 applic BID TOP Last administered on 02/15/19 09:46; Admin Dose 1 APPLIC; Start 02/10/19 at 15:30 Gabapentin (Neurontin) 300 mg TID PO Last administered on 02/15/19at 09:35; Admin Dose 300 MG; Start 02/11/19 at 21:00 Methylnaltrexone [place] (Relistor) 12 mg Q48H SC Last administered on 02/11/19at 18:55; Admin Dose 12 MG; Start 02/11/19 at 18:30 Amlodipine Besylate (Norvasc) 2.5 mg DAILY PO ; Start 02/15/19 at 09:00 Metoprolol Tartrate (Lopressor) 25 mg BID PO ; Start 02/15/19 at 21:00 YAZ BARTLETT Feb 15, 2019 12:18
--- NOTE | 2019-02-15 12:39 | DS ---
Date/Time of Note Date/Time of Note DATE: 02/15/19 TIME: 12:39 Discharge Summary Admission/Discharge Info Admit Date/Time Feb 08, 2019 at 19:24 Discharge Date/Time Discharge Diagnosis - Atrial fibrillation with rapid rate ventricular response, currently atrial f ibrillation at controlled rate. Continue Eliquis. - Fecal impaction, continue bowel regiment. - Hypertension, continue Norvasc. - Benign prostatic hypertrophy. Continue Proscar. - Peripheral neuropathy. Continue Neurontin. - Paranoid psychosis. pt refused psychiatric evaluation. - Colon cancer. The patient refused further workup. - Bilateral inguinal hernias without evidence of obstruction or strangulation. - Left proximal femur fracture, patient refused surgery. - History of C. difficile colitis Plan of care discussed with Dr. Baron. Patient Condition: Stable Hospital Course This is an 78-year-old male, a SNF resident is well known to me from previous admissions, with a history of DVT, untreated colon cancer, hypertension, CHF, paroxysmal atrial fibrillation, benign prostatic hypertrophy and paranoid psychosis. The patient is admitted with c/o of diffuse abdominal pain and nonbloody nonbilious vomiting at residential today. He is complaining of diffuse constant abdominal pain, severe, constant, denies nausea/vomitting. Per his old records, he has been to multiple visits for abdominal pain. His last admission was in December 2018 for severe constipation, fecal impaction, and stercoral colitis. Patient has tachycardia the same day and was transferred to tele unit. Patient was seen by machine accountant and had AFIB w/ controlled rate. Patient transferred in a stable condition General: NAD, VSS, alert/responsive Eyes: no complaints Respiratory: no complaints Cardiovascular: no complaints Gastrointestinal: no complaints Genitourinary: no complaints Musculoskeletal: no complaints Skin: no complaints Neurologic: no complaints Endocrine: no complaints, polyuria Psychological: nl mood/affect Dw Dr Baron. Home Meds Reported Medications Zolpidem Tartrate* (Zolpidem Tartrate*) 5 Mg Tablet, 5 MG PO QHS PRN for INSOMNIA, #30 TAB 02/09/19 Guaifenesin-Dextromethorphan* (Robitussin* DM) 100MG/10MG/5ML Syrup, 10 ML PO Q6H PRN for COUGH, ML 02/09/19 Protein Supplement (Promod) 946 Ml Liquid, 30 ML PO TID for SUPPLEMENT 02/09/19 Polyethylene Glycol* (Miralax*) 17 Gm Powd.pack, 17 GM PO DAILY, #30 PACKET 02/09/19 Metoprolol Tartrate* (Lopressor*) 25 Mg Tablet, 25 MG PO BID for HTN, #60 TAB 02/09/19 Melatonin (MELADOX) 3 Mg Tablet.er, 3 MG PO QHS, TAB 02/09/19 Lubiprostone* (Amitiza*) 24 Mcg Capsule, 24 MCG PO BID, #60 CAP 02/09/19 Alpha Lipoic Acid (Alpha Lipoic Acid) 200 Mg Tablet, 200 MG PO BID, TAB 02/09/19 Apixaban* (Eliquis*) 2.5 Mg Tablet, 5 MG PO BID 12/28/18 Ascorbic Acid* (Vitamin C*) 500 Mg Capsule.sa, 500 MG PO DAILY, CAP 12/28/18 Nystatin (Nystatin Powder) 1 Each Powder.ea., 1 APPLIC TOPICAL DAILY, #1 BOTTLE 12/28/18 Magnesium Hydroxide* (Milk Of Magnesia*) 400 Mg/5 Ml Oral.susp, 30 ML PO DAILY, ML 12/28/18 Hydralazine Hcl* (Hydralazine Hcl*) 25 Mg Tab, 25 MG PO Q6H PRN for BLOOD PRESSURE SUPPORT, #60 TAB 12/28/18 Ferrous Sulfate* (Ferrous Sulfate*) 325 Mg Tabec, 325 MG PO BID, TAB 12/28/18 Methyl Salicylate/Menthol (Bengay Greaseless Cream) 57 Gm Cream..g., 57 GM TP TID APPLY TO LEFT HIP 12/28/18 Oxycodone HCl/Acetaminophen (Percocet 10-325 mg Tablet) 1 Each Tablet, 1 EACH PO Q4 PRN for SEVERE PAIN LEVEL 7-10, TAB 07/03/18 Loperamide Hcl* (Loperamide Hcl*) 2 Mg Cap, 2 MG PO Q6 PRN for DIARRHEA, CAP 07/03/18 Amlodipine Besylate* (Norvasc*) 5 Mg Tablet, 5 MG PO DAILY, TAB HOLD FOR SBP<110 OR HR<60 07/03/18 Acetaminophen* (Acetaminophen*) 650 Mg Tablet, 650 MG PO Q6H PRN for PAIN AND OR ELEVATED TEMP, #30 TAB 07/03/18 Guaifenesin-Dextromethorphan* (Robitussin* DM) 100MG/10MG/5ML Syrup, 10 ML PO Q4H PRN for COUGH, ML 01/27/18 Nitroglycerin* (Nitroglycerin* SL) 0.4 Mg Tab.subl, 0.4 MG SL Q5MIN PRN for CHEST PAIN, BOTTLE 01/27/18 Multivitamin with Minerals (Multivitamins with Minerals) 1 Each Tablet, 1 EACH PO DAILY, TAB 01/27/18 Melatonin (Melatin) 3 Mg Tablet, 3 MG PO QHS, TAB 01/27/18 Gabapentin* (Gabapentin*) 100 Mg Capsule, 200 MG PO TID, #180 CAP 01/27/18 Mineral Oil* (Fleet* Mineral Oil Enema) Unknown Strength Oil, 118 ML [place] Q72H PRN for CONSTIPATION, ENEMA 01/27/18 Finasteride* (Finasteride*) 5 Mg Tablet, 5 MG PO DAILY, TAB 01/27/18 Discontinued Reported Medications Aspirin (Low Dose Aspirin) 81 Mg Tablet., 81 MG PO DAILY, #30 TAB 12/28/18 Primary Care Provider Pedro Baron MD Time spent on discharge: > 30 minutes YAZ BARTLETT Feb 15, 2019 12:39
[2019-02-15] MEDS ORDERED: METOPROLOL 25 MG TAB PO SCH (21:00)
--- NOTE | 2019-02-18 09:12 | DS ---
Date/Time of Note Date/Time of Note DATE: 02/18/19 TIME: 09:09 Discharge Summary Admission/Discharge Info Admit Date/Time Feb 08, 2019 at 19:24 Discharge Date/Time Feb 15, 2019 at 16:03 Discharge Diagnosis - Atrial fibrillation with rapid rate ventricular response, currently atrial fibrillation at controlled rate. Continue Eliquis. - Fecal impaction, continue bowel regiment. - Hypertension, continue Norvasc. - Benign prostatic hypertrophy. Continue Proscar. - Peripheral neuropathy. Continue Neurontin. - Paranoid psychosis. pt refused psychiatric evaluation. - Colon cancer. The patient refused further workup. - Bilateral inguinal hernias without evidence of obstruction or strangulation. - Left proximal femur fracture, patient refused surgery. - History of C. difficile colitis Plan of care discussed with Dr. Baron. Hx of Present Illness 78-year-old male with a history of untreated colon cancer presenting with severe abdominal pain as well as nonbloody nonbilious vomiting at assisted today. Patient is not answering questions appropriately, possibly limited due to pain and discomfort. He is complaining of diffuse abdominal pain, severe, constant. Per his records, he does have a history of multiple visits for abdominal pain. Last time he was admitted in December 2018 for severe constipation, fecal impaction, and stercoral colitis. On that admission, his constipation was treated and he was consulted by GI. Patient reportedly refused any treatment for his cancer. No recent fevers or chills. No other complaints. Hospital Course - Atrial fibrillation with rapid rate ventricular response, currently atrial fibrillation at controlled rate. Continue Eliquis. Dr. Rodarte is following in cardiology consultation. - Fecal impaction, resolved. Continue Amitiza. Dr. Castano is following in gastroenterology consultation. - Hypertension, continue Norvasc. - Benign prostatic hypertrophy. Continue Proscar. - Peripheral neuropathy. Continue Neurontin. - Paranoid psychosis. S/p evaluation by DNP [place], pt refused psychiatric evaluation. - Colon cancer. The patient refused further workup, treatment or surgery. - Bilateral inguinal hernias without evidence of obstruction or strangulation. - Left proximal femur fracture, patient refused surgery. - History of C. difficile colitis Plan of care discussed with Dr. Baron. Home Meds Reported Medications Zolpidem Tartrate* (Zolpidem Tartrate*) 5 Mg Tablet, 5 MG PO QHS PRN for INSOMNIA, #30 TAB 02/09/19 Guaifenesin-Dextromethorphan* (Robitussin* DM) 100MG/10MG/5ML Syrup, 10 ML PO Q6H PRN for COUGH, ML 02/09/19 Protein Supplement (Promod) 946 Ml Liquid, 30 ML PO TID for SUPPLEMENT 02/09/19 Polyethylene Glycol* (Miralax*) 17 Gm Powd.pack, 17 GM PO DAILY, #30 PACKET 02/09/19 Metoprolol Tartrate* (Lopressor*) 25 Mg Tablet, 25 MG PO BID for HTN, #60 TAB 02/09/19 Melatonin (MELADOX) 3 Mg Tablet.er, 3 MG PO QHS, TAB 02/09/19 Lubiprostone* (Amitiza*) 24 Mcg Capsule, 24 MCG PO BID, #60 CAP 02/09/19 Alpha Lipoic Acid (Alpha Lipoic Acid) 200 Mg Tablet, 200 MG PO BID, TAB 02/09/19 Apixaban* (Eliquis*) 2.5 Mg Tablet, 5 MG PO BID 12/28/18 Ascorbic Acid* (Vitamin C*) 500 Mg Capsule.sa, 500 MG PO DAILY, CAP 12/28/18 Nystatin (Nystatin Powder) 1 Each Powder.ea., 1 APPLIC TOPICAL DAILY, #1 BOTTLE 12/28/18 Magnesium Hydroxide* (Milk Of Magnesia*) 400 Mg/5 Ml Oral.susp, 30 ML PO DAILY, ML 12/28/18 Hydralazine Hcl* (Hydralazine Hcl*) 25 Mg Tab, 25 MG PO Q6H PRN for BLOOD PRESSURE SUPPORT, #60 TAB 12/28/18 Ferrous Sulfate* (Ferrous Sulfate*) 325 Mg Tabec, 325 MG PO BID, TAB 12/28/18 Methyl Salicylate/Menthol (Bengay Greaseless Cream) 57 Gm Cream..g., 57 GM TP TID APPLY TO LEFT HIP 12/28/18 Oxycodone HCl/Acetaminophen (Percocet 10-325 mg Tablet) 1 Each Tablet, 1 EACH PO Q4 PRN for SEVERE PAIN LEVEL 7-10, TAB 07/03/18 Loperamide Hcl* (Loperamide Hcl*) 2 Mg Cap, 2 MG PO Q6 PRN for DIARRHEA, CAP 07/03/18 Amlodipine Besylate* (Norvasc*) 5 Mg Tablet, 5 MG PO DAILY, TAB HOLD FOR SBP<110 OR HR<60 07/03/18 Acetaminophen* (Acetaminophen*) 650 Mg Tablet, 650 MG PO Q6H PRN for PAIN AND OR ELEVATED TEMP, #30 TAB 07/03/18 Guaifenesin-Dextromethorphan* (Robitussin* DM) 100MG/10MG/5ML Syrup, 10 ML PO Q4H PRN for COUGH, ML 01/27/18 Nitroglycerin* (Nitroglycerin* SL) 0.4 Mg Tab.subl, 0.4 MG SL Q5MIN PRN for CHEST PAIN, BOTTLE 01/27/18 Multivitamin with Minerals (Multivitamins with Minerals) 1 Each Tablet, 1 EACH PO DAILY, TAB 01/27/18 Melatonin (Melatin) 3 Mg Tablet, 3 MG PO QHS, TAB 01/27/18 Gabapentin* (Gabapentin*) 100 Mg Capsule, 200 MG PO TID, #180 CAP 01/27/18 Mineral Oil* (Fleet* Mineral Oil Enema) Unknown Strength Oil, 118 ML [place] Q72H PRN for CONSTIPATION, ENEMA 01/27/18 Finasteride* (Finasteride*) 5 Mg Tablet, 5 MG PO DAILY, TAB 01/27/18 Discontinued Reported Medications Aspirin (Low Dose Aspirin) 81 Mg Tablet., 81 MG PO DAILY, #30 TAB 12/28/18 Follow-up Plan [facility] with [facility] Primary Care Provider Pedro Baron MD Time spent on discharge: > 30 minutes LEAH BROUSSARD Feb 18, 2019 09:12
== END 2019-02-15 16:03 | DRG 375 ==
LOC: E/R 16:56 → 2NE 19:24 → CANRESERV 20:00 → 5EC 02-09 11:13 → 6WM 02-09 16:23
PROVIDERS: ADMIT Internal Medicine; ATTEND Internal Medicine
DX: C18.9 Malignant neoplasm of colon, unspecified (principal); F20.0 Paranoid schizophrenia; L89.152 Pressure ulcer of sacral region, stage 2; I11.0 Hypertensive heart disease with heart failure; G62.9 Polyneuropathy, unspecified; I50.9 Heart failure, unspecified; I48.2 Chronic atrial fibrillation; L89.621 Pressure ulcer of left heel, stage 1; L89.611 Pressure ulcer of right heel, stage 1; S72.142G Displaced intertrochanteric fracture of left femur, subsequent encounter for closed fracture with delayed healing; K40.90 Unilateral inguinal hernia, without obstruction or gangrene, not specified as recurrent; K56.41 Fecal impaction; I25.10 Atherosclerotic heart disease of native coronary artery without angina pectoris; E78.5 Hyperlipidemia, unspecified; N40.0 Benign prostatic hyperplasia without lower urinary tract symptoms; X58.XXXD Exposure to other specified factors, subsequent encounter; Z79.82 Long term (current) use of aspirin; Z79.02 Long term (current) use of antithrombotics/antiplatelets
CPT/HCPCS: 36415; 71045; 74018; 74176; 80048; 80053; 83690; 83735; 84484; 85025; 87081; 93005; 96374; 96375; J2270; J2405; J7030; J7042